=== PATIENT | male | born 1955 | race Caucasian/White ===

== ENCOUNTER 2023-09-01 09:00 | Outpatient (OUT) | payer MEDICARE, SELFPAY ==
[2023-09-02 04:07] LABS: PSA, Free 2.09 ng/mL
== END 2023-09-01 09:01 | disposition home or self-care (01) ==
LOC: LAB 09:05
PROVIDERS: Visit Provider Physician Assistant
DX: R97.20 Elevated prostate specific antigen [PSA] (principal)
CPT/HCPCS: 36415; 84153; 84154

== ENCOUNTER 2024-03-18 09:15 | Outpatient (OUT) | payer MEDICARE, SELFPAY ==
[2024-03-18 09:46] LABS: Basophils Percent Auto 0.4 % (0.2-2.0); Eosinophils Absolute Auto 0.1 10^3/uL (0.0-0.7); Eosinophils Percent Auto 2.2 % (0.9-7.0); Hematocrit 41.8 % (42.0-54.0); Immature Granulocytes Abs Auto 0.03 10^3/uL (0.00-0.03); Immature Granulocytes Pct Auto 0.6 % (0.0-0.5); Lymphocytes Absolute Auto 1.6 10^3/uL (1.2-3.8); Lymphocytes Percent Auto 31.2 % (20.5-60.0); Mean Corpuscular HGB Conc 31.1 g/dL (29.9-35.2); Mean Corpuscular Hemoglobin 28.2 pg (25.9-34.0); Mean Corpuscular Volume 90.7 fL (80.0-94.0); Mean Platelet Volume 10.7 fL (9.5-13.5); Monocytes Absolute Auto 0.4 10^3/uL (0.3-0.8); Monocytes Percent Auto 8.1 % (1.7-12.0); Neutrophils Absolute Auto 2.9 10^3/uL (1.4-6.5); Neutrophils Percent Auto 57.5 % (43.0-75.0); Platelet Count 210 10^3/uL (150-450); Red Blood Count 4.61 10^6/uL (4.70-6.10); White Blood Count 5.1 10^3/uL (4.0-11.0)
[2024-03-18 10:16] LABS: Alanine Aminotransferase 23 U/L (16-63); Albumin Level 3.5 g/dL (3.4-5.0); Alkaline Phosphatase 63 U/L (46-116); Anion Gap 12.2; Aspartate Amino Transferase 16 U/L (15-37); BUN Creatinine Ratio 11.2; Bilirubin Total 0.5 mg/dL (0.2-1.0); Calcium 9.1 mg/dL (8.5-10.1); Carbon Dioxide 29.8 mmol/L (21.0-32.0); Chloride 102 mmol/L (98-107); Chol HDL Ratio 3.7; Cholesterol 166 mg/dL (<=200); Estimated GFR (African America >60 (>=60 mL/min/1.73m^2); Estimated GFR (Non-African Ame 53 (>=60 mL/min/1.73m^2); Globulin 3.6 g/dL; Glucose 180 mg/dL (74-106); HDL Cholesterol 45 mg/dL (40-60); Sodium 140 mmol/L (136-145); Total Protein 7.1 g/dL (6.4-8.2); Triglycerides 317 mg/dL (<=150); VLDL CHOLESTEROL 63.4 mg/dL
== END 2024-03-18 09:16 | disposition home or self-care (01) ==
LOC: LAB 09:18
PROVIDERS: Visit Provider Nurse Practitioner
DX: E78.00 Pure hypercholesterolemia, unspecified (principal); I10 Essential (primary) hypertension
CPT/HCPCS: 36415; 80053; 80061; 85025

== ENCOUNTER 2024-04-06 08:47 | Outpatient (OUT) | payer MEDICARE, SELFPAY ==
[2024-04-07 04:07] LABS: PSA, Free 2.14 ng/mL; Prostate Specific Ag 4.2 ng/mL (0.0-4.0)
== END 2024-04-06 08:48 | disposition home or self-care (01) ==
LOC: LAB 08:50
PROVIDERS: Visit Provider Physician Assistant
DX: R97.20 Elevated prostate specific antigen [PSA] (principal)
CPT/HCPCS: 36415; 84153; 84154

== ENCOUNTER 2024-05-24 08:19 | Outpatient (OUT) | payer MEDICARE, SELFPAY ==
--- OUTSIDE RECORDS SUMMARY | 2024-05-24 08:30 | XMS_ITS | CCD ---
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 condition. If the prostate enlarges away from the urethra, urine flow will not be blocked. If it enlarges toward the urethra and compresses it, there will be problems passing urine. What increases the risk? This condition is more likely to develop in men older than 50 years. What are the signs or symptoms? Symptoms of this condition include: ? Getting up often during the night to urinate. ? Needing to urinate frequently during the day. ? Difficulty starting urine flow. ? Decrease in size and strength of your urine stream. ? Leaking (dribbling) after urinating. ? Inability to pass urine. This needs immediate treatment. ? Inability to completely empty your bladder. ? Pain when you pass urine. This is more common if there is also an infection. ? Urinary tract infection (UTI). How is this diagnosed? This condition is diagnosed based on your medical history, a physical exam, and your symptoms. Tests will also be done, such as: ? A post-void bladder scan. This measures any amount of urine that may remain in your bladder after you finish urinating. ? A digital rectal exam. In a rectal exam, your health care provider checks your prostate by putting a lubricated, gloved finger into your rectum to feel the back of your prostate gland. This exam detects the size of your gland and any abnormal lumps or growths. ? An exam of your urine (urinalysis). ? A prostate specific antigen (PSA) screening. This is a blood test used to screen for prostate cancer. ? An ultrasound. This test uses sound waves to electronically produce a picture of your prostate gland. Your health care provider may refer you to a specialist in kidney and prostate diseases (urologist). How is this treated? Once symptoms begin, your health care provider will monitor your condition (active surveillance or watchful waiting). Treatment for this condition will depend on the severity of your condition. Treatment may include: ? Observation and yearly exams. This may be the only treatment needed if your condition and symptoms are mild. ? Medicines to relieve your symptoms, including: ? Medicines to shrink the prostate. ? Medicines to relax the muscle of the prostate. ? Surgery in severe cases. Surgery may include: ? Prostatectomy. In this procedure, the prostate tissue is removed completely through an open incision or with a laparoscope or robotics. ? Transurethral resection of the prostate (TURP). In this procedure, a tool is inserted through the opening at the tip of the penis (urethra). It is used to cut away tissue of the inner core of the prostate. The pieces are removed through the same opening of the penis. This removes the blockage. ? Transurethral incision (TUIP). In this procedure, small cuts are made in the prostate. This lessens the prostate's pressure on the urethra. ? Transurethral microwave thermotherapy (TUMT). This procedure uses microwaves to create heat. The heat destroys and removes a small amount of prostate tissue. ? Transurethral needle ablation (TUNA). This procedure uses radio frequencies to destroy and remove a small amount of prostate tissue. ? Interstitial laser coagulation (ILC). This procedure uses a laser to destroy and remove a small amount of prostate tissue. ? Transurethral electrovaporization (TUVP). This procedure uses electrodes to destroy and remove a small amount of prostate tissue. ? Prostatic urethral lift. This procedure inserts an implant to push the lobes of the prostate away from the urethra. Follow these instructions at home: ? Take wphu-yno-itueenu and prescription medicines only as told by your health care provider. ? Monitor your symptoms for any changes. Contact your health care provider with any changes. ? Avoid drinking large amounts of liquid before going to bed or out in public. ? Avoid or reduce how much caffeine or alcohol you drink. ? Give yourself time when you urinate. ? Keep all follow-up visits. This is important. Contact a health care provider if: ? You have unexplained back pain. ? Your symptoms do not get better with treatment. ? You develop side effects from the medicine (more content not included)... Normal [facility] Urology Office/Clinic Noteon 03-04-2023 Urology Office/Clinic Note Chief Complaint 6 month with PSA HPI Staff 5m male here for 6 month with PSA. Pt. did not get PSA done. DX: Elevated PSA, BPH & Prostatitis. *Tamsulosin 0.4mg qd therapy. Select MDX done 08/22/21, MRI done 01/22/22. Previous PSA 4.65 with 67% done 06/14/22. Dysuria: no Incomplete bladder emptying: no Hematuria: UA show trace today Frequency: 2-3 hours Urgency: no Nocturia: 2x's Stream: good stream Post void dripping: no Wearing pads/ Depends: no Urge incontinence: no Stress incontinence: no Incontinence without Sensory Awareness: no Abdominal pain: no Flank pain: no History of Present Illness staff HPI reviewed and agree. Review of Systems PHQ Score Initial Depression Screen Score: 0 SCORE no fever, chills, malaise, myalgia. no rash/lesions. no chest pain, palpitations, or SOB. no abdominal pain, nausea, vomiting. no unilateral calf swelling, redness, pain Physical Exam Vitals & Measurements HT: 75 in HT: 190 cm WT: 116 kg WT: 255.2 lb BMI: 32.13 General: nontoxic, NAD Mouth: moist mucosa Lungs: normal respiratory effort Cardio: regular rate, good distal perfusion Abdomen: nondistended, no suprapubic distention or tenderness, no CVA tenderness Neurologic: Grossly normal Skin: No rashes or suspicious lesions CARL: benign. no asymmetry, induration, nodules. Assessment/Plan ULI 25. 1. Elevated PSA (R97.20: Elevated prostate specific antigen [PSA]) PSA 06/14/22 - 4.65 & 67% 01/03/22- 3.5 & 43.7% (post abx), PSA density 0.02 09/25/21- 6.2 & 29.7% 06/13/21- 4.620 & 67% Select MDX 08/22/21 positive (51%, 23%) No known family hx of prostate cancer Prior CARL neg MRI prostate 01/22/22 at [facility] [place] showed pt prostate volume 154mL and no MRI evidence of prostate malignancy. Pt did not have PSA drawn for today's appointment. Will order to be done within the next few days. Call w results. -If stable, will follow up in the summer w/ repeat PSA FT. -If increased, we discussed repeating prostate MRI vs proceed w prostate biopsy. Pt not sure how he would like to proceed. Wants to think about it and depends how significant PSA changes. 2. BPH (benign prostatic hyperplasia) (N40.0: Benign prostatic hyperplasia without lower urinary tract symptoms) IPSS 3. Pt is taking tamsulosinand is _with overall symptom control. Pt is experiencing noside effects. We discussed current dose and optional changes: increasing tamsulosin to BID adding an additional agent such as finasteride/dutasteride I discussed with the patient the different surgical treatment options for bladder outlet obstruction including TURP, Rezum, and Urolift. The patient prefers to continue the BPH medications at this time. -Pt prefers to continue current regimen with no changes at this time. 3. History of prostatitis (Z87.438: Personal history of other diseases of male genital organs) treated w 6 wks abx for chronic prostatitis fall 2021 w improvement noted after finishing medication. asymptomatic. UA today shows trace-intact blood. Follow-up With When Contact Information LORETTA COCHRAN, ADRIANA Donovan, URL [address] [place] [address] Additional Instructions: 6 months w/ PSA FT Patient Education Benign Prostatic Hyperplasia Documentation recorded by the benjamin Prince accurately reflects the services(s) I performed and decisions made by me. Authenticated by Adriana Bustamante PA-C on 03/04/2023 17:55:49. ISarah, personally scribed for Adriana Bustamante PA-C on 03/04/2023 14:54:55. . Problem List/Past Medical History Ongoing Anticoagulated BPH (benign prostatic hyperplasia) Diabetes 1.5, managed as type 2 Elevated PSA Glaucoma Heart murmur High cholesterol History of prostatitis Hypertension Nocturia Prostatitis Historical No qualifying data Procedure/Surgical History Hernia. Medications amLODIPine 10 mg Tab atorvastatin 10 mg Tab carvedilol 6.25 mg Tab Eliquis 5 mg oral tablet fenofibrate 145 mg Tab Flomax 0.4 mg Cap, 0.4 mg= 1 cap(s), Oral, Daily, 6 refills hydrochlorothiazide-losar martínez 25 mg-100 mg Tab latanoprost Opth 0.005% Ritika metformin 750 mg oral tablet, extended release Allergies No Known Medication Allergies Social History Tobacco - Denies Tobacco Use, 08/22/2021 Never (less than 100 in lifetime) Tobacco Use:. Never Smokeless Tobacco Use:. Household tobacco concerns: No., 08/06/2022 Family History Diabetes mellitus type 2: Father. High blood pressure: Father. High cholesterol: Father. Immunizations Vaccine Date Status influenza virus vaccine, inactivated 01/2023 Recorded pneumococcal 20-valent conjugate vaccine 06/18/2022 Recorded influenza virus vaccine, inactivated 12/05/2021 Recorded SARS-CoV-2 (COVID-19) [id number] 12/05/2021 Recorded diphtheria/pertussis, acel/tetanus adult 06/14/2021 Recorded pneumococcal 13-valent vaccine 03/15/19 (more content not included)... Normal [facility] Comment on above: Result Comment: Elec tronically Signed By: ADRIANA BUSTAMANTE PA-C\.br\Date and Time Signed: 03/04/23 17:55 EST\.br\Electronically Co-Signed By: Sarah Prince\.br\Date and Time Co-Signed: 03/04/23 14:55 EST Glucose Glucometer (BldC) [M ass/Vol]Ordered By: Asim Dodge on 02-26-2023 Glucose [Mass/Vol] 157 mg/dL [facility] Comment on above: Random Glucose Refer ence Range is dependent on time and content of last meal. Glucose of more than 200 mg/dL in a nonstressed, ambulatory subject supports the diagnosis of Diabetes Mellitus. Glucose Poct Glucometerson 0 02-26-2023 Commemt1 Glu2: Cleaned Meter Normal [facility] Comment on above: Result Comment: PERF ORMED BY: [facility] [address] [place] [address] PATHOLOGIST FRUIT PRESERVER CONRAD PRASAD M.D. Performed By: #### G MICKY #### Point of Care testing , Glucose [Mass/Vol] 157 mg/dL [facility] Comment on above: Result Comment: [place] Glucose Reference Range is dependent on time and content of last meal. Glucose of more than 200 mg/dL in a nonstressed, ambulatory subject supports the diagnosis of Diabetes Mellitus. Performed By: #### G LULS #### Point of Care testing , No Panel InformationOrdered By: Asim Dodge on 02-26-2023 Bedside Glucose Comment Glu2: cleaned meter [facility] A1C HEMOGLOBINon 12-26-2022 HbA1c (Bld) [Mass fraction] 7.3 % [employer] [facility] Other HbA1c (Bld) [Mass fraction]o n 12-26-2022 A1C HEMOGLOBIN [facility] PFSweb Other Alanine aminotransferase [En zymatic activity/volume] in Serum or PlasmaOrdered By: Alyse Isbell on 12-23-2022 ALT [Catalytic activity/Vol] 19 U/L 7-52 [facility] Albumin [Mass/volume] in Ser um or Plasma by Bromocresol green (BCG) dye binding methoOrdered By: Alyse Isbell on 12-23-2022 Albumin BCG dye [Mass/Vol] 4.5 g/dL 3.5-5.7 [facility] Alkaline phosphatase [Enzyma tic activity/volume] in Serum or PlasmaOrdered By: Alyse Isbell on 12-23-2022 ALP [Catalytic activity/Vol] 53 U/L 34-104 [facility] Aspartate aminotransferase [ Enzymatic activity/volume] in Serum or PlasmaOrdered By: Alyse Isbell on 12-23-2022 AST [Catalytic activity/Vol] 17 U/L 13-39 [facility] Basophils Auto (Bld) [#/Vol] Ordered By: Alyse Isbell on 12-23-2022 Basophils (Bld) [#/Vol] 0.0 10*3/uL 0.0-0.2 [facility] Basophils/100 WBC Auto (Bld) Ordered By: Alyse Isbell on 12-23-2022 Basophils/100 WBC (Bld) 0.5 % . [facility] Bilirubin.total [Mass/volume ] in Serum or PlasmaOrdered By: Alyse Isbell on 12-23-2022 Bilirubin [Mass/Vol] 0.7 mg/dL 0.3-1.0 [facility] Calcium [Mass/volume] in Ser um or PlasmaOrdered By: Alyse Isbell on 12-23-2022 Calcium [Mass/Vol] 9.8 mg/dL 8.6-10.3 [facility] Carbon dioxide, total [Moles /volume] in Serum or PlasmaOrdered By: Alyse Isbell on 12-23-2022 CO2 [Moles/Vol] 30.1 mmol/L 21.0-31.0 [facility] Chloride [Moles/volume] in S dez or PlasmaOrdered By: Alyse Isbell on 12-23-2022 Chloride [Moles/Vol] 102 mmol/L 98-107 [facility] Cholesterol [Mass/volume] in Serum or PlasmaOrdered By: Alyse Isbell on 12-23-2022 Cholesterol [Mass/Vol] 151 mg/dL 140-200 [facility] Comment on above: Chol less than 200 m g/dl low riskChol 201-239 mg/dl borderline riskChol 240 mg/dl and greater high risk Cholesterol in LDL Calc [Mas s/Vol]Ordered By: Alyse Isbell on 12-23-2022 Cholesterol in LDL [Mass/Vol] 39 mg/dL 0-100 [facility] Comment on above: LDL ATP III CLASSIFI CATIONLDL less than 100 mg/dL OptimalLDL 100-129 mg/dL Near or above optimalLDL 130-159 mg/dL Borderline highLDL 160-189 mg/dL HighLDL greater than 189 mg/dL Very high Cholesterol in VLDL Calc [Ma ss/Vol]Ordered By: Alyse Isbell on 12-23-2022 Cholesterol in VLDL [Mass/Vol] 70 mg/dL [facility] Complete Blood Count Auto Di ffon 12-23-2022 Basophils (Bld) [#/Vol] 0.0 10*3/uL Normal 0.0-0.2 [facility] Comment on above: Order Comment: Reaso n for Exam Medicare annual wellness visit, subsequent;Type 2 diabetes m Result Comment: PERF ORMED BY: [facility] [address] [place] [address] PATHOLOGIST FRUIT PRESERVER CONRAD PRASAD M.D. Performed By: #### C BC, CMP, LIPID #### [facility] [address] [place] [address] [place] Basophils/100 WBC (Bld) 0.5 % Normal . [facility] Comment on above: Order Comment: Reaso n for Exam Medicare annual wellness visit, subsequent;Type 2 diabetes m Performed By: #### C BC, CMP, LIPID #### [facility] [address] [place] [id number] [place] Eosinophils (Bld) [#/Vol] 0.1 10*3/uL Normal 0.0-0.45 [facility] Comment on above: Order Comment: Reaso n for Exam Medicare annual wellness visit, subsequent;Type 2 diabetes m Performed By: #### C BC, CMP, LIPID #### [facility] [address] [place] [address] [place] Eosinophils/100 WBC (Bld) 1.3 % Normal . [facility] Comment on above: Order Comment: Reaso n for Exam Medicare annual wellness visit, subsequent;Type 2 diabetes m Performed By: #### C BC, CMP, LIPID #### [facility] [address] [place] [address] [place] Erythrocyte distribution width (RBC) [Ratio] 14.6 % Normal 12.0-14.8 [facility] Comment on above: Order Comment: Reaso n for Exam Medicare annual wellness visit, subsequent;Type 2 diabetes m Performed By: #### C BC, CMP, LIPID #### [facility] [address] [place] [address] [place] Hematocrit (Bld) [Volume fraction] 41.5 % Normal 38.8-50.0 [facility] Comment on above: Order Comment: Reaso n for Exam Medicare annual wellness visit, subsequent;Type 2 diabetes m Performed By: #### C BC, CMP, LIPID #### [facility] [address] [place] [id number] [place] Hemoglobin (Bld) [Mass/Vol] 13.6 g/dL Normal 13.0-17.0 [facility] Comment on above: Order Comment: Reaso n for Exam Medicare annual wellness visit, subsequent;Type 2 diabetes m Performed By: #### C BC, CMP, LIPID #### [facility] [address] [place] [address] [place] Lymphocytes (Bld) [#/Vol] 1.6 10*3/uL Normal 1.00-4.8 [facility] Comment on above: Order Comment: Reaso n for Exam Medicare annual wellness visit, subsequent;Type 2 diabetes m Performed By: #### C BC, CMP, LIPID #### [facility] [address] [place] [address] [place] Lymphocytes/100 WBC (Bld) 29.1 % Normal . [facility] Comment on above: Order Comment: Reaso n for Exam Medicare annual wellness visit, subsequent;Type 2 diabetes m Performed By: #### C BC, CMP, LIPID #### [facility] [address] MCH (RBC) [Entitic mass] 29.1 pg Normal 27.5-35.2 [facility] Comment on above: Order Comment: Reaso n for Exam Medicare annual wellness visit, subsequent;Type 2 diabetes m Performed By: #### C BC, CMP, LIPID #### [facility] [address] [place] [address] [place] MCV (RBC) [Entitic vol] 88.8 fL Normal 83.5-101 [facility] Comment on above: Order Comment: Reaso n for Exam Medicare annual wellness visit, subsequent;Type 2 diabetes m Performed By: #### C BC, CMP, LIPID #### [facility] [address] [place] [address] [place] Mean Corpuscular HGB Conc 32.8 g/dL Normal 32.5-35.6 [facility] Comment on above: Order Comment: Reaso n for Exam Medicare annual wellness visit, subsequent;Type 2 diabetes m Performed By: #### C BC, CMP, LIPID #### [facility] [address] [place] [address] [place] Monocytes (Bld) [#/Vol] 0.4 10*3/uL Normal 0.0-0.8 [facility] Comment on above: Order Comment: Reaso n for Exam Medicare annual wellness visit, subsequent;Type 2 diabetes m Performed By: #### C BC, CMP, LIPID #### [facility] [address] [place] [id number] [place] Monocytes/100 WBC (Bld) 7.6 % Normal . [facility] Comment on above: Order Comment: Reaso n for Exam Medicare annual wellness visit, subsequent;Type 2 diabetes m Performed By: #### C BC, CMP, LIPID #### [facility] [address] [place] [id number] [place] Neutrophils (Bld) [#/Vol] 3.4 10*3/uL Normal 1.8-7.7 [facility] Comment on above: Order Comment: Reaso n for Exam Medicare annual wellness visit, subsequent;Type 2 diabetes m Performed By: #### C BC, CMP, LIPID #### [facility] [address] [place] [id number] [place] Neutrophils/100 WBC (Bld) 61.5 % Normal . [facility] Comment on above: Order Comment: Reaso n for Exam Medicare annual wellness visit, subsequent;Type 2 diabetes m Performed By: #### C BC, CMP, LIPID #### [facility] [address] [place] [id number] [place] NRBC% 0.1 /100{WBC} Normal 0-0.5 [facility] Comment on above: Order Comment: Reaso n for Exam Medicare annual wellness visit, subsequent;Type 2 diabetes m Performed By: #### C BC, CMP, LIPID #### [facility] [address] [place] [id number] [place] Platelet mean volume (Bld) [Entitic vol] 9.4 fL Normal 6.6-10.1 [facility] Comment on above: Order Comment: Reaso n for Exam Medicare annual wellness visit, subsequent;Type 2 diabetes m Performed By: #### C BC, CMP, LIPID #### [facility] [address] [place] [address] [place] Platelets (Bld) [#/Vol] 203 10*3/uL Normal 150-450 [facility] Comment on above: Order Comment: Reaso n for Exam Medicare annual wellness visit, subsequent;Type 2 diabetes m Performed By: #### C BC, CMP, LIPID #### [facility] [address] RBC (Bld) [#/Vol] 4.67 10*6/uL Normal 3.90-5.60 [facility] Comment on above: Order Comment: Reaso n for Exam Medicare annual wellness visit, subsequent;Type 2 diabetes m Performed By: #### C BC, CMP, LIPID #### [facility] [address] WBC (Bld) [#/Vol] 5.5 10*3/uL Normal 4.1-10.5 [facility] Comment on above: Order Comment: Reaso n for Exam Medicare annual wellness visit, subsequent;Type 2 diabetes m Performed By: #### C BC, CMP, LIPID #### [facility] [address] Comprehensive Metabolic Pane odilon 12-23-2022 Albumin [Mass/Vol] 4.5 g/dL Normal 3.5-5.7 [facility] Comment on above: Order Comment: Reaso n for Exam Medicare annual wellness visit, subsequent;Type 2 diabetes m Performed By: #### C BC, CMP, LIPID #### [facility] [address] Albumin/Globulin [Mass ratio] 1.8 {ratio} Normal [facility] Comment on above: Order Comment: Reaso n for Exam Medicare annual wellness visit, subsequent;Type 2 diabetes m Performed By: #### C BC, CMP, LIPID #### [facility] [address] [place] [address] [place] ALP [Catalytic activity/Vol] 53 U/L Normal 34-104 [facility] Comment on above: Order Comment: Reaso n for Exam Medicare annual wellness visit, subsequent;Type 2 diabetes m Performed By: #### C BC, CMP, LIPID #### [facility] [address] ALT [Catalytic activity/Vol] 19 U/L Normal 7-52 [facility] Comment on above: Order Comment: Reaso n for Exam Medicare annual wellness visit, subsequent;Type 2 diabetes m Performed By: #### C BC, CMP, LIPID #### [facility] [address] Anion gap [Moles/Vol] 11.3 mmol/L Normal 6.0-15.0 [facility] Comment on above: Order Comment: Reaso n for Exam Medicare annual wellness visit, subsequent;Type 2 diabetes m Performed By: #### C BC, CMP, LIPID #### [facility] [address] [place] [address] [place] AST [Catalytic activity/Vol] 17 U/L Normal 13-39 [facility] Comment on above: Order Comment: Reaso n for Exam Medicare annual wellness visit, subsequent;Type 2 diabetes m Performed By: #### C BC, CMP, LIPID #### [facility] [address] Bilirubin [Mass/Vol] 0.7 mg/dL Normal 0.3-1.0 [facility] Comment on above: Order Comment: Reaso n for Exam Medicare annual wellness visit, subsequent;Type 2 diabetes m Performed By: #### C BC, CMP, LIPID #### [facility] [address] Calcium [Mass/Vol] 9.8 mg/dL Normal 8.6-10.3 [facility] Comment on above: Order Comment: Reaso n for Exam Medicare annual wellness visit, subsequent;Type 2 diabetes m Performed By: #### C BC, CMP, LIPID #### [facility] [address] [place] [address] [place] Chloride [Moles/Vol] 102 mmol/L Normal 98-107 [facility] Comment on above: Order Comment: Reaso n for Exam Medicare annual wellness visit, subsequent;Type 2 diabetes m Performed By: #### C BC, CMP, LIPID #### [facility] [address] [place] [id number] [place] CO2 [Moles/Vol] 30.1 mmol/L Normal 21.0-31.0 [facility] Comment on above: Order Comment: Reaso n for Exam Medicare annual wellness visit, subsequent;Type 2 diabetes m Performed By: #### C BC, CMP, LIPID #### [facility] [address] [place] [id number] [place] Creatinine [Mass/Vol] 1.22 mg/dL Normal 0.70-1.30 [facility] Comment on above: Order Comment: Reillyo n for Exam Medicare annual wellness visit, subsequent;Type 2 diabetes m Performed By: #### C BC, CMP, LIPID #### [facility] [address] [place] [id number] [place] GFR/1.73 sq M.predicted MDRD (S/P/Bld) [Vol rate/Area] mL/min/{1.73_m2} [facility] Comment on above: Order Comment: Reaso n for Exam Medicare annual wellness visit, subsequent;Type 2 diabetes m Performed By: #### C BC, CMP, LIPID #### [facility] [address] [place] [id number] [place] Globulin (S) [Mass/Vol] 2.5 g/dL [facility] Comment on above: Order Comment: Reaso n for Exam Medicare annual wellness visit, subsequent;Type 2 diabetes m Performed By: #### C BC, CMP, LIPID #### [facility] [address] [place] [id number] [place] Glucose [Mass/Vol] 154 mg/dL High 70-100 [facility] Comment on above: Order Comment: Reillyo n for Exam Medicare annual wellness visit, subsequent;Type 2 diabetes m Result Comment: [facility] Glucose Reference Range is dependent on time and content of last meal. Glucose of more than 200 mg/dL in a nonstressed, ambulatory subject supports the diagnosis of Diabetes Mellitus. ADA recommended reference range Performed By: #### C BC, CMP, LIPID #### [facility] [address] [id number] [place] Potassium [Moles/Vol] 4.4 mmol/L Normal 3.5-5.1 [facility] Comment on above: Order Comment: Reillyo n for Exam Medicare annual wellness visit, subsequent;Type 2 diabetes m Performed By: #### C BC, CMP, LIPID #### [facility] [address] [id number] [place] Protein [Mass/Vol] 7.0 g/dL Normal 6.4-8.9 [facility] Comment on above: Order Comment: Reaso n for Exam Medicare annual wellness visit, subsequent;Type 2 diabetes m Performed By: #### C BC, CMP, LIPID #### [facility] [address] [place] [address] [place] Sodium [Moles/Vol] 139 mmol/L Normal 136-145 [facility] Comment on above: Order Comment: Reaso n for Exam Medicare annual wellness visit, subsequent;Type 2 diabetes m Performed By: #### C BC, CMP, LIPID #### [facility] [address] [place] [address] [place] Urea nitrogen [Mass/Vol] 21 mg/dL Normal 7-25 [facility] Comment on above: Order Comment: Reaso n for Exam Medicare annual wellness visit, subsequent;Type 2 diabetes m Performed By: #### C BC, CMP, LIPID #### [facility] [address] [place] [address] [place] Creatinine [Mass/volume] in Serum or PlasmaOrdered By: Alyse Isbell on 12-23-2022 Creatinine [Mass/Vol] 1.22 mg/dL 0.70-1.30 [facility] Eosinophils Auto (Bld) [#/Vo l]Ordered By: Alyse Isbell on 12-23-2022 Eosinophils (Bld) [#/Vol] 0.1 10*3/uL 0.0-0.45 [facility] Eosinophils/100 WBC Auto (Bl d)Ordered By: Alyes Isbell on 12-23-2022 Eosinophils/100 WBC (Bld) 1.3 % . [facility] Erythrocyte distribution wid th Auto (RBC) [Ratio]Ordered By: Alyse Isbell on 12-23-2022 Erythrocyte distribution width (RBC) [Ratio] 14.6 % 12.0-14.8 [facility] Globulin Calc (S) [Mass/Vol] Ordered By: Alyse Isbell on 12-23-2022 Globulin (S) [Mass/Vol] 2.5 g/dL [facility] Glucose [Mass/volume] in Ser um or PlasmaOrdered By: Alyse Isbell on 12-23-2022 Glucose [Mass/Vol] 154 mg/dL 70-100 [facility] Comment on above: ADA recommended refe rence rangeRandom Glucose Reference Range is dependent on time and content of last meal. Glucose of more than 200 mg/dL in a nonstressed, ambulatory subject supports the diagnosis of Diabetes Mellitus. Hematocrit Auto (Bld) [Volum e fraction]Ordered By: Alyse Isbell on 12-23-2022 Hematocrit (Bld) [Volume fraction] 41.5 % 38.8-50.0 [facility] Hemoglobin [Mass/volume] in BloodOrdered By: Alyse Isbell on 12-23-2022 Hemoglobin (Bld) [Mass/Vol] 13.6 g/dL 13.0-17.0 [facility] Leukocytes [#/volume] correc aimee for nucleated erythrocytes in Blood by Automated counOrdered By: Alyse Isbell on 12-23-2022 WBC corrected for nucl RBC Auto (Bld) [#/Vol] 5.5 10*3/uL 4.1-10.5 [facility] Lipid Panelon 12-23-2022 Cholesterol [Mass/Vol] 151 mg/dL Normal 140-200 [facility] Comment on above: Order Comment: Korey major for Exam Medicare annual wellness visit, subsequent;Type 2 diabetes m Result Comment: Chol less than 200 mg/dl low risk Chol 201-239 mg/dl borderline risk Chol 240 mg/dl and greater high risk Performed By: #### C BC, CMP, LIPID #### [facility] [address] [id number] [place] Cholesterol in HDL [Mass/Vol] 42 mg/dL Normal 23-92 [facility] Comment on above: Order Comment: Korey major for Exam Medicare annual wellness visit, subsequent;Type 2 diabetes m Result Comment: HDL CHOL ATP-III CLASSIFICATION Cardiovascular Risk HDL > or equal to 60 mg/dL LOW HDL < 40 mg/dL HIGH Performed By: #### C BC, CMP, LIPID #### [facility] [address] [place] [address] [place] Cholesterol.total/Chol esterol in HDL [Mass ratio] 3.6 {ratio} Normal <5.0 [facility] Comment on above: Order Comment: Reaso n for Exam Medicare annual wellness visit, subsequent;Type 2 diabetes m Result Comment: PERF ORMED BY: [place] [address] PATHOLOGIST FRUIT PRESERVER CONRAD PRASAD M.D. Performed By: #### C BC, CMP, LIPID #### [facility] [address] [place] [address] LDL Cholesterol,Calculated 39 mg/dL Normal 0-100 [facility] Comment on above: Order Comment: Reaso n for Exam Medicare annual wellness visit, subsequent;Type 2 diabetes m Result Comment: LDL ATP III CLASSIFICATION LDL less than 100 mg/dL Optimal LDL 100-129 mg/dL Near or above optimal LDL 130-159 mg/dL Borderline high LDL 160-189 mg/dL High LDL greater than 189 mg/dL Very high Performed By: #### C BC, CMP, LIPID #### [facility] [address] [place] [address] Triglyceride w/Reflex 351 mg/dL High 0-149 [facility] Comment on above: Order Comment: Reaso n for Exam Medicare annual wellness visit, subsequent;Type 2 diabetes m Result Comment: TRIG ATP III CLASSIFICATION TRIG less than 150 mg/dL Normal TRIG 150-199 mg/dL Borderline high TRIG 200-500 mg/dL High TRIG greater than 500 mg/dL Very high Standard traceable to the Center for Disease Conrtrol and Prevention (CDC) test method. Performed By: #### C BC, CMP, LIPID #### [facility] [address] [place] [address] VLDL CHOLESTEROL 70 mg/dL Normal [facility] Comment on above: Order Comment: Reaso n for Exam Medicare annual wellness visit, subsequent;Type 2 diabetes m Performed By: #### C BC, CMP, LIPID #### [facility] [address] [place] [address] [place] Lymphocytes Auto (Bld) [#/Vo l]Ordered By: Alyse Isbell on 12-23-2022 Lymphocytes (Bld) [#/Vol] 1.6 10*3/uL 1.00-4.8 [facility] Lymphocytes/100 WBC Auto (Bl d)Ordered By: Alyse Isbell on 12-23-2022 Lymphocytes/100 WBC (Bld) 29.1 % . [facility] MCH Auto (RBC) [Entitic mass ]Ordered By: Alyse Isbell on 12-23-2022 MCH (RBC) [Entitic mass] 29.1 pg 27.5-35.2 [facility] MCHC Auto (RBC) [Mass/Vol]Or dered By: Alyse Isbell on 12-23-2022 MCHC (RBC) [Mass/Vol] 32.8 g/dL 32.5-35.6 [facility] MCV Auto (RBC) [Entitic vol] Ordered By: Alyse Isbell on 12-23-2022 MCV (RBC) [Entitic vol] 88.8 fL 83.5-101 [facility] Monocytes Auto (Bld) [#/Vol] Ordered By: Alyse Isbell on 12-23-2022 Monocytes (Bld) [#/Vol] 0.4 10*3/uL 0.0-0.8 [facility] Monocytes/100 WBC Auto (Bld) Ordered By: Alyse Isbell on 12-23-2022 Monocytes/100 WBC (Bld) 7.6 % . [facility] Neutrophils Auto (Bld) [#/Vo l]Ordered By: Alyse Isbell on 12-23-2022 Neutrophils (Bld) [#/Vol] 3.4 10*3/uL 1.8-7.7 [facility] Neutrophils/100 WBC Auto (Bl d)Ordered By: Alyse Isbell on 12-23-2022 Neutrophils/100 WBC (Bld) 61.5 % . [facility] No Panel InformationOrdered By: Alyse Isbell on 12-23-2022 Estimated GFR (CKD-EPI) > 60.0 mL/Min [facility] Creatinine Clearance (Chem N/A [facility] Nucleated erythrocytes [Pres ence] in Blood by Automated countOrdered By: Alyse Isbell on 12-23-2022 Nucleated RBC Auto Ql (Bld) 0.1 /100{WBC} 0-0.5 [facility] Platelet mean volume Auto (B ld) [Entitic vol]Ordered By: Alyse Isbell on 12-23-2022 Platelet mean volume (Bld) [Entitic vol] 9.4 fL 6.6-10.1 [facility] Platelets Auto (Bld) [#/Vol] Ordered By: Alyse Isbell on 12-23-2022 Platelets (Bld) [#/Vol] 203 10*3/uL 150-450 [facility] Potassium [Moles/volume] in Serum or PlasmaOrdered By: Alyse Isbell on 12-23-2022 Potassium [Moles/Vol] 4.4 mmol/L 3.5-5.1 [facility] Protein [Mass/volume] in Ser um or PlasmaOrdered By: Alyse Isbell on 12-23-2022 Protein [Mass/Vol] 7.0 g/dL 6.4-8.9 [facility] RBC Auto (Bld) [#/Vol]Ordere d By: Alyse Isbell on 12-23-2022 RBC (Bld) [#/Vol] 4.67 10*6/uL 3.90-5.60 [facility] Serum or plasma albumin/glob ulin mass ratioOrdered By: Alyse Isbell on 12-23-2022 Albumin/Globulin [Mass ratio] 1.8 {ratio} [facility] Serum or plasma anion gap de terminationOrdered By: Alyse Isbell on 12-23-2022 Anion gap [Moles/Vol] 11.3 mmol/L 6.0-15.0 [facility] Serum or plasma high density lipoprotein (HDL) cholesterol measurementOrdered By: Alyse Isbell on 12-23-2022 Cholesterol in HDL [Mass/Vol] 42 mg/dL 23-92 [facility] Comment on above: HDL CHOL ATP-III CLA SSIFICATION Cardiovascular RiskHDL > or equal to 60 mg/dL LOWHDL < 40 mg/dL HIGH Serum or plasma total choles terol/high density lipoprotein (HDL) cholesterol mass ratOrdered By: Alyse Isbell on 12-23-2022 Cholesterol.total/Chol esterol in HDL [Mass ratio] 3.6 {ratio} <5.0 [facility] Sodium [Moles/volume] in Ser um or PlasmaOrdered By: Alyse Isbell on 12-23-2022 Sodium [Moles/Vol] 139 mmol/L 136-145 [facility] Triglyceride [Mass/volume] i n Serum or PlasmaOrdered By: Alyse Isbell on 12-23-2022 Triglyceride [Mass/Vol] 351 mg/dL 0-149 [facility] Comment on above: TRIG ATP III CLASSIF ICATIONTRIG less than 150 mg/dL NormalTRIG 150-199 mg/dL Borderline highTRIG 200-500 mg/dL High TRIG greater than 500 mg/dL Very highStandard traceable to the Center for Disease Conrtrol and Prevention (CDC) test method. Urea nitrogen [Mass/volume] in Serum or PlasmaOrdered By: Alyse Isbell on 12-23-2022 Urea nitrogen [Mass/Vol] 21 mg/dL 7-25 [facility] WBC Auto (Bld) [#/Vol]Ordere d By: Alyse Isbell on 12-23-2022 WBC (Bld) [#/Vol] 5.5 10*3/uL 4.1-10.5 [facility] Activated partial thrombopla stin time (aPTT) in platelet poor plasma by coagulation aOrdered By: Javad Stephens on 10-19-2022 aPTT Coag (PPP) [Time] 33.0 s 25.1-36.5 [facility] Basic Metabolic Panelon 09-25 Anion gap [Moles/Vol] 11.2 mmol/L Normal 6.0-15.0 [facility] Comment on above: Performed By: #### P TT, PT, BMP, CBC #### [facility] [address] [id number] [place] Calcium [Mass/Vol] 9.2 mg/dL Normal 8.6-10.3 [facility] Comment on above: Performed By: #### P TT, PT, BMP, CBC #### [facility] [address] [id number] [place] Chloride [Moles/Vol] 106 mmol/L Normal 98-107 [facility] Comment on above: Performed By: #### P TT, PT, BMP, CBC #### [facility] [address] CO2 [Moles/Vol] 25.2 mmol/L Normal 21.0-31.0 [facility] Comment on above: Performed By: #### P TT, PT, BMP, CBC #### [facility] [address] Creatinine [Mass/Vol] 1.23 mg/dL Normal 0.70-1.30 [facility] Comment on above: Performed By: #### P TT, PT, BMP, CBC #### [facility] [address] Creatinine Clr Calc Pharmacy 79.74 [facility] Comment on above: Result Comment: PERF ORMED BY: [place] [address] PATHOLOGIST FRUIT PRESERVER CONRAD PRASAD M.D. Performed By: #### P TT, PT, BMP, CBC #### [facility] [address] [place] [address] [place] GFR/1.73 sq M.predicted MDRD (S/P/Bld) [Vol rate/Area] mL/min/{1.73_m2} [facility] Comment on above: Performed By: #### P TT, PT, BMP, CBC #### [facility] [address] Glucose [Mass/Vol] 169 mg/dL High 70-100 [facility] Comment on above: Result Comment: [place] Glucose Reference Range is dependent on time and content of last meal. Glucose of more than 200 mg/dL in a nonstressed, ambulatory subject supports the diagnosis of Diabetes Mellitus. ADA recommended reference range Performed By: #### P TT, PT, BMP, CBC #### [facility] [address] Potassium [Moles/Vol] 4.4 mmol/L Normal 3.5-5.1 [facility] Comment on above: Performed By: #### P TT, PT, BMP, CBC #### [facility] [address] [id number] [facility] Sodium [Moles/Vol] 138 mmol/L Normal 136-145 [facility] Comment on above: Performed By: #### P TT, PT, BMP, CBC #### [facility] [address] [place] [address] [place] Urea nitrogen [Mass/Vol] 18 mg/dL Normal 7-25 [facility] Comment on above: Performed By: #### P TT, PT, BMP, CBC #### [facility] [address] [id number] [place] Basophils Auto (Bld) [#/Vol] Ordered By: Javad Stephens on 10-19-2022 Basophils (Bld) [#/Vol] 0.0 10*3/uL 0.0-0.2 [facility] Basophils/100 WBC Auto (Bld) Ordered By: Javad Stephens on 10-19-2022 Basophils/100 WBC (Bld) 0.4 % . [facility] Calcium [Mass/volume] in Ser um or PlasmaOrdered By: Javad Stephens on 10-19-2022 Calcium [Mass/Vol] 9.2 mg/dL 8.6-10.3 [facility] Carbon dioxide, total [Moles /volume] in Serum or PlasmaOrdered By: Javad Stephens on 10-19-2022 CO2 [Moles/Vol] 25.2 mmol/L 21.0-31.0 [facility] Chloride [Moles/volume] in S dez or PlasmaOrdered By: Javad Stephens on 10-19-2022 Chloride [Moles/Vol] 106 mmol/L 98-107 [facility] Complete Blood Count Auto Di ffon 10-19-2022 Basophils (Bld) [#/Vol] 0.0 10*3/uL Normal 0.0-0.2 [facility] Comment on above: Result Comment: PERF ORMED BY: [facility] [address] [id number] PATHOLOGIST FRUIT PRESERVER CONRAD PRASAD M.D. Performed By: #### P TT, PT, BMP, CBC #### [address] Basophils/100 WBC (Bld) 0.4 % Normal . [facility] Comment on above: Performed By: #### P TT, PT, BMP, CBC #### [address] Eosinophils (Bld) [#/Vol] 0.1 10*3/uL Normal 0.0-0.45 [facility] Comment on above: Performed By: #### P TT, PT, BMP, CBC #### [address] Eosinophils/100 WBC (Bld) 1.0 % Normal . [facility] Comment on above: Performed By: #### P TT, PT, BMP, CBC #### [address] Erythrocyte distribution width (RBC) [Ratio] 14.7 % Normal 12.0-14.8 [facility] Comment on above: Performed By: #### P TT, PT, BMP, CBC #### [address] Hematocrit (Bld) [Volume fraction] 39.1 % Normal 38.8-50.0 [facility] Comment on above: Performed By: #### P TT, PT, BMP, CBC #### [address] Hemoglobin (Bld) [Mass/Vol] 12.9 g/dL Low 13.0-17.0 [facility] Comment on above: Performed By: #### P TT, PT, BMP, CBC #### [address] Lymphocytes (Bld) [#/Vol] 0.8 10*3/uL Low 1.00-4.8 [facility] Comment on above: Performed By: #### P TT, PT, BMP, CBC #### [place] [address] [place] Lymphocytes/100 WBC (Bld) 15.0 % Normal . [facility] Comment on above: Performed By: #### P TT, PT, BMP, CBC #### [address] MCH (RBC) [Entitic mass] 28.9 pg Normal 27.5-35.2 [facility] Comment on above: Performed By: #### P TT, PT, BMP, CBC #### [address] MCV (RBC) [Entitic vol] 87.8 fL Normal 83.5-101 [facility] Comment on above: Performed By: #### P TT, PT, BMP, CBC #### [address] Mean Corpuscular HGB Conc 33.0 g/dL Normal 32.5-35.6 [facility] Comment on above: Performed By: #### P TT, PT, BMP, CBC #### [address] Monocytes (Bld) [#/Vol] 0.5 10*3/uL Normal 0.0-0.8 [facility] Comment on above: Performed By: #### P TT, PT, BMP, CBC #### [address] Monocytes/100 WBC (Bld) 19.72 % Normal 0.00-20.00 [facility] Comment on above: Performed By: #### P TT, PT, BMP, CBC #### [address] Monocytes/100 WBC (Bld) 8.5 % Normal . [facility] Comment on above: Performed By: #### P TT, PT, BMP, CBC #### [address] Neutrophils (Bld) [#/Vol] 4.0 10*3/uL Normal 1.8-7.7 [facility] Comment on above: Performed By: #### P TT, PT, BMP, CBC #### [address] Neutrophils/100 WBC (Bld) 75.1 % Normal . [facility] Comment on above: Performed By: #### P TT, PT, BMP, CBC #### [address] NRBC% 0.0 /100{WBC} Normal 0-0.5 [facility] Comment on above: Performed By: #### P TT, PT, BMP, CBC #### [address] Platelet mean volume (Bld) [Entitic vol] 8.6 fL Normal 6.6-10.1 [facility] Comment on above: Performed By: #### P TT, PT, BMP, CBC #### [address] Platelets (Bld) [#/Vol] 157 10*3/uL Normal 150-450 [facility] Comment on above: Performed By: #### P TT, PT, BMP, CBC #### [address] RBC (Bld) [#/Vol] 4.45 10*6/uL Normal 3.90-5.60 [facility] Comment on above: Performed By: #### P TT, PT, BMP, CBC #### [address] WBC (Bld) [#/Vol] 5.4 10*3/uL Normal 4.1-10.5 [facility] Comment on above: Performed By: #### P TT, PT, BMP, CBC #### [address] Creatinine [Mass/volume] in Serum or PlasmaOrdered By: Javad Stephens on 10-19-2022 Creatinine [Mass/Vol] 1.23 mg/dL 0.70-1.30 [facility] Eosinophils Auto (Bld) [#/Vo l]Ordered By: Javad Stephens on 10-19-2022 Eosinophils (Bld) [#/Vol] 0.1 10*3/uL 0.0-0.45 [facility] Eosinophils/100 WBC Auto (Bl d)Ordered By: Javad Stephens on 10-19-2022 Eosinophils/100 WBC (Bld) 1.0 % . [facility] Erythrocyte distribution wid th Auto (RBC) [Ratio]Ordered By: Javad Stephens on 10-19-2022 Erythrocyte distribution width (RBC) [Ratio] 14.7 % 12.0-14.8 [facility] Glucose [Mass/volume] in Ser um or PlasmaOrdered By: Javad Stephens on 10-19-2022 Glucose [Mass/Vol] 169 mg/dL 70-100 [facility] Comment on above: ADA recommended refe rence rangeRandom Glucose Reference Range is dependent on time and content of last meal. Glucose of more than 200 mg/dL in a nonstressed, ambulatory subject supports the diagnosis of Diabetes Mellitus. Hematocrit Auto (Bld) [Volum e fraction]Ordered By: Javad Stephens on 10-19-2022 Hematocrit (Bld) [Volume fraction] 39.1 % 38.8-50.0 [facility] Hemoglobin [Mass/volume] in BloodOrdered By: Javad Stephens on 10-19-2022 Hemoglobin (Bld) [Mass/Vol] 12.9 g/dL 13.0-17.0 [facility] INR in Platelet poor plasma by Coagulation assayOrdered By: Javad Stephens on 10-19-2022 INR Coag (PPP) [Relative time] 1.0 {INR} [facility] Comment on above: INR Therapeutic Rang e A) Pre- and Peroperative OAT started two weeks before surgery. NOT HIP SURGERY: 1.5 - 2.5 HIP SURGERY: 2 - 3B) Primary and secondary prevention of venous THROMBOSIS: 2 - 3C) Active venous thrombosis, pulmonary embolismand prevention of recurrent venous thrombosis: 2 - 3D) Prevention of arterial thromboembolismincluding patients with mechanical heart valves: 3 - 4.5 Laboratory - CoagulationOrde red By: Javad Stephens on 10-19-2022 PT Coag (PPP) [Time] 12.0 s 9.0-12.9 [facility] Leukocytes [#/volume] correc aimee for nucleated erythrocytes in Blood by Automated counOrdered By: Jvaad Stephens on 10-19-2022 WBC corrected for nucl RBC Auto (Bld) [#/Vol] 5.4 10*3/uL 4.1-10.5 [facility] Lymphocytes Auto (Bld) [#/Vo l]Ordered By: Javad Stephens on 10-19-2022 Lymphocytes (Bld) [#/Vol] 0.8 10*3/uL 1.00-4.8 [facility] Lymphocytes/100 WBC Auto (Bl d)Ordered By: Javad Stephens on 10-19-2022 Lymphocytes/100 WBC (Bld) 15.0 % . [facility] MCH Auto (RBC) [Entitic mass ]Ordered By: Javad Stephens on 10-19-2022 MCH (RBC) [Entitic mass] 28.9 pg 27.5-35.2 [facility] MCHC Auto (RBC) [Mass/Vol]Or dered By: Javad Stephens on 10-19-2022 MCHC (RBC) [Mass/Vol] 33.0 g/dL 32.5-35.6 [facility] MCV Auto (RBC) [Entitic vol] Ordered By: Javad Stephens on 10-19-2022 MCV (RBC) [Entitic vol] 87.8 fL 83.5-101 [facility] Monocyte distribution width [Entitic volume] in Blood by AutomatedOrdered By: Javad Stephens on 10-19-2022 Monocyte distribution width Auto (Bld) [Entitic vol] 19.72 % 0.00-20.00 [facility] Monocytes Auto (Bld) [#/Vol] Ordered By: Javad Stephens on 10-19-2022 Monocytes (Bld) [#/Vol] 0.5 10*3/uL 0.0-0.8 [facility] Monocytes/100 WBC Auto (Bld) Ordered By: Javad Stephens on 10-19-2022 Monocytes/100 WBC (Bld) 8.5 % . [facility] Neutrophils Auto (Bld) [#/Vo l]Ordered By: Javad Stephens on 10-19-2022 Neutrophils (Bld) [#/Vol] 4.0 10*3/uL 1.8-7.7 [facility] Neutrophils/100 WBC Auto (Bl d)Ordered By: Javad Stephens on 10-19-2022 Neutrophils/100 WBC (Bld) 75.1 % . [facility] No Panel InformationOrdered By: Javad Stephens on 10-19-2022 Estimated GFR (CKD-EPI) > 60.0 mL/Min [facility] Creatinine Clearance (Chem 79.74 [facility] Nucleated erythrocytes [Pres ence] in Blood by Automated countOrdered By: Javad Stephens on 10-19-2022 Nucleated RBC Auto Ql (Bld) 0.0 /100{WBC} 0-0.5 [facility] Partial Thromboplastin Timeo n 10-19-2022 aPTT Coag (Bld) [Time] 33.0 s Normal 25.1-36.5 [facility] Comment on above: Result Comment: PERF ORMED BY: [place] [address] PATHOLOGIST FRUIT PRESERVER CONRAD PRASAD M.D. Performed By: #### P TT, PT, BMP, CBC #### [address] Platelet mean volume Auto (B ld) [Entitic vol]Ordered By: Javad Stephens on 10-19-2022 Platelet mean volume (Bld) [Entitic vol] 8.6 fL 6.6-10.1 [facility] Platelets Auto (Bld) [#/Vol] Ordered By: Javad Stephens on 10-19-2022 Platelets (Bld) [#/Vol] 157 10*3/uL 150-450 [facility] Potassium [Moles/volume] in Serum or PlasmaOrdered By: Javad Stephens on 10-19-2022 Potassium [Moles/Vol] 4.4 mmol/L 3.5-5.1 [facility] Prothrombin Time INRon 10-19 INR Coag (PPP) [Relative time] 1.0 {INR} Normal [facility] Comment on above: Result Comment: INR Therapeutic Range A) Pre- and Peroperative OAT started two weeks before surgery. NOT HIP SURGERY: 1.5 - 2.5 HIP SURGERY: 2 - 3 B) Primary and secondary prevention of venous THROMBOSIS: 2 - 3 C) Active venous thrombosis, pulmonary embolism and prevention of recurrent venous thrombosis: 2 - 3 D) Prevention of arterial thromboembolism including patients with mechanical heart valves: 3 - 4.5 Performed By: #### P TT, PT, BMP, CBC #### [facility] [address] PT Coag (PPP) [Time] 12.0 s Normal 9.0-12.9 [facility] Comment on above: Performed By: #### P TT, PT, BMP, CBC #### [facility] [address] RBC Auto (Bld) [#/Vol]Ordere d By: Javad Stephens on 10-19-2022 RBC (Bld) [#/Vol] 4.45 10*6/uL 3.90-5.60 [facility] Serum or plasma anion gap de terminationOrdered By: Javad Stephens on 10-19-2022 Anion gap [Moles/Vol] 11.2 mmol/L 6.0-15.0 [facility] Sodium [Moles/volume] in Ser um or PlasmaOrdered By: Javad Stephens on 10-19-2022 Sodium [Moles/Vol] 138 mmol/L 136-145 [facility] Urea nitrogen [Mass/volume] in Serum or PlasmaOrdered By: Javad Stephens on 10-19-2022 Urea nitrogen [Mass/Vol] 18 mg/dL 7-25 [facility] WBC Auto (Bld) [#/Vol]Ordere d By: Javad Stephens on 10-19-2022 WBC (Bld) [#/Vol] 5.4 10*3/uL 4.1-10.5 [facility] XR RIBS LEFT INCLUDE CHEST ( MIN 3 VIEWS)on 10-19-2022 XR RIBS LEFT INCLUDE CHEST (MIN 3 VIEWS) EXAMINATION: XRAY VIEWS OF THE LEFT RIBS WITH FRONTAL XRAY VIEW OF THE CHEST 10/19/2022 5:08 pm COMPARISON: 08/19/2018 HISTORY: ORDERING SYSTEM PROVIDED HISTORY: pain TECHNOLOGIST PROVIDED HISTORY: pain FINDINGS: No evidence of acute fracture of the left ribs. No focal rib abnormality. No evidence of acute focal process in the lungs. No evidence of consolidation or pulmonary edema. No pleural effusion or pneumothorax. Cardiomediastinal silhouette demonstrates no acute abnormality. IMPRESSION: No acute abnormality of the left ribs. No acute process in the lungs. Interpreted by: Clifton Quinn MD Signed by: Clifton Quinn MD 10/19/22 Final result Normal [facility] PSA Diagnostic (Total Free)o n 06-14-2022 Prostate Spec Ag, Free 3.140 ng/mL Normal F [facility] Comment on above: Performed By: #### P SATF #### [address] PSA Total (Not a Screen) 4.650 ng/mL High 0.000-4.00 0 [facility] Comment on above: Performed By: #### P SATF #### [place] [address] [place] PSA,FREE% 67.5 % Normal [facility] Comment on above: Result Comment: Base d on the work of Zeb et al.XUAN. 279(19):1542:47.1998 the percent free PSA may be used to determine the relative risk of prostate cancer in individual men.The percent probability of prostate cancer by patient age for men with non-suspicious CARL results and total PSa between 4 and 10 ng/ml is as follows: % Free PSA 50 - 64 yrs. 65 - 75 yrs. 0 - 10 56% 55% 10 - 15 24% 35% 15 - 20 17% 23% 20 - 25 10% 20% >25 5% 9% PERFORMED BY: [place] [address] PATHOLOGIST FRUIT PRESERVER CONRAD PRASAD M.D. Performed By: #### P SATF #### [address] Creatinine (Bld) [Mass/Vol]O rdered By: Ailyn Alexander on 01-22-2022 Creatinine [Mass/Vol] 1.5 mg/dL 0.6-1.3 [facility] Comment on above: ER/ESD physician is notified/shown all ISTAT results.Critical values may be confirmed by laboratory testing ifdeemed necessary by ER attending doctor. No Panel InformationOrdered By: Ailyn Alexander on 01-22-2022 POC Estimated GFR 56 [facility] Comment on above: GFR estimated refere nce range: According to KDOQI guidelines, <60 ml/min/1.73m2 is sufficient to diagnose a patient with chronic kidney disease. POC Estimated GFR Non- Amer 47 [facility] PSA, FREE AND TOTAL RATIOon 01-04-2022 % Free PSA 43.7 % Normal [facility] Comment on above: Result Comment: The table below lists the probability of prostate cancer for men with non-suspicious CARL results and total PSA between 4 and 10 ng/mL, by patient age (Zeb et al, XUAN 1998, 279:1542). % Free PSA 50-64 yr 65-75 yr 0.00-10.00% 56% 55% 10.01-15.00% 24% 35% 15.01-20.00% 17% 23% 20.01-25.00% 10% 20% >25.00% 5% 9% Please note: Zeb et al did not make specific recommendations regarding the use of percent free PSA for any other population of men. Performed By: #### P SAFREE #### [facility] [address] [place] [address] Dr. Kelsey Traore Prostate specific Ag [Mass/Vol] 3.5 ng/mL Normal 0.0-4.0 [facility] Comment on above: Result Comment: Santa donovan ECLIA methodology. . According to the [place] [employer], Serum PSA should decrease and remain at undetectable levels after radical prostatectomy. The AUA defines biochemical recurrence as an initial PSA value 0.2 ng/mL or greater followed by a subsequent confirmatory PSA value 0.2 ng/mL or greater. Values obtained with different assay methods or kits cannot be used interchangeably. Results cannot be interpreted as absolute evidence of the presence or absence of malignant disease. Performed By: #### P SAFREE #### [facility] [address], [place] [address] Dr. Kelsey Traore PSA, Free 1.53 ng/mL Normal N/A [facility] Comment on above: Result Comment: Santa SHAH methodology. Performed By: #### P SAFREE #### [facility] [address] [address] [address] Kelsey Traore PSA, FREE AND TOTAL RATIOon 09-26-2021 % Free PSA 29.7 % Normal [facility] Comment on above: Result Comment: The table below lists the probability of prostate cancer for men with non-suspicious CARL results and total PSA between 4 and 10 ng/mL, by patient age (Zeb et al, XUAN 1998, 279:1542). % Free PSA 50-64 yr 65-75 yr 0.00-10.00% 56% 55% 10.01-15.00% 24% 35% 15.01-20.00% 17% 23% 20.01-25.00% 10% 20% >25.00% 5% 9% Please note: Zeb et al did not make specific recommendations regarding the use of percent free PSA for any other population of men. Performed By: #### P SAFREE #### [facility] [address] [address] [address] Kelsey Traore Prostate specific Ag [Mass/Vol] 6.2 ng/mL Critically high 0.0-4.0 [facility] Comment on above: Result Comment: Santa donovan ECLIA methodology. . According to the [place] [employer], Serum PSA should decrease and remain at undetectable levels after radical prostatectomy. The AUA defines biochemical recurrence as an initial PSA value 0.2 ng/mL or greater followed by a subsequent confirmatory PSA value 0.2 ng/mL or greater. Values obtained with different assay methods or kits cannot be used interchangeably. Results cannot be interpreted as absolute evidence of the presence or absence of malignant disease. Performed By: #### P SAFREE #### [facility] [address], [place] [address] Dr. Kelsey Traore PSA, Free 1.84 ng/mL Normal N/A [facility] Comment on above: Result Comment: Roch zion ECLIA methodology. Performed By: #### P SAFREE #### [facility] [address] [address] [address] Kelsey Traore A1C HEMOGLOBINon 06-14-2021 HbA1c (Bld) [Mass fraction] 6.8 % [employer] Other HbA1c (Bld) [Mass fraction]o n 06-14-2021 A1C HEMOGLOBIN [employer] Other A1C HEMOGLOBINon 03-15-2021 HbA1c (Bld) [Mass fraction] 6.4 % [employer] Other HbA1c (Bld) [Mass fraction]o n 03-15-2021 A1C HEMOGLOBIN [employer] Other Operative Reporton Operative Report MR#: [id number] [facility] Pt. Name: Haim Oliver Room #: 0C Discharge Date: Birthdate: 1955 OPERATIVE REPORT DATE OF SURGERY: 01/26/2021 SURGEON: Adriana Sánchez M.D. Preoperative diagnosis: Chronic open abdominal wound. Postoperative diagnosis: Same The operation was performed: Split thickness skin grafting from right thigh to open abdominal wound Anesthesia: General endotracheal anesthesia Surgeon: Adriana Sánchez M.D. Indication: 65 years old white male with large ventral hernia, loss of domain, status post ventral hernia repair with mesh. 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 Split thickness skin grafting was offered to the patient, informed consent was obtained. Surgery: Patient was brought to the operative room placed on the operating table in supine position, general anesthesia was initiated. Patient's abdomen and the thigh were prepped and draped in usual sterile fashion. Timeout was completed. Local anesthesia was performed on right anterior lateral thigh skin. With 2 inch dermatome a piece of 2 inch x 2 inch split-thickness skin graft was harvested. The donor site was covered with bacitracin ointment, Adaptic, wet gauze, ABD. the skin graft was meshed. The skin graft was applied to the lower midline open wound in the correct orientation, the edge of the mesh was sutured to the skin of the edge with 4-0 Vicryl interrupted sutures. Bacitracin ointment, Adaptic was applied, then black sponge and the wound VAC was reapplied. The operation was completed without complication, I was present for entire operation, without blood loss, without specimen, at end of surgery the instrument count and sponge count were correct. Electronically Signed by: Adriana Sánchez M.D. 01/26/2021 05:57 P Adriana Sánchez M.D. Date Dict: 01/26/2021/05:43 P/Adriana Sánchez M.D. Date Trans: 01/26/2021 05:43 P/ [id number] [facility] POC GLUCOSE LABon 01-26-2021 Glucose [Mass/Vol] 122 mg/dL High 70-[address] [facility] Comment on above: Performed By: #### 3 1414 #### [facility] [address] [place] [address], [place] Glucose [Mass/Vol] 127 mg/dL High 70-[address] [facility] Comment on above: Performed By: #### 8 [id number] ####[facility] [facility] [place] [address], [facility] BASIC METABOLIC PANELon 11-0 Calcium [Mass/Vol] 8.5 mg/dL Low 8.6-10.[address] [facility] Comment on above: Order Comment: No: D o not add to previous draw Performed By: #### 1 0070, [id number], [id number] #### [facility] [address] [place] [address], [facility] Chloride [Moles/Vol] 100 mmol/L Normal 98-[address] [facility] Comment on above: Order Comment: No: D o not add to previous draw Performed By: #### 1 0070, 21208, 80402 #### [facility] [address] [place] [address], [place] CO2 [Moles/Vol] 28 mmol/L Normal 21-[address] [facility] Comment on above: Order Comment: No: D o not add to previous draw Performed By: #### 1 0070, 23437, 24097 #### [facility] [address] [place] [address], [place] Creatinine [Mass/Vol] 0.92 mg/dL Normal 0.70-1.[address] [facility] Comment on above: Order Comment: No: D o not add to previous draw Performed By: #### 1 0070, 64475, 59528 #### [facility] [address] [place] [address], [place] GFR/1.73 sq M.predicted among blacks MDRD (S/P/Bld) [Vol rate/Area] mL/min/{1.73_m2} Normal >[address] [facility] Comment on above: Order Comment: No: D o not add to previous draw Performed By: #### 1 0070, 49478, 64862 #### [facility] [address] [place] [address], [place] GFR/1.73 sq M.predicted among non-blacks MDRD (S/P/Bld) [Vol rate/Area] mL/min/{1.73_m2} Normal >[address] [facility] Comment on above: Order Comment: No: D o not add to previous draw Performed By: #### 1 0070, 31243, 70277 #### [facility] [address] [place] [address], [place] Glucose [Mass/Vol] 125 mg/dL High 70-[address] [facility] Comment on above: Order Comment: No: D o not add to previous draw Performed By: #### 1 0070, 01436, 12774 #### [facility] [address] [place] [address], [place] Potassium [Moles/Vol] 3.9 mmol/L Normal 3.5-5.[address] [facility] Comment on above: Order Comment: No: D o not add to previous draw Performed By: #### 1 0070, 54400, 54080 #### [facility] [address] [place] [address], [place] Sodium [Moles/Vol] 135 mmol/L Low 136-[address] [facility] Comment on above: Order Comment: No: D o not add to previous draw Performed By: #### 1 0070, 52609, 28460 #### [facility] [address] [place] [address], [place] Urea nitrogen [Mass/Vol] 9 mg/dL Normal 7-[address] [facility] Comment on above: Order Comment: No: D o not add to previous draw Performed By: #### 1 0, 72780, 27610 #### [facility] [address] [place] [address], [facility] CBC COMPLETE BLOOD COUNTon 02-29-2020 Erythrocyte distribution width (RBC) [Ratio] 15.0 % Normal 11.5-15.[address] [facility] Comment on above: Order Comment: No: D o not add to previous draw Performed By: #### 8 6239 #### [facility] [address] [place] [address], [place] Hematocrit (Bld) [Volume fraction] 28.0 % Low 39.0-50.[address] [facility] Comment on above: Order Comment: No: D o not add to previous draw Performed By: #### 8 0319 #### [facility] [address] [place] [address], [place] Hemoglobin (Bld) [Mass/Vol] 8.6 g/dL Low 13.0-17.[address] [facility] Comment on above: Order Comment: No: D o not add to previous draw Performed By: #### 8 4811 #### [facility] [address] [place] [address], [place] MCH (RBC) [Entitic mass] 26.8 pg Low 27.0-33.[address] [facility] Comment on above: Order Comment: No: D o not add to previous draw Performed By: #### 8 5499 #### [facility] [address] [place] [id number], [facility] MCHC (RBC) [Mass/Vol] 30.7 g/dL Low 32.0-35.[address] [facility] Comment on above: Order Comment: No: D o not add to previous draw Performed By: #### 8 5499 #### [facility] [address] [place] [id number], [facility] MCV (RBC) [Entitic vol] 87.2 fL Normal 82.0-98.[address] [facility] Comment on above: Order Comment: No: D o not add to previous draw Performed By: #### 8 [id number] #### [facility] [address] [place] [address], [facility] Nucleated RBC/100 WBC (Bld) [Ratio] 0 % Normal 0-[address] [facility] Comment on above: Order Comment: No: D o not add to previous draw Performed By: #### 8 [id number] #### [facility] [address] [place] [id number], [place] PLAT CNT 253 10*3/uL Normal 150-[address] [facility] Comment on above: Order Comment: No: D o not add to previous draw Performed By: #### 8 [id number] #### [facility] [address] [place] [id number], [facility] RBC (Bld) [#/Vol] 3.21 10*6/uL Low 4.20-5.[address] [facility] Comment on above: Order Comment: No: D o not add to previous draw Performed By: #### 8 [id number] #### [facility] [address] [place] [id number], [facility] WBC (Bld) [#/Vol] 6.47 10*3/uL Normal 4.00-10.[address] [facility] Comment on above: Order Comment: No: D o not add to previous draw Performed By: #### 8 [id number] #### [facility] [address] [place] [address], [place] POC GLUCOSE LABon 12-29-2020 Glucose [Mass/Vol] 114 mg/dL High 70-[address] [facility] Comment on above: Performed By: #### 8 [id number] #### [facility] [address] [place] [address], [place] Glucose [Mass/Vol] 177 mg/dL High 70-[address] [facility] Comment on above: Performed By: #### 8 5499 #### [facility] [address] [place] [address], [facility] BASIC METABOLIC PANELon 11-0 Calcium [Mass/Vol] 8.3 mg/dL Low 8.6-10.[address] [facility] Comment on above: Order Comment: No: D o not add to previous draw Performed By: #### 8 [id number] #### [facility] [address] [place] [address], [place] Chloride [Moles/Vol] 100 mmol/L Normal 98-[address] [facility] Comment on above: Order Comment: No: D o not add to previous draw Performed By: #### 8 [id number] #### [facility] [address] [place] [address], [place] CO2 [Moles/Vol] 27 mmol/L Normal 21-[address] [facility] Comment on above: Order Comment: No: D o not add to previous draw Performed By: #### 8 5499 #### [facility] [address] [place] [address], [place] Creatinine [Mass/Vol] 1.11 mg/dL Normal 0.70-1.[address] [facility] Comment on above: Order Comment: No: D o not add to previous draw Performed By: #### 8 [id number] #### [facility] [address] [place] [address], [place] GFR/1.73 sq M.predicted among blacks MDRD (S/P/Bld) [Vol rate/Area] mL/min/{1.73_m2} Normal >[address] [facility] Comment on above: Order Comment: No: D o not add to previous draw Performed By: #### 8 [id number] #### [facility] [address] [place] [address], [place] GFR/1.73 sq M.predicted among non-blacks MDRD (S/P/Bld) [Vol rate/Area] mL/min/{1.73_m2} Normal >[address] [facility] Comment on above: Order Comment: No: D o not add to previous draw Performed By: #### 8 [id number] #### [facility] [address] [place] [address], [place] Glucose [Mass/Vol] 123 mg/dL High 70-[address] [facility] Comment on above: Order Comment: No: D o not add to previous draw Performed By: #### 8 [id number] #### [facility] [address] [place] [address], [place] Potassium [Moles/Vol] 3.8 mmol/L Normal 3.5-5.[address] [facility] Comment on above: Order Comment: No: D o not add to previous draw Performed By: #### 8 [id number] #### [facility] [address] [place] [address], [place] Sodium [Moles/Vol] 135 mmol/L Low 136-[address] [facility] Comment on above: Order Comment: No: D o not add to previous draw Performed By: #### 8 [id number] #### [facility] [address] [place] [address], [place] Urea nitrogen [Mass/Vol] 9 mg/dL Normal 7-[address] [facility] Comment on above: Order Comment: No: D o not add to previous draw Performed By: #### 8 [id number] #### [facility] [address] [facility] [place] [address], [facility] CBC W/DIFFon 12-28-2020 ABS IMM GRANS 0.1 10*3/uL Normal 0.0-0.[address] [facility] Comment on above: Order Comment: No: D o not add to previous draw Performed By: #### 8 [id number] #### [facility] [address] [place] [address], [facility] ABS NEUTROPHILS 4.4 10*3/uL Normal 1.6-7.[address] [facility] Comment on above: Order Comment: No: D o not add to previous draw Performed By: #### 8 [id number] #### [facility] [address] [place] [id number], [facility] Basophils (Bld) [#/Vol] 0.0 10*3/uL Normal 0.0-0.[address] [facility] Comment on above: Order Comment: No: D o not add to previous draw Performed By: #### 8 [id number] #### [facility] [address] [place] [address], [facility] Basophils/100 WBC (Bld) 0.3 % Normal 0.0-1.[address] [facility] Comment on above: Order Comment: No: D o not add to previous draw Performed By: #### 8 [id number] #### [facility] [address] [place] [address], [facility] Eosinophils (Bld) [#/Vol] 0.2 10*3/uL Normal 0.0-0.[address] [facility] Comment on above: Order Comment: No: D o not add to previous draw Performed By: #### 8 [id number] #### [facility] [address] [place] [address], [facility] Eosinophils/100 WBC (Bld) 3.3 % Normal 0.0-6.[address] [facility] Comment on above: Order Comment: No: D o not add to previous draw Performed By: #### 8 [id number] #### [facility] [address] [facility] [place] [address], [facility] Erythrocyte distribution width (RBC) [Ratio] 15.1 % High 11.5-15.[address] [facility] Comment on above: Order Comment: No: D o not add to previous draw Performed By: #### 8 [id number] #### [facility] [address] [facility] [place] [address], [facility] Hematocrit (Bld) [Volume fraction] 27.2 % Low 39.0-50.[address] [facility] Comment on above: Order Comment: No: D o not add to previous draw Performed By: #### 8 [id number] #### [facility] [address] [place] [address], [facility] Hemoglobin (Bld) [Mass/Vol] 8.5 g/dL Low 13.0-17.[address] [facility] Comment on above: Order Comment: No: D o not add to previous draw Performed By: #### 8 [id number] #### [facility] [address] [place] [address], [facility] IMMATURE GRANS 1.0 % Normal 0.0-1.[address] [facility] Comment on above: Order Comment: No: D o not add to previous draw Performed By: #### 8 [id number] #### [facility] [address] [facility] [place] [address], [facility] Lymphocytes (Bld) [#/Vol] 1.2 10*3/uL Normal 1.2-4.[address] [facility] Comment on above: Order Comment: No: D o not add to previous draw Performed By: #### 8 [id number] #### [facility] [address] [place] [address], [facility] Lymphocytes/100 WBC (Bld) 18.9 % Low 20.0-45.[address] [facility] Comment on above: Order Comment: No: D o not add to previous draw Performed By: #### 8 [id number] #### [facility] [address] [place] [address], [facility] MCH (RBC) [Entitic mass] 27.2 pg Normal 27.0-33.[address] [facility] Comment on above: Order Comment: No: D o not add to previous draw Performed By: #### 8 [id number] #### [facility] [address] [place] [id number], [facility] MCHC (RBC) [Mass/Vol] 31.3 g/dL Low 32.0-35.[address] [facility] Comment on above: Order Comment: No: D o not add to previous draw Performed By: #### 8 [id number] #### [facility] [address] [place] [id number], [facility] MCV (RBC) [Entitic vol] 87.2 fL Normal 82.0-98.[address] [facility] Comment on above: Order Comment: No: D o not add to previous draw Performed By: #### 8 [id number] #### [facility] [address] [facility] [place] [address], [facility] Monocytes (Bld) [#/Vol] 0.4 10*3/uL Normal 0.1-1.[address] [facility] Comment on above: Order Comment: No: D o not add to previous draw Performed By: #### 8 [id number] #### [facility] [address] [place] [id number], [facility] MONOS 6.2 % Normal 5.0-12.[address] [facility] Comment on above: Order Comment: No: D o not add to previous draw Performed By: #### 8 [id number] #### [facility] [address] [place] [id number], [facility] Neutrophils/100 WBC (Bld) 70.3 % Normal 40.0-72.[address] [facility] Comment on above: Order Comment: No: D o not add to previous draw Performed By: #### 8 [id number] #### [facility] [address] [place] [address], [facility] Nucleated RBC/100 WBC (Bld) [Ratio] 0 % Normal 0-[address] [facility] Comment on above: Order Comment: No: D o not add to previous draw Performed By: #### 8 [id number] #### [facility] [address] [place] [address], [facility] PLAT CNT 248 10*3/uL Normal 150-[address] [facility] Comment on above: Order Comment: No: D o not add to previous draw Performed By: #### 8 [id number] #### [facility] [address] [place] [address], [facility] RBC (Bld) [#/Vol] 3.12 10*6/uL Low 4.20-5.[address] [facility] Comment on above: Order Comment: No: D o not add to previous draw Performed By: #### 8 [id number] #### [facility] [address] [facility] [address] [place] [id number], [facility] WBC (Bld) [#/Vol] 6.30 10*3/uL Normal 4.00-10.[address] [facility] Comment on above: Order Comment: No: D o not add to previous draw Performed By: #### 8 [id number] #### [facility] [address] [facility] [address] [place] [id number], [facility] MAGNESIUM BLOODon 12-28-2020 Magnesium [Mass/Vol] 1.7 mg/dL Low 1.9-2.[address] [facility] Comment on above: Order Comment: No: D o not add to previous draw Performed By: #### 8 [id number] #### [facility] [address] [place] [id number], [facility] POC GLUCOSE LABon 12-28-2020 Glucose [Mass/Vol] 140 mg/dL High 70-[address] [facility] Comment on above: Performed By: #### 1 0070, 77215, 06758 #### [facility] [address] [place] [address], [place] Glucose [Mass/Vol] 129 mg/dL High 70-[address] [facility] Comment on above: Performed By: #### 8 [id number] #### [facility] [address] [place] [address], [place] Glucose [Mass/Vol] 140 mg/dL High 70-[address] [facility] Comment on above: Performed By: #### 3 1414 #### [facility] [address] [place] [address], [place] Glucose [Mass/Vol] 141 mg/dL High 70-[address] [facility] Comment on above: Performed By: #### 8 [id number] #### [facility] [address] [place] [address], [place] BASIC METABOLIC PANELon 11-0 -2020 Calcium [Mass/Vol] 8.1 mg/dL Low 8.6-10.[address] [facility] Comment on above: Order Comment: No: D o not add to previous draw Performed By: #### 1 0, 51875, 47034 #### [facility] [address] [place] [address], [place] Chloride [Moles/Vol] 101 mmol/L Normal 98-[address] [facility] Comment on above: Order Comment: No: D o not add to previous draw Performed By: #### 1 0070, 82929, 98026 #### [facility] [address] [place] [address], [place] CO2 [Moles/Vol] 26 mmol/L Normal 21-[address] [facility] Comment on above: Order Comment: No: D o not add to previous draw Performed By: #### 1 0070, 88186, 51549 #### [facility] [address] [place] [address], [place] Creatinine [Mass/Vol] 1.21 mg/dL Normal 0.70-1.[address] [facility] Comment on above: Order Comment: No: D o not add to previous draw Performed By: #### 1 0, , 86147 #### [facility] [address] [place] [address], [place] eGFR- non- 60 ml/min/1.73sq m Abnormal >[address] [facility] Comment on above: Order Comment: No: D o not add to previous draw Performed By: #### 1 0, , 91540 #### [facility] [address] [place] [address], [facility] GFR/1.73 sq M.predicted among blacks MDRD (S/P/Bld) [Vol rate/Area] mL/min/{1.73_m2} Normal >[address] [facility] Comment on above: Order Comment: No: D o not add to previous draw Performed By: #### 1 0, , 65029 #### [facility] [address] [place] [address], [place] Glucose [Mass/Vol] 125 mg/dL High 70-[address] [facility] Comment on above: Order Comment: No: D o not add to previous draw Performed By: #### 1 0, , 26221 #### [facility] [address] [place] [address], [place] Potassium [Moles/Vol] 3.8 mmol/L Normal 3.5-5.[address] [facility] Comment on above: Order Comment: No: D o not add to previous draw Performed By: #### 1 0, , 57852 #### [facility] [address] [place] [address], [place] Sodium [Moles/Vol] 136 mmol/L Normal 136-[address] [facility] Comment on above: Order Comment: No: D o not add to previous draw Performed By: #### 1 0, , 93038 #### [facility] [address] [place] [address], [facility] Urea nitrogen [Mass/Vol] 11 mg/dL Normal 7-[address] [facility] Comment on above: Order Comment: No: D o not add to previous draw Performed By: #### 1 0070, 80665, 44527 #### [facility] [address] [place] [id number], [facility] CBC COMPLETE BLOOD COUNTon 02-27-2020 Erythrocyte distribution width (RBC) [Ratio] 14.9 % Normal 11.5-15.[address] [facility] Comment on above: Order Comment: No: D o not add to previous draw Performed By: #### 8 [id number] #### [facility] [address] [place] [id number], [facility] Hematocrit (Bld) [Volume fraction] 27.9 % Low 39.0-50.[address] [facility] Comment on above: Order Comment: No: D o not add to previous draw Performed By: #### 8 5499 #### [facility] [address] [place] [address], [facility] Hemoglobin (Bld) [Mass/Vol] 8.2 g/dL Low 13.0-17.[address] [facility] Comment on above: Order Comment: No: D o not add to previous draw Performed By: #### 8 5499 #### [facility] [address] [place] [id number], [facility] MCH (RBC) [Entitic mass] 26.5 pg Low 27.0-33.[address] [facility] Comment on above: Order Comment: No: D o not add to previous draw Performed By: #### 8 5499 #### [facility] [address] [place] [id number], [facility] MCHC (RBC) [Mass/Vol] 29.4 g/dL Low 32.0-35.[address] [facility] Comment on above: Order Comment: No: D o not add to previous draw Performed By: #### 8 5499 #### [facility] [address] [place] [address], [facility] MCV (RBC) [Entitic vol] 90.3 fL Normal 82.0-98.[address] [facility] Comment on above: Order Comment: No: D o not add to previous draw Performed By: #### 8 5499 #### [facility] [address] [place] [address], [facility] Nucleated RBC/100 WBC (Bld) [Ratio] 0 % Normal 0-[address] [facility] Comment on above: Order Comment: No: D o not add to previous draw Performed By: #### 8 [id number] #### [facility] [address] [facility] [place] [address], [facility] PLAT CNT 233 10*3/uL Normal 150-[address] [facility] Comment on above: Order Comment: No: D o not add to previous draw Performed By: #### 8 5499 #### [facility] [address] [facility] [place] [address], [facility] RBC (Bld) [#/Vol] 3.09 10*6/uL Low 4.20-5.[address] [facility] Comment on above: Order Comment: No: D o not add to previous draw Performed By: #### 8 5499 #### [facility] [address] [facility] [place] [address], [facility] WBC (Bld) [#/Vol] 5.45 10*3/uL Normal 4.00-10.[address] [facility] Comment on above: Order Comment: No: D o not add to previous draw Performed By: #### 8 5499 #### [facility] [address] [facility] [place] [address], [facility] MAGNESIUM BLOODon 12-27-2020 Magnesium [Mass/Vol] 1.9 mg/dL Normal 1.9-2.[address] [facility] Comment on above: Order Comment: No: D o not add to previous draw Performed By: #### 8 5499 #### [facility] [address] [place] [address], [place] Magnesium [Mass/Vol] 1.2 mg/dL Critically low 1.9-2.[address] [facility] Comment on above: Order Comment: No: D o not add to previous draw Performed By: #### 1 0070, 08384, 29389 #### [facility] [address] [place] [address], [facility] POC GLUCOSE LABon 12-27-2020 Glucose [Mass/Vol] 140 mg/dL High 70-[address] [facility] Comment on above: Performed By: #### 8 5499 #### [facility] [address] [place] [address], [place] Glucose [Mass/Vol] 124 mg/dL High 70-[address] [facility] Comment on above: Performed By: #### 3 1414 #### [facility] [address] [place] [address], [place] Glucose [Mass/Vol] 139 mg/dL High 70-[address] [facility] Comment on above: Performed By: #### 3 1414 #### [facility] [address] [place] [address], [place] Glucose [Mass/Vol] 148 mg/dL High 70-[address] [facility] Comment on above: Performed By: #### 1 0070, 69520, 97082 #### [facility] [address] [place] [address], [place] Glucose [Mass/Vol] 126 mg/dL High 70-[address] [facility] Comment on above: Performed By: #### 8 5499 #### [facility] [address] [place] [address], [place] BASIC METABOLIC PANELon Calcium [Mass/Vol] 8.4 mg/dL Low 8.6-10.[address] [facility] Comment on above: Order Comment: No: D o not add to previous draw Performed By: #### 1 0070, 78551, 89208 #### [facility] [address] [place] [address], [place] Chloride [Moles/Vol] 99 mmol/L Normal 98-[address] [facility] Comment on above: Order Comment: No: D o not add to previous draw Performed By: #### 1 0070, 78130, 89027 #### [facility] [address] [place] [address], [place] CO2 [Moles/Vol] 26 mmol/L Normal 21-[address] [facility] Comment on above: Order Comment: No: D o not add to previous draw Performed By: #### 1 0, 90691, 08675 #### [facility] [address] [place] [address], [place] Creatinine [Mass/Vol] 1.22 mg/dL Normal 0.70-1.[address] [facility] Comment on above: Order Comment: No: D o not add to previous draw Performed By: #### 1 0, 67609, 17601 #### [facility] [address] [place] [address], [place] eGFR- non- 59 ml/min/1.73sq m Abnormal >[address] [facility] Comment on above: Order Comment: No: D o not add to previous draw Performed By: #### 1 0, 94086, 78897 #### [facility] [address] [place] [address], [place] GFR/1.73 sq M.predicted among blacks MDRD (S/P/Bld) [Vol rate/Area] mL/min/{1.73_m2} Normal >[address] [facility] Comment on above: Order Comment: No: D o not add to previous draw Performed By: #### 1 0070, 36564, 75773 #### [facility] [address] [place] [address], [place] Glucose [Mass/Vol] 116 mg/dL High 70-[address] [facility] Comment on above: Order Comment: No: D o not add to previous draw Performed By: #### 1 0, 93730, 17932 #### [facility] [address] [place] [id number], [place] Potassium [Moles/Vol] 3.4 mmol/L Low 3.5-5.[address] [facility] Comment on above: Order Comment: No: D o not add to previous draw Performed By: #### 1 0, , 34491 #### [facility] [address] [place] [address], [place] Sodium [Moles/Vol] 135 mmol/L Low 136-[address] [facility] Comment on above: Order Comment: No: D o not add to previous draw Performed By: #### 1 0, , 03804 #### [facility] [address] [place] [id number], [facility] Urea nitrogen [Mass/Vol] 13 mg/dL Normal 7-[address] [facility] Comment on above: Order Comment: No: D o not add to previous draw Performed By: #### 1 0, 62833, 67543 #### [facility] [address] [place] [id number], [facility] CBC COMPLETE BLOOD COUNTon 02-26-2020 Erythrocyte distribution width (RBC) [Ratio] 14.7 % Normal 11.5-15.[address] [facility] Comment on above: Order Comment: No: D o not add to previous draw Performed By: #### 8 5499 #### [facility] [address] [place] [address], [place] Hematocrit (Bld) [Volume fraction] 27.7 % Low 39.0-50.[address] [facility] Comment on above: Order Comment: No: D o not add to previous draw Performed By: #### 8 5939 #### [facility] [address] [place] [id number], [facility] Hemoglobin (Bld) [Mass/Vol] 8.5 g/dL Low 13.0-17.[address] [facility] Comment on above: Order Comment: No: D o not add to previous draw Performed By: #### 8 5499 #### [facility] [address] [place] [id number], [facility] MCH (RBC) [Entitic mass] 26.8 pg Low 27.0-33.[address] [facility] Comment on above: Order Comment: No: D o not add to previous draw Performed By: #### 8 5499 #### [facility] [address] [place] [address], [facility] MCHC (RBC) [Mass/Vol] 30.7 g/dL Low 32.0-35.[address] [facility] Comment on above: Order Comment: No: D o not add to previous draw Performed By: #### 8 5499 #### [facility] [address] [place] [address], [facility] MCV (RBC) [Entitic vol] 87.4 fL Normal 82.0-98.[address] [facility] Comment on above: Order Comment: No: D o not add to previous draw Performed By: #### 8 5499 #### [facility] [address] [place] [address], [facility] Nucleated RBC/100 WBC (Bld) [Ratio] 0 % Normal 0-[address] [facility] Comment on above: Order Comment: No: D o not add to previous draw Performed By: #### 8 5499 #### [facility] [address] [place] [id number], [place] PLAT CNT 253 10*3/uL Normal 150-[address] [facility] Comment on above: Order Comment: No: D o not add to previous draw Performed By: #### 8 5499 #### [facility] [address] [place] [id number], [facility] RBC (Bld) [#/Vol] 3.17 10*6/uL Low 4.20-5.[address] [facility] Comment on above: Order Comment: No: D o not add to previous draw Performed By: #### 8 5499 #### [facility] [address] [place] [address], [place] WBC (Bld) [#/Vol] 5.27 10*3/uL Normal 4.00-10.[address] [facility] Comment on above: Order Comment: No: D o not add to previous draw Performed By: #### 8 5499 #### [facility] [address] [place] [address], [place] POC GLUCOSE LABon 12-26-2020 Glucose [Mass/Vol] 139 mg/dL High 70-[address] [facility] Comment on above: Performed By: #### 1 0070, 50682, 36422 #### [facility] [address] [place] [address], [place] Glucose [Mass/Vol] 119 mg/dL High 70-[address] [facility] Comment on above: Performed By: #### 8 5499 #### [facility] [address] [place] [address], [place] Glucose [Mass/Vol] 121 mg/dL High 70-[address] [facility] Comment on above: Performed By: #### 8 5499 ####[facility] [place] [address], [place] Glucose [Mass/Vol] 153 mg/dL High 70-[address] [facility] Comment on above: Performed By: #### 8 5499 #### [facility] [address] [place] [address], [place] Glucose [Mass/Vol] 134 mg/dL High 70-[address] [facility] Comment on above: Performed By: #### 8 5499 #### [facility] [address] [place] [address], [place] BASIC METABOLIC PANELon 11-0 Calcium [Mass/Vol] 8.5 mg/dL Low 8.6-10.[address] [facility] Comment on above: Order Comment: No: D o not add to previous draw Performed By: #### 1 0070, 26319, 17602 #### [facility] [address] [place] [address], [place] Chloride [Moles/Vol] 100 mmol/L Normal 98-[address] [facility] Comment on above: Order Comment: No: D o not add to previous draw Performed By: #### 1 0070, 81827, 02645 #### [facility] [address] [place] [address], [place] CO2 [Moles/Vol] 26 mmol/L Normal 21-[address] [facility] Comment on above: Order Comment: No: D o not add to previous draw Performed By: #### 1 0070, 35865, 64069 #### [facility] [address] [place] [address], [place] Creatinine [Mass/Vol] 1.20 mg/dL Normal 0.70-1.[address] [facility] Comment on above: Order Comment: No: D o not add to previous draw Performed By: #### 1 0070, 25168, 30582 #### [facility] [address] [place] [address], [place] GFR/1.73 sq M.predicted among blacks MDRD (S/P/Bld) [Vol rate/Area] mL/min/{1.73_m2} Normal >[address] [facility] Comment on above: Order Comment: No: D o not add to previous draw Performed By: #### 1 0070, 54566, 68787 #### [facility] [address] [place] [address], [place] GFR/1.73 sq M.predicted among non-blacks MDRD (S/P/Bld) [Vol rate/Area] mL/min/{1.73_m2} Normal >[address] [facility] Comment on above: Order Comment: No: D o not add to previous draw Performed By: #### 1 0, 66714, 25002 #### [facility] [address] [place] [address], [place] Glucose [Mass/Vol] 121 mg/dL High 70-[address] [facility] Comment on above: Order Comment: No: D o not add to previous draw Performed By: #### 1 0, , 76408 #### [facility] [address] [place] [address], [place] Potassium [Moles/Vol] 3.5 mmol/L Normal 3.5-5.[address] [facility] Comment on above: Order Comment: No: D o not add to previous draw Performed By: #### 1 0, , 24104 #### [facility] [address] [place] [address], [place] Sodium [Moles/Vol] 136 mmol/L Normal 136-[address] [facility] Comment on above: Order Comment: No: D o not add to previous draw Performed By: #### 1 0, 24799, 93707 #### [facility] [address] [place] [id number], [place] Urea nitrogen [Mass/Vol] 16 mg/dL Normal 7-[address] [facility] Comment on above: Order Comment: No: D o not add to previous draw Performed By: #### 1 0, , 65155 #### [facility] [address] [place] [address], [place] CBC COMPLETE BLOOD COUNTon 02-25-2020 Erythrocyte distribution width (RBC) [Ratio] 14.6 % Normal 11.5-15.[address] [facility] Comment on above: Order Comment: No: D o not add to previous draw Performed By: #### 8 5499 #### [facility] [address] [place] [address], [place] Hematocrit (Bld) [Volume fraction] 27.9 % Low 39.0-50.[address] [facility] Comment on above: Order Comment: No: D o not add to previous draw Performed By: #### 8 5499 #### [facility] [address] [place] [address], [facility] Hemoglobin (Bld) [Mass/Vol] 8.4 g/dL Low 13.0-17.[address] [facility] Comment on above: Order Comment: No: D o not add to previous draw Performed By: #### 8 5499 #### [facility] [address] [place] [address], [facility] MCH (RBC) [Entitic mass] 26.8 pg Low 27.0-33.[address] [facility] Comment on above: Order Comment: No: D o not add to previous draw Performed By: #### 8 5499 #### [facility] [address] [place] [address], [facility] MCHC (RBC) [Mass/Vol] 30.1 g/dL Low 32.0-35.[address] [facility] Comment on above: Order Comment: No: D o not add to previous draw Performed By: #### 8 5499 #### [facility] [address] [facility] [place] [address], [facility] MCV (RBC) [Entitic vol] 89.1 fL Normal 82.0-98.[address] [facility] Comment on above: Order Comment: No: D o not add to previous draw Performed By: #### 8 5499 #### [facility] [address] [facility] [place] [address], [facility] Nucleated RBC/100 WBC (Bld) [Ratio] 0 % Normal 0-[address] [facility] Comment on above: Order Comment: No: D o not add to previous draw Performed By: #### 8 5499 #### [facility] [address] [place] [address], [facility] PLAT CNT 227 10*3/uL Normal 150-[address] [facility] Comment on above: Order Comment: No: D o not add to previous draw Performed By: #### 8 5499 #### [facility] [address] [place] [address], [facility] RBC (Bld) [#/Vol] 3.13 10*6/uL Low 4.20-5.[address] [facility] Comment on above: Order Comment: No: D o not add to previous draw Performed By: #### 8 5499 #### [facility] [address] [place] [address], [facility] WBC (Bld) [#/Vol] 4.27 10*3/uL Normal 4.00-10.[address] [facility] Comment on above: Order Comment: No: D o not add to previous draw Performed By: #### 8 5499 #### [facility] [address] [place] [address], [facility] POC GLUCOSE LABon 12-25-2020 Glucose [Mass/Vol] 131 mg/dL High 70-[address] [facility] Comment on above: Performed By: #### 8 5499 #### [facility] [address] [place] [address], [place] Glucose [Mass/Vol] 115 mg/dL High 70-[address] [facility] Comment on above: Performed By: #### 8 5499 #### [facility] [address] [place] [address], [place] Glucose [Mass/Vol] 114 mg/dL High 70-[address] [facility] Comment on above: Performed By: #### 8 5499 #### [facility] [address] [place] [address], [facility] BASIC METABOLIC PANELon 10-3 Calcium [Mass/Vol] 8.7 mg/dL Normal 8.6-10.[address] [facility] Comment on above: Order Comment: No: D o not add to previous draw Performed By: #### 0 0071 #### [facility] [address] [place] [address], [facility] Chloride [Moles/Vol] 98 mmol/L Normal 98-[address] [facility] Comment on above: Order Comment: No: D o not add to previous draw Performed By: #### 0 0071 #### [facility] [address] [place] [address], [place] CO2 [Moles/Vol] 26 mmol/L Normal 21-[address] [facility] Comment on above: Order Comment: No: D o not add to previous draw Performed By: #### 0 0071 #### [facility] [address] [place] [address], [place] Creatinine [Mass/Vol] 1.38 mg/dL High 0.70-1.[address] [facility] Comment on above: Order Comment: No: D o not add to previous draw Performed By: #### 0 0071 #### [facility] [address] [place] [address], [facility] eGFR- non- 52 ml/min/1.73sq m Abnormal >[address] [facility] Comment on above: Order Comment: No: D o not add to previous draw Performed By: #### 0 0071 #### [facility] [address] [place] [address], [facility] GFR/1.73 sq M.predicted among blacks MDRD (S/P/Bld) [Vol rate/Area] mL/min/{1.73_m2} Normal >[address] [facility] Comment on above: Order Comment: No: D o not add to previous draw Performed By: #### 0 0071 #### [facility] [address] [place] [address], [place] Glucose [Mass/Vol] 135 mg/dL High 70-[address] [facility] Comment on above: Order Comment: No: D o not add to previous draw Performed By: #### 0 0071 #### [facility] [address] [place] [id number], [facility] Potassium [Moles/Vol] 3.8 mmol/L Normal 3.5-5.[address] [facility] Comment on above: Order Comment: No: D o not add to previous draw Performed By: #### 0 0071 #### [facility] [address] [place] [address], [facility] Sodium [Moles/Vol] 135 mmol/L Low 136-[address] [facility] Comment on above: Order Comment: No: D o not add to previous draw Performed By: #### 0 0071 #### [facility] [address] [place] [id number], [facility] Urea nitrogen [Mass/Vol] 23 mg/dL Normal 7-[address] [facility] Comment on above: Order Comment: No: D o not add to previous draw Performed By: #### 0 0071 #### [facility] [address] [place] [id number], [facility] CBC COMPLETE BLOOD COUNTon Erythrocyte distribution width (RBC) [Ratio] 14.6 % Normal 11.5-15.[address] [facility] Comment on above: Order Comment: No: D o not add to previous draw Performed By: #### 8 [id number] #### [facility] [address] [place] [address], [facility] Hematocrit (Bld) [Volume fraction] 29.0 % Low 39.0-50.[address] [facility] Comment on above: Order Comment: No: D o not add to previous draw Performed By: #### 8 5499 #### [facility] [address] [place] [id number], [facility] Hemoglobin (Bld) [Mass/Vol] 8.8 g/dL Low 13.0-17.[address] [facility] Comment on above: Order Comment: No: D o not add to previous draw Performed By: #### 8 5499 #### [facility] [address] [place] [address], [facility] MCH (RBC) [Entitic mass] 27.2 pg Normal 27.0-33.[address] [facility] Comment on above: Order Comment: No: D o not add to previous draw Performed By: #### 8 [id number] #### [facility] [address] [place] [id number], [facility] MCHC (RBC) [Mass/Vol] 30.3 g/dL Low 32.0-35.[address] [facility] Comment on above: Order Comment: No: D o not add to previous draw Performed By: #### 8 5499 #### [facility] [address] [place] [id number], [facility] MCV (RBC) [Entitic vol] 89.8 fL Normal 82.0-98.[address] [facility] Comment on above: Order Comment: No: D o not add to previous draw Performed By: #### 8 5499 #### [facility] [address] [place] [id number], [facility] Nucleated RBC/100 WBC (Bld) [Ratio] 0 % Normal 0-[address] [facility] Comment on above: Order Comment: No: D o not add to previous draw Performed By: #### 8 5499 #### [facility] [address] [place] [id number], [facility] PLAT CNT 273 10*3/uL Normal 150-[address] [facility] Comment on above: Order Comment: No: D o not add to previous draw Performed By: #### 8 5499 #### [facility] [address] [place] [id number], [facility] RBC (Bld) [#/Vol] 3.23 10*6/uL Low 4.20-5.[address] [facility] Comment on above: Order Comment: No: D o not add to previous draw Performed By: #### 8 5499 #### [facility] [address] [place] [id number], [place] WBC (Bld) [#/Vol] 5.01 10*3/uL Normal 4.00-10.[address] [facility] Comment on above: Order Comment: No: D o not add to previous draw Performed By: #### 8 5499 #### [facility] [address] [place] [address], [place] POC GLUCOSE LABon 12-24-2020 Glucose [Mass/Vol] 159 mg/dL High 70-[address] [facility] Comment on above: Performed By: #### 8 5499 #### [facility] [address] [place] [address], [place] Glucose [Mass/Vol] 141 mg/dL High 70-[address] [facility] Comment on above: Performed By: #### 3 1414 #### [facility] [address] [place] [address], [place] Glucose [Mass/Vol] 168 mg/dL High 70-[address] [facility] Comment on above: Performed By: #### 8 5499 #### [facility] [address] [place] [address], [place] BASIC METABOLIC PANELon 11-26 Calcium [Mass/Vol] 8.1 mg/dL Low 8.6-10.[address] [facility] Comment on above: Order Comment: No: D o not add to previous draw Performed By: #### 0 0071 #### [facility] [address] [place] [address], [place] Chloride [Moles/Vol] 98 mmol/L Normal 98-[address] [facility] Comment on above: Order Comment: No: D o not add to previous draw Performed By: #### 0 0071 #### [facility] [address] [place] [address], [place] CO2 [Moles/Vol] 25 mmol/L Normal 21-[address] [facility] Comment on above: Order Comment: No: D o not add to previous draw Performed By: #### 0 0071 #### [facility] [address] [place] [address], [place] Creatinine [Mass/Vol] 1.91 mg/dL High 0.70-1.[address] [facility] Comment on above: Order Comment: No: D o not add to previous draw Performed By: #### 0 0071 #### [facility] [address] [place] [address], [facility] eGFR- 43 ml/min/1.73sq m Abnormal >[address] [facility] Comment on above: Order Comment: No: D o not add to previous draw Performed By: #### 0 0071 #### [facility] [address] [place] [address], [facility] eGFR- non- 35 ml/min/1.73sq m Abnormal >[address] [facility] Comment on above: Order Comment: No: D o not add to previous draw Performed By: #### 0 0071 #### [facility] [address] [place] [address], [place] Glucose [Mass/Vol] 133 mg/dL High 70-[address] [facility] Comment on above: Order Comment: No: D o not add to previous draw Performed By: #### 0 0071 #### [facility] [address] [place] [address], [place] Potassium [Moles/Vol] 3.8 mmol/L Normal 3.5-5.[address] [facility] Comment on above: Order Comment: No: D o not add to previous draw Performed By: #### 0 0071 #### [facility] [address] [place] [address], [place] Sodium [Moles/Vol] 132 mmol/L Low 136-[address] [facility] Comment on above: Order Comment: No: D o not add to previous draw Performed By: #### 0 0071 #### [facility] [address] [place] [address], [place] Urea nitrogen [Mass/Vol] 33 mg/dL High 7-[address] [facility] Comment on above: Order Comment: No: D o not add to previous draw Performed By: #### 0 0071 #### [facility] 3000 [facility]. [address] CBC COMPLETE BLOOD COUNTon Erythrocyte distribution width (RBC) [Ratio] 14.6 % Normal 11.5-15.[address] [facility] Comment on above: Order Comment: Check NG Tube Position Performed By: #### 5 0608 ####[facility] Hematocrit (Bld) [Volume fraction] 26.5 % Low 39.0-50.[address] [facility] Comment on above: Order Comment: Check NG Tube Position Performed By: #### 5 0608 ####[facility] Hemoglobin (Bld) [Mass/Vol] 8.0 g/dL Low 13.0-17.[address] [facility] Comment on above: Order Comment: Check NG Tube Position Performed By: #### 5 0608 ####[facility] MCH (RBC) [Entitic mass] 27.2 pg Normal 27.0-33.[address] [facility] Comment on above: Order Comment: Check NG Tube Position Performed By: #### 5 0608 ####[facility]3000 [facility].[address] MCHC (RBC) [Mass/Vol] 30.2 g/dL Low 32.0-35.[address] [facility] Comment on above: Order Comment: Check NG Tube Position Performed By: #### 5 0608 ####[facility] [facility] [place] [address], [facility] MCV (RBC) [Entitic vol] 90.1 fL Normal 82.0-98.[address] [facility] Comment on above: Order Comment: Check NG Tube Position Performed By: #### 5 0608 ####[facility]3000 [facility].[address] Nucleated RBC/100 WBC (Bld) [Ratio] 0 % Normal 0-[address] [facility] Comment on above: Order Comment: Check NG Tube Position Performed By: #### 5 0608 ####[facility] [facility] [place] [address], [facility] PLAT CNT 244 10*3/uL Normal 150-[address] [facility] Comment on above: Order Comment: Check NG Tube Position Performed By: #### 5 0608 ####[facility] [place] [address], [facility] RBC (Bld) [#/Vol] 2.94 10*6/uL Low 4.20-5.[address] [facility] Comment on above: Order Comment: Check NG Tube Position Performed By: #### 5 0608 ####[facility] [facility].[address] WBC (Bld) [#/Vol] 5.57 10*3/uL Normal 4.00-10.[address] [facility] Comment on above: Order Comment: Check NG Tube Position Performed By: #### 5 0608 ####[facility] MAGNESIUM BLOODon 12-23-2020 Magnesium [Mass/Vol] 1.6 mg/dL Low 1.9-2.[address] [facility] Comment on above: Order Comment: No: D o not add to previous draw Performed By: #### 0 0071 #### [facility] [address] POC GLUCOSE LABon 12-23-2020 Glucose [Mass/Vol] 140 mg/dL High 70-[address] [facility] Comment on above: Performed By: #### 8 5499 #### [facility] [address] [place] [address], [place] Glucose [Mass/Vol] 161 mg/dL High 70-[address] [facility] Comment on above: Performed By: #### 8 5499 ####[facility] [place] [address], [place] Glucose [Mass/Vol] 140 mg/dL High 70-[address] [facility] Comment on above: Performed By: #### 3 1414 #### [facility] [address] [place] [address], [place] Glucose [Mass/Vol] 150 mg/dL High 70-[address] [facility] Comment on above: Performed By: #### 1 0070, 76911, 30434 #### [facility] [address] [place] [address], [place] BASIC METABOLIC PANELon 10-2 -2020 Calcium [Mass/Vol] 7.9 mg/dL Low 8.6-10.[address] [facility] Comment on above: Order Comment: No: D o not add to previous draw Performed By: #### 1 0070, 92217, 83289 #### [facility] [address] [place] [address], [place] Chloride [Moles/Vol] 98 mmol/L Normal 98-[address] [facility] Comment on above: Order Comment: No: D o not add to previous draw Performed By: #### 1 0070, 42847, 95683 #### [facility] [address] [place] [address], [place] CO2 [Moles/Vol] 23 mmol/L Normal 21-[address] [facility] Comment on above: Order Comment: No: D o not add to previous draw Performed By: #### 1 0070, 99138, 49919 #### [facility] [address] [place] [address], [place] Creatinine [Mass/Vol] 2.72 mg/dL High 0.70-1.[address] [facility] Comment on above: Order Comment: No: D o not add to previous draw Performed By: #### 1 0070, 95317, 84157 #### [facility] [address] [place] [address], [place] eGFR- 29 ml/min/1.73sq m Abnormal >[address] [facility] Comment on above: Order Comment: No: D o not add to previous draw Performed By: #### 1 0070, 07410, 83611 #### [facility] [address] [place] [address], [place] eGFR- non- 24 ml/min/1.73sq m Abnormal >[address] [facility] Comment on above: Order Comment: No: D o not add to previous draw Performed By: #### 1 0, , 51067 #### [facility] [address] [place] [address], [place] Glucose [Mass/Vol] 132 mg/dL High 70-[address] [facility] Comment on above: Order Comment: No: D o not add to previous draw Performed By: #### 1 0070, 39055, 25888 #### [facility] [address] [place] [address], [place] Potassium [Moles/Vol] 3.6 mmol/L Normal 3.5-5.[address] [facility] Comment on above: Order Comment: No: D o not add to previous draw Performed By: #### 1 0070, 68289, 20127 #### [facility] [address] [place] [address], [place] Sodium [Moles/Vol] 131 mmol/L Low 136-[address] [facility] Comment on above: Order Comment: No: D o not add to previous draw Performed By: #### 1 0070, 53166, 73770 #### [facility] [address] [place] [address], [place] Urea nitrogen [Mass/Vol] 41 mg/dL High 7-[address] [facility] Comment on above: Order Comment: No: D o not add to previous draw Performed By: #### 1 0070, 28163, 27486 #### [facility] [address] [place] [address], [facility] CBC COMPLETE BLOOD COUNTon Erythrocyte distribution width (RBC) [Ratio] 14.8 % Normal 11.5-15.[address] [facility] Comment on above: Order Comment: No: D o not add to previous draw Performed By: #### 8 5499 #### [facility] [address] [place] [address], [facility] Hematocrit (Bld) [Volume fraction] 26.7 % Low 39.0-50.[address] [facility] Comment on above: Order Comment: No: D o not add to previous draw Performed By: #### 8 5499 #### [facility] [address] [place] [address], [facility] Hemoglobin (Bld) [Mass/Vol] 8.2 g/dL Low 13.0-17.[address] [facility] Comment on above: Order Comment: No: D o not add to previous draw Performed By: #### 8 5499 #### [facility] [address] [place] [address], [facility] MCH (RBC) [Entitic mass] 27.2 pg Normal 27.0-33.[address] [facility] Comment on above: Order Comment: No: D o not add to previous draw Performed By: #### 8 5499 #### [facility] [address] [place] [address], [facility] MCHC (RBC) [Mass/Vol] 30.7 g/dL Low 32.0-35.[address] [facility] Comment on above: Order Comment: No: D o not add to previous draw Performed By: #### 8 5499 #### [facility] [address] [place] [address], [facility] MCV (RBC) [Entitic vol] 88.4 fL Normal 82.0-98.[address] [facility] Comment on above: Order Comment: No: D o not add to previous draw Performed By: #### 8 5499 #### [facility] [address] [place] [address], [facility] Nucleated RBC/100 WBC (Bld) [Ratio] 0 % Normal 0-[address] [facility] Comment on above: Order Comment: No: D o not add to previous draw Performed By: #### 8 5499 #### [facility] [address] [facility] [place] [address], [facility] PLAT CNT 260 10*3/uL Normal 150-[address] [facility] Comment on above: Order Comment: No: D o not add to previous draw Performed By: #### 8 5499 #### [facility] [address] [facility] [place] [address], [facility] RBC (Bld) [#/Vol] 3.02 10*6/uL Low 4.20-5.[address] [facility] Comment on above: Order Comment: No: D o not add to previous draw Performed By: #### 8 5499 #### [facility] [address] [place] [address], [facility] WBC (Bld) [#/Vol] 7.11 10*3/uL Normal 4.00-10.[address] [facility] Comment on above: Order Comment: No: D o not add to previous draw Performed By: #### 8 5499 #### [facility] [address] [facility] [place] [address], [facility] MAGNESIUM BLOODon 12-22-2020 Magnesium [Mass/Vol] 1.8 mg/dL Low 1.9-2.[address] [facility] Comment on above: Order Comment: No: D o not add to previous draw Performed By: #### 1 0070, 57617, 79464 #### [facility] [address] [place] [address], [facility] POC GLUCOSE LABon 12-22-2020 Glucose [Mass/Vol] 127 mg/dL High 70-100 [facility] Comment on above: Performed By: #### 8 5499 #### [facility] [address] [place] [address], [place] Glucose [Mass/Vol] 143 mg/dL High 70-[address] [facility] Comment on above: Performed By: #### 8 5499 ####[facility] [place] [address], [place] Glucose [Mass/Vol] 150 mg/dL High 70-100 [facility] Comment on above: Performed By: #### 1 0070, 14295, 25886 #### [facility] [address] [place] [address], [place] Glucose [Mass/Vol] 132 mg/dL High 70-[address] [facility] Comment on above: Performed By: #### 3 1414 #### [facility] [address] [place] [address], [facility] *SARS-CoV-2 COVID-19on 12-21 SARS-CoV-2 (COVID-19) RNA JEANNIE+probe Ql (Unsp spec) Not detected Normal Not Detected [facility] Comment on above: Order Comment: The A ptima SARS-CoV-2 assay is a nucleic acid amplification testintended for the qualitative detection of RNA from SARS-CoV-2 isolatedand purified from nasopharyngeal (FLIGHT NURSE),oropharyngeal (OP), nasal swab,sputum, and bronchoalveolar lavage (BAL) specimens from patients withsigns and symptoms of infection who are suspected of COVID-19.Results are for the identification of SARS-CoV-2 RNA. The SARS-CoV-2 RNAis generally detectable during the acute phase of infection.The Aptima SARS-CoV-2 Assay on the [employer] system isintended for use by laboratory personnel specifically instructed andtrained in the operation of the [employer] system. TheAptima SARS-CoV-2 assay is only for use under the Food and DrugAdministration Emergency Use Authorization. Testing is limited tolaboratories certified under the Clinical Laboratory ImprovementAmendments of 1988 (CLIA), 42 U.S.C. ???263a, to perform high complexitytests.Not Detected:Not detected does not preclude SARS-CoV-2 infection and should not beused as the sole basis for patient management decisions. Not detectedresults must be combined with clinical observations, patient history,and epidemiological information. Performed By: #### 8 5499 #### [facility] [address] CBC W/DIFFon 12-21-2020 ABS IMM GRANS 0.0 10*3/uL Normal 0.0-0.[address] [facility] Comment on above: Performed By: #### 5 0103 ####[facility] ABS NEUTROPHILS 6.3 10*3/uL Normal 1.6-7.[address] [facility] Comment on above: Performed By: #### 5 0103 ####[facility] Basophils (Bld) [#/Vol] 0.0 10*3/uL Normal 0.0-0.[address] [facility] Comment on above: Performed By: #### 5 0103 ####[facility] Basophils/100 WBC (Bld) 0.5 % Normal 0.0-1.[address] [facility] Comment on above: Performed By: #### 5 0103 ####[facility] Eosinophils (Bld) [#/Vol] 0.2 10*3/uL Normal 0.0-0.[address] [facility] Comment on above: Performed By: #### 5 0103 ####[facility] [facility] [place] [address], [facility] Eosinophils/100 WBC (Bld) 1.9 % Normal 0.0-6.[address] [facility] Comment on above: Performed By: #### 5 0103 ####[facility]3000 [facility].[address] Erythrocyte distribution width (RBC) [Ratio] 14.9 % Normal 11.5-15.[address] [facility] Comment on above: Performed By: #### 5 0103 ####[facility] Hematocrit (Bld) [Volume fraction] 30.7 % Low 39.0-50.[address] [facility] Comment on above: Performed By: #### 3 ####[address] Hemoglobin (Bld) [Mass/Vol] 9.8 g/dL Low 13.0-17.[address] [facility] Comment on above: Performed By: #### 5 3 ####[address] IMMATURE GRANS 0.5 % Normal 0.0-1.[address] [facility] Comment on above: Performed By: #### 5 3 ####[facility] [place] [address].[address] Lymphocytes (Bld) [#/Vol] 1.0 10*3/uL Low 1.2-4.[address] [facility] Comment on above: Performed By: #### 5 0103 ####[address] Lymphocytes/100 WBC (Bld) 11.6 % Low 20.0-45.[address] [facility] Comment on above: Performed By: #### 5 3 ####[address] [place] [address], [place] MCH (RBC) [Entitic mass] 27.8 pg Normal 27.0-33.[address] [facility] Comment on above: Performed By: #### 5 0103 ####[facility] [place] [address] MCHC (RBC) [Mass/Vol] 31.9 g/dL Low 32.0-35.[address] [facility] Comment on above: Performed By: #### 5 0103 ####[facility] MCV (RBC) [Entitic vol] 87.0 fL Normal 82.0-98.[address] [facility] Comment on above: Performed By: #### 5 0103 ####[address] Monocytes (Bld) [#/Vol] 0.8 10*3/uL Normal 0.1-1.[address] [facility] Comment on above: Performed By: #### 5 3 ####[address] MONOS 10.0 % Normal 5.0-12.[address] [facility] Comment on above: Performed By: #### 5 0103 ####[address] Neutrophils/100 WBC (Bld) 75.5 % High 40.0-72.[address] [facility] Comment on above: Performed By: #### 5 0103 ####[address] Nucleated RBC/100 WBC (Bld) [Ratio] 0 % Normal 0-[address] [facility] Comment on above: Performed By: #### 5 3 ####[facility] [place] [address], [facility] PLAT CNT 376 10*3/uL Normal 150-[address] [facility] Comment on above: Performed By: #### 5 0103 ####[facility] [place] [address], [facility] RBC (Bld) [#/Vol] 3.53 10*6/uL Low 4.20-5.[address] [facility] Comment on above: Performed By: #### 5 0103 ####[facility] [place] [address], [facility] WBC (Bld) [#/Vol] 8.30 10*3/uL Normal 4.00-10.[address] [facility] Comment on above: Performed By: #### 5 0103 ####[facility] COMP METABOLIC PANELon 12-21 Albumin [Mass/Vol] 3.3 g/dL Low 3.5-5.[address] [facility] Comment on above: Performed By: #### 1 0070, 60874, 61248 #### [facility] [address] ALKALINE PHOSPH 87 IU/L Normal 34-[address] [facility] Comment on above: Performed By: #### 1 0070, 54302, 94061 #### [facility] [address] ALT [Catalytic activity/Vol] 25 U/L Normal 7-[address] [facility] Comment on above: Performed By: #### 1 0070, 96609, 24125 #### [facility] [address] [facility] [place] [address], [facility] AST [Catalytic activity/Vol] 33 U/L Normal 13-[address] [facility] Comment on above: Performed By: #### 1 0070, 45998, 91257 #### [facility] [address] [place] [address], [facility] Bilirubin [Mass/Vol] 0.9 mg/dL Normal 0.3-1.[address] [facility] Comment on above: Performed By: #### 1 0, , 16406 #### [facility] [address] [place] [address], [place] Calcium [Mass/Vol] 8.4 mg/dL Low 8.6-10.[address] [facility] Comment on above: Performed By: #### 1 0, , 27861 #### [facility] [address] [place] [address], [place] Chloride [Moles/Vol] 96 mmol/L Low 98-[address] [facility] Comment on above: Performed By: #### 1 0, , 80105 #### [facility] [address] [place] [id number], [facility] CO2 [Moles/Vol] 21 mmol/L Normal 21-[address] [facility] Comment on above: Performed By: #### 1 0, , 95230 #### [facility] [address] [place] [address], [facility] Creatinine [Mass/Vol] 3.64 mg/dL High 0.70-1.[address] [facility] Comment on above: Performed By: #### 1 0, , 75293 #### [facility] [address] [place] [id number], [facility] eGFR- 20 ml/min/1.73sq m Abnormal >[address] [facility] Comment on above: Performed By: #### 1 0, , 78358 #### [facility] [address] [place] [id number], [facility] eGFR- non- 17 ml/min/1.73sq m Abnormal >[address] [facility] Comment on above: Performed By: #### 1 0, , 36807 #### [facility] [address] [place] [address], [place] Glucose [Mass/Vol] 171 mg/dL High 70-[address] [facility] Comment on above: Performed By: #### 1 0, 77063, 35331 #### [facility] [address] [place] [address], [place] Potassium [Moles/Vol] 4.6 mmol/L Normal 3.5-5.[address] [facility] Comment on above: Performed By: #### 1 0, , 43899 #### [facility] [address] [place] [address], [place] Protein [Mass/Vol] 6.5 g/dL Normal 6.0-8.[address] [facility] Comment on above: Performed By: #### 1 0, , 35114 #### [facility] [address] [place] [address], [place] Sodium [Moles/Vol] 131 mmol/L Low 136-[address] [facility] Comment on above: Performed By: #### 1 0, 57948, 01594 #### [facility] - [facility] [address] [place] [address], [place] Urea nitrogen [Mass/Vol] 42 mg/dL High 7-[address] [facility] Comment on above: Performed By: #### 1 0070, , [id number] #### [facility] [address] [place] [address], [place] LACTATE WITH REFLEXon 2020 Lactate [Moles/Vol] 2.0 mmol/L Normal .5-2.[address] [facility] Comment on above: Order Comment: RESUL T >=2.0; ADDITIONAL LACTATE ORDERED IN 4 HRS PER SEPSIS PROTOCOL Performed By: #### 3 1414 #### [facility] [address] [place] [address], [place] POC GLUCOSE LABon 12-21-2020 Glucose [Mass/Vol] 130 mg/dL High 70-[address] [facility] Comment on above: Performed By: #### 8 [id number] #### [facility] [address] [place] [address], [place] lactate w/reflex #2on 2020 Lactate [Moles/Vol] 0.9 mmol/L Normal .5-2.[address] [facility] Comment on above: Order Comment: No: D o not add to previous draw Performed By: #### 1 0070, 38684, 91443 #### [facility] [address] [place] [address], [place] POC GLUCOSE LABon 12-08-2020 Glucose [Mass/Vol] 139 mg/dL High 70-[address] [facility] Comment on above: Performed By: #### 8 [id number] #### [facility] [address] [place] [address], [place] Glucose [Mass/Vol] 126 mg/dL High 70-[address] [facility] Comment on above: Performed By: #### 8 [id number] #### [facility] [address] [place] [address], [place] Glucose [Mass/Vol] 142 mg/dL High 70-[address] [facility] Comment on above: Performed By: #### 8 [id number] #### [facility] [address] [place] [address], [place] BASIC METABOLIC PANELon 11-24 Calcium [Mass/Vol] 8.2 mg/dL Low 8.6-10.[address] [facility] Comment on above: Order Comment: No: D o not add to previous draw Performed By: #### 8 [id number] #### [facility] [address] [place] [address], [place] Chloride [Moles/Vol] 103 mmol/L Normal 98-[address] [facility] Comment on above: Order Comment: No: D o not add to previous draw Performed By: #### 8 [id number] #### [facility] [address] [place] [address], [place] CO2 [Moles/Vol] 27 mmol/L Normal 21-[address] [facility] Comment on above: Order Comment: No: D o not add to previous draw Performed By: #### 8 [id number] #### [facility] [address] [place] [address], [place] Creatinine [Mass/Vol] 0.78 mg/dL Normal 0.70-1.[address] [facility] Comment on above: Order Comment: No: D o not add to previous draw Performed By: #### 8 [id number] #### [facility] [address] [place] [address], [place] GFR/1.73 sq M.predicted among blacks MDRD (S/P/Bld) [Vol rate/Area] mL/min/{1.73_m2} Normal >[address] [facility] Comment on above: Order Comment: No: D o not add to previous draw Performed By: #### 8 [id number] #### [facility] [address] [place] [address], [place] GFR/1.73 sq M.predicted among non-blacks MDRD (S/P/Bld) [Vol rate/Area] mL/min/{1.73_m2} Normal >[address] [facility] Comment on above: Order Comment: No: D o not add to previous draw Performed By: #### 8 [id number] #### [facility] [address] [place] [address], [place] Glucose [Mass/Vol] 133 mg/dL High 70-[address] [facility] Comment on above: Order Comment: No: D o not add to previous draw Performed By: #### 8 [id number] #### [facility] [address] [place] [address], [place] Potassium [Moles/Vol] 3.8 mmol/L Normal 3.5-5.[address] [facility] Comment on above: Order Comment: No: D o not add to previous draw Performed By: #### 8 [id number] #### [facility] [address] [place] [address], [facility] Sodium [Moles/Vol] 137 mmol/L Normal 136-[address] [facility] Comment on above: Order Comment: No: D o not add to previous draw Performed By: #### 8 [id number] #### [facility] [address] [place] [id number], [facility] Urea nitrogen [Mass/Vol] 10 mg/dL Normal 7-[address] [facility] Comment on above: Order Comment: No: D o not add to previous draw Performed By: #### 8 [id number] #### [facility] [address] CBC COMPLETE BLOOD COUNTon - Erythrocyte distribution width (RBC) [Ratio] 14.9 % Normal 11.5-15.[address] [facility] Comment on above: Order Comment: No: D o not add to previous draw Performed By: #### 8 [id number] #### [facility] [address] [place] [address], [facility] Hematocrit (Bld) [Volume fraction] 25.7 % Low 39.0-50.[address] [facility] Comment on above: Order Comment: No: D o not add to previous draw Performed By: #### 8 [id number] #### [facility] [address] [place] [address], [facility] Hemoglobin (Bld) [Mass/Vol] 7.7 g/dL Low 13.0-17.[address] [facility] Comment on above: Order Comment: No: D o not add to previous draw Performed By: #### 8 [id number] #### [facility] [address] [place] [id number], [facility] MCH (RBC) [Entitic mass] 28.5 pg Normal 27.0-33.[address] [facility] Comment on above: Order Comment: No: D o not add to previous draw Performed By: #### 8 [id number] #### [facility] [address] [place] [address], [facility] MCHC (RBC) [Mass/Vol] 30.0 g/dL Low 32.0-35.[address] [facility] Comment on above: Order Comment: No: D o not add to previous draw Performed By: #### 8 [id number] #### [facility] [address] [place] [id number], [facility] MCV (RBC) [Entitic vol] 95.2 fL Normal 82.0-98.[address] [facility] Comment on above: Order Comment: No: D o not add to previous draw Performed By: #### 8 [id number] #### [facility] [address] [place] [address], [facility] Nucleated RBC/100 WBC (Bld) [Ratio] 0 % Normal 0-[address] [facility] Comment on above: Order Comment: No: D o not add to previous draw Performed By: #### 8 [id number] #### [facility] [address] [place] [address], [facility] PLAT CNT 257 10*3/uL Normal 150-[address] [facility] Comment on above: Order Comment: No: D o not add to previous draw Performed By: #### 8 [id number] #### [facility] [address] [facility] [place] [address], [facility] RBC (Bld) [#/Vol] 2.70 10*6/uL Low 4.20-5.[address] [facility] Comment on above: Order Comment: No: D o not add to previous draw Performed By: #### 8 [id number] #### [facility] [address] [place] [id number], [facility] WBC (Bld) [#/Vol] 5.46 10*3/uL Normal 4.00-10.[address] [facility] Comment on above: Order Comment: No: D o not add to previous draw Performed By: #### 8 [id number] #### [facility] [address] [place] [address], [place] POC GLUCOSE LABon 2020 Glucose [Mass/Vol] 211 mg/dL High 70-[address] [facility] Comment on above: Performed By: #### 8 [id number] #### [facility] [address] [place] [address], [place] Glucose [Mass/Vol] 188 mg/dL High 70-[address] [facility] Comment on above: Performed By: #### 3 1414 #### [facility] [address] [place] [address], [place] Glucose [Mass/Vol] 145 mg/dL High 70-[address] [facility] Comment on above: Performed By: #### 8 [id number] #### [facility] [address] [place] [address], [place] Glucose [Mass/Vol] 150 mg/dL High 70-[address] [facility] Comment on above: Performed By: #### 1 0070, 87605, 00749 #### [facility] [address] [place] [address], [place] BASIC METABOLIC PANELon 11-24 Calcium [Mass/Vol] 7.9 mg/dL Low 8.6-10.[address] [facility] Comment on above: Order Comment: No: D o not add to previous draw Performed By: #### 1 0070, 27879, 13079 #### [facility] [address] [place] [address], [place] Chloride [Moles/Vol] 103 mmol/L Normal 98-[address] [facility] Comment on above: Order Comment: No: D o not add to previous draw Performed By: #### 1 0070, 13229, 47355 #### [facility] [address] [place] [address], [place] CO2 [Moles/Vol] 28 mmol/L Normal 21-[address] [facility] Comment on above: Order Comment: No: D o not add to previous draw Performed By: #### 1 0070, 47214, 66686 #### [facility] [address] [place] [address], [place] Creatinine [Mass/Vol] 0.76 mg/dL Normal 0.70-1.[address] [facility] Comment on above: Order Comment: No: D o not add to previous draw Performed By: #### 1 0070, 54473, 96600 #### [facility] [address] [place] [address], [place] GFR/1.73 sq M.predicted among blacks MDRD (S/P/Bld) [Vol rate/Area] mL/min/{1.73_m2} Normal >[address] [facility] Comment on above: Order Comment: No: D o not add to previous draw Performed By: #### 1 0070, 22987, 60803 #### [facility] [address] [place] [address], [place] GFR/1.73 sq M.predicted among non-blacks MDRD (S/P/Bld) [Vol rate/Area] mL/min/{1.73_m2} Normal >[address] [facility] Comment on above: Order Comment: No: D o not add to previous draw Performed By: #### 1 0070, 32204, 47152 #### [facility] [address] [place] [address], [place] Glucose [Mass/Vol] 129 mg/dL High 70-[address] [facility] Comment on above: Order Comment: No: D o not add to previous draw Performed By: #### 1 0070, 77596, 41799 #### [facility] [address] [place] [address], [place] Potassium [Moles/Vol] 4.5 mmol/L Normal 3.5-5.[address] [facility] Comment on above: Order Comment: No: D o not add to previous draw Performed By: #### 1 0070, 04361, 12729 #### [facility] [address] [place] [address], [facility] Sodium [Moles/Vol] 138 mmol/L Normal 136-[address] [facility] Comment on above: Order Comment: No: D o not add to previous draw Performed By: #### 1 0, 06330, 60777 #### [facility] [address] [place] [address], [facility] Urea nitrogen [Mass/Vol] 13 mg/dL Normal 7-[address] [facility] Comment on above: Order Comment: No: D o not add to previous draw Performed By: #### 1 0, 35279, 49473 #### [facility] [address] [place] [address], [facility] CBC COMPLETE BLOOD COUNTon Erythrocyte distribution width (RBC) [Ratio] 14.9 % Normal 11.5-15.[address] [facility] Comment on above: Order Comment: No: D o not add to previous draw Performed By: #### 8 1739 #### [facility] [address] [place] [address], [facility] Hematocrit (Bld) [Volume fraction] 26.3 % Low 39.0-50.[address] [facility] Comment on above: Order Comment: No: D o not add to previous draw Performed By: #### 8 5744 #### [facility] [address] [place] [address], [facility] Hemoglobin (Bld) [Mass/Vol] 7.9 g/dL Low 13.0-17.[address] [facility] Comment on above: Order Comment: No: D o not add to previous draw Performed By: #### 8 4107 #### [facility] [address] [place] [id number], [facility] MCH (RBC) [Entitic mass] 28.7 pg Normal 27.0-33.[address] [facility] Comment on above: Order Comment: No: D o not add to previous draw Performed By: #### 8 [id number] #### [facility] [address] [place] [address], [facility] MCHC (RBC) [Mass/Vol] 30.0 g/dL Low 32.0-35.[address] [facility] Comment on above: Order Comment: No: D o not add to previous draw Performed By: #### 8 [id number] #### [facility] [address] [place] [address], [facility] MCV (RBC) [Entitic vol] 95.6 fL Normal 82.0-98.[address] [facility] Comment on above: Order Comment: No: D o not add to previous draw Performed By: #### 8 [id number] #### [facility] [address] [place] [address], [facility] Nucleated RBC/100 WBC (Bld) [Ratio] 0 % Normal 0-[address] [facility] Comment on above: Order Comment: No: D o not add to previous draw Performed By: #### 8 [id number] #### [facility] [address] [place] [address], [facility] PLAT CNT 263 10*3/uL Normal 150-[address] [facility] Comment on above: Order Comment: No: D o not add to previous draw Performed By: #### 8 [id number] #### [facility] [address] [place] [address], [facility] RBC (Bld) [#/Vol] 2.75 10*6/uL Low 4.20-5.[address] [facility] Comment on above: Order Comment: No: D o not add to previous draw Performed By: #### 8 [id number] #### [facility] [address] [place] [address], [facility] WBC (Bld) [#/Vol] 5.04 10*3/uL Normal 4.00-10.[address] [facility] Comment on above: Order Comment: No: D o not add to previous draw Performed By: #### 8 [id number] #### [facility] [address] [place] [address], [place] MAGNESIUM BLOODon 12-06-2020 Magnesium [Mass/Vol] 2.0 mg/dL Normal 1.9-2.[address] [facility] Comment on above: Order Comment: No: D o not add to previous draw Performed By: #### 1 0070, 58968, 28446 #### [facility] [address] [place] [address], [place] PHOSPHORUS BLOODon Phosphate [Mass/Vol] 3.4 mg/dL Normal 2.5-5.[address] [facility] Comment on above: Order Comment: No: D o not add to previous draw Performed By: #### 1 0070, 72790, 03187 #### [facility] [address] [place] [address], [place] POC GLUCOSE LABon 12-06-2020 Glucose [Mass/Vol] 160 mg/dL High 70-[address] [facility] Comment on above: Performed By: #### 8 [id number] #### [facility] [address] [place] [address], [place] Glucose [Mass/Vol] 155 mg/dL High 70-[address] [facility] Comment on above: Performed By: #### 8 5499 #### [facility] [address] [place] [address], [place] Glucose [Mass/Vol] 151 mg/dL High 70-[address] [facility] Comment on above: Performed By: #### 8 5499 ####[facility] [place] [address], [place] Glucose [Mass/Vol] 132 mg/dL High 70-[address] [facility] Comment on above: Performed By: #### 8 5499 #### [facility] [address] [place] [address], [place] BASIC METABOLIC PANELon 11-24 Calcium [Mass/Vol] 7.8 mg/dL Low 8.6-10.[address] [facility] Comment on above: Order Comment: No: D o not add to previous draw Performed By: #### 8 [id number] #### [facility] [address] [place] [address], [place] Chloride [Moles/Vol] 102 mmol/L Normal 98-[address] [facility] Comment on above: Order Comment: No: D o not add to previous draw Performed By: #### 8 [id number] #### [facility] [address] [place] [address], [place] CO2 [Moles/Vol] 28 mmol/L Normal 21-[address] [facility] Comment on above: Order Comment: No: D o not add to previous draw Performed By: #### 8 [id number] #### [facility] [address] [place] [address], [place] Creatinine [Mass/Vol] 0.73 mg/dL Normal 0.70-1.[address] [facility] Comment on above: Order Comment: No: D o not add to previous draw Performed By: #### 8 [id number] #### [facility] [address] [place] [address], [place] GFR/1.73 sq M.predicted among blacks MDRD (S/P/Bld) [Vol rate/Area] mL/min/{1.73_m2} Normal >[address] [facility] Comment on above: Order Comment: No: D o not add to previous draw Performed By: #### 8 5499 #### [facility] [address] [place] [address], [place] GFR/1.73 sq M.predicted among non-blacks MDRD (S/P/Bld) [Vol rate/Area] mL/min/{1.73_m2} Normal >[address] [facility] Comment on above: Order Comment: No: D o not add to previous draw Performed By: #### 8 [id number] #### [facility] [address] [place] [address], [place] Glucose [Mass/Vol] 145 mg/dL High 70-[address] [facility] Comment on above: Order Comment: No: D o not add to previous draw Performed By: #### 8 [id number] #### [facility] [address] [place] [address], [place] Potassium [Moles/Vol] 3.9 mmol/L Normal 3.5-5.[address] [facility] Comment on above: Order Comment: No: D o not add to previous draw Performed By: #### 8 [id number] #### [facility] [address] [place] [address], [place] Sodium [Moles/Vol] 136 mmol/L Normal 136-[address] [facility] Comment on above: Order Comment: No: D o not add to previous draw Performed By: #### 8 [id number] #### [facility] [address] [place] [address], [place] Urea nitrogen [Mass/Vol] 13 mg/dL Normal 7-[address] [facility] Comment on above: Order Comment: No: D o not add to previous draw Performed By: #### 8 [id number] #### [facility] [address] [place] [address], [facility] CBC COMPLETE BLOOD COUNTon Erythrocyte distribution width (RBC) [Ratio] 14.9 % Normal 11.5-15.[address] [facility] Comment on above: Order Comment: No: D o not add to previous draw Performed By: #### 8 [id number] #### [facility] [address] [place] [address], [place] Hematocrit (Bld) [Volume fraction] 26.1 % Low 39.0-50.[address] [facility] Comment on above: Order Comment: No: D o not add to previous draw Performed By: #### 8 [id number] #### [facility] [address] Hemoglobin (Bld) [Mass/Vol] 7.8 g/dL Low 13.0-17.[address] [facility] Comment on above: Order Comment: No: D o not add to previous draw Performed By: #### 8 [id number] #### [facility] [address] [place] [id number], [facility] MCH (RBC) [Entitic mass] 28.8 pg Normal 27.0-33.[address] [facility] Comment on above: Order Comment: No: D o not add to previous draw Performed By: #### 8 [id number] #### [facility] [address] [place] [address], [facility] MCHC (RBC) [Mass/Vol] 29.9 g/dL Low 32.0-35.[address] [facility] Comment on above: Order Comment: No: D o not add to previous draw Performed By: #### 8 [id number] #### [facility] [address] [place] [address], [facility] MCV (RBC) [Entitic vol] 96.3 fL Normal 82.0-98.[address] [facility] Comment on above: Order Comment: No: D o not add to previous draw Performed By: #### 8 [id number] #### [facility] [address] [place] [address], [facility] Nucleated RBC/100 WBC (Bld) [Ratio] 0 % Normal 0-[address] [facility] Comment on above: Order Comment: No: D o not add to previous draw Performed By: #### 8 [id number] #### [facility] [address] [place] [id number], [facility] PLAT CNT 217 10*3/uL Normal 150-[address] [facility] Comment on above: Order Comment: No: D o not add to previous draw Performed By: #### 8 [id number] #### [facility] [address] [place] [id number], [facility] RBC (Bld) [#/Vol] 2.71 10*6/uL Low 4.20-5.[address] [facility] Comment on above: Order Comment: No: D o not add to previous draw Performed By: #### 8 [id number] #### [facility] [address] [place] [address], [place] WBC (Bld) [#/Vol] 5.50 10*3/uL Normal 4.00-10.[address] [facility] Comment on above: Order Comment: No: D o not add to previous draw Performed By: #### 8 [id number] #### [facility] [address] [place] [address], [place] MAGNESIUM BLOODon 12-05-2020 Magnesium [Mass/Vol] 2.0 mg/dL Normal 1.9-2.[address] [facility] Comment on above: Order Comment: No: D o not add to previous draw Performed By: #### 8 [id number] #### [facility] [address] [place] [address], [place] PHOSPHORUS BLOODon Phosphate [Mass/Vol] 3.1 mg/dL Normal 2.5-5.[address] [facility] Comment on above: Order Comment: No: D o not add to previous draw Performed By: #### 8 [id number] #### [facility] [address] [place] [address], [place] POC GLUCOSE LABon 12-05-2020 Glucose [Mass/Vol] 135 mg/dL High 70-[address] [facility] Comment on above: Performed By: #### 1 0070, 22987, 02244 #### [facility] [address] [place] [address], [place] Glucose [Mass/Vol] 128 mg/dL High 70-[address] [facility] Comment on above: Performed By: #### 8 [id number] #### [facility] [address] [place] [address], [place] Glucose [Mass/Vol] 180 mg/dL High 70-[address] [facility] Comment on above: Performed By: #### 1 0070, 09588, 57731 #### [facility] [address] [place] [address], [place] Glucose [Mass/Vol] 148 mg/dL High 70-[address] [facility] Comment on above: Performed By: #### 8 [id number] ####[facility] [place] [address], [place] Glucose [Mass/Vol] 142 mg/dL High 70-[address] [facility] Comment on above: Performed By: #### 8 [id number] #### [facility] [address] [place] [address], [place] BASIC METABOLIC PANELon 10- Calcium [Mass/Vol] 7.5 mg/dL Low 8.6-10.[address] [facility] Comment on above: Order Comment: No: D o not add to previous draw Performed By: #### 8 [id number] #### [facility] [address] [place] [address], [place] Chloride [Moles/Vol] 101 mmol/L Normal 98-[address] [facility] Comment on above: Order Comment: No: D o not add to previous draw Performed By: #### 8 [id number] #### [facility] [address] [place] [address], [place] CO2 [Moles/Vol] 29 mmol/L Normal 21-[address] [facility] Comment on above: Order Comment: No: D o not add to previous draw Performed By: #### 8 [id number] #### [facility] [address] [place] [address], [place] Creatinine [Mass/Vol] 0.79 mg/dL Normal 0.70-1.[address] [facility] Comment on above: Order Comment: No: D o not add to previous draw Performed By: #### 8 [id number] #### [facility] [address] [place] [address], [place] GFR/1.73 sq M.predicted among blacks MDRD (S/P/Bld) [Vol rate/Area] mL/min/{1.73_m2} Normal >[address] [facility] Comment on above: Order Comment: No: D o not add to previous draw Performed By: #### 8 [id number] #### [facility] [address] [place] [address], [place] GFR/1.73 sq M.predicted among non-blacks MDRD (S/P/Bld) [Vol rate/Area] mL/min/{1.73_m2} Normal >[address] [facility] Comment on above: Order Comment: No: D o not add to previous draw Performed By: #### 8 [id number] #### [facility] [address] [place] [address], [place] Glucose [Mass/Vol] 160 mg/dL High 70-[address] [facility] Comment on above: Order Comment: No: D o not add to previous draw Performed By: #### 8 [id number] #### [facility] [facility] [address] [place] [address], [place] Potassium [Moles/Vol] 4.1 mmol/L Normal 3.5-5.[address] [facility] Comment on above: Order Comment: No: D o not add to previous draw Performed By: #### 8 [id number] #### [facility] [address] [place] [address], [place] Sodium [Moles/Vol] 136 mmol/L Normal 136-[address] [facility] Comment on above: Order Comment: No: D o not add to previous draw Performed By: #### 8 [id number] #### [facility] [address] [place] [address], [place] Urea nitrogen [Mass/Vol] 14 mg/dL Normal 7-[address] [facility] Comment on above: Order Comment: No: D o not add to previous draw Performed By: #### 8 [id number] #### [facility] [address] CBC COMPLETE BLOOD COUNTon Erythrocyte distribution width (RBC) [Ratio] 15.1 % High 11.5-15.[address] [facility] Comment on above: Order Comment: Check NG Tube Position Performed By: #### 5 0608 ####[facility] [facility] Hematocrit (Bld) [Volume fraction] 26.4 % Low 39.0-50.[address] [facility] Comment on above: Order Comment: Check NG Tube Position Performed By: #### 5 0608 ####[facility] Hemoglobin (Bld) [Mass/Vol] 8.2 g/dL Low 13.0-17.[address] [facility] Comment on above: Order Comment: Check NG Tube Position Performed By: #### 5 0608 ####[facility]3000 [facility].[address] MCH (RBC) [Entitic mass] 29.2 pg Normal 27.0-33.[address] [facility] Comment on above: Order Comment: Check NG Tube Position Performed By: #### 5 0608 ####[facility] [facility] [place] [address], [facility] MCHC (RBC) [Mass/Vol] 31.1 g/dL Low 32.0-35.[address] [facility] Comment on above: Order Comment: Check NG Tube Position Performed By: #### 5 0608 ####[facility] [facility] [place] [address], [facility] MCV (RBC) [Entitic vol] 94.0 fL Normal 82.0-98.[address] [facility] Comment on above: Order Comment: Check NG Tube Position Performed By: #### 5 0608 ####[facility] [facility] [place] [address], [facility] Nucleated RBC/100 WBC (Bld) [Ratio] 0 % Normal 0-[address] [facility] Comment on above: Order Comment: Check NG Tube Position Performed By: #### 5 0608 ####[facility] [place] [address], [facility] PLAT CNT 210 10*3/uL Normal 150-[address] [facility] Comment on above: Order Comment: Check NG Tube Position Performed By: #### 5 0608 ####[facility] [facility] [place] [address], [facility] RBC (Bld) [#/Vol] 2.81 10*6/uL Low 4.20-5.[address] [facility] Comment on above: Order Comment: Check NG Tube Position Performed By: #### 5 0608 ####[facility] [facility] [place] [address], [facility] WBC (Bld) [#/Vol] 5.79 10*3/uL Normal 4.00-10.[address] [facility] Comment on above: Order Comment: Check NG Tube Position Performed By: #### 5 0608 ####[facility] [facility] [place] [address], [facility] MAGNESIUM BLOODon 12-04-2020 Magnesium [Mass/Vol] 2.2 mg/dL Normal 1.9-2.[address] [facility] Comment on above: Order Comment: No: D o not add to previous draw Performed By: #### 8 [id number] #### [facility] [address] [place] [address], [facility] PHOSPHORUS BLOODon Phosphate [Mass/Vol] 2.9 mg/dL Normal 2.5-5.[address] [facility] Comment on above: Order Comment: No: D o not add to previous draw Performed By: #### 8 [id number] #### [facility] [address] [place] [address], [place] POC GLUCOSE LABon 12-04-2020 Glucose [Mass/Vol] 152 mg/dL High 70-[address] [facility] Comment on above: Performed By: #### 8 [id number] #### [facility] [address] [place] [address], [place] Glucose [Mass/Vol] 149 mg/dL High 70-[address] [facility] Comment on above: Performed By: #### 8 [id number] #### [facility] [address] [place] [address], [place] Glucose [Mass/Vol] 158 mg/dL High 70-[address] [facility] Comment on above: Performed By: #### 8 [id number] #### [facility] [address] [place] [address], [place] Glucose [Mass/Vol] 158 mg/dL High 70-[address] [facility] Comment on above: Performed By: #### 8 [id number] #### [facility] [address] [place] [address], [place] Glucose [Mass/Vol] 188 mg/dL High 70-[address] [facility] Comment on above: Performed By: #### 8 [id number] #### [facility] [address] [place] [address], [place] BASIC METABOLIC PANELon 11-24 Calcium [Mass/Vol] 7.4 mg/dL Low 8.6-10.[address] [facility] Comment on above: Order Comment: No: D o not add to previous draw Performed By: #### 8 [id number] #### [facility] [address] [place] [address], [place] Chloride [Moles/Vol] 101 mmol/L Normal 98-[address] [facility] Comment on above: Order Comment: No: D o not add to previous draw Performed By: #### 8 [id number] #### [facility] [address] [place] [address], [place] CO2 [Moles/Vol] 31 mmol/L Normal 21-[address] [facility] Comment on above: Order Comment: No: D o not add to previous draw Performed By: #### 8 [id number] #### [facility] [address] [place] [address], [facility] Creatinine [Mass/Vol] 0.75 mg/dL Normal 0.70-1.[address] [facility] Comment on above: Order Comment: No: D o not add to previous draw Performed By: #### 8 [id number] #### [facility] [address] [place] [address], [place] GFR/1.73 sq M.predicted among blacks MDRD (S/P/Bld) [Vol rate/Area] mL/min/{1.73_m2} Normal >[address] [facility] Comment on above: Order Comment: No: D o not add to previous draw Performed By: #### 8 [id number] #### [facility] [address] [place] [address], [facility] GFR/1.73 sq M.predicted among non-blacks MDRD (S/P/Bld) [Vol rate/Area] mL/min/{1.73_m2} Normal >[address] [facility] Comment on above: Order Comment: No: D o not add to previous draw Performed By: #### 8 [id number] #### [facility] [address] [place] [address], [place] Glucose [Mass/Vol] 167 mg/dL High 70-[address] [facility] Comment on above: Order Comment: No: D o not add to previous draw Performed By: #### 8 [id number] #### [facility] [address] [place] [address], [place] Potassium [Moles/Vol] 4.4 mmol/L Normal 3.5-5.[address] [facility] Comment on above: Order Comment: No: D o not add to previous draw Performed By: #### 8 [id number] #### [facility] [address] [place] [address], [facility] Sodium [Moles/Vol] 137 mmol/L Normal 136-[address] [facility] Comment on above: Order Comment: No: D o not add to previous draw Performed By: #### 8 [id number] #### [facility] [address] [place] [address], [facility] Urea nitrogen [Mass/Vol] 16 mg/dL Normal 7-[address] [facility] Comment on above: Order Comment: No: D o not add to previous draw Performed By: #### 8 [id number] #### [facility] [address] [place] [address], [facility] CALCIUM IONIZED CBGLon 12-03 IONIZED CALCIUM 1.05 mmol/L Low 1.12-1.[address] [facility] Comment on above: Performed By: #### 8 [id number] #### [facility] [address] [place] [address], [facility] CBC COMPLETE BLOOD COUNTon Erythrocyte distribution width (RBC) [Ratio] 15.2 % High 11.5-15.[address] [facility] Comment on above: Order Comment: No: D o not add to previous draw Performed By: #### 8 [id number] #### [facility] [address] [place] [address], [facility] Hematocrit (Bld) [Volume fraction] 26.6 % Low 39.0-50.[address] [facility] Comment on above: Order Comment: No: D o not add to previous draw Performed By: #### 8 [id number] #### [facility] [address] [place] [address], [facility] Hemoglobin (Bld) [Mass/Vol] 8.1 g/dL Low 13.0-17.[address] [facility] Comment on above: Order Comment: No: D o not add to previous draw Performed By: #### 8 [id number] #### [facility] [address] [place] [address], [facility] MCH (RBC) [Entitic mass] 28.9 pg Normal 27.0-33.[address] [facility] Comment on above: Order Comment: No: D o not add to previous draw Performed By: #### 8 [id number] #### [facility] [address] [place] [id number], [facility] MCHC (RBC) [Mass/Vol] 30.5 g/dL Low 32.0-35.[address] [facility] Comment on above: Order Comment: No: D o not add to previous draw Performed By: #### 8 [id number] #### [facility] [address] [place] [id number], [facility] MCV (RBC) [Entitic vol] 95.0 fL Normal 82.0-98.[address] [facility] Comment on above: Order Comment: No: D o not add to previous draw Performed By: #### 8 [id number] #### [facility] [address] [place] [address], [facility] Nucleated RBC/100 WBC (Bld) [Ratio] 0 % Normal 0-[address] [facility] Comment on above: Order Comment: No: D o not add to previous draw Performed By: #### 8 [id number] #### [facility] [address] [place] [id number], [place] PLAT CNT 201 10*3/uL Normal 150-[address] [facility] Comment on above: Order Comment: No: D o not add to previous draw Performed By: #### 8 [id number] #### [facility] [address] [place] [id number], [facility] RBC (Bld) [#/Vol] 2.80 10*6/uL Low 4.20-5.[address] [facility] Comment on above: Order Comment: No: D o not add to previous draw Performed By: #### 8 [id number] #### [facility] [address] [place] [address], [place] WBC (Bld) [#/Vol] 5.80 10*3/uL Normal 4.00-10.[address] [facility] Comment on above: Order Comment: No: D o not add to previous draw Performed By: #### 8 [id number] #### [facility] [address] [place] [address], [place] MAGNESIUM BLOODon 12-03-2020 Magnesium [Mass/Vol] 2.3 mg/dL Normal 1.9-2.[address] [facility] Comment on above: Order Comment: No: D o not add to previous draw Performed By: #### 8 [id number] #### [facility] [address] [place] [address], [place] PHOSPHORUS BLOODon Phosphate [Mass/Vol] 2.8 mg/dL Normal 2.5-5.[address] [facility] Comment on above: Order Comment: No: D o not add to previous draw Performed By: #### 8 [id number] #### [facility] [address] [place] [address], [place] POC GLUCOSE LABon 12-03-2020 Glucose [Mass/Vol] 184 mg/dL High 70-[address] [facility] Comment on above: Performed By: #### 8 [id number] ####[facility] [place] [address], [place] Glucose [Mass/Vol] 193 mg/dL High 70-[address] [facility] Comment on above: Performed By: #### 8 5499 #### [facility] [address] [place] [address], [place] Glucose [Mass/Vol] 181 mg/dL High 70-[address] [facility] Comment on above: Performed By: #### 8 [id number] #### [facility] [address] [place] [address], [place] Glucose [Mass/Vol] 161 mg/dL High 70-[address] [facility] Comment on above: Performed By: #### 8 5499 #### [facility] [address] [place] [address], [place] BASIC METABOLIC PANELon 10-0 -2020 Calcium [Mass/Vol] 7.1 mg/dL Low 8.6-10.[address] [facility] Comment on above: Order Comment: No: D o not add to previous draw Performed By: #### 1 0070, 95179, 74248 #### [facility] [address] [place] [address], [place] Chloride [Moles/Vol] 101 mmol/L Normal 98-[address] [facility] Comment on above: Order Comment: No: D o not add to previous draw Performed By: #### 1 0070, 32984, 50424 #### [facility] [address] [place] [address], [place] CO2 [Moles/Vol] 29 mmol/L Normal 21-[address] [facility] Comment on above: Order Comment: No: D o not add to previous draw Performed By: #### 1 0070, 66046, 84860 #### [facility] [address] [place] [address], [place] Creatinine [Mass/Vol] 0.85 mg/dL Normal 0.70-1.[address] [facility] Comment on above: Order Comment: No: D o not add to previous draw Performed By: #### 1 0070, 18941, 49758 #### [facility] [address] [place] [address], [place] GFR/1.73 sq M.predicted among blacks MDRD (S/P/Bld) [Vol rate/Area] mL/min/{1.73_m2} Normal >[address] [facility] Comment on above: Order Comment: No: D o not add to previous draw Performed By: #### 1 0070, 76588, 51634 #### [facility] [address] [place] [address], [place] GFR/1.73 sq M.predicted among non-blacks MDRD (S/P/Bld) [Vol rate/Area] mL/min/{1.73_m2} Normal >[address] [facility] Comment on above: Order Comment: No: D o not add to previous draw Performed By: #### 1 0, 38080, 50302 #### [facility] [address] [place] [address], [place] Glucose [Mass/Vol] 181 mg/dL High 70-[address] [facility] Comment on above: Order Comment: No: D o not add to previous draw Performed By: #### 1 0, 59436, 49489 #### [facility] [address] [place] [address], [place] Potassium [Moles/Vol] 3.9 mmol/L Normal 3.5-5.[address] [facility] Comment on above: Order Comment: No: D o not add to previous draw Performed By: #### 1 0, , 67808 #### [facility] [address] [place] [address], [place] Sodium [Moles/Vol] 137 mmol/L Normal 136-[address] [facility] Comment on above: Order Comment: No: D o not add to previous draw Performed By: #### 1 0, 22450, 94523 #### [facility] [address] [place] [address], [place] Urea nitrogen [Mass/Vol] 20 mg/dL Normal 7-[address] [facility] Comment on above: Order Comment: No: D o not add to previous draw Performed By: #### 1 0, 62254, 65262 #### [facility] [address] [place] [address], [place] CBC COMPLETE BLOOD COUNTon Erythrocyte distribution width (RBC) [Ratio] 15.1 % High 11.5-15.[address] [facility] Comment on above: Order Comment: No: D o not add to previous draw Performed By: #### 8 5499 #### [facility] [address] [place] [address], [facility] Hematocrit (Bld) [Volume fraction] 26.7 % Low 39.0-50.[address] [facility] Comment on above: Order Comment: No: D o not add to previous draw Performed By: #### 8 5499 #### [facility] [address] [place] [address], [facility] Hemoglobin (Bld) [Mass/Vol] 7.9 g/dL Low 13.0-17.[address] [facility] Comment on above: Order Comment: No: D o not add to previous draw Performed By: #### 8 5499 #### [facility] [address] [place] [address], [facility] MCH (RBC) [Entitic mass] 29.3 pg Normal 27.0-33.[address] [facility] Comment on above: Order Comment: No: D o not add to previous draw Performed By: #### 8 5499 #### [facility] [address] [place] [id number], [facility] MCHC (RBC) [Mass/Vol] 29.6 g/dL Low 32.0-35.[address] [facility] Comment on above: Order Comment: No: D o not add to previous draw Performed By: #### 8 5499 #### [facility] [address] [place] [address], [facility] MCV (RBC) [Entitic vol] 98.9 fL High 82.0-98.[address] [facility] Comment on above: Order Comment: No: D o not add to previous draw Performed By: #### 8 5499 #### [facility] [address] [facility] [place] [id number], [facility] Nucleated RBC/100 WBC (Bld) [Ratio] 0 % Normal 0-[address] [facility] Comment on above: Order Comment: No: D o not add to previous draw Performed By: #### 8 [id number] #### [facility] [address] [place] [address], [facility] PLAT CNT 181 10*3/uL Normal 150-[address] [facility] Comment on above: Order Comment: No: D o not add to previous draw Performed By: #### 8 5499 #### [facility] [address] [place] [address], [facility] RBC (Bld) [#/Vol] 2.70 10*6/uL Low 4.20-5.[address] [facility] Comment on above: Order Comment: No: D o not add to previous draw Performed By: #### 8 5499 #### [facility] [address] [place] [address], [facility] WBC (Bld) [#/Vol] 5.52 10*3/uL Normal 4.00-10.[address] [facility] Comment on above: Order Comment: No: D o not add to previous draw Performed By: #### 8 5499 #### [facility] [address] [place] [address], [facility] MAGNESIUM BLOODon 12-02-2020 Magnesium [Mass/Vol] 2.5 mg/dL Normal 1.9-2.[address] [facility] Comment on above: Order Comment: No: D o not add to previous draw Performed By: #### 1 0070, 16188, 29781 #### [facility] [address] [place] [id number], [facility] POC GLUCOSE LABon 12-02-2020 Glucose [Mass/Vol] 140 mg/dL High 70-[address] [facility] Comment on above: Performed By: #### 8 5499 #### [facility] [address] [place] [address], [place] Glucose [Mass/Vol] 218 mg/dL High 70-[address] [facility] Comment on above: Performed By: #### 8 5499 ####[facility] [place] [address], [place] Glucose [Mass/Vol] 181 mg/dL High 70-[address] [facility] Comment on above: Performed By: #### 1 0070, 69673, 50822 #### [facility] [address] [place] [address], [place] BASIC METABOLIC PANELon 10-0 Calcium [Mass/Vol] 7.4 mg/dL Low 8.6-10.[address] [facility] Comment on above: Order Comment: No: D o not add to previous draw Performed By: #### 0 0071 #### [facility] [address] [place] [address], [place] Chloride [Moles/Vol] 103 mmol/L Normal 98-[address] [facility] Comment on above: Order Comment: No: D o not add to previous draw Performed By: #### 0 0071 #### [facility] [address] [place] [address], [place] CO2 [Moles/Vol] 31 mmol/L Normal 21-[address] [facility] Comment on above: Order Comment: No: D o not add to previous draw Performed By: #### 0 0071 #### [facility] [address] [place] [address], [place] Creatinine [Mass/Vol] 1.08 mg/dL Normal 0.70-1.[address] [facility] Comment on above: Order Comment: No: D o not add to previous draw Performed By: #### 0 0071 #### [facility] [address] [place] [address], [place] GFR/1.73 sq M.predicted among blacks MDRD (S/P/Bld) [Vol rate/Area] mL/min/{1.73_m2} Normal >[address] [facility] Comment on above: Order Comment: No: D o not add to previous draw Performed By: #### 0 0071 #### [facility] [address] [place] [address], [place] GFR/1.73 sq M.predicted among non-blacks MDRD (S/P/Bld) [Vol rate/Area] mL/min/{1.73_m2} Normal >[address] [facility] Comment on above: Order Comment: No: D o not add to previous draw Performed By: #### 0 0071 #### [facility] [address] [place] [address], [place] Glucose [Mass/Vol] 215 mg/dL High 70-[address] [facility] Comment on above: Order Comment: No: D o not add to previous draw Performed By: #### 0 0071 #### [facility] [address] [place] [address], [place] Potassium [Moles/Vol] 4.3 mmol/L Normal 3.5-5.[address] [facility] Comment on above: Order Comment: No: D o not add to previous draw Performed By: #### 0 0071 #### [facility] [address] [place] [address], [place] Sodium [Moles/Vol] 139 mmol/L Normal 136-[address] [facility] Comment on above: Order Comment: No: D o not add to previous draw Performed By: #### 0 0071 #### [facility] [address] [place] [address], [place] Urea nitrogen [Mass/Vol] 34 mg/dL High 7-[address] [facility] Comment on above: Order Comment: No: D o not add to previous draw Performed By: #### 0 0071 #### [facility] [address] [place] [address], [place] CBC COMPLETE BLOOD COUNTon Erythrocyte distribution width (RBC) [Ratio] 15.1 % High 11.5-15.[address] [facility] Comment on above: Order Comment: Check NG Tube Position Performed By: #### 5 0608 ####[facility] [place] [address], [place] Hematocrit (Bld) [Volume fraction] 27.5 % Low 39.0-50.[address] [facility] Comment on above: Order Comment: Check NG Tube Position Performed By: #### 5 0608 ####[facility] [facility].[address] Hemoglobin (Bld) [Mass/Vol] 8.2 g/dL Low 13.0-17.[address] [facility] Comment on above: Order Comment: Check NG Tube Position Performed By: #### 5 0608 ####[facility] MCH (RBC) [Entitic mass] 29.1 pg Normal 27.0-33.[address] [facility] Comment on above: Order Comment: Check NG Tube Position Performed By: #### 5 0608 ####[place] [address] [address] MCHC (RBC) [Mass/Vol] 29.8 g/dL Low 32.0-35.[address] [facility] Comment on above: Order Comment: Check NG Tube Position Performed By: #### 5 0608 ####[facility] MCV (RBC) [Entitic vol] 97.5 fL Normal 82.0-98.[address] [facility] Comment on above: Order Comment: Check NG Tube Position Performed By: #### 5 0608 ####[facility] Nucleated RBC/100 WBC (Bld) [Ratio] 0 % Normal 0-[address] [facility] Comment on above: Order Comment: Check NG Tube Position Performed By: #### 5 0608 ####[address] PLAT CNT 195 10*3/uL Normal 150-[address] [facility] Comment on above: Order Comment: Check NG Tube Position Performed By: #### 5 0608 ####[facility] [place] [address], [facility] RBC (Bld) [#/Vol] 2.82 10*6/uL Low 4.20-5.[address] [facility] Comment on above: Order Comment: Check NG Tube Position Performed By: #### 5 0608 ####[facility] [place] [address], [facility] WBC (Bld) [#/Vol] 7.40 10*3/uL Normal 4.00-10.[address] [facility] Comment on above: Order Comment: Check NG Tube Position Performed By: #### 5 0608 ####[facility] [facility] [place] [address], [facility] MAGNESIUM BLOODon 12-01-2020 Magnesium [Mass/Vol] 2.8 mg/dL High 1.9-2.[address] [facility] Comment on above: Order Comment: No: D o not add to previous draw Performed By: #### 1 0070, [id number], 43708 #### [facility] [address] [place] [address], [facility] PHOSPHORUS BLOODon Phosphate [Mass/Vol] 2.6 mg/dL Normal 2.5-5.[address] [facility] Comment on above: Order Comment: No: D o not add to previous draw Performed By: #### 0 0071 #### [facility] [address] [place] [address], [facility] POC GLUCOSE LABon 12-01-2020 Glucose [Mass/Vol] 168 mg/dL High 70-[address] [facility] Comment on above: Performed By: #### 8 5499 ####[facility] [place] [address], [facility] Glucose [Mass/Vol] 176 mg/dL High 70-[address] [facility] Comment on above: Performed By: #### 8 5499 #### [facility] [address] [place] [address], [place] Glucose [Mass/Vol] 184 mg/dL High 70-[address] [facility] Comment on above: Performed By: #### 8 5499 #### [facility] [address] [place] [address], [place] Glucose [Mass/Vol] 222 mg/dL High 70-[address] [facility] Comment on above: Performed By: #### 8 5499 #### [facility] [address] [place] [address], [place] Glucose [Mass/Vol] 198 mg/dL High 70-[address] [facility] Comment on above: Performed By: #### 3 1414 #### [facility] [address] [place] [address], [place] BASIC METABOLIC PANELon 10-0 Calcium [Mass/Vol] 8.4 mg/dL Low 8.6-10.[address] [facility] Comment on above: Order Comment: No: D o not add to previous draw Performed By: #### 0 0071 #### [facility] [address] [place] [address], [place] Chloride [Moles/Vol] 102 mmol/L Normal 98-[address] [facility] Comment on above: Order Comment: No: D o not add to previous draw Performed By: #### 0 0071 #### [facility] [address] [place] [address], [place] CO2 [Moles/Vol] 30 mmol/L Normal 21-[address] [facility] Comment on above: Order Comment: No: D o not add to previous draw Performed By: #### 0 0071 #### [facility] [address] [place] [address], [place] Creatinine [Mass/Vol] 1.32 mg/dL High 0.70-1.[address] [facility] Comment on above: Order Comment: No: D o not add to previous draw Performed By: #### 0 0071 #### [facility] [address] [place] [address], [facility] eGFR- non- 54 ml/min/1.73sq m Abnormal >[address] [facility] Comment on above: Order Comment: No: D o not add to previous draw Performed By: #### 0 0071 #### [facility] [address] [place] [address], [place] GFR/1.73 sq M.predicted among blacks MDRD (S/P/Bld) [Vol rate/Area] mL/min/{1.73_m2} Normal >[address] [facility] Comment on above: Order Comment: No: D o not add to previous draw Performed By: #### 0 0071 #### [facility] [address] [place] [address], [place] Glucose [Mass/Vol] 199 mg/dL High 70-[address] [facility] Comment on above: Order Comment: No: D o not add to previous draw Performed By: #### 0 0071 #### [facility] [address] [place] [address], [place] Potassium [Moles/Vol] 4.7 mmol/L Normal 3.5-5.[address] [facility] Comment on above: Order Comment: No: D o not add to previous draw Performed By: #### 0 0071 #### [facility] [address] [place] [address], [place] Sodium [Moles/Vol] 140 mmol/L Normal 136-[address] [facility] Comment on above: Order Comment: No: D o not add to previous draw Performed By: #### 0 0071 #### [facility] [address] [place] [address], [place] Urea nitrogen [Mass/Vol] 35 mg/dL High 7-[address] [facility] Comment on above: Order Comment: No: D o not add to previous draw Performed By: #### 0 0071 #### [facility] [address] BNP (B-TYPE NATRIURETIC PEPT JOSE)on 11-30-2020 Natriuretic peptide B (Bld) [Mass/Vol] 423 pg/mL High 0-[address] [facility] Comment on above: Order Comment: No: D o not add to previous draw Result Comment: Give n the appropriate clinical setting a BNP result of >100 pg/mL indicates congestive heart failure. Performed By: #### 1 0070, 85675, 44729 #### [facility] [address] CBC COMPLETE BLOOD COUNTon Erythrocyte distribution width (RBC) [Ratio] 15.2 % High 11.5-15.[address] [facility] Comment on above: Order Comment: Check NG Tube Position Performed By: #### 5 0608 ####[facility] Hematocrit (Bld) [Volume fraction] 30.7 % Low 39.0-50.[address] [facility] Comment on above: Order Comment: Check NG Tube Position Performed By: #### 5 0608 ####[facility] Hemoglobin (Bld) [Mass/Vol] 9.6 g/dL Low 13.0-17.[address] [facility] Comment on above: Order Comment: Check NG Tube Position Performed By: #### 5 0608 ####[facility] MCH (RBC) [Entitic mass] 29.4 pg Normal 27.0-33.[address] [facility] Comment on above: Order Comment: Check NG Tube Position Performed By: #### 5 0608 ####[facility] [place] [address], [facility] MCHC (RBC) [Mass/Vol] 31.3 g/dL Low 32.0-35.[address] [facility] Comment on above: Order Comment: Check NG Tube Position Performed By: #### 5 0608 ####[facility] [facility].[address] MCV (RBC) [Entitic vol] 93.9 fL Normal 82.0-98.[address] [facility] Comment on above: Order Comment: Check NG Tube Position Performed By: #### 5 0608 ####[facility] [place] [address] Nucleated RBC/100 WBC (Bld) [Ratio] 0 % Normal 0-[address] [facility] Comment on above: Order Comment: Check NG Tube Position Performed By: #### 5 0608 ####[place] [address] [address] PLAT CNT 235 10*3/uL Normal 150-[address] [facility] Comment on above: Order Comment: Check NG Tube Position Performed By: #### 5 0608 ####[address] RBC (Bld) [#/Vol] 3.27 10*6/uL Low 4.20-5.[address] [facility] Comment on above: Order Comment: Check NG Tube Position Performed By: #### 5 0608 ####[facility] WBC (Bld) [#/Vol] 10.64 10*3/uL High 4.00-10.[address] [facility] Comment on above: Order Comment: Check NG Tube Position Performed By: #### 5 0608 ####[address] MAGNESIUM BLOODon 11-30-2020 Magnesium [Mass/Vol] 2.7 mg/dL Normal 1.9-2.[address] [facility] Comment on above: Order Comment: No: D o not add to previous draw Performed By: #### 0 0071 #### [facility] [address] Operative Reporton Operative Report MR#: [id number] [facility] Pt. Name: Haim Oliver Room #: [id number] Discharge Date: Birthdate: 1955 OPERATIVE REPORT DATE OF SURGERY: 11/30/2020 SURGEON: Bossman Sánchez MD Operative report: Repair of large incisional hernia with mesh Date: 11/27/2020 Time: 1150 hrs. Location: [facility] main OR Preoperative diagnosis: Large incisional hernia without bowel obstruction Postop diagnosis: Large incisional hernia without bowel obstruction, significant loss of domain Operation performed: Small bowel lysis of adhesions, repair of large incisional hernia with mesh Surgeon: Bossman Sánchez MD, Adriana Sánchez MD [employer] Internship: Dayna Barakat MD (PGY 5 resident), Kaylynn Roque MD (PGY 1 resident) Estimated blood loss: 400 mL Wound classification: Clean Specimen: Omentum Implant: 60 cm x 45 cm medium weight polyester mesh, 45 cm x 30 cm medium weight polypropylene mesh Anesthesia: General anesthesia Indication: This is a 64-year-old man, patient of my partner Dr. Sánchez, who presents today for incisional hernia repair. Patient have history of incisional hernia repair with mesh complicated by mesh infection and recurrence of incisional hernia with significant loss of domain. Detail of the procedure: Upon my arrival at 1150 hrs., patient was already intubated, prepped, and surgery have been ongoing for approximately [address] partner [address] Sánchez begin the procedure at 0730 hrs. Until my arrival, Dr. Sánchez performed exploratory laparotomy, lysis of adhesions greater than 90 minutes, bilateral laparoscopic component separation anteriorly. After adequate adhesiolysis, Dr. Sánchez performed attempted closure from the superior and inferior aspect of the midline incision. Patient however was unable to tolerate abdominal closure any further due to significantly elevated peak pressure well above 30. Several fascial sutures were removed and patient's peak pressure returned to baseline. With bilateral anterior component separation completed, the severely retracted abdominal wall muscles and fascia did not provide adequate mobilization for midline approximation. Patient also had large amount of visceral content causing a very large mismatch between available abdominal wall/domain in the amount of viscera that the abdominal wall needs to contain. At this point Dr. Sánchez had to attend a prescheduled meeting, I replaced him as the general surgeon and proceeded with additional adhesiolysis and mesh placement. I began my part of the procedure with thorough examination of the abdominal wall muscles and fascial edge. Both edges of the fascia laid posterior without any ability to mobilize anteriorly. It was clear that the fascial edges would never come together primarily and patient would require a very large bridging mesh in order to provide coverage and strength through the abdominal to a certain extent. Unfortunately, the largest mesh we have in-house is a polypropylene mesh measuring approximately 45 x 30 cm. This mesh would not adequately provide coverage that we need. As I proceeded to running the small bowel and completing adhesiolysis along the distal ileum, we requested transfer of available mesh from surrounding hospitals. We were able to obtain a 60 x 45 cm medium weight polyester mesh from [facility] and the mesh did arrive on time for placement. Once full adhesiolysis of small bowel was completed, all small bowel appeared uninjured and fully viable, all visible ascending and descending and transverse colon appeared uninjured and viable. There was a portion of right lateral omentum tissue that contained several adhesions making a high risk for future internal hernia, this piece of metal omental fat was removed using LigaSure device and sent for permanent specimen. I then began mobilizing the large hernia sac peritoneum tissue bilaterally. I began by the hernia sac from the subcutaneous fat and dermis. Once the hernia sac was mobilized to the level of fascia, I incised into the anterior sheath exposing the rectus muscle, this incision was carried to the length of the midline fascia. By bluntly mobilizing the rectus muscle anteriorly I was also able to expose the retrorectus plane. Once the peritoneum and retrorectus plane was exposed bilaterally we began closure of the peritoneum in order to provide the first layer of coverage for the mesh. Using 0 Vicryl running suture, the large peritoneum sac from bilateral sides were approximated superiorly to inferiorly. Surprisingly, we were able to place all of patient's abdominal viscera within the peritoneum sac. There were several areas of tears in the peritoneum, these areas were repaired with running 2-0 Vicryl sutures. With all of the abdominal viscera contained within the hernia sac, we began placement of the mesh. It was obvious that both pieces of mesh within our a (more content not included)... Normal [facility] POC GLUCOSE LABon 11-30-2020 Glucose [Mass/Vol] 203 mg/dL High 70-[address] [facility] Comment on above: Performed By: #### 8 [id number] ####[facility] [place] [address], [place] Glucose [Mass/Vol] 209 mg/dL High 70-[address] [facility] Comment on above: Performed By: #### 8 5499 #### [facility] [address] [place] [address], [place] Glucose [Mass/Vol] 196 mg/dL High 70-[address] [facility] Comment on above: Performed By: #### 8 5499 #### [facility] [address] [place] [address], [place] Glucose [Mass/Vol] 190 mg/dL High 70-[address] [facility] Comment on above: Performed By: #### 8 5499 #### [facility] [address] [place] [address], [place] Glucose [Mass/Vol] 215 mg/dL High 70-[address] [facility] Comment on above: Performed By: #### 8 5499 #### [facility] [address] [place] [address], [place] Glucose [Mass/Vol] 189 mg/dL High 70-[address] [facility] Comment on above: Performed By: #### 8 5499 ####[facility] [place] [address], [place] BASIC METABOLIC PANELon 0 Calcium [Mass/Vol] 7.9 mg/dL Low 8.6-10.[address] [facility] Comment on above: Order Comment: No: D o not add to previous draw Performed By: #### 1 0070, 34891, 93742 #### [facility] [address] [place] [address], [facility] Chloride [Moles/Vol] 105 mmol/L Normal 98-[address] [facility] Comment on above: Order Comment: No: D o not add to previous draw Performed By: #### 1 0070, 77249, 31652 #### [facility] [address] [place] [address], [place] CO2 [Moles/Vol] 24 mmol/L Normal 21-[address] [facility] Comment on above: Order Comment: No: D o not add to previous draw Performed By: #### 1 0070, 43963, 51927 #### [facility] [address] [place] [address], [place] Creatinine [Mass/Vol] 1.16 mg/dL Normal 0.70-1.[address] [facility] Comment on above: Order Comment: No: D o not add to previous draw Performed By: #### 1 0, , 86982 #### [facility] [address] [place] [address], [place] GFR/1.73 sq M.predicted among blacks MDRD (S/P/Bld) [Vol rate/Area] mL/min/{1.73_m2} Normal >[address] [facility] Comment on above: Order Comment: No: D o not add to previous draw Performed By: #### 1 0070, 56052, 14311 #### [facility] [address] [place] [address], [place] GFR/1.73 sq M.predicted among non-blacks MDRD (S/P/Bld) [Vol rate/Area] mL/min/{1.73_m2} Normal >[address] [facility] Comment on above: Order Comment: No: D o not add to previous draw Performed By: #### 1 0070, 07485, 73153 #### [facility] [address] [place] [address], [place] Glucose [Mass/Vol] 217 mg/dL High 70-[address] [facility] Comment on above: Order Comment: No: D o not add to previous draw Performed By: #### 1 0070, 21131, 76024 #### [facility] [address] [place] [address], [place] Potassium [Moles/Vol] 4.8 mmol/L Normal 3.5-5.[address] [facility] Comment on above: Order Comment: No: D o not add to previous draw Performed By: #### 1 0070, 74669, 50120 #### [facility] [address] [place] [address], [place] Sodium [Moles/Vol] 138 mmol/L Normal 136-[address] [facility] Comment on above: Order Comment: No: D o not add to previous draw Performed By: #### 1 0070, 45531, 00637 #### [facility] [address] [place] [address], [place] Urea nitrogen [Mass/Vol] 27 mg/dL High 7-[address] [facility] Comment on above: Order Comment: No: D o not add to previous draw Performed By: #### 1 0, 96725, 77916 #### [facility] [address] [place] [address], [place] CBC COMPLETE BLOOD COUNTon Erythrocyte distribution width (RBC) [Ratio] 15.0 % Normal 11.5-15.[address] [facility] Comment on above: Order Comment: No: D o not add to previous draw Performed By: #### 8 5469 #### [facility] [address] [place] [address], [place] Hematocrit (Bld) [Volume fraction] 32.2 % Low 39.0-50.[address] [facility] Comment on above: Order Comment: No: D o not add to previous draw Performed By: #### 8 5499 #### [facility] [address] [place] [address], [place] Hemoglobin (Bld) [Mass/Vol] 9.9 g/dL Low 13.0-17.[address] [facility] Comment on above: Order Comment: No: D o not add to previous draw Performed By: #### 8 5499 #### [facility] [address] [facility]. [address] MCH (RBC) [Entitic mass] 29.0 pg Normal 27.0-33.[address] [facility] Comment on above: Order Comment: No: D o not add to previous draw Performed By: #### 8 5499 #### [facility] [address] [facility]. [address] MCHC (RBC) [Mass/Vol] 30.7 g/dL Low 32.0-35.[address] [facility] Comment on above: Order Comment: No: D o not add to previous draw Performed By: #### 8 5499 #### [facility] [address] [facility]. [address] MCV (RBC) [Entitic vol] 94.4 fL Normal 82.0-98.[address] [facility] Comment on above: Order Comment: No: D o not add to previous draw Performed By: #### 8 5499 #### [facility] [address] [facility]. [address] Nucleated RBC/100 WBC (Bld) [Ratio] 0 % Normal 0-[address] [facility] Comment on above: Order Comment: No: D o not add to previous draw Performed By: #### 8 5499 #### [facility] [address] [facility] [place] [address], [facility] PLAT CNT 218 10*3/uL Normal 150-[address] [facility] Comment on above: Order Comment: No: D o not add to previous draw Performed By: #### 8 5499 #### [facility] [address] [place] [address], [facility] RBC (Bld) [#/Vol] 3.41 10*6/uL Low 4.20-5.[address] [facility] Comment on above: Order Comment: No: D o not add to previous draw Performed By: #### 8 5499 #### [facility] [address] [place] [address], [facility] WBC (Bld) [#/Vol] 11.30 10*3/uL High 4.00-10.[address] [facility] Comment on above: Order Comment: No: D o not add to previous draw Performed By: #### 8 5499 #### [facility] [address] [place] [address], [place] HEMOGLOBIN A1Con 11-29-2020 Glucose [Moles/Vol] 169 mmol/L Normal [facility] Comment on above: Order Comment: No: D o not add to previous draw Performed By: #### 0 0071 #### [facility] [address] [place] [address], [facility] HbA1c (Bld) [Mass fraction] 7.5 % High 4.0-6.[address] [facility] Comment on above: Order Comment: No: D o not add to previous draw Performed By: #### 0 0071 #### [facility] [address] [place] [address], [facility] MAGNESIUM BLOODon 11-29-2020 Magnesium [Mass/Vol] 2.3 mg/dL Normal 1.9-2.[address] [facility] Comment on above: Order Comment: No: D o not add to previous draw Performed By: #### 1 0070, 29528, 06693 #### [facility] [address] [place] [address], [place] POC GLUCOSE LABon 11-29-2020 Glucose [Mass/Vol] 197 mg/dL High 70-[address] [facility] Comment on above: Performed By: #### 8 5499 #### [facility] [address] [place] [address], [place] Glucose [Mass/Vol] 224 mg/dL High 70-[address] [facility] Comment on above: Performed By: #### 8 5499 #### [facility] [address] [facility] [place] [address], [facility] Glucose [Mass/Vol] 236 mg/dL High 70-[address] [facility] Comment on above: Performed By: #### 1 0070, 07709, 15184 #### [facility] [address] PORTABLE CHEST 1 VIEWon PORTABLE CHEST 1 VIEW [facility] [address] [place] [id number] Patient Name: HAIM OLIVER : 1955 Sex: M Age: Race: White Pt. Location: [id number] Patient Status: I Ordered Date: 11/29/2020 12:55:00 PM Completed Date: 11/29/2020 01:45 PM Requesting Provider: KAYLYNN ROQUE Attending Provider: ADRIANA SÁNCHEZ Report Copy To: Signs & Symptoms: Post OP History: Comments: Check NG Tube Position Exam: PORTABLE CHEST 1 VIEW PORTABLE CHEST 1 VIEW 11/29/2020 1:45 PM CLINICAL INDICATIONS: Post OP TECHNOLOGIST COMMENTS: s/p ng tube placement QUESTION FOR THE RADIOLOGIST: Check NG Tube Position PROTOCOL: AP(PA) view was obtained. COMPARISON: None FINDINGS: Single view of the chest was obtained. The cardiac silhouette is enlarged. Small effusions are noted no pneumothorax identified. Osseous structures are grossly intact. Enteric tube tip is likely within the mid stomach. IMPRESSION: Cardiomegaly and small effusions. Electronically signed: Suraj Hernandez. Transcribed by: [id number], User Resident: Electronically Signed by: SURAJ HERNANDEZ @ 11/29/2020 01:57 PM Normal [facility] Comment on above: Order Comment: Check NG Tube Position TROPONIN-Ion 11-29-2020 Troponin I.cardiac [Mass/Vol] 0.03 ng/mL Normal 0.00-0.[address] [facility] Comment on above: Result Comment: REFE RENCE RANGES: 0.00 - 0.04 ng/ml NORMAL 0.05 - 0.50 ng/ml INDETERMINATE > 0.50 ng/ml CONSISTENT WITH AN M.I. Performed By: #### 1 0070, 79429, 72242 #### [facility] [address] [place] [address], [facility] BASIC METABOLIC PANELon 10-0 Calcium [Mass/Vol] 7.6 mg/dL Low 8.6-10.[address] [facility] Comment on above: Order Comment: No: D o not add to previous draw Performed By: #### 8 5499 #### [facility] [address] [place] [address], [place] Chloride [Moles/Vol] 104 mmol/L Normal 98-[address] [facility] Comment on above: Order Comment: No: D o not add to previous draw Performed By: #### 8 5499 #### [facility] [address] [place] [address], [place] CO2 [Moles/Vol] 22 mmol/L Normal 21-[address] [facility] Comment on above: Order Comment: No: D o not add to previous draw Performed By: #### 8 5499 #### [facility] [address] [place] [address], [place] Creatinine [Mass/Vol] 1.40 mg/dL High 0.70-1.[address] [facility] Comment on above: Order Comment: No: D o not add to previous draw Performed By: #### 8 5499 #### [facility] [address] [place] [address], [place] eGFR- non- 51 ml/min/1.73sq m Abnormal >[address] [facility] Comment on above: Order Comment: No: D o not add to previous draw Performed By: #### 8 5499 #### [facility] [address] [place] [address], [place] GFR/1.73 sq M.predicted among blacks MDRD (S/P/Bld) [Vol rate/Area] mL/min/{1.73_m2} Normal >[address] [facility] Comment on above: Order Comment: No: D o not add to previous draw Performed By: #### 8 5499 #### [facility] [address] [place] [address], [place] Glucose [Mass/Vol] 227 mg/dL High 70-[address] [facility] Comment on above: Order Comment: No: D o not add to previous draw Performed By: #### 8 [id number] #### [facility] [address] [place] [address], [place] Potassium [Moles/Vol] 5.0 mmol/L Normal 3.5-5.[address] [facility] Comment on above: Order Comment: No: D o not add to previous draw Performed By: #### 8 5499 #### [facility] [address] [place] [address], [place] Sodium [Moles/Vol] 136 mmol/L Normal 136-[address] [facility] Comment on above: Order Comment: No: D o not add to previous draw Performed By: #### 8 5499 #### [facility] [address] [place] [address], [place] Urea nitrogen [Mass/Vol] 24 mg/dL Normal 7-[address] [facility] Comment on above: Order Comment: No: D o not add to previous draw Performed By: #### 8 5499 #### [facility] [address] [place] [address], [facility] Calcium [Mass/Vol] 7.8 mg/dL Low 8.6-10.[address] [facility] Comment on above: Order Comment: No: D o not add to previous draw Performed By: #### 1 0, 75284, 90828 #### [facility] [address] [place] [address], [place] Chloride [Moles/Vol] 104 mmol/L Normal 98-[address] [facility] Comment on above: Order Comment: No: D o not add to previous draw Performed By: #### 1 0, 69059, 17749 #### [facility] [address] [place] [address], [place] CO2 [Moles/Vol] 19 mmol/L Low 21-[address] [facility] Comment on above: Order Comment: No: D o not add to previous draw Performed By: #### 1 0, , 62026 #### [facility] [address] [place] [address], [place] Creatinine [Mass/Vol] 1.29 mg/dL Normal 0.70-1.[address] [facility] Comment on above: Order Comment: No: D o not add to previous draw Performed By: #### 1 0, , 40525 #### [facility] [address] [place] [address], [place] eGFR- non- 56 ml/min/1.73sq m Abnormal >[address] [facility] Comment on above: Order Comment: No: D o not add to previous draw Performed By: #### 1 0, 01901, 58044 #### [facility] [address] [place] [address], [place] GFR/1.73 sq M.predicted among blacks MDRD (S/P/Bld) [Vol rate/Area] mL/min/{1.73_m2} Normal >[address] [facility] Comment on above: Order Comment: No: D o not add to previous draw Performed By: #### 1 0, 32976, 51193 #### [facility] [address] [place] [address], [place] Glucose [Mass/Vol] 237 mg/dL High 70-[address] [facility] Comment on above: Order Comment: No: D o not add to previous draw Performed By: #### 1 0, , 94488 #### [facility] [address] [place] [address], [place] Potassium [Moles/Vol] 5.4 mmol/L High 3.5-5.[address] [facility] Comment on above: Order Comment: No: D o not add to previous draw Performed By: #### 1 0, , 98058 #### [facility] [address] [place] [address], [place] Sodium [Moles/Vol] 135 mmol/L Low 136-[address] [facility] Comment on above: Order Comment: No: D o not add to previous draw Performed By: #### 1 0, 52046, 07548 #### [facility] [address] [place] [address], [place] Urea nitrogen [Mass/Vol] 24 mg/dL Normal 7-[address] [facility] Comment on above: Order Comment: No: D o not add to previous draw Performed By: #### 1 0, , 68208 #### [facility] [address] [place] [address], [place] CBC COMPLETE BLOOD COUNTon Erythrocyte distribution width (RBC) [Ratio] 14.4 % Normal 11.5-15.[address] [facility] Comment on above: Order Comment: No: D o not add to previous draw Performed By: #### 8 5499 #### [facility] [address] Hematocrit (Bld) [Volume fraction] 36.9 % Low 39.0-50.[address] [facility] Comment on above: Order Comment: No: D o not add to previous draw Performed By: #### 8 5499 #### [facility] [address] [place] [address], [facility] Hemoglobin (Bld) [Mass/Vol] 10.9 g/dL Low 13.0-17.[address] [facility] Comment on above: Order Comment: No: D o not add to previous draw Performed By: #### 8 5499 #### [facility] [address] [place] [address], [facility] MCH (RBC) [Entitic mass] 29.4 pg Normal 27.0-33.[address] [facility] Comment on above: Order Comment: No: D o not add to previous draw Performed By: #### 8 5499 #### [facility] [address] [facility] [address] MCHC (RBC) [Mass/Vol] 29.5 g/dL Low 32.0-35.[address] [facility] Comment on above: Order Comment: No: D o not add to previous draw Performed By: #### 8 5499 #### [facility] [address] [facility] [place] [address], [facility] MCV (RBC) [Entitic vol] 99.5 fL High 82.0-98.[address] [facility] Comment on above: Order Comment: No: D o not add to previous draw Performed By: #### 8 5499 #### [facility] [address] [facility] [place] [address], [facility] Nucleated RBC/100 WBC (Bld) [Ratio] 0 % Normal 0-[address] [facility] Comment on above: Order Comment: No: D o not add to previous draw Performed By: #### 8 [id number] #### [facility] [address] [place] [address], [facility] PLAT CNT 249 10*3/uL Normal 150-[address] [facility] Comment on above: Order Comment: No: D o not add to previous draw Performed By: #### 8 5499 #### [facility] [address] [facility]. [address] RBC (Bld) [#/Vol] 3.71 10*6/uL Low 4.20-5.[address] [facility] Comment on above: Order Comment: No: D o not add to previous draw Performed By: #### 8 5499 #### [facility] [address] [place] [address], [facility] WBC (Bld) [#/Vol] 9.91 10*3/uL Normal 4.00-10.[address] [facility] Comment on above: Order Comment: No: D o not add to previous draw Performed By: #### 8 5499 #### [facility] [address] MAGNESIUM BLOODon 11-28-2020 Magnesium [Mass/Vol] 2.4 mg/dL Normal 1.9-2.[address] [facility] Comment on above: Order Comment: No: D o not add to previous draw Performed By: #### 1 0070, 15342, 67150 #### [facility] [address] Operative Reporton 1 Operative Report MR#: [id number] [facility] Pt. Name: Haim Oliver Room #: [id number] Discharge Date: Birthdate: 1955 OPERATIVE REPORT DATE OF SURGERY: 11/27/2020 SURGEON: Adriana Sánchez M.D. Preoperative diagnosis: Large umbilical hernia, loss of domain, morbid obesity Postoperative diagnosis: Same The operation was performed: Laparoscopic bilateral component separation, Exploratory laprotomy, extensive lysis of adhesionm attempt fascia closure, cover the herniated small bowel with peritoneal sac repair of ventral hernia with polypropylene mesh Anesthesia: Monitored anesthesia care Surgeon: Adriana Sánchez M.D. University Internship: Dr. Bossman Sánchez M.D., Dr. Tosha M.D. Indication: 64 years old white male with large ventral hernia and loss of domain. Laparoscopic bilateral component separation, open ventral hernia repair with or without mesh were offered to the patient, informed consent was obtained. Patient was informed the significant risk of recurrence, bowel injury, pain. Surgery: Patient was brought to the operative room placed on the operating table in supine position, general anesthesia was initiated. Patient's abdomen was prepped and draped in usual sterile fashion. Timeout was completed. 2% lidocaine mixed with quarter percent Marcaine with epinephrine in 1:1 ratio local anesthesia was performed. A transverse incision was made with # 15 scalpel, 2.5 cm long, above right costal margin. Subcutaneous dissection down to external oblique fascia with electrocautery. A transverse incision was made on the external oblique fascia, blunt dissection between the external and the internal oblique fascia was performed. A dissecting balloon was inserted in between the external and internal oblique fascia, blunt dissection was performed, then the balloon was removed. A 10 mm balloon trocar was inserted in between the internal and external operative fascia, the balloon was filled with 20 cc of air. A 5 mm 30 degree camera was inserted through the trocar into the space between the internal and the external oblique fascia, CO2 insufflation was started. A 5 mm trocar was inserted through right flank into the space between the internal and external oblique fascia. Hot scissor dissection was performed to further separate of the internal and external oblique fascia from the subcostal to the ligament. External operative fascia was divided with hot scissors from subcostal to inguinal ligament, marah fascia was also divided with hot scissors. At least 3 inch of separation of the fascial edge was visualized. The CO2 was desufflated, trochars were removed. The attention was turned to the left side. A transverse incision was made with # 15 scalpel, 2.5 cm long, above left costal margin. Subcutaneous dissection down to external oblique fascia with electrocautery. A transverse incision was made on the external oblique fascia, blunt dissection between the external and the internal oblique fascia was performed. A dissecting balloon was inserted in between the external and internal oblique fascia, blunt dissection was performed, then the balloon was removed. A 10 mm balloon trocar was inserted in between the internal and external operative fascia, the balloon was filled with 20 cc of air. A 5 mm 30 degree camera was inserted through the trocar into the space between the internal and the external oblique fascia, CO2 insufflation was started. A 5 mm trocar was inserted through left flank into the space between the internal and external oblique fascia. Hot scissor dissection was performed to further separate of the internal and external oblique fascia from the subcostal to the ligament. External operative fascia was divided with hot scissors from subcostal to inguinal ligament, Marah fascia was also divided with hot scissors. At least 3 inch of separation of the fascial edge was visualized. The CO2 was desufflated. All trochars were removed. The trocar site was closed by reshma. Midline incision was made with #15 scalpel 20 cm long. Subcutaneous tissue dissection with electrocautery. Hernia sac was entered. Large amount of small bowel was encountered. Lysis of adhesion was performed. Small bowel was mobilized from ligament of Treitz to ileocecal valve colon was mobilized from lateral peritoneum. Fascial edge was freed. Attempt fascial closure was performed with 1-0 PDS interrupted [id number] sutures after partial fascial closure, the peak average pressure was elevated above 35 mmHg. Patient unable to tolerate fascial closure. Now the only option is cover protruded bowel with peritoneal sac then apply mesh outside the peritoneal sac. Peritoneal sac was mobilized from subcutaneous tissue. The hernia sac was closed and covered hernia the small bowel. The 30 cm x 45 cm polypropylene mesh was obtained and a piece of 30 cm x 25 cm polypropylene mesh was obtained. The m (more content not included)... Normal [facility] PHOSPHORUS BLOODon Phosphate [Mass/Vol] 4.3 mg/dL Normal 2.5-5.[address] [facility] Comment on above: Order Comment: No: D o not add to previous draw Performed By: #### 1 0070, 93560, 82343 #### [facility] [address] [place] [address], [facility] POC GLUCOSE LABon 11-28-2020 Glucose [Mass/Vol] 232 mg/dL High 70-[address] [facility] Comment on above: Performed By: #### 8 9039 ####[facility] [place] [address], [facility] Glucose [Mass/Vol] 222 mg/dL High 70-[address] [facility] Comment on above: Performed By: #### 8 5499 #### [facility] [address] [place] [address], [facility] Glucose [Mass/Vol] 251 mg/dL High 70-[address] [facility] Comment on above: Performed By: #### 8 5499 #### [facility] [address] [facility] [place] [address], [facility] Glucose [Mass/Vol] 219 mg/dL High 70-[address] [facility] Comment on above: Performed By: #### 8 5499 #### [facility] [address] [facility] [place] [address], [facility] Glucose [Mass/Vol] 243 mg/dL High 70-[address] [facility] Comment on above: Performed By: #### 8 5499 #### [facility] [address] [facility]. [place], [place] [id number] [place] [address] *MRSA/MSSA DNA NASALon 11-27 *MRSA/MSSA DNA NASAL Clinical Report: (D ) Specimen: NASAL SWAB Collected: 11/27/2020 07:00 Status: Final Last Updated: 11/28/2020 14:21 MSSA DNA (Final) Negative MRSA DNA (Final) Methicillin Resistant Staphylococcus aureus DNA Detected Normal [facility] Comment on above: Performed By: #### 8 [id number] #### [facility] [address] [facility] [place] [address], [facility] BASIC METABOLIC PANELon 10-0 Calcium [Mass/Vol] 7.5 mg/dL Low 8.6-10.[address] [facility] Comment on above: Order Comment: No: D o not add to previous draw Performed By: #### 0 0071 #### [facility] [address] [facility] [place] [address], [facility] Chloride [Moles/Vol] 104 mmol/L Normal 98-[address] [facility] Comment on above: Order Comment: No: D o not add to previous draw Performed By: #### 0 0071 #### [facility] [address] [place] [address], [place] CO2 [Moles/Vol] 19 mmol/L Low 21-[address] [facility] Comment on above: Order Comment: No: D o not add to previous draw Performed By: #### 0 0071 #### [facility] [address] [place] [address], [place] Creatinine [Mass/Vol] 1.11 mg/dL Normal 0.70-1.[address] [facility] Comment on above: Order Comment: No: D o not add to previous draw Performed By: #### 0 0071 #### [facility] [address] [place] [address], [place] GFR/1.73 sq M.predicted among blacks MDRD (S/P/Bld) [Vol rate/Area] mL/min/{1.73_m2} Normal >[address] [facility] Comment on above: Order Comment: No: D o not add to previous draw Performed By: #### 0 0071 #### [facility] [address] [place] [address], [place] GFR/1.73 sq M.predicted among non-blacks MDRD (S/P/Bld) [Vol rate/Area] mL/min/{1.73_m2} Normal >[address] [facility] Comment on above: Order Comment: No: D o not add to previous draw Performed By: #### 0 0071 #### [facility] [address] [place] [address], [place] Glucose [Mass/Vol] 221 mg/dL High 70-[address] [facility] Comment on above: Order Comment: No: D o not add to previous draw Performed By: #### 0 0071 #### [facility] [address] [place] [address], [place] Potassium [Moles/Vol] 4.8 mmol/L Normal 3.5-5.[address] [facility] Comment on above: Order Comment: No: D o not add to previous draw Performed By: #### 0 0071 #### [facility] [address] [place] [address], [place] Sodium [Moles/Vol] 138 mmol/L Normal 136-[address] [facility] Comment on above: Order Comment: No: D o not add to previous draw Performed By: #### 0 0071 #### [facility] [address] [place] [address], [place] Urea nitrogen [Mass/Vol] 21 mg/dL Normal 7-[address] [facility] Comment on above: Order Comment: No: D o not add to previous draw Performed By: #### 0 0071 #### [facility] [address] [place] [address], [place] Calcium [Mass/Vol] 7.1 mg/dL Low 8.6-10.[address] [facility] Comment on above: Performed By: #### 1 0070, 22045, 74207 #### [facility] [address] [place] [address], [place] Chloride [Moles/Vol] 106 mmol/L Normal 98-[address] [facility] Comment on above: Performed By: #### 1 0070, 30276, 57837 #### [facility] [address] [place] [address], [place] CO2 [Moles/Vol] 18 mmol/L Low 21-[address] [facility] Comment on above: Performed By: #### 1 0070, 36406, 50721 #### [facility] [address] [place] [address], [place] Creatinine [Mass/Vol] 0.94 mg/dL Normal 0.70-1.[address] [facility] Comment on above: Performed By: #### 1 0070, 73067, 68279 #### [facility] [address] [place] [address], [place] GFR/1.73 sq M.predicted among blacks MDRD (S/P/Bld) [Vol rate/Area] mL/min/{1.73_m2} Normal >[address] [facility] Comment on above: Performed By: #### 1 0070, 19939, 31810 #### [facility] [address] [place] [address], [place] GFR/1.73 sq M.predicted among non-blacks MDRD (S/P/Bld) [Vol rate/Area] mL/min/{1.73_m2} Normal >[address] [facility] Comment on above: Performed By: #### 1 0070, 20016, 90770 #### [facility] [address] [place] [address], [place] Glucose [Mass/Vol] 164 mg/dL High 70-[address] [facility] Comment on above: Performed By: #### 1 0070, 68360, 22508 #### [facility] [address] [place] [address], [place] Potassium [Moles/Vol] 4.9 mmol/L Normal 3.5-5.[address] [facility] Comment on above: Performed By: #### 1 0070, 93268, 90016 #### [facility] [address] [place] [address], [place] Sodium [Moles/Vol] 136 mmol/L Normal 136-[address] [facility] Comment on above: Performed By: #### 1 0070, 10055, 55158 #### [facility] [address] [place] [address], [place] Urea nitrogen [Mass/Vol] 18 mg/dL Normal 7-[address] [facility] Comment on above: Performed By: #### 1 0070, 50865, 90660 #### [facility] [address] [place] [address], [place] CBC COMPLETE BLOOD COUNTon 1 Erythrocyte distribution width (RBC) [Ratio] 14.2 % Normal 11.5-15.[address] [facility] Comment on above: Order Comment: Check NG Tube Position Performed By: #### 5 0608 ####[facility] [facility].[address] Hematocrit (Bld) [Volume fraction] 36.5 % Low 39.0-50.[address] [facility] Comment on above: Order Comment: Check NG Tube Position Performed By: #### 5 0608 ####[facility] Hemoglobin (Bld) [Mass/Vol] 11.5 g/dL Low 13.0-17.[address] [facility] Comment on above: Order Comment: Check NG Tube Position Performed By: #### 5 0608 ####[facility] [facility].[address] MCH (RBC) [Entitic mass] 29.3 pg Normal 27.0-33.[address] [facility] Comment on above: Order Comment: Check NG Tube Position Performed By: #### 5 0608 ####[facility] [facility].[address] MCHC (RBC) [Mass/Vol] 31.5 g/dL Low 32.0-35.[address] [facility] Comment on above: Order Comment: Check NG Tube Position Performed By: #### 5 0608 ####[facility] [facility] [place] [address], [facility] MCV (RBC) [Entitic vol] 93.1 fL Normal 82.0-98.[address] [facility] Comment on above: Order Comment: Check NG Tube Position Performed By: #### 5 0608 ####[facility] [place] [address], [facility] Nucleated RBC/100 WBC (Bld) [Ratio] 0 % Normal 0-[address] [facility] Comment on above: Order Comment: Check NG Tube Position Performed By: #### 5 0608 ####[facility] [facility] [place] [address], [facility] PLAT CNT 199 10*3/uL Normal 150-[address] [facility] Comment on above: Order Comment: Check NG Tube Position Performed By: #### 5 0608 ####[facility] [facility] [place] [address], [facility] RBC (Bld) [#/Vol] 3.92 10*6/uL Low 4.20-5.[address] [facility] Comment on above: Order Comment: Check NG Tube Position Performed By: #### 5 0608 ####[facility] [facility] [place] [address], [facility] WBC (Bld) [#/Vol] 8.35 10*3/uL Normal 4.00-10.[address] [facility] Comment on above: Order Comment: Check NG Tube Position Performed By: #### 5 0608 ####[facility] [facility].[address] HEMATOCRITon 11-27-2020 Hematocrit (Bld) [Volume fraction] 34.7 % Low 39.0-50.[address] [facility] Comment on above: Performed By: #### 9 2088, 60430 ####[facility] [facility].[address] HEMOGLOBINon 11-27-2020 Hemoglobin (Bld) [Mass/Vol] 10.9 g/dL Low 13.0-17.[address] [facility] Comment on above: Performed By: #### 9 2088, 19490 ####[facility] [facility].[address] MAGNESIUM BLOODon 11-27-2020 Magnesium [Mass/Vol] 1.4 mg/dL Low 1.9-2.[address] [facility] Comment on above: Order Comment: No: D o not add to previous draw Performed By: #### 0 0071 #### [facility] [address] [place] [address], [facility] PHOSPHORUS BLOODon Phosphate [Mass/Vol] 4.1 mg/dL Normal 2.5-5.[address] [facility] Comment on above: Order Comment: No: D o not add to previous draw Performed By: #### 0 0071 #### [facility] [address] [place] [address], [facility] POC GLUCOSE LABon 11-27-2020 Glucose [Mass/Vol] 211 mg/dL High 70-[address] [facility] Comment on above: Performed By: #### 8 5499 #### [facility] [address] [place] [address], [facility] Glucose [Mass/Vol] 175 mg/dL High 70-[address] [facility] Comment on above: Performed By: #### 3 1414 #### [facility] [address] [place] [address], [facility] POC SARS COV2 ANTIGEN NEGATI VEon 11-27-2020 POC SARS COV2 ANTIGEN NEG Negative Normal NEGATIVE [facility] Comment on above: Result Comment: Nega tive results from patients with symptom onset beyond seven days, should be treated presumptive and confirmation with a molecular assay, if necessary, for patient management, may be performed. Negative results do not rule out SARS-CoV-2 infection and should not be used as the sole basis for treatment or patient management decisions, including infection control decisions. Negative results should be considered in the context of a patient?s recent exposures, history and the presence of clinical signs and symptoms consistent with COVID-19. The Dely COVID-19 Ag Card is a lateral flow immunoassay intended for the qualitative detection of nucleocapsid protein antigen from SARS-CoV-2 in direct nasal swabs from individuals within the first seven days of symptom onset. Testing is limited to laboratories certified under the Clinical Laboratory Improvement Amendments of 1988 (CLIA), 42 U.S.C. ???263a, that meet the requirements to perform moderate, high or waived complexity tests. This test is authorized for use at the Point of Care (POC), i.e., in patient care settings operating under a CLIA Certificate of Waiver, Certificate of Compliance, or Certificate of Accreditation. Performed By: #### [id number] #### [facility] [address] [place] [address], [facility] Magnesiumon 08-24-2018 Magnesium [Mass/Vol] 1.7 mg/dL Normal 1.6-2.6 [facility] Comment on above: Performed By: #### L ACWB, PT, PTT, KELI, DIME, BNP, CINTHIA, TSHX, BMP, CK, LIP, LIVP, TROPI, CDP, PRCAL, CRP #### [address] [phone] Planting Material Carrier: Pito Freed MD Phosphorus, Inorg.on 019 Phosphorus, Inorg. 3.8 mg/dL Normal 2.5-4.5 [facility] Comment on above: Performed By: #### L ACWB, PT, PTT, KELI, DIME, BNP, CINTHIA, TSHX, BMP, CK, LIP, LIVP, TROPI, CDP, PRCAL, CRP #### [address] [id number] Planting Material Carrier: Pito Freed MD Triglycerideson 08-24-2018 Triglyceride [Mass/Vol] 377 mg/dL High <150 [facility] Comment on above: Result Comment: Triglyceride Guidelines: <150 Desirable 150-199 Borderline 200-499 High >499 Very high Based on AHA Guidelines for fasting triglyceride, November 2011. Performed By: #### L ACWB, PT, PTT, KELI, DIME, BNP, CINTHIA, TSHX, BMP, CK, LIP, LIVP, TROPI, CDP, PRCAL, CRP #### [address] [address] Planting Material Carrier: Pito Freed MD Basic Metabolic Profon 08-23 (cont.) Normal [facility] Comment on above: Result Comment: Aver age GFR for 60-69 years old: 85 mL/min/1.73sq m Chronic Kidney Disease: <60 mL/min/1.73sq m Kidney failure: <15 mL/min/1.73sq m eGFR calculated using average adult body mass. Additional eGFR calculator available at: http://www.[employer]/multiple_crcl_2012.htm Performed By: #### L ACWB, PT, PTT, KELI, DIME, BNP, CINTHIA, TSHX, BMP, CK, LIP, LIVP, TROPI, CDP, PRCAL, CRP #### [address] [id number] Planting Material Carrier: Pito Freed MD Anion gap [Moles/Vol] 14 mmol/L Normal 9-17 [facility] Comment on above: Performed By: #### L ACWB, PT, PTT, KELI, DIME, BNP, CINTHIA, TSHX, BMP, CK, LIP, LIVP, TROPI, CDP, PRCAL, CRP #### [address] [id number] Planting Material Carrier: Pito Freed MD Calcium [Mass/Vol] 8.7 mg/dL Normal 8.6-10.4 [facility] Comment on above: Performed By: #### L ACWB, PT, PTT, KELI, DIME, BNP, CINTHIA, TSHX, BMP, CK, LIP, LIVP, TROPI, CDP, PRCAL, CRP #### [address] [id number] Planting Material Carrier: Pito Freed MD Chloride [Moles/Vol] 110 mmol/L High 98-107 [facility] Comment on above: Performed By: #### L ACWB, PT, PTT, KELI, DIME, BNP, CINTHIA, TSHX, BMP, CK, LIP, LIVP, TROPI, CDP, PRCAL, CRP #### [address] [id number] Planting Material Carrier: Pito Freed MD CO2 [Moles/Vol] 23 mmol/L Normal 20-31 [facility] Comment on above: Performed By: #### L ACWB, PT, PTT, KELI, DIME, BNP, CINTHIA, TSHX, BMP, CK, LIP, LIVP, TROPI, CDP, PRCAL, CRP #### [address] [id number] Planting Material Carrier: Pito Freed MD Creatinine [Mass/Vol] 0.71 mg/dL Normal 0.70-1.20 [facility] Comment on above: Performed By: #### L ACWB, PT, PTT, KELI, DIME, BNP, CINTHIA, TSHX, BMP, CK, LIP, LIVP, TROPI, CDP, PRCAL, CRP #### [address] [id number] Planting Material Carrier: Pito Freed MD GFR, Amer >60 Normal >60 [facility] Comment on above: Performed By: #### L ACWB, PT, PTT, KELI, DIME, BNP, CINTHIA, TSHX, BMP, CK, LIP, LIVP, TROPI, CDP, PRCAL, CRP #### [address] [id number] Planting Material Carrier: Pito Freed MD GFR,non Amer >60 Normal >60 [facility] Comment on above: Performed By: #### L ACWB, PT, PTT, KELI, DIME, BNP, CINTHIA, TSHX, BMP, CK, LIP, LIVP, TROPI, CDP, PRCAL, CRP #### [address] [id number] Planting Material Carrier: Pito Freed MD Glucose [Mass/Vol] 179 mg/dL High 70-99 [facility] Comment on above: Performed By: #### L ACWB, PT, PTT, KELI, DIME, BNP, CINTHIA, TSHX, BMP, CK, LIP, LIVP, TROPI, CDP, PRCAL, CRP #### [address] [id number] Planting Material Carrier: Pito Freed MD Potassium [Moles/Vol] 4.2 mmol/L Normal 3.7-5.3 [facility] Comment on above: Performed By: #### L ACWB, PT, PTT, KELI, DIME, BNP, CINTHIA, TSHX, BMP, CK, LIP, LIVP, TROPI, CDP, PRCAL, CRP #### [address] [phone] Planting Material Carrier: Pito Freed MD Sodium [Moles/Vol] 147 mmol/L High 135-144 [facility] Comment on above: Performed By: #### L ACWB, PT, PTT, KELI, DIME, BNP, CINTHIA, TSHX, BMP, CK, LIP, LIVP, TROPI, CDP, PRCAL, CRP #### [address] [id number] Planting Material Carrier: Pito Freed MD Urea nitrogen [Mass/Vol] 55 mg/dL High 8- [facility] Comment on above: Performed By: #### L ACWB, PT, PTT, KELI, DIME, BNP, CINTHIA, TSHX, BMP, CK, LIP, LIVP, TROPI, CDP, PRCAL, CRP #### [address] [id number] Planting Material Carrier: Pito Freed MD BUN/CRE Ratio NOT REPORTED Normal - [facility] Comment on above: Performed By: #### L ACWB, PT, PTT, KELI, DIME, BNP, CINTHIA, TSHX, BMP, CK, LIP, LIVP, TROPI, CDP, PRCAL, CRP #### [address] [address] Planting Material Carrier: Pito Freed MD Staging: NOT REPORTED Normal [facility] Comment on above: Performed By: #### L ACWB, PT, PTT, KELI, DIME, BNP, CINTHIA, TSHX, BMP, CK, LIP, LIVP, TROPI, CDP, PRCAL, CRP #### [address] [address] Planting Material Carrier: Pito Freed MD Magnesiumon 08-23-2018 Magnesium [Mass/Vol] 1.9 mg/dL Normal 1.6-2.6 [facility] Comment on above: Performed By: #### L ACWB, PT, PTT, KELI, DIME, BNP, CINTHIA, TSHX, BMP, CK, LIP, LIVP, TROPI, CDP, PRCAL, CRP #### [address] [address] Planting Material Carrier: Pito Freed MD Phosphorus, Inorg.on 019 Phosphorus, Inorg. 3.4 mg/dL Normal 2.5-4.5 [facility] Comment on above: Performed By: #### L ACWB, PT, PTT, KELI, DIME, BNP, CINTHIA, TSHX, BMP, CK, LIP, LIVP, TROPI, CDP, PRCAL, CRP #### [address] [address] Planting Material Carrier: Pito Freed MD Basic Metabolic Profon 08-22 (cont.) Normal [facility] Comment on above: Result Comment: Aver age GFR for 60-69 years old: 85 mL/min/1.73sq m Chronic Kidney Disease: <60 mL/min/1.73sq m Kidney failure: <15 mL/min/1.73sq m eGFR calculated using average adult body mass. Additional eGFR calculator available at: http://www.[employer]zo[employer]/multiple_crcl_2012.htm Performed By: #### L ACWB, PT, PTT, KELI, DIME, BNP, CINTHIA, TSHX, BMP, CK, LIP, LIVP, TROPI, CDP, PRCAL, CRP #### [address] [address] Planting Material Carrier: Pito Freed MD Anion gap [Moles/Vol] 14 mmol/L Normal 9-17 [facility] Comment on above: Performed By: #### L ACWB, PT, PTT, KELI, DIME, BNP, CINTHIA, TSHX, BMP, CK, LIP, LIVP, TROPI, CDP, PRCAL, CRP #### [address] [phone] Planting Material Carrier: Pito Freed MD Calcium [Mass/Vol] 8.4 mg/dL Low 8.6-10.4 [facility] Comment on above: Performed By: #### L ACWB, PT, PTT, KELI, DIME, BNP, CINTHIA, TSHX, BMP, CK, LIP, LIVP, TROPI, CDP, PRCAL, CRP #### [address] [phone] Planting Material Carrier: Pito Freed MD Chloride [Moles/Vol] 108 mmol/L High 98-107 [facility] Comment on above: Performed By: #### L ACWB, PT, PTT, KELI, DIME, BNP, CINTHIA, TSHX, BMP, CK, LIP, LIVP, TROPI, CDP, PRCAL, CRP #### [address] [phone] Planting Material Carrier: Pito Freed MD CO2 [Moles/Vol] 26 mmol/L Normal 20-31 [facility] Comment on above: Performed By: #### L ACWB, PT, PTT, KELI, DIME, BNP, CINTHIA, TSHX, BMP, CK, LIP, LIVP, TROPI, CDP, PRCAL, CRP #### [address] [address] Planting Material Carrier: Pito Freed MD Creatinine [Mass/Vol] 0.98 mg/dL Normal 0.70-1.20 [facility] Comment on above: Performed By: #### L ACWB, PT, PTT, KELI, DIME, BNP, CINTHIA, TSHX, BMP, CK, LIP, LIVP, TROPI, CDP, PRCAL, CRP #### [address] [address] Planting Material Carrier: Pito Freed MD GFR, Amer >60 Normal >60 [facility] Comment on above: Performed By: #### L ACWB, PT, PTT, KELI, DIME, BNP, CINTHIA, TSHX, BMP, CK, LIP, LIVP, TROPI, CDP, PRCAL, CRP #### [address] [address] Planting Material Carrier: Pito Freed MD GFR,non Amer >60 Normal >60 [facility] Comment on above: Performed By: #### L ACWB, PT, PTT, KELI, DIME, BNP, CINTHIA, TSHX, BMP, CK, LIP, LIVP, TROPI, CDP, PRCAL, CRP #### [address] [address] Planting Material Carrier: Pito Freed MD Glucose [Mass/Vol] 168 mg/dL High 70-99 [facility] Comment on above: Performed By: #### L ACWB, PT, PTT, KELI, DIME, BNP, CINTHIA, TSHX, BMP, CK, LIP, LIVP, TROPI, CDP, PRCAL, CRP #### [address] [address] Planting Material Carrier: Pito Freed MD Potassium [Moles/Vol] 5.0 mmol/L Normal 3.7-5.3 [facility] Comment on above: Performed By: #### L ACWB, PT, PTT, KELI, DIME, BNP, CINTHIA, TSHX, BMP, CK, LIP, LIVP, TROPI, CDP, PRCAL, CRP #### [address] [phone] Planting Material Carrier: Pito Freed MD Sodium [Moles/Vol] 148 mmol/L High 135-144 [facility] Comment on above: Performed By: #### L ACWB, PT, PTT, KELI, DIME, BNP, CINTHIA, TSHX, BMP, CK, LIP, LIVP, TROPI, CDP, PRCAL, CRP #### [address] [phone] Planting Material Carrier: Pito Freed MD Urea nitrogen [Mass/Vol] 60 mg/dL High 8-23 [facility] Comment on above: Performed By: #### L ACWB, PT, PTT, KELI, DIME, BNP, CINTHIA, TSHX, BMP, CK, LIP, LIVP, TROPI, CDP, PRCAL, CRP #### [address] [phone] Planting Material Carrier: Pito Freed MD BUN/CRE Ratio NOT REPORTED Normal - [facility] Comment on above: Performed By: #### L ACWB, PT, PTT, KELI, DIME, BNP, CINTHIA, TSHX, BMP, CK, LIP, LIVP, TROPI, CDP, PRCAL, CRP #### [address] [id number] Planting Material Carrier: Pito Frede MD Staging: NOT REPORTED Normal [facility] Comment on above: Performed By: #### L ACWB, PT, PTT, KELI, DIME, BNP, CINTHIA, TSHX, BMP, CK, LIP, LIVP, TROPI, CDP, PRCAL, CRP #### [address] [id number] Planting Material Carrier: Pito Freed MD Magnesiumon 08-22-2018 Magnesium [Mass/Vol] 2.2 mg/dL Normal 1.6-2.6 [facility] Comment on above: Performed By: #### L ACWB, PT, PTT, KELI, DIME, BNP, CINTHIA, TSHX, BMP, CK, LIP, LIVP, TROPI, CDP, PRCAL, CRP #### [address] [id number] Planting Material Carrier: Pito Freed MD Phosphorus, Inorg.on 019 Phosphorus, Inorg. 3.7 mg/dL Normal 2.5-4.5 [facility] Comment on above: Performed By: #### L ACWB, PT, PTT, KELI, DIME, BNP, CINTHIA, TSHX, BMP, CK, LIP, LIVP, TROPI, CDP, PRCAL, CRP #### [address] [address] Planting Material Carrier: Pito Freed MD Triglycerideson 08-22-2018 Triglyceride [Mass/Vol] 337 mg/dL High <150 [facility] Comment on above: Result Comment: Triglyceride Guidelines: <150 Desirable 150-199 Borderline 200-499 High >499 Very high Based on AHA Guidelines for fasting triglyceride, November 2011. Performed By: #### L ACWB, PT, PTT, KELI, DIME, BNP, CINTHIA, TSHX, BMP, CK, LIP, LIVP, TROPI, CDP, PRCAL, CRP #### [address] [address] Planting Material Carrier: Pito Freed MD Basic Metabolic Profon 08-21 (cont.) Normal [facility] Comment on above: Result Comment: Aver age GFR for 60-69 years old: 85 mL/min/1.73sq m Chronic Kidney Disease: <60 mL/min/1.73sq m Kidney failure: <15 mL/min/1.73sq m eGFR calculated using average adult body mass. Additional eGFR calculator available at: http://www.[employer].Izooble/multiple_crcl_2012.htm Performed By: #### L ACWB, PT, PTT, KELI, DIME, BNP, CINTHIA, TSHX, BMP, CK, LIP, LIVP, TROPI, CDP, PRCAL, CRP #### [address] [id number] Planting Material Carrier: Pito Frede MD Anion gap [Moles/Vol] 11 mmol/L Normal 9-17 [facility] Comment on above: Performed By: #### L ACWB, PT, PTT, KELI, DIME, BNP, CINTHIA, TSHX, BMP, CK, LIP, LIVP, TROPI, CDP, PRCAL, CRP #### [address] [id number] Planting Material Carrier: Pito Freed MD Calcium [Mass/Vol] 8.2 mg/dL Low 8.6-10.4 [facility] Comment on above: Performed By: #### L ACWB, PT, PTT, KELI, DIME, BNP, CINTHIA, TSHX, BMP, CK, LIP, LIVP, TROPI, CDP, PRCAL, CRP #### [address] [phone] Planting Material Carrier: Pito Freed MD Chloride [Moles/Vol] 108 mmol/L High 98-107 [facility] Comment on above: Performed By: #### L ACWB, PT, PTT, KELI, DIME, BNP, CINTHIA, TSHX, BMP, CK, LIP, LIVP, TROPI, CDP, PRCAL, CRP #### [address] [id number] Planting Material Carrier: Pito Freed MD CO2 [Moles/Vol] 24 mmol/L Normal 20-31 [facility] Comment on above: Performed By: #### L ACWB, PT, PTT, KELI, DIME, BNP, CINTHIA, TSHX, BMP, CK, LIP, LIVP, TROPI, CDP, PRCAL, CRP #### [address] [phone] Planting Material Carrier: Pito Freed MD Creatinine [Mass/Vol] 0.82 mg/dL Normal 0.70-1.20 [facility] Comment on above: Performed By: #### L ACWB, PT, PTT, KELI, DIME, BNP, CINTHIA, TSHX, BMP, CK, LIP, LIVP, TROPI, CDP, PRCAL, CRP #### [address] [phone] Planting Material Carrier: Pito Freed MD GFR, Amer >60 Normal >60 [facility] Comment on above: Performed By: #### L ACWB, PT, PTT, KELI, DIME, BNP, CINTHIA, TSHX, BMP, CK, LIP, LIVP, TROPI, CDP, PRCAL, CRP #### [address] [phone] Planting Material Carrier: Pito Freed MD GFR,non Amer >60 Normal >60 [facility] Comment on above: Performed By: #### L ACWB, PT, PTT, KELI, DIME, BNP, CINTHIA, TSHX, BMP, CK, LIP, LIVP, TROPI, CDP, PRCAL, CRP #### [address] [phone] Planting Material Carrier: Pito Freed MD Glucose [Mass/Vol] 232 mg/dL High 70-99 [facility] Comment on above: Performed By: #### L ACWB, PT, PTT, KELI, DIME, BNP, CINTHIA, TSHX, BMP, CK, LIP, LIVP, TROPI, CDP, PRCAL, CRP #### [address] [address] Planting Material Carrier: Pito Freed MD Potassium [Moles/Vol] 4.5 mmol/L Normal 3.7-5.3 [facility] Comment on above: Performed By: #### L ACWB, PT, PTT, KELI, DIME, BNP, CINTHIA, TSHX, BMP, CK, LIP, LIVP, TROPI, CDP, PRCAL, CRP #### [address] [phone] Planting Material Carrier: Pito Freed MD Sodium [Moles/Vol] 143 mmol/L Normal 135-144 [facility] Comment on above: Performed By: #### L ACWB, PT, PTT, KELI, DIME, BNP, CINTHIA, TSHX, BMP, CK, LIP, LIVP, TROPI, CDP, PRCAL, CRP #### [address] [phone] Planting Material Carrier: Pito Freed MD Urea nitrogen [Mass/Vol] 56 mg/dL High - [facility] Comment on above: Performed By: #### L ACWB, PT, PTT, KELI, DIME, BNP, CINTHIA, TSHX, BMP, CK, LIP, LIVP, TROPI, CDP, PRCAL, CRP #### [address] [phone] Planting Material Carrier: Pito Freed MD BUN/CRE Ratio NOT REPORTED Normal 11-13 [facility] Comment on above: Performed By: #### L ACWB, PT, PTT, KELI, DIME, BNP, CINTHIA, TSHX, BMP, CK, LIP, LIVP, TROPI, CDP, PRCAL, CRP #### [address] [phone] Planting Material Carrier: Pito Freed MD Staging: NOT REPORTED Normal [facility] Comment on above: Performed By: #### L ACWB, PT, PTT, KELI, DIME, BNP, CINTHIA, TSHX, BMP, CK, LIP, LIVP, TROPI, CDP, PRCAL, CRP #### [address] [phone] Planting Material Carrier: Pito Freed MD (cont.) Normal [facility] Comment on above: Result Comment: Aver age GFR for 60-69 years old: 85 mL/min/1.73sq m Chronic Kidney Disease: <60 mL/min/1.73sq m Kidney failure: <15 mL/min/1.73sq m eGFR calculated using average adult body mass. Additional eGFR calculator available at: http://www.[employer]/multiple_crcl_2012.htm Performed By: #### L ACWB, PT, PTT, KELI, DIME, BNP, CINTHIA, TSHX, BMP, CK, LIP, LIVP, TROPI, CDP, PRCAL, CRP #### [address] [address] Planting Material Carrier: Pito Freed MD Anion gap [Moles/Vol] 9 mmol/L Normal 9-17 [facility] Comment on above: Performed By: #### L ACWB, PT, PTT, KELI, DIME, BNP, CINTHIA, TSHX, BMP, CK, LIP, LIVP, TROPI, CDP, PRCAL, CRP #### [address] [address] Planting Material Carrier: Pito Freed MD Calcium [Mass/Vol] 8.0 mg/dL Low 8.6-10.4 [facility] Comment on above: Performed By: #### L ACWB, PT, PTT, KELI, DIME, BNP, CINTHIA, TSHX, BMP, CK, LIP, LIVP, TROPI, CDP, PRCAL, CRP #### [address] [address] Planting Material Carrier: Pito Freed MD Chloride [Moles/Vol] 106 mmol/L Normal 98-107 [facility] Comment on above: Performed By: #### L ACWB, PT, PTT, KELI, DIME, BNP, CINTHIA, TSHX, BMP, CK, LIP, LIVP, TROPI, CDP, PRCAL, CRP #### [address] [phone] Planting Material Carrier: Pito Freed MD CO2 [Moles/Vol] 26 mmol/L Normal 20-31 [facility] Comment on above: Performed By: #### L ACWB, PT, PTT, KELI, DIME, BNP, CINTHIA, TSHX, BMP, CK, LIP, LIVP, TROPI, CDP, PRCAL, CRP #### [address] [id number] Planting Material Carrier: Pito Freed MD Creatinine [Mass/Vol] 0.91 mg/dL Normal 0.70-1.20 [facility] Comment on above: Performed By: #### L ACWB, PT, PTT, KEIL, DIME, BNP, CINTHIA, TSHX, BMP, CK, LIP, LIVP, TROPI, CDP, PRCAL, CRP #### [address] [phone] Planting Material Carrier: Pito Freed MD GFR, Amer >60 Normal >60 [facility] Comment on above: Performed By: #### L ACWB, PT, PTT, KELI, DIME, BNP, CINTHIA, TSHX, BMP, CK, LIP, LIVP, TROPI, CDP, PRCAL, CRP #### [address] [phone] Planting Material Carrier: Pito Freed MD GFR,non Amer >60 Normal >60 [facility] Comment on above: Performed By: #### L ACWB, PT, PTT, KELI, DIME, BNP, CINTHIA, TSHX, BMP, CK, LIP, LIVP, TROPI, CDP, PRCAL, CRP #### [address] [id number] Planting Material Carrier: Pito Freed MD Glucose [Mass/Vol] 198 mg/dL High 70-99 [facility] Comment on above: Performed By: #### L ACWB, PT, PTT, KELI, DIME, BNP, CINTHIA, TSHX, BMP, CK, LIP, LIVP, TROPI, CDP, PRCAL, CRP #### [address] [phone] Planting Material Carrier: Pito Freed MD Potassium [Moles/Vol] 3.7 mmol/L Normal 3.7-5.3 [facility] Comment on above: Performed By: #### L ACWB, PT, PTT, KELI, DIME, BNP, CINTHIA, TSHX, BMP, CK, LIP, LIVP, TROPI, CDP, PRCAL, CRP #### [address] [address] Planting Material Carrier: Pito Freed MD Sodium [Moles/Vol] 141 mmol/L Normal 135-144 [facility] Comment on above: Performed By: #### L ACWB, PT, PTT, KELI, DIME, BNP, CINTHIA, TSHX, BMP, CK, LIP, LIVP, TROPI, CDP, PRCAL, CRP #### [address] [address] Planting Material Carrier: Pito Freed MD Urea nitrogen [Mass/Vol] 65 mg/dL High 10-16 [facility] Comment on above: Performed By: #### L ACWB, PT, PTT, KEIL, DIME, BNP, CINTHIA, TSHX, BMP, CK, LIP, LIVP, TROPI, CDP, PRCAL, CRP #### [address] [id number] Planting Material Carrier: Pito Freed MD BUN/CRE Ratio NOT REPORTED Normal 11-13 [facility] Comment on above: Performed By: #### L ACWB, PT, PTT, KELI, DIME, BNP, CINTHIA, TSHX, BMP, CK, LIP, LIVP, TROPI, CDP, PRCAL, CRP #### [address] [phone] Planting Material Carrier: Pito Freed MD Staging: NOT REPORTED Normal [facility] Comment on above: Performed By: #### L ACWB, PT, PTT, KELI, DIME, BNP, CINTHIA, TSHX, BMP, CK, LIP, LIVP, TROPI, CDP, PRCAL, CRP #### [address] [address] Planting Material Carrier: Pito Freed MD CBCon 08-21-2018 Erythrocyte distribution width (RBC) [Ratio] 15.8 % High 11.8-14.4 [facility] Comment on above: Performed By: #### L ACWB, PT, PTT, KELI, DIME, BNP, CINTHIA, TSHX, BMP, CK, LIP, LIVP, TROPI, CDP, PRCAL, CRP #### [address] [address] Planting Material Carrier: Pito Freed MD Hematocrit (Bld) [Volume fraction] 37.9 % Low 40.7-50.3 [facility] Comment on above: Performed By: #### L ACWB, PT, PTT, KELI, DIME, BNP, CINTHIA, TSHX, BMP, CK, LIP, LIVP, TROPI, CDP, PRCAL, CRP #### [address] [address] Planting Material Carrier: Pito Freed MD Hemoglobin (Bld) [Mass/Vol] 11.4 g/dL Low 13.0-17.0 [facility] Comment on above: Performed By: #### L ACWB, PT, PTT, KELI, DIME, BNP, CINTHIA, TSHX, BMP, CK, LIP, LIVP, TROPI, CDP, PRCAL, CRP #### [address] [address] Planting Material Carrier: Pito Freed MD MCH (RBC) [Entitic mass] 28.7 pg Normal 25.2-33.5 [facility] Comment on above: Performed By: #### L ACWB, PT, PTT, KELI, DIME, BNP, CINTHIA, TSHX, BMP, CK, LIP, LIVP, TROPI, CDP, PRCAL, CRP #### [address] [address] Planting Material Carrier: Pito Freed MD MCHC (RBC) [Mass/Vol] 30.1 g/dL Normal 28.4-34.8 [facility] Comment on above: Performed By: #### L ACWB, PT, PTT, KELI, DIME, BNP, CINTHIA, TSHX, BMP, CK, LIP, LIVP, TROPI, CDP, PRCAL, CRP #### [address] [address] Planting Material Carrier: Pito Freed MD MCV (RBC) [Entitic vol] 95.5 fL Normal 82.6-102.9 [facility] Comment on above: Performed By: #### L ACWB, PT, PTT, KELI, DIME, BNP, CINTHIA, TSHX, BMP, CK, LIP, LIVP, TROPI, CDP, PRCAL, CRP #### [place] [id number] Planting Material Carrier: Pito Freed MD NRBC Automated 0.0 per 100 WBC Normal 0.0 [facility] Comment on above: Performed By: #### L ACWB, PT, PTT, KELI, DIME, BNP, CINTHIA, TSHX, BMP, CK, LIP, LIVP, TROPI, CDP, PRCAL, CRP #### [place] [id number] Planting Material Carrier: Pito Freed MD Platelet mean volume (Bld) [Entitic vol] 11.9 fL Normal 8.1-13.5 [facility] Comment on above: Performed By: #### L ACWB, PT, PTT, KELI, DIME, BNP, CINTHIA, TSHX, BMP, CK, LIP, LIVP, TROPI, CDP, PRCAL, CRP #### [address] [id number] Planting Material Carrier: Pito Freed MD Platelets (Bld) [#/Vol] 325 10*3/uL Normal 138-453 [facility] Comment on above: Performed By: #### L ACWB, PT, PTT, KELI, DIME, BNP, CINTHIA, TSHX, BMP, CK, LIP, LIVP, TROPI, CDP, PRCAL, CRP #### [address] [id number] Planting Material Carrier: Pito Freed MD RBC (Bld) [#/Vol] 3.97 10*6/uL Low 4.21-5.77 [facility] Comment on above: Performed By: #### L ACWB, PT, PTT, KELI, DIME, BNP, CINTHIA, TSHX, BMP, CK, LIP, LIVP, TROPI, CDP, PRCAL, CRP #### [address] [phone] [employer] Carrier: Pito Freed MD WBC (Bld) [#/Vol] 8.4 10*3/uL Normal 3.5-11.3 [facility] Comment on above: Performed By: #### L ACWB, PT, PTT, KELI, DIME, BNP, CINTHIA, TSHX, BMP, CK, LIP, LIVP, TROPI, CDP, PRCAL, CRP #### [address] [phone] [employer] Material Carrier: Pito Freed MD Magnesiumon 08-21-2018 Magnesium [Mass/Vol] 2.3 mg/dL Normal 1.6-2.6 [facility] Comment on above: Performed By: #### L ACWB, PT, PTT, KELI, DIME, BNP, CINTHIA, TSHX, BMP, CK, LIP, LIVP, TROPI, CDP, PRCAL, CRP #### [address] [phone] Planting Material Carrier: Pito Freed MD OPERATIVE REPORTon 9 OPERATIVE REPORT [facility] [address] [place] [address] OPERATIVE REPORT PATIENT NAME: HAIM OLIVER : 1955 MED REC NO: [id number] ROOM: [id number] ACCOUNT NO: [id number] ADMIT DATE: 08/17/2018 PROVIDER: Torrie Aguirre DATE OF PROCEDURE: 08/21/2018 PREOPERATIVE DIAGNOSES: Status post ileocecectomy and subsequent anastomosis. POSTOPERATIVE DIAGNOSES: Status post ileocecectomy and subsequent anastomosis. PROCEDURES: 1. Third-look laparotomy. 2. Abdominal washout. 3. Primary abdominal wall closure. SURGEON: Magen Barnett MD ASSISTANTS: Torrie Aguirre DO; and Mignon Barajas DO IV FLUIDS: 400 of crystalloid. EBL: 20 mL. FINDINGS: Anastomosis was intact. No additional bowel injury noted. No active bleeding. The patient was able to be closed without complication. INDICATIONS: This is a 62-year-old male who presented to us on 08/17 with pneumoperitoneum. The patient was taken to the operating room at that time for an exploratory laparotomy, and it was noted that he had a large abscess associated with an incarcerated hernia. The patient underwent reduction of the hernia contents and then an ileocecectomy to resect all questionable bowel. The patient was taken back to the ICU for resuscitation and subsequently returned on postop day-2 for primary end-to-end anastomosis with an ileocolonic anastomosis. The patient once again was taken back to the ICU with an ABThera on for additional monitoring so that we can come back and evaluate the anastomosis one final time. The patient did very well and had been off all pressor support with a normalized lactate. The patient was then taken to the operating room this morning, 08/21, for a third-look laparotomy, evaluation of the anastomosis, and if all looked well, primary fascial closure. The risks, benefits, and alternatives were discussed with the patient's mother. All questions were answered, and informed consent was signed with an RN witness verbally over the phone as the mother could not be present. DESCRIPTION OF PROCEDURE: The patient was taken to the operating room, placed in the supine position. General anesthesia was induced by the anesthesia team. The patient remained intubated from his initial operation as he had been in the ICU intubated this entire team. Antibiotics were given in accordance with SCIP in the form of Zosyn. The patient was then prepped and draped in a sterile fashion after the ABThera VAC was removed. Once the abdomen was prepped and draped, the inner drape of the ABThera was removed and we proceeded with a third-look laparotomy in a standard exploratory fashion. Once again, all solid organs evaluated were normal without any injury. The NG tube was in adequate position, and all of the small bowel appeared healthy, viable, and well perfused. There did not appear to be any other injury as we evaluated the length of the small bowel to the ileocolonic anastomosis. The ileocolonic anastomosis was intact without any evidence of leaking, and the remainder of the colon was viable and well appearing. The decision was then made to wash out the abdomen with copious amount of irrigation and proceeded with primary fascial closure. Using #1 PDS, we placed interrupted eyugsb-bu-czyjy sutures across the length of the abdominal fascia. 0 Ethibond retention sutures were placed and total of 4 retention sutures along the length of the fascial closure. With the fascia entirely approximated, we were content with our repair and proceeded with closing the skin with reshma. Betadine-soaked lianna were placed in-between the reshma, and the skin around the umbilicus was approximated with 3-0 nylon sutures in an interrupted vertical mattress suture. The incision was then washed, and a sterile dressing was placed at this time in the form of fluff, ABDs, and Hypafix tape. All sponge and instrument counts were correct at the end of the procedure. Dr. Barnett was present and participating for the critical portions of the case. TORRIE AGUIRRE SAMANTHA/[id number] Doc#: [id number] CC: Magen Barajas, [facility], Inor.on 019 Phosphorus, Inorg. 2.8 mg/dL Normal 2.5-4.5 [facility] Comment on above: Performed By: #### L ACWB, PT, PTT, KELI, DIME, BNP, CINTHIA, TSHX, BMP, CK, LIP, LIVP, TROPI, CDP, PRCAL, CRP #### [address] [address] [employer] Material Car[employer]: Pito Freed MD Comp Metabolic Profon 2018 Albumin [Mass/Vol] 1.7 g/dL Low 3.5-5.2 [facility] Comment on above: Performed By: #### L ACWB, PT, PTT, KELI, DIME, BNP, CINTHIA, TSHX, BMP, CK, LIP, LIVP, TROPI, CDP, PRCAL, CRP #### [address] [address] [employer] Material Carrier: Pito Freed MD Albumin/Globulin [Mass ratio] 0.5 {ratio} Low 1.0-2.5 [facility] Comment on above: Performed By: #### L ACWB, PT, PTT, KELI, DIME, BNP, CINTHIA, TSHX, BMP, CK, LIP, LIVP, TROPI, CDP, PRCAL, CRP #### [address] [address] [employer]ing Material Carrier: Pito Freed MD Alkaline Phos 50 U/L Normal 40-129 [facility] Comment on above: Result Comment: SPEC IMEN SLIGHTLY HEMOLYZED, RESULTS MAY BE ADVERSELY AFFECTED. Performed By: #### L ACWB, PT, PTT, KELI, DIME, BNP, CINTHIA, TSHX, BMP, CK, LIP, LIVP, TROPI, CDP, PRCAL, CRP #### [address] [address] [employer] Material Carrier: Pito Freed MD ALT [Catalytic activity/Vol] 11 U/L Normal 5-41 [facility] Comment on above: Result Comment: SPEC IMEN SLIGHTLY HEMOLYZED, RESULTS MAY BE ADVERSELY AFFECTED. Performed By: #### L ACWB, PT, PTT, KELI, DIME, BNP, CINTHIA, TSHX, BMP, CK, LIP, LIVP, TROPI, CDP, PRCAL, CRP #### [address] [address] [employer]ing Material Carrier: Pito Freed MD Anion gap [Moles/Vol] 11 mmol/L Normal 9-17 [facility] Comment on above: Performed By: #### L ACWB, PT, PTT, KELI, DIME, BNP, CINTHIA, TSHX, BMP, CK, LIP, LIVP, TROPI, CDP, PRCAL, CRP #### [address] [address] [employer]ing Material Carrier: Pito Freed MD AST [Catalytic activity/Vol] 21 U/L Normal <40 [facility] Comment on above: Result Comment: SPEC IMEN SLIGHTLY HEMOLYZED, RESULTS MAY BE ADVERSELY AFFECTED. Performed By: #### L ACWB, PT, PTT, KELI, DIME, BNP, CINTHIA, TSHX, BMP, CK, LIP, LIVP, TROPI, CDP, PRCAL, CRP #### [address] [address] [employer] Material Carrier: Pito Freed MD Bilirubin Ql (U) 0.19 mg/dL Low 0.3-1.2 [facility] Comment on above: Performed By: #### L ACWB, PT, PTT, KELI, DIME, BNP, CINTHIA, TSHX, BMP, CK, LIP, LIVP, TROPI, CDP, PRCAL, CRP #### [address] [address] [employer]ing Material Carrier: Pito Freed MD Calcium [Mass/Vol] 8.0 mg/dL Low 8.6-10.4 [facility] Comment on above: Performed By: #### L ACWB, PT, PTT, KELI, DIME, BNP, CINTHIA, TSHX, BMP, CK, LIP, LIVP, TROPI, CDP, PRCAL, CRP #### [address] [id number] [employer] Material Carrier: Pito Freed MD Chloride [Moles/Vol] 104 mmol/L Normal 98-107 [facility] Comment on above: Performed By: #### L ACWB, PT, PTT, KELI, DIME, BNP, CINTHIA, TSHX, BMP, CK, LIP, LIVP, TROPI, CDP, PRCAL, CRP #### [address] [id number] [employer] Material Carrier: Pito Freed MD CO2 [Moles/Vol] 23 mmol/L Normal 20-31 [facility] Comment on above: Performed By: #### L ACWB, PT, PTT, KELI, DIME, BNP, CINTHIA, TSHX, BMP, CK, LIP, LIVP, TROPI, CDP, PRCAL, CRP #### [address] [id number] [employer] Material Carrier: Pito Freed MD Creatinine [Mass/Vol] 1.21 mg/dL High 0.70-1.20 [facility] Comment on above: Performed By: #### L ACWB, PT, PTT, KELI, DIME, BNP, CINTHIA, TSHX, BMP, CK, LIP, LIVP, TROPI, CDP, PRCAL, CRP #### [address] [id number] [employer] Carrier: Pito Freed MD GFR, Amer >60 Normal >60 [facility] Comment on above: Performed By: #### L ACWB, PT, PTT, KELI, DIME, BNP, CINTHIA, TSHX, BMP, CK, LIP, LIVP, TROPI, CDP, PRCAL, CRP #### [address] [id number] [employer]ing Material Carrier: Pito Freed MD GFR,non Amer >60 Normal >60 [facility] Comment on above: Performed By: #### L ACWB, PT, PTT, KELI, DIME, BNP, CINTHIA, TSHX, BMP, CK, LIP, LIVP, TROPI, CDP, PRCAL, CRP #### [address] [id number] [employer]ing Material Carrier: Pito Freed MD Glucose [Mass/Vol] 190 mg/dL High 70-99 [facility] Comment on above: Performed By: #### L ACWB, PT, PTT, KELI, DIME, BNP, CINTHIA, TSHX, BMP, CK, LIP, LIVP, TROPI, CDP, PRCAL, CRP #### [address] [id number] [employer]ing Material Carrier: Pito Freed MD Potassium [Moles/Vol] 5.1 mmol/L Normal 3.7-5.3 [facility] Comment on above: Result Comment: SPEC IMEN SLIGHTLY HEMOLYZED, RESULTS MAY BE ADVERSELY AFFECTED. Performed By: #### L ACWB, PT, PTT, KELI, DIME, BNP, CINTHIA, TSHX, BMP, CK, LIP, LIVP, TROPI, CDP, PRCAL, CRP #### [address] [id number] [employer]ing Material Carrier: Pito Freed MD Protein [Mass/Vol] 5.3 g/dL Low 6.4-8.3 [facility] Comment on above: Performed By: #### L ACWB, PT, PTT, KELI, DIME, BNP, CINTHIA, TSHX, BMP, CK, LIP, LIVP, TROPI, CDP, PRCAL, CRP #### [address] [id number] [employer] Material Carrier: Pito Freed MD Sodium [Moles/Vol] 138 mmol/L Normal 135-144 [facility] Comment on above: Performed By: #### L ACWB, PT, PTT, KELI, DIME, BNP, CINTHIA, TSHX, BMP, CK, LIP, LIVP, TROPI, CDP, PRCAL, CRP #### [address] [id number] [employer]ing Material Carrier: Pito Freed MD Urea nitrogen [Mass/Vol] 72 mg/dL High - [facility] Comment on above: Performed By: #### L ACWB, PT, PTT, KELI, DIME, BNP, CINTHIA, TSHX, BMP, CK, LIP, LIVP, TROPI, CDP, PRCAL, CRP #### [address] [id number] [employer]ing Material Carrier: Pito Freed MD (cont.) [facility] Comment on above: Result Comment: Aver age GFR for 60-69 years old: 85 mL/min/1.73sq m Chronic Kidney Disease: <60 mL/min/1.73sq m Kidney failure: <15 mL/min/1.73sq m eGFR calculated using average adult body mass. Additional eGFR calculator available at: http://www.[employer]/multiple_crcl_2012.htm Performed By: #### L ACWB, PT, PTT, KELI, DIME, BNP, CINTHIA, TSHX, BMP, CK, LIP, LIVP, TROPI, CDP, PRCAL, CRP #### [address] [id number] [employer] Material Carrier: Pito Freed MD BUN/CRE Ratio NOT REPORTED Normal 11-13 [facility] Comment on above: Performed By: #### L ACWB, PT, PTT, KELI, DIME, BNP, CINTHIA, TSHX, BMP, CK, LIP, LIVP, TROPI, CDP, PRCAL, CRP #### [address] [address] [employer]ing Material Carrier: Pito Freed MD Staging: NOT REPORTED Normal [facility] Comment on above: Performed By: #### L ACWB, PT, PTT, KELI, DIME, BNP, CINTHIA, TSHX, BMP, CK, LIP, LIVP, TROPI, CDP, PRCAL, CRP #### [address] [address] [employer]ing Material Carrier: Pito Freed MD Hgb/Hcton 08-20-2018 Hematocrit (Bld) [Volume fraction] 34.1 % Low 40.7-50.3 [facility] Comment on above: Performed By: #### L ACWB, PT, PTT, KELI, DIME, BNP, CINTHIA, TSHX, BMP, CK, LIP, LIVP, TROPI, CDP, PRCAL, CRP #### [address] [address] [employer]ing Material Carrier: Pito Freed MD Hemoglobin (Bld) [Mass/Vol] 10.7 g/dL Low 13.0-17.0 [facility] Comment on above: Performed By: #### L ACWB, PT, PTT, KELI, DIME, BNP, CINTHIA, TSHX, BMP, CK, LIP, LIVP, TROPI, CDP, PRCAL, CRP #### [address] [address] [employer] Material Carrier: Pito Freed MD Magnesiumon 08-20-2018 Magnesium [Mass/Vol] 2.3 mg/dL Normal 1.6-2.6 [facility] Comment on above: Performed By: #### L ACWB, PT, PTT, KELI, DIME, BNP, CINTHIA, TSHX, BMP, CK, LIP, LIVP, TROPI, CDP, PRCAL, CRP #### [address] [address] [employer]ing Material Carrier: Pito Freed MD Phosphorus, Inorg.on 019 Phosphorus, Inorg. 3.2 mg/dL Normal 2.5-4.5 [facility] Comment on above: Performed By: #### L ACWB, PT, PTT, KELI, DIME, BNP, CINTHIA, TSHX, BMP, CK, LIP, LIVP, TROPI, CDP, PRCAL, CRP #### [address] [address] [employer] Material Carrier: Pito Freed MD Triglycerideson 08-20-2018 Triglyceride [Mass/Vol] 467 mg/dL High <150 [facility] Comment on above: Result Comment: Triglyceride Guidelines: <150 Desirable 150-199 Borderline 200-499 High >499 Very high Based on AHA Guidelines for fasting triglyceride, November 2011. Performed By: #### L ACWB, PT, PTT, KELI, DIME, BNP, CINTHIA, TSHX, BMP, CK, LIP, LIVP, TROPI, CDP, PRCAL, CRP #### [address] [address] [employer] Material Carrier: Pito Freed MD Basic Metabolic Profon 08-19 (cont.) Normal [facility] Comment on above: Result Comment: Aver age GFR for 60-69 years old: 85 mL/min/1.73sq m Chronic Kidney Disease: <60 mL/min/1.73sq m Kidney failure: <15 mL/min/1.73sq m eGFR calculated using average adult body mass. Additional eGFR calculator available at: http://www.[employer]zooble/multiple_crcl_2011.htm Performed By: #### L ACWB, PT, PTT, KELI, DIME, BNP, CINTHIA, TSHX, BMP, CK, LIP, LIVP, TROPI, CDP, PRCAL, CRP #### [address] [address] [employer] Material Carrier: Pito Freed MD Anion gap [Moles/Vol] 14 mmol/L Normal 9-17 [facility] Comment on above: Performed By: #### L ACWB, PT, PTT, KELI, DIME, BNP, CINTHIA, TSHX, BMP, CK, LIP, LIVP, TROPI, CDP, PRCAL, CRP #### [address] [id number] [employer] Material Carrier: Pito Freed MD Calcium [Mass/Vol] 8.2 mg/dL Low 8.6-10.4 [facility] Comment on above: Performed By: #### L ACWB, PT, PTT, KELI, DIME, BNP, CINTHIA, TSHX, BMP, CK, LIP, LIVP, TROPI, CDP, PRCAL, CRP #### [address] [id number] [employer] Carrier: Pito Freed MD Chloride [Moles/Vol] 106 mmol/L Normal 98-107 [facility] Comment on above: Performed By: #### L ACWB, PT, PTT, KELI, DIME, BNP, CINTHIA, TSHX, BMP, CK, LIP, LIVP, TROPI, CDP, PRCAL, CRP #### [address] [id number] [employer] Material Carrier: Pito Freed MD CO2 [Moles/Vol] 20 mmol/L Normal 20-31 [facility] Comment on above: Performed By: #### L ACWB, PT, PTT, KELI, DIME, BNP, CINTHIA, TSHX, BMP, CK, LIP, LIVP, TROPI, CDP, PRCAL, CRP #### [address] [id number] [employer]ing Material Carrier: Pito Freed MD Creatinine [Mass/Vol] 1.71 mg/dL High 0.70-1.20 [facility] Comment on above: Performed By: #### L ACWB, PT, PTT, KELI, DIME, BNP, CINTHIA, TSHX, BMP, CK, LIP, LIVP, TROPI, CDP, PRCAL, CRP #### [address] [id number] [employer] Carrier: Pito Freed MD GFR, Amer 49 mL/min Low >60 [facility] Comment on above: Performed By: #### L ACWB, PT, PTT, KELI, DIME, BNP, CINTHIA, TSHX, BMP, CK, LIP, LIVP, TROPI, CDP, PRCAL, CRP #### [address] [id number] [employer]ing Material Carrier: Pito Freed MD GFR,non Amer 41 mL/min Low >60 [facility] Comment on above: Performed By: #### L ACWB, PT, PTT, KELI, DIME, BNP, CINTHIA, TSHX, BMP, CK, LIP, LIVP, TROPI, CDP, PRCAL, CRP #### [address] [id number] [employer] Carrier: Pito Freed MD Glucose [Mass/Vol] 173 mg/dL High 70-99 [facility] Comment on above: Performed By: #### L ACWB, PT, PTT, KELI, DIME, BNP, CINTHIA, TSHX, BMP, CK, LIP, LIVP, TROPI, CDP, PRCAL, CRP #### [address] [address] [employer] Material Carrier: Pito Freed MD Potassium [Moles/Vol] 4.5 mmol/L Normal 3.7-5.3 [facility] Comment on above: Performed By: #### L ACWB, PT, PTT, KELI, DIME, BNP, CINTHIA, TSHX, BMP, CK, LIP, LIVP, TROPI, CDP, PRCAL, CRP #### [address] [id number] [employer] Carrier: Pito Freed MD Sodium [Moles/Vol] 140 mmol/L Normal 135-144 [facility] Comment on above: Performed By: #### L ACWB, PT, PTT, KELI, DIME, BNP, CINTHIA, TSHX, BMP, CK, LIP, LIVP, TROPI, CDP, PRCAL, CRP #### [address] [id number] [employer]ing Material Carrier: Pito Freed MD Urea nitrogen [Mass/Vol] 80 mg/dL High 10-16 [facility] Comment on above: Performed By: #### L ACWB, PT, PTT, KELI, DIME, BNP, CINTHIA, TSHX, BMP, CK, LIP, LIVP, TROPI, CDP, PRCAL, CRP #### [address] [id number] [employer] Carrier: Pito Freed MD BUN/CRE Ratio NOT REPORTED Normal 11-13 [facility] Comment on above: Performed By: #### L ACWB, PT, PTT, KELI, DIME, BNP, CINTHIA, TSHX, BMP, CK, LIP, LIVP, TROPI, CDP, PRCAL, CRP #### [address] [id number] [employer]ing Material Carrier: Pito Freed MD Staging: NOT REPORTED Normal [facility] Comment on above: Performed By: #### L ACWB, PT, PTT, KELI, DIME, BNP, CINTHIA, TSHX, BMP, CK, LIP, LIVP, TROPI, CDP, PRCAL, CRP #### [address] [id number] [employer] Material Carrier: Pito Freed MD (cont.) Normal [facility] Comment on above: Result Comment: Aver age GFR for 60-69 years old: 85 mL/min/1.73sq m Chronic Kidney Disease: <60 mL/min/1.73sq m Kidney failure: <15 mL/min/1.73sq m eGFR calculated using average adult body mass. Additional eGFR calculator available at: http://www.[employer].Izooble/multiple_crcl_2012.htm Performed By: #### L ACWB, PT, PTT, KELI, DIME, BNP, CINTHIA, TSHX, BMP, CK, LIP, LIVP, TROPI, CDP, PRCAL, CRP #### [address] [address] [employer] Material Carrier: Pito Freed MD Anion gap [Moles/Vol] 12 mmol/L Normal 9-17 [facility] Comment on above: Performed By: #### L ACWB, PT, PTT, KELI, DIME, BNP, CINTHIA, TSHX, BMP, CK, LIP, LIVP, TROPI, CDP, PRCAL, CRP #### [address] [id number] [employer] Material Carrier: Pito Freed MD Calcium [Mass/Vol] 8.0 mg/dL Low 8.6-10.4 [facility] Comment on above: Performed By: #### L ACWB, PT, PTT, KELI, DIME, BNP, CINTHIA, TSHX, BMP, CK, LIP, LIVP, TROPI, CDP, PRCAL, CRP #### [address] [id number] [employer] Carrier: Pito Freed MD Chloride [Moles/Vol] 104 mmol/L Normal 98-107 [facility] Comment on above: Performed By: #### L ACWB, PT, PTT, KELI, DIME, BNP, CINTHIA, TSHX, BMP, CK, LIP, LIVP, TROPI, CDP, PRCAL, CRP #### [address] [id number] [employer]ing Material Carrier: Pito Freed MD CO2 [Moles/Vol] 19 mmol/L Low 20-31 [facility] Comment on above: Performed By: #### L ACWB, PT, PTT, KELI, DIME, BNP, CINTHIA, TSHX, BMP, CK, LIP, LIVP, TROPI, CDP, PRCAL, CRP #### [address] [address] [employer]ing Material Carrier: Pito Freed MD Creatinine [Mass/Vol] 2.59 mg/dL High 0.70-1.20 [facility] Comment on above: Performed By: #### L ACWB, PT, PTT, KELI, DIME, BNP, CINTHIA, TSHX, BMP, CK, LIP, LIVP, TROPI, CDP, PRCAL, CRP #### [address] [address] [employer]ing Material Carrier: Pito Freed MD GFR, Amer 31 mL/min Low >60 [facility] Comment on above: Performed By: #### L ACWB, PT, PTT, KELI, DIME, BNP, CINTHIA, TSHX, BMP, CK, LIP, LIVP, TROPI, CDP, PRCAL, CRP #### [address] [id number] Planting Material Carrier: Pito Freed MD GFR,non Amer 25 mL/min Low >60 [facility] Comment on above: Performed By: #### L ACWB, PT, PTT, KELI, DIME, BNP, CINTHIA, TSHX, BMP, CK, LIP, LIVP, TROPI, CDP, PRCAL, CRP #### [place] [id number] [employer] Material Carrier: Pito Freed MD Glucose [Mass/Vol] 145 mg/dL High 70-99 [facility] Comment on above: Performed By: #### L ACWB, PT, PTT, KELI, DIME, BNP, CINTHIA, TSHX, BMP, CK, LIP, LIVP, TROPI, CDP, PRCAL, CRP #### [address] [address] [employer]ing Material Carrier: Pito Freed MD Potassium [Moles/Vol] 4.2 mmol/L Normal 3.7-5.3 [facility] Comment on above: Performed By: #### L ACWB, PT, PTT, KELI, DIME, BNP, CINTHIA, TSHX, BMP, CK, LIP, LIVP, TROPI, CDP, PRCAL, CRP #### [address] [address] [employer]ing Material Carrier: Pito Freed MD Sodium [Moles/Vol] 135 mmol/L Normal 135-144 [facility] Comment on above: Performed By: #### L ACWB, PT, PTT, KELI, DIME, BNP, CINTHIA, TSHX, BMP, CK, LIP, LIVP, TROPI, CDP, PRCAL, CRP #### [address] [id number] Planting Material Carrier: Pito Freed MD Urea nitrogen [Mass/Vol] 89 mg/dL High 10-16 [facility] Comment on above: Performed By: #### L ACWB, PT, PTT, KELI, DIME, BNP, CINTHIA, TSHX, BMP, CK, LIP, LIVP, TROPI, CDP, PRCAL, CRP #### [address] [id number] [employer]ing Material Carrier: Pito Freed MD BUN/CRE Ratio NOT REPORTED Normal 11-13 [facility] Comment on above: Performed By: #### L ACWB, PT, PTT, KELI, DIME, BNP, CINTHIA, TSHX, BMP, CK, LIP, LIVP, TROPI, CDP, PRCAL, CRP #### [address] [id number] [employer]ing Material Carrier: Pito Freed MD Staging: NOT REPORTED Normal [facility] Comment on above: Performed By: #### L ACWB, PT, PTT, KELI, DIME, BNP, CINTHIA, TSHX, BMP, CK, LIP, LIVP, TROPI, CDP, PRCAL, CRP #### [address] [address] [employer]ing Material Carrier: Pito Freed MD CBCon 08-19-2018 Erythrocyte distribution width (RBC) [Ratio] 15.8 % High 11.8-14.4 [facility] Comment on above: Performed By: #### L ACWB, PT, PTT, KELI, DIME, BNP, CINTHIA, TSHX, BMP, CK, LIP, LIVP, TROPI, CDP, PRCAL, CRP #### [address] [address] [employer]ing Material Carrier: Pito Freed MD Hematocrit (Bld) [Volume fraction] 35.6 % Low 40.7-50.3 [facility] Comment on above: Performed By: #### L ACWB, PT, PTT, KELI, DIME, BNP, CINTHIA, TSHX, BMP, CK, LIP, LIVP, TROPI, CDP, PRCAL, CRP #### [address] [address] [employer]ing Material Carrier: Pito Freed MD Hemoglobin (Bld) [Mass/Vol] 11.4 g/dL Low 13.0-17.0 [facility] Comment on above: Performed By: #### L ACWB, PT, PTT, KELI, DIME, BNP, CINTHIA, TSHX, BMP, CK, LIP, LIVP, TROPI, CDP, PRCAL, CRP #### [address] [address] [employer]ing Material Carrier: Pito Freed MD MCH (RBC) [Entitic mass] 29.7 pg Normal 25.2-33.5 [facility] Comment on above: Performed By: #### L ACWB, PT, PTT, KELI, DIME, BNP, CINTHIA, TSHX, BMP, CK, LIP, LIVP, TROPI, CDP, PRCAL, CRP #### [address] [address] [employer]ing Material Carrier: Pito Freed MD MCHC (RBC) [Mass/Vol] 32.0 g/dL Normal 28.4-34.8 [facility] Comment on above: Performed By: #### L ACWB, PT, PTT, KELI, DIME, BNP, CINTHIA, TSHX, BMP, CK, LIP, LIVP, TROPI, CDP, PRCAL, CRP #### [address] [address] [employer]ing Material Carrier: Pito Freed MD MCV (RBC) [Entitic vol] 92.7 fL Normal 82.6-102.9 [facility] Comment on above: Performed By: #### L ACWB, PT, PTT, KELI, DIME, BNP, CINTHIA, TSHX, BMP, CK, LIP, LIVP, TROPI, CDP, PRCAL, CRP #### [address] [address] [employer]ing Material Carrier: Pito Freed MD NRBC Automated 0.0 per 100 WBC Normal 0.0 [facility] Comment on above: Performed By: #### L ACWB, PT, PTT, KELI, DIME, BNP, CINTHIA, TSHX, BMP, CK, LIP, LIVP, TROPI, CDP, PRCAL, CRP #### [address] [address] [employer]ing Material Carrier: Pito Fered MD Platelet mean volume (Bld) [Entitic vol] 11.6 fL Normal 8.1-13.5 [facility] Comment on above: Performed By: #### L ACWB, PT, PTT, KELI, DIME, BNP, CINTHIA, TSHX, BMP, CK, LIP, LIVP, TROPI, CDP, PRCAL, CRP #### [place] [id number] [employer] Material Carrier: Pito Freed MD Platelets (Bld) [#/Vol] 195 10*3/uL Normal 138-453 [facility] Comment on above: Performed By: #### L ACWB, PT, PTT, KELI, DIME, BNP, CINTHIA, TSHX, BMP, CK, LIP, LIVP, TROPI, CDP, PRCAL, CRP #### [address] [id number] Planting Material Carrier: Pito Freed MD RBC (Bld) [#/Vol] 3.84 10*6/uL Low 4.21-5.77 [facility] Comment on above: Performed By: #### L ACWB, PT, PTT, KELI, DIME, BNP, CINTHIA, TSHX, BMP, CK, LIP, LIVP, TROPI, CDP, PRCAL, CRP #### [place] [id number] [employer] Material Carrier: Pito Freed MD WBC (Bld) [#/Vol] 6.1 10*3/uL Normal 3.5-11.3 [facility] Comment on above: Performed By: #### L ACWB, PT, PTT, KELI, DIME, BNP, CINTHIA, TSHX, BMP, CK, LIP, LIVP, TROPI, CDP, PRCAL, CRP #### [place] [id number] [employer]ing Material Carrier: Pito Freed MD CBC with Diffon 08-19-2018 Abs. Basophil <0.03 Normal 0.00-0.20 [facility] Comment on above: Performed By: #### L ACWB, PT, PTT, KELI, DIME, BNP, CINTHIA, TSHX, BMP, CK, LIP, LIVP, TROPI, CDP, PRCAL, CRP #### [place] [id number] [employer]ing Material Carrier: Pito Freed MD Abs.Imm.Granulocyte 0.04 k/uL Normal 0.00-0.30 [facility] Comment on above: Performed By: #### L ACWB, PT, PTT, KELI, DIME, BNP, CINTHIA, TSHX, BMP, CK, LIP, LIVP, TROPI, CDP, PRCAL, CRP #### [address] [id number] [employer]ing Material Carrier: Pito Freed MD Abs.Neutrophil (Seg) 6.38 k/uL Normal 1.50-8.10 [facility] Comment on above: Performed By: #### L ACWB, PT, PTT, KELI, DIME, BNP, CINTHIA, TSHX, BMP, CK, LIP, LIVP, TROPI, CDP, PRCAL, CRP #### [place] [id number] [employer] Carrier: Pito Freed MD Basophils/100 WBC (Bld) 0 % Normal 0-2 [facility] Comment on above: Performed By: #### L ACWB, PT, PTT, KELI, DIME, BNP, CINTHIA, TSHX, BMP, CK, LIP, LIVP, TROPI, CDP, PRCAL, CRP #### [place] [id number] Planting Material Carrier: Pito Freed MD Eosinophils (Bld) [#/Vol] 0.05 10*3/uL Normal 0.00-0.44 [facility] Comment on above: Performed By: #### L ACWB, PT, PTT, KELI, DIME, BNP, CINTHIA, TSHX, BMP, CK, LIP, LIVP, TROPI, CDP, PRCAL, CRP #### [place] [id number] Planting Material Carrier: Pito Freed MD Eosinophils/100 WBC (Bld) 1 % Normal 1-4 [facility] Comment on above: Performed By: #### L ACWB, PT, PTT, KELI, DIME, BNP, CINTHIA, TSHX, BMP, CK, LIP, LIVP, TROPI, CDP, PRCAL, CRP #### [place] [id number] Planting Material Carrier: Pito Freed MD Erythrocyte distribution width (RBC) [Ratio] 15.5 % High 11.8-14.4 [facility] Comment on above: Performed By: #### L ACWB, PT, PTT, KELI, DIME, BNP, CINTHIA, TSHX, BMP, CK, LIP, LIVP, TROPI, CDP, PRCAL, CRP #### [address] [id number] Planting Material Carrier: Pito Freed MD Hematocrit (Bld) [Volume fraction] 34.7 % Low 40.7-50.3 [facility] Comment on above: Performed By: #### L ACWB, PT, PTT, KELI, DIME, BNP, CINTHIA, TSHX, BMP, CK, LIP, LIVP, TROPI, CDP, PRCAL, CRP #### [place] [id number] Planting Material Carrier: Pito Freed MD Hemoglobin (Bld) [Mass/Vol] 11.1 g/dL Low 13.0-17.0 [facility] Comment on above: Performed By: #### L ACWB, PT, PTT, KELI, DIME, BNP, CINTHIA, TSHX, BMP, CK, LIP, LIVP, TROPI, CDP, PRCAL, CRP #### [place] [id number] Planting Material Carrier: Pito Freed MD Immature granulocytes (Bld) [#/Vol] 1 % High 0 [facility] Comment on above: Performed By: #### L ACWB, PT, PTT, KELI, DIME, BNP, CINTHIA, TSHX, BMP, CK, LIP, LIVP, TROPI, CDP, PRCAL, CRP #### [place] [id number] Planting Material Carrier: Pito Freed MD Lymphocytes (Bld) [#/Vol] 1.06 10*3/uL Low 1.10-3.70 [facility] Comment on above: Performed By: #### L ACWB, PT, PTT, KELI, DIME, BNP, CINTHIA, TSHX, BMP, CK, LIP, LIVP, TROPI, CDP, PRCAL, CRP #### [address] [id number] Planting Material Carrier: Pito Freed MD Lymphocytes/100 WBC (Bld) 13 % Low 24-43 [facility] Comment on above: Performed By: #### L ACWB, PT, PTT, KELI, DIME, BNP, CINTHIA, TSHX, BMP, CK, LIP, LIVP, TROPI, CDP, PRCAL, CRP #### [address] [id number] Planting Material Carrier: Pito Freed MD MCH (RBC) [Entitic mass] 29.2 pg Normal 25.2-33.5 [facility] Comment on above: Performed By: #### L ACWB, PT, PTT, KELI, DIME, BNP, CINTHIA, TSHX, BMP, CK, LIP, LIVP, TROPI, CDP, PRCAL, CRP #### [address] [id number] Planting Material Carrier: Pito Freed MD MCHC (RBC) [Mass/Vol] 32.0 g/dL Normal 28.4-34.8 [facility] Comment on above: Performed By: #### L ACWB, PT, PTT, KELI, DIME, BNP, CINTHIA, TSHX, BMP, CK, LIP, LIVP, TROPI, CDP, PRCAL, CRP #### [address] [id number] Planting Material Carrier: Pito Freed MD MCV (RBC) [Entitic vol] 91.3 fL Normal 82.6-102.9 [facility] Comment on above: Performed By: #### L ACWB, PT, PTT, KELI, DIME, BNP, CINTHIA, TSHX, BMP, CK, LIP, LIVP, TROPI, CDP, PRCAL, CRP #### [address] [id number] Planting Material Carrier: Pito Freed MD Monocytes (Bld) [#/Vol] 0.93 10*3/uL Normal 0.10-1.20 [facility] Comment on above: Performed By: #### L ACWB, PT, PTT, KELI, DIME, BNP, CINTHIA, TSHX, BMP, CK, LIP, LIVP, TROPI, CDP, PRCAL, CRP #### [address] [id number] Planting Material Carrier: Pito Freed MD Monocytes/100 WBC (Bld) 11 % Normal 3-12 [facility] Comment on above: Performed By: #### L ACWB, PT, PTT, KELI, DIME, BNP, CINTHIA, TSHX, BMP, CK, LIP, LIVP, TROPI, CDP, PRCAL, CRP #### [place] [id number] Planting Material Carrier: Pito Freed MD Neutrophil (Seg) 74 % High 36-65 [facility] Comment on above: Performed By: #### L ACWB, PT, PTT, KELI, DIME, BNP, CINTHIA, TSHX, BMP, CK, LIP, LIVP, TROPI, CDP, PRCAL, CRP #### [address] [id number] Planting Material Carrier: Pito Freed MD NRBC Automated 0.0 per 100 WBC Normal 0.0 [facility] Comment on above: Performed By: #### L ACWB, PT, PTT, KELI, DIME, BNP, CINTHIA, TSHX, BMP, CK, LIP, LIVP, TROPI, CDP, PRCAL, CRP #### [place] [id number] Planting Material Carrier: Pito Freed MD Platelet mean volume (Bld) [Entitic vol] 11.5 fL Normal 8.1-13.5 [facility] Comment on above: Performed By: #### L ACWB, PT, PTT, KELI, DIME, BNP, CINTHIA, TSHX, BMP, CK, LIP, LIVP, TROPI, CDP, PRCAL, CRP #### [address] [phone] Planting Material Carrier: Pito Freed MD Platelets (Bld) [#/Vol] 254 10*3/uL Normal 138-453 [facility] Comment on above: Performed By: #### L ACWB, PT, PTT, KELI, DIME, BNP, CINTHIA, TSHX, BMP, CK, LIP, LIVP, TROPI, CDP, PRCAL, CRP #### [address] [id number] Planting Material Carrier: Pito Freed MD RBC (Bld) [#/Vol] 3.80 10*6/uL Low 4.21-5.77 [facility] Comment on above: Performed By: #### L ACWB, PT, PTT, KELI, DIME, BNP, CINTHIA, TSHX, BMP, CK, LIP, LIVP, TROPI, CDP, PRCAL, CRP #### [address] [id number] Planting Material Carrier: Pito Freed MD RBC morphology finding Nom (Bld) ANISOCYTOSIS PRESENT Normal [facility] Comment on above: Performed By: #### L ACWB, PT, PTT, KELI, DIME, BNP, CINTHIA, TSHX, BMP, CK, LIP, LIVP, TROPI, CDP, PRCAL, CRP #### [address] [phone] Planting Material Carrier: Pito Freed MD WBC (Bld) [#/Vol] 8.5 10*3/uL Normal 3.5-11.3 [facility] Comment on above: Performed By: #### L ACWB, PT, PTT, KELI, DIME, BNP, CINTHIA, TSHX, BMP, CK, LIP, LIVP, TROPI, CDP, PRCAL, CRP #### [address] [phone] Planting Material Carrier: Pito Freed MD Auto Diff Performed NOT REPORTED Normal [facility] Comment on above: Performed By: #### L ACWB, PT, PTT, KELI, DIME, BNP, CINTHIA, TSHX, BMP, CK, LIP, LIVP, TROPI, CDP, PRCAL, CRP #### [address] [phone] Planting Material Carrier: Pito Freed MD Platelets (Bld) [#/Vol] NOT REPORTED Normal [facility] Comment on above: Performed By: #### L ACWB, PT, PTT, KELI, DIME, BNP, CINTHIA, TSHX, BMP, CK, LIP, LIVP, TROPI, CDP, PRCAL, CRP #### [address] [phone] Planting Material Carrier: Pito Freed MD WBC Morphology NOT REPORTED Normal [facility] Comment on above: Performed By: #### L ACWB, PT, PTT, KELI, DIME, BNP, CINTHIA, TSHX, BMP, CK, LIP, LIVP, TROPI, CDP, PRCAL, CRP #### [address] [phone] Planting Material Carrier: Pito Freed MD Calcium, Ionicon 08-19-2018 Calcium [Mass/Vol] 1.13 mmol/L Normal 1.13-1.33 [facility] Comment on above: Performed By: #### L ACWB, PT, PTT, KELI, DIME, BNP, CINTHIA, TSHX, BMP, CK, LIP, LIVP, TROPI, CDP, PRCAL, CRP #### [address] [phone] Planting Material Carrier: Pito Freed MD Cult,Aerobe/Anaerobeon 08-19 Cult,Aerobe/Anaerobe Specimen Descriptio n .ABDOMEN SWAB INTRA ABDOMINAL CAVITY CULTURE Special Requests NOT REPORTED Direct Exam FEW NEUTROPHILS NO NEUTROPHILS SEEN Culture ESCHERICHIA COLI LIGHT GROWTH NORMAL MATY YEAST, NOT TIFFANY ALBICANS OR TIFFANY DUBLINIENSIS LIGHT GROWTH CLOSTRIDIUM PERFRINGENS SCANT GROWTH BACTEROIDES THETAIOTAOMICRON LIGHT GROWTH BETA LACTAMASE POSITIVE Report Status FINAL 08/22/2018 SUSCEPTIBILITY Organism ESCHERICHIA COLI Method EMERSON Amikacin NOT REPORTED Ampicillin <=2 SUSCEPTIBLE Ampicillin/Sulbactam NOT REPORTED Aztreonam <=1 SUSCEPTIBLE Cefazolin <=4 SUSCEPTIBLE Cefepime NOT REPORTED Ceftriaxone <=1 SUSCEPTIBLE Ciprofloxacin <=0.25 SUSCEPTIBLE Ertapenem NOT REPORTED ESBL NEGATIVE Gentamicin <=1 SUSCEPTIBLE Meropenem NOT REPORTED Nitrofurantoin NOT REPORTED Tigecycline NOT REPORTED Tobramycin <=1 SUSCEPTIBLE Trimethoprim/Sulfa <=20 SUSCEPTIBLE Piperacillin/Tazobactam <=4 SUSCEPTIBLE Normal [facility] Comment on above: Performed By: #### L ACWB, PT, PTT, KELI, DIME, BNP, CINTHIA, TSHX, BMP, CK, LIP, LIVP, TROPI, CDP, PRCAL, CRP #### [address] [id number] Planting Material Carrier: Pito Freed MD Cult,Urineon 08-19-2018 Cult,Urine Specimen Description .URINE Special Requests NOT REPORTED Culture NO GROWTH Report Status FINAL 08/19/2018 Normal [facility] Comment on above: Performed By: #### L ACWB, PT, PTT, KELI, DIME, BNP, CINTHIA, TSHX, BMP, CK, LIP, LIVP, TROPI, CDP, PRCAL, CRP #### [address] [address] Planting Material Carrier: Pito Freed MD Magnesiumon 08-19-2018 Magnesium [Mass/Vol] 2.4 mg/dL Normal 1.6-2.6 [facility] Comment on above: Performed By: #### L ACWB, PT, PTT, KELI, DIME, BNP, CINTHIA, TSHX, BMP, CK, LIP, LIVP, TROPI, CDP, PRCAL, CRP #### [address] [address] Planting Material Carrier: Pito Freed MD Magnesium [Mass/Vol] 2.5 mg/dL Normal 1.6-2.6 [facility] Comment on above: Performed By: #### L ACWB, PT, PTT, KELI, DIME, BNP, CINTHIA, TSHX, BMP, CK, LIP, LIVP, TROPI, CDP, PRCAL, CRP #### [facility] [employer] [address] [place] [address] Planting Material Carrier: Pito Freed MD Phosphorus, Inorg.on 019 Phosphorus, Inorg. 4.8 mg/dL High 2.5-4.5 [facility] Comment on above: Performed By: #### L ACWB, PT, PTT, KELI, DIME, BNP, CINTHIA, TSHX, BMP, CK, LIP, LIVP, TROPI, CDP, PRCAL, CRP #### [address] [address] Planting Material Carrier: Pito Freed MD Phosphorus, Inorg. 5.1 mg/dL High 2.5-4.5 [facility] Comment on above: Performed By: #### L ACWB, PT, PTT, KELI, DIME, BNP, CINTHIA, TSHX, BMP, CK, LIP, LIVP, TROPI, CDP, PRCAL, CRP #### [address] [address] Planting Material Carrier: Pito Freed MD Surgical Pathologyon 019 Surgical Pathology (NOTE) [id number] [facility] [employer] [facility] ANATOMIC PATHOLOGY [address] [place] [id number] SURGICAL PATHOLOGY CONSULTATION Patient Name: HAIM OLIVER . [facility] Rec: [id number] Path Number: [id number] Collected: 08/19/2018 Received: 08/19/2018 Reported: 08/20/2018 11:46 -- Diagnosis -- EXPLANTED ABDOMINAL SYNTHETIC MESH WITH ATTACHED FIBROFATTY TISSUE (DEMONSTRATING FOCAL FIBROSIS AND REMOTE FAT NECROSIS). GROSS ONLY. Jalil Gates, Electronically Signed Out /08/20/2018 Clinical Information Pre-op Diagnosis: POSS. BOWEL RESECTION Operative Findings: EXPLANTED MESH Operation Performed: 2ND LOOK LAPAROTOMY, POSS. BOWEL RESECTION, POSS. STOMA, POSS. VAC Source of Specimen 1: EXPLANTED MESH Gross Description HAIM OLIVER, EXPLANTED MESH 10.5 x 6.0 x 1.0 cm portion of synthetic mesh that is mostly surrounded by fibrofatty tissue. There is suture material present. No masses are seen. Sections of tissue, 1cs. tm Microscopic Description Microscopic examination performed. Normal [facility] Comment on above: Performed By: #### L ACWB, PT, PTT, KELI, DIME, BNP, CINTHIA, TSHX, BMP, CK, LIP, LIVP, TROPI, CDP, PRCAL, CRP #### [facility] [place] [phone] Planting Material Carrier: Pito Freed MD XR CHEST PORTABLEon 08-20-19 XR CHEST PORTABLE EXAMINATION: ONE XRAY VIEW OF THE CHEST 08/19/2018 2:38 pm COMPARISON: 18 August 2018 HISTORY: ORDERING SYSTEM PROVIDED HISTORY: post op, remained intubated. evaluate tube placement and lung expansion TECHNOLOGIST PROVIDED HISTORY: post op, remained intubated. evaluate tube placement and lung expansion FINDINGS: AP portable view of the chest time stamped at 1350 hours demonstrates overlying cardiac monitoring electrodes, right internal jugular catheter terminating in the superior vena cava, endotracheal tube terminating 1.8 cm above the peter, and intestinal tube extending below the body of the stomach. Heart size is stable. Aortic arch is ectatic. Scar or atelectasis is noted at the lung bases. Bilateral upper lobe pulmonary opacities are redemonstrated, right greater than left which may be related to acute airspace disease. No extrapleural air or gross effusions are noted. Osseous and mediastinal structures are age-appropriate. IMPRESSION: Little change compared to prior study. Tubes and lines as above. Stable cardiac size. Interpreted by: Karmen Chong MD Signed by: Karmen Chong MD 08/19/18 Final result Normal [facility] XR CHEST PORTABLE EXAMINATION: ONE XRAY VIEW OF THE CHEST 08/17/2018 9:04 pm COMPARISON: Chest radiograph from 05/24/2018 HISTORY: ORDERING SYSTEM PROVIDED HISTORY: intubated - post op. CVC placement TECHNOLOGIST PROVIDED HISTORY: intubated - post op. CVC placement Ordering Physician Provided Reason for Exam: Central line. Supine. Acuity: Unknown Type of Exam: Ongoing FINDINGS: A right IJ central line has been placed. The tip projects in the expected location of the lower SVC. ET tube terminates 4.3 cm from the peter. Enteric tube passes beneath the diaphragm. Rightward shift of the mediastinum. Elevation of right hemidiaphragm. A dense opacity along the right paratracheal region and right mediastinal border. Right upper lobe atelectasis is favored. IMPRESSION: Supporting devices as above. The right upper lobe atelectasis with mediastinal shift and elevation of right hemidiaphragm. Follow-up after vigorous suctioning is advised. If opacity persists, CT should be considered. Findings were discussed with Dr. Mckeon on 08/17/2018 at 2045. Interpreted by: Cristo Rodrigues MD Signed by: Cristo Rodrigues MD 08/19/18 Final result Normal [facility] APTTon 08-18-2018 aPTT Coag (Bld) [Time] 25.2 s Normal 20.5-30.5 [facility] Comment on above: Performed By: #### L ACWB, PT, PTT, KELI, DIME, BNP, CINTHIA, TSHX, BMP, CK, LIP, LIVP, TROPI, CDP, PRCAL, CRP #### [facility] [employer] [address] [place] [id number] Planting Material Carrier: Pito Freed MD Basic Metab w/rfx MGon 08-18 (cont.) Normal [facility] Comment on above: Result Comment: Aver age GFR for 60-69 years old: 85 mL/min/1.73sq m Chronic Kidney Disease: <60 mL/min/1.73sq m Kidney failure: <15 mL/min/1.73sq m eGFR calculated using average adult body mass. Additional eGFR calculator available at: http://www.[employer].Izooble/multiple_crcl_2012.htm Performed By: #### L ACWB, PT, PTT, KELI, DIME, BNP, CINTHIA, TSHX, BMP, CK, LIP, LIVP, TROPI, CDP, PRCAL, CRP #### [address] [address] Planting Material Carrier: Pito Freed MD Anion gap [Moles/Vol] 16 mmol/L Normal 9-17 [facility] Comment on above: Performed By: #### L ACWB, PT, PTT, KELI, DIME, BNP, CINTHIA, TSHX, BMP, CK, LIP, LIVP, TROPI, CDP, PRCAL, CRP #### [address] [address] Planting Material Carrier: Pito Freed MD Calcium [Mass/Vol] 7.8 mg/dL Low 8.6-10.4 [facility] Comment on above: Performed By: #### L ACWB, PT, PTT, KELI, DIME, BNP, CINTHIA, TSHX, BMP, CK, LIP, LIVP, TROPI, CDP, PRCAL, CRP #### [address] [address] Planting Material Carrier: Pito Freed MD Chloride [Moles/Vol] 105 mmol/L Normal 98-107 [facility] Comment on above: Performed By: #### L ACWB, PT, PTT, KELI, DIME, BNP, ICNTHIA, TSHX, BMP, CK, LIP, LIVP, TROPI, CDP, PRCAL, CRP #### [address] [phone] Planting Material Carrier: Pito Freed MD CO2 [Moles/Vol] 14 mmol/L Low 20-31 [facility] Comment on above: Performed By: #### L ACWB, PT, PTT, KELI, DIME, BNP, CINTHIA, TSHX, BMP, CK, LIP, LIVP, TROPI, CDP, PRCAL, CRP #### [address] [phone] Planting Material Carrier: Pito Freed MD Creatinine [Mass/Vol] 4.58 mg/dL High 0.70-1.20 [facility] Comment on above: Performed By: #### L ACWB, PT, PTT, KELI, DIME, BNP, CINTHIA, TSHX, BMP, CK, LIP, LIVP, TROPI, CDP, PRCAL, CRP #### [address] [phone] Planting Material Carrier: Pito Freed MD GFR, Amer 16 mL/min Low >60 [facility] Comment on above: Performed By: #### L ACWB, PT, PTT, KELI, DIME, BNP, CINTHIA, TSHX, BMP, CK, LIP, LIVP, TROPI, CDP, PRCAL, CRP #### [address] [address] Planting Material Carrier: Pito Freed MD GFR,non Amer 13 mL/min Low >60 [facility] Comment on above: Performed By: #### L ACWB, PT, PTT, KELI, DIME, BNP, CINTHIA, TSHX, BMP, CK, LIP, LIVP, TROPI, CDP, PRCAL, CRP #### [address] [id number] Planting Material Carrier: Pito Freed MD Glucose [Mass/Vol] 188 mg/dL High 70-99 [facility] Comment on above: Performed By: #### L ACWB, PT, PTT, KELI, DIME, BNP, CINTHIA, TSHX, BMP, CK, LIP, LIVP, TROPI, CDP, PRCAL, CRP #### [address] [address] Planting Material Carrier: Pito Freed MD Potassium [Moles/Vol] 4.8 mmol/L Normal 3.7-5.3 [facility] Comment on above: Performed By: #### L ACWB, PT, PTT, KELI, DIME, BNP, CINTHIA, TSHX, BMP, CK, LIP, LIVP, TROPI, CDP, PRCAL, CRP #### [address] [address] Planting Material Carrier: Pito Freed MD Sodium [Moles/Vol] 135 mmol/L Normal 135-144 [facility] Comment on above: Performed By: #### L ACWB, PT, PTT, KELI, DIME, BNP, CINTHIA, TSHX, BMP, CK, LIP, LIVP, TROPI, CDP, PRCAL, CRP #### [address] [address] Planting Material Carrier: Pito Freed MD Urea nitrogen [Mass/Vol] 83 mg/dL High 8-23 [facility] Comment on above: Performed By: #### L ACWB, PT, PTT, KELI, DIME, BNP, CINTHIA, TSHX, BMP, CK, LIP, LIVP, TROPI, CDP, PRCAL, CRP #### [address] [address] Planting Material Carrier: Pito Freed MD Basic Metabolic Profon 08-18 (cont.) Normal [facility] Comment on above: Result Comment: Aver age GFR for 60-69 years old: 85 mL/min/1.73sq m Chronic Kidney Disease: <60 mL/min/1.73sq m Kidney failure: <15 mL/min/1.73sq m eGFR calculated using average adult body mass. Additional eGFR calculator available at: http://www.[employer].com/multiple_crcl_2012.htm Performed By: #### L ACWB, PT, PTT, KELI, DIME, BNP, CINTHIA, TSHX, BMP, CK, LIP, LIVP, TROPI, CDP, PRCAL, CRP #### [address] [address] Planting Material Carrier: Pito Freed MD Anion gap [Moles/Vol] 17 mmol/L Normal 9-17 [facility] Comment on above: Performed By: #### L ACWB, PT, PTT, KELI, DIME, BNP, CINTHIA, TSHX, BMP, CK, LIP, LIVP, TROPI, CDP, PRCAL, CRP #### [address] [address] Planting Material Carrier: Pito Freed MD Calcium [Mass/Vol] 8.2 mg/dL Low 8.6-10.4 [facility] Comment on above: Performed By: #### L ACWB, PT, PTT, KELI, DIME, BNP, CINTHIA, TSHX, BMP, CK, LIP, LIVP, TROPI, CDP, PRCAL, CRP #### [address] [id number] Planting Material Carrier: Pito Freed MD Chloride [Moles/Vol] 100 mmol/L Normal 98-107 [facility] Comment on above: Performed By: #### L ACWB, PT, PTT, KELI, DIME, BNP, CINTHIA, TSHX, BMP, CK, LIP, LIVP, TROPI, CDP, PRCAL, CRP #### [address] [phone] Planting Material Carrier: Pito Freed MD CO2 [Moles/Vol] 15 mmol/L Low 20-31 [facility] Comment on above: Performed By: #### L ACWB, PT, PTT, KELI, DIME, BNP, CINTHIA, TSHX, BMP, CK, LIP, LIVP, TROPI, CDP, PRCAL, CRP #### [place] [id number] Planting Material Carrier: Pito Freed MD Creatinine [Mass/Vol] 4.55 mg/dL High 0.70-1.20 [facility] Comment on above: Performed By: #### L ACWB, PT, PTT, KELI, DIME, BNP, CINTHIA, TSHX, BMP, CK, LIP, LIVP, TROPI, CDP, PRCAL, CRP #### [address] [id number] Planting Material Carrier: Pito Freed MD GFR, Amer 16 mL/min Low >60 [facility] Comment on above: Performed By: #### L ACWB, PT, PTT, KELI, DIME, BNP, CINTHIA, TSHX, BMP, CK, LIP, LIVP, TROPI, CDP, PRCAL, CRP #### [address] [id number] Planting Material Carrier: Pito Freed MD GFR,non Amer 13 mL/min Low >60 [facility] Comment on above: Performed By: #### L ACWB, PT, PTT, KELI, DIME, BNP, CINTHIA, TSHX, BMP, CK, LIP, LIVP, TROPI, CDP, PRCAL, CRP #### [address] [phone] Planting Material Carrier: Pito Freed MD Glucose [Mass/Vol] 242 mg/dL High 70-99 [facility] Comment on above: Performed By: #### L ACWB, PT, PTT, KELI, DIME, BNP, CINTHIA, TSHX, BMP, CK, LIP, LIVP, TROPI, CDP, PRCAL, CRP #### [address] [phone] Planting Material Carrier: Pito Freed MD Potassium [Moles/Vol] 5.3 mmol/L Normal 3.7-5.3 [facility] Comment on above: Performed By: #### L ACWB, PT, PTT, KELI, DIME, BNP, CINTHIA, TSHX, BMP, CK, LIP, LIVP, TROPI, CDP, PRCAL, CRP #### [address] [address] Planting Material Carrier: Pito Freed MD Sodium [Moles/Vol] 132 mmol/L Low 135-144 [facility] Comment on above: Performed By: #### L ACWB, PT, PTT, KELI, DIME, BNP, CINTHIA, TSHX, BMP, CK, LIP, LIVP, TROPI, CDP, PRCAL, CRP #### [address] [address] Planting Material Carrier: Pito Freed MD Urea nitrogen [Mass/Vol] 86 mg/dL High - [facility] Comment on above: Performed By: #### L ACWB, PT, PTT, KELI, DIME, BNP, CINTHIA, TSHX, BMP, CK, LIP, LIVP, TROPI, CDP, PRCAL, CRP #### [address] [address] Planting Material Carrier: Pito Freed MD BUN/CRE Ratio NOT REPORTED Normal 11-13 [facility] Comment on above: Performed By: #### L ACWB, PT, PTT, KELI, DIME, BNP, CINTHIA, TSHX, BMP, CK, LIP, LIVP, TROPI, CDP, PRCAL, CRP #### [address] [address] Planting Material Carrier: Pito Freed MD Staging: NOT REPORTED Normal [facility] Comment on above: Performed By: #### L ACWB, PT, PTT, KELI, DIME, BNP, CINTHIA, TSHX, BMP, CK, LIP, LIVP, TROPI, CDP, PRCAL, CRP #### [address] [address] Planting Material Carrier: Pito Freed MD CBCon 08-18-2018 Erythrocyte distribution width (RBC) [Ratio] 15.5 % High 11.8-14.4 [facility] Comment on above: Performed By: #### L ACWB, PT, PTT, KELI, DIME, BNP, CINTHIA, TSHX, BMP, CK, LIP, LIVP, TROPI, CDP, PRCAL, CRP #### [address] [address] Planting Material Carrier: Pito Freed MD Hematocrit (Bld) [Volume fraction] 40.5 % Low 40.7-50.3 [facility] Comment on above: Performed By: #### L ACWB, PT, PTT, KELI, DIME, BNP, CINTHIA, TSHX, BMP, CK, LIP, LIVP, TROPI, CDP, PRCAL, CRP #### [address] [phone] Planting Material Carrier: Pito Freed MD Hemoglobin (Bld) [Mass/Vol] 12.7 g/dL Low 13.0-17.0 [facility] Comment on above: Performed By: #### L ACWB, PT, PTT, KELI, DIME, BNP, CINTHIA, TSHX, BMP, CK, LIP, LIVP, TROPI, CDP, PRCAL, CRP #### [address] [address] Planting Material Carrier: Pito Freed MD MCH (RBC) [Entitic mass] 29.5 pg Normal 25.2-33.5 [facility] Comment on above: Performed By: #### L ACWB, PT, PTT, KELI, DIME, BNP, CINTHIA, TSHX, BMP, CK, LIP, LIVP, TROPI, CDP, PRCAL, CRP #### [address] [phone] Planting Material Carrier: Pito Freed MD MCHC (RBC) [Mass/Vol] 31.4 g/dL Normal 28.4-34.8 [facility] Comment on above: Performed By: #### L ACWB, PT, PTT, KELI, DIME, BNP, CINTHIA, TSHX, BMP, CK, LIP, LIVP, TROPI, CDP, PRCAL, CRP #### [address] [id number] Planting Material Carrier: Pito Freed MD MCV (RBC) [Entitic vol] 94.2 fL Normal 82.6-102.9 [facility] Comment on above: Performed By: #### L ACWB, PT, PTT, KELI, DIME, BNP, CINTHIA, TSHX, BMP, CK, LIP, LIVP, TROPI, CDP, PRCAL, CRP #### [address] [id number] Planting Material Carrier: Pito Freed MD NRBC Automated 0.0 per 100 WBC Normal 0.0 [facility] Comment on above: Performed By: #### L ACWB, PT, PTT, KELI, DIME, BNP, CINTHIA, TSHX, BMP, CK, LIP, LIVP, TROPI, CDP, PRCAL, CRP #### [place] [id number] [employer] Material Carrier: Pito Freed MD Platelet mean volume (Bld) [Entitic vol] 11.9 fL Normal 8.1-13.5 [facility] Comment on above: Performed By: #### L ACWB, PT, PTT, KELI, DIME, BNP, CINTHIA, TSHX, BMP, CK, LIP, LIVP, TROPI, CDP, PRCAL, CRP #### [address] [id number] Planting Material Carrier: Pito Freed MD Platelets (Bld) [#/Vol] 290 10*3/uL Normal 138-453 [facility] Comment on above: Performed By: #### L ACWB, PT, PTT, KELI, DIME, BNP, CINTHIA, TSHX, BMP, CK, LIP, LIVP, TROPI, CDP, PRCAL, CRP #### [address] [phone] Planting Material Carrier: Pito Freed MD RBC (Bld) [#/Vol] 4.30 10*6/uL Normal 4.21-5.77 [facility] Comment on above: Performed By: #### L ACWB, PT, PTT, KELI, DIME, BNP, CINTHIA, TSHX, BMP, CK, LIP, LIVP, TROPI, CDP, PRCAL, CRP #### [address] [phone] Planting Material Carrier: Pito Freed MD WBC (Bld) [#/Vol] 7.6 10*3/uL Normal 3.5-11.3 [facility] Comment on above: Performed By: #### L ACWB, PT, PTT, KELI, DIME, BNP, CINTHIA, TSHX, BMP, CK, LIP, LIVP, TROPI, CDP, PRCAL, CRP #### [address] [address] Planting Material Carrier: Pito Freed MD CBC with Diffon 08-18-2018 Abs. Basophil 0.00 k/uL Normal 0.0-0.2 [facility] Comment on above: Performed By: #### L ACWB, PT, PTT, KELI, DIME, BNP, CINTHIA, TSHX, BMP, CK, LIP, LIVP, TROPI, CDP, PRCAL, CRP #### [address] [address] Planting Material Carrier: Pito Freed MD Abs.Imm.Granulocyte 0.00 k/uL Normal 0.00-0.30 [facility] Comment on above: Performed By: #### L ACWB, PT, PTT, KELI, DIME, BNP, CINTHIA, TSHX, BMP, CK, LIP, LIVP, TROPI, CDP, PRCAL, CRP #### [address] [phone] Planting Material Carrier: Pito Freed MD Abs.Neutrophil (Seg) 7.80 k/uL High 1.8-7.7 [facility] Comment on above: Performed By: #### L ACWB, PT, PTT, KELI, DIME, BNP, CINTHIA, TSHX, BMP, CK, LIP, LIVP, TROPI, CDP, PRCAL, CRP #### [address] [address] Planting Material Carrier: Pito Freed MD Basophils/100 WBC (Bld) 0 % Normal 0-2 [facility] Comment on above: Performed By: #### L ACWB, PT, PTT, KELI, DIME, BNP, CINTHIA, TSHX, BMP, CK, LIP, LIVP, TROPI, CDP, PRCAL, CRP #### [address] [address] Planting Material Carrier: Pito Freed MD Eosinophils (Bld) [#/Vol] 0.00 10*3/uL Normal 0.0-0.4 [facility] Comment on above: Performed By: #### L ACWB, PT, PTT, KELI, DIME, BNP, CINTHIA, TSHX, BMP, CK, LIP, LIVP, TROPI, CDP, PRCAL, CRP #### [address] [address] Planting Material Carrier: Pito Freed MD Eosinophils/100 WBC (Bld) 0 % Low 1-4 [facility] Comment on above: Performed By: #### L ACWB, PT, PTT, KELI, DIME, BNP, CINTHIA, TSHX, BMP, CK, LIP, LIVP, TROPI, CDP, PRCAL, CRP #### [address] [phone] Planting Material Carrier: Pito Freed MD Immature granulocytes (Bld) [#/Vol] 0 % Normal 0 [facility] Comment on above: Performed By: #### L ACWB, PT, PTT, KELI, DIME, BNP, CINTHIA, TSHX, BMP, CK, LIP, LIVP, TROPI, CDP, PRCAL, CRP #### [address] [phone] Planting Material Carrier: Pito Freed MD Lymphocytes (Bld) [#/Vol] 1.00 10*3/uL Normal 1.0-4.8 [facility] Comment on above: Performed By: #### L ACWB, PT, PTT, KELI, DIME, BNP, CINTHIA, TSHX, BMP, CK, LIP, LIVP, TROPI, CDP, PRCAL, CRP #### [address] [phone] Planting Material Carrier: Pito Freed MD Lymphocytes/100 WBC (Bld) 10 % Low 24-44 [facility] Comment on above: Performed By: #### L ACWB, PT, PTT, KELI, DIME, BNP, CINTHIA, TSHX, BMP, CK, LIP, LIVP, TROPI, CDP, PRCAL, CRP #### [place] [id number] Planting Material Carrier: Pito Freed MD Monocytes (Bld) [#/Vol] 1.20 10*3/uL High 0.1-0.8 [facility] Comment on above: Performed By: #### L ACWB, PT, PTT, KELI, DIME, BNP, CINTHIA, TSHX, BMP, CK, LIP, LIVP, TROPI, CDP, PRCAL, CRP #### [address] [id number] Planting Material Carrier: Pito Freed MD Monocytes/100 WBC (Bld) 12 % High 1-7 [facility] Comment on above: Performed By: #### L ACWB, PT, PTT, KELI, DIME, BNP, CINTHIA, TSHX, BMP, CK, LIP, LIVP, TROPI, CDP, PRCAL, CRP #### [address] [address] Planting Material Carrier: Pito Freed MD Morphology Aneudy (Bld) [Interp] ANISOCYTOSIS PRESENT Normal [facility] Comment on above: Performed By: #### L ACWB, PT, PTT, KELI, DIME, BNP, CINTHIA, TSHX, BMP, CK, LIP, LIVP, TROPI, CDP, PRCAL, CRP #### [address] [phone] Planting Material Carrier: Pito Freed MD Neutrophil (Seg) 78 % High 36-66 [facility] Comment on above: Performed By: #### L ACWB, PT, PTT, KELI, DIME, BNP, CINTHIA, TSHX, BMP, CK, LIP, LIVP, TROPI, CDP, PRCAL, CRP #### [address] [phone] Planting Material Carrier: Pito Freed MD NRBC Automated 0.0 per 100 WBC Normal 0.0 [facility] Comment on above: Performed By: #### L ACWB, PT, PTT, KELI, DIME, BNP, CINTHIA, TSHX, BMP, CK, LIP, LIVP, TROPI, CDP, PRCAL, CRP #### [address] [phone] Planting Material Carrier: Pito Freed MD Platelet mean volume (Bld) [Entitic vol] 12.0 fL Normal 8.1-13.5 [facility] Comment on above: Performed By: #### L ACWB, PT, PTT, KELI, DIME, BNP, CINTHIA, TSHX, BMP, CK, LIP, LIVP, TROPI, CDP, PRCAL, CRP #### [address] [phone] Planting Material Carrier: Pito Freed MD Platelets (Bld) [#/Vol] 288 10*3/uL Normal 138-453 [facility] Comment on above: Performed By: #### L ACWB, PT, PTT, KELI, DIME, BNP, CINTHIA, TSHX, BMP, CK, LIP, LIVP, TROPI, CDP, PRCAL, CRP #### [address] [id number] Planting Material Carrier: Pito Freed MD WBC (Bld) [#/Vol] 10.0 10*3/uL Normal 3.5-11.3 [facility] Comment on above: Performed By: #### L ACWB, PT, PTT, KELI, DIME, BNP, CINTHIA, TSHX, BMP, CK, LIP, LIVP, TROPI, CDP, PRCAL, CRP #### [address] [phone] Planting Material Carrier: Pito Freed MD Erythrocyte distribution width (RBC) [Ratio] 15.4 % High 11.8-14.4 [facility] Comment on above: Performed By: #### L ACWB, PT, PTT, KELI, DIME, BNP, CINTHIA, TSHX, BMP, CK, LIP, LIVP, TROPI, CDP, PRCAL, CRP #### [address] [phone] Planting Material Carrier: Pito Freed MD Hematocrit (Bld) [Volume fraction] 42.0 % Normal 40.7-50.3 [facility] Comment on above: Performed By: #### L ACWB, PT, PTT, KELI, DIME, BNP, CINTHIA, TSHX, BMP, CK, LIP, LIVP, TROPI, CDP, PRCAL, CRP #### [address] [id number] Planting Material Carrier: Pito Freed MD Hemoglobin (Bld) [Mass/Vol] 12.9 g/dL Low 13.0-17.0 [facility] Comment on above: Performed By: #### L ACWB, PT, PTT, KELI, DIME, BNP, CINTHIA, TSHX, BMP, CK, LIP, LIVP, TROPI, CDP, PRCAL, CRP #### [address] [phone] Planting Material Carrier: Pito Freed MD MCH (RBC) [Entitic mass] 28.5 pg Normal 25.2-33.5 [facility] Comment on above: Performed By: #### L ACWB, PT, PTT, KELI, DIME, BNP, CINTHIA, TSHX, BMP, CK, LIP, LIVP, TROPI, CDP, PRCAL, CRP #### [address] [address] Planting Material Carrier: Pito Freed MD MCHC (RBC) [Mass/Vol] 30.7 g/dL Normal 28.4-34.8 [facility] Comment on above: Performed By: #### L ACWB, PT, PTT, KELI, DIME, BNP, CINTHIA, TSHX, BMP, CK, LIP, LIVP, TROPI, CDP, PRCAL, CRP #### [address] [address] Planting Material Carrier: Pito Freed MD MCV (RBC) [Entitic vol] 92.9 fL Normal 82.6-102.9 [facility] Comment on above: Performed By: #### L ACWB, PT, PTT, KELI, DIME, BNP, CINTHIA, TSHX, BMP, CK, LIP, LIVP, TROPI, CDP, PRCAL, CRP #### [address] [address] Planting Material Carrier: Pito Freed MD RBC (Bld) [#/Vol] 4.52 10*6/uL Normal 4.21-5.77 [facility] Comment on above: Performed By: #### L ACWB, PT, PTT, KELI, DIME, BNP, CINTHIA, TSHX, BMP, CK, LIP, LIVP, TROPI, CDP, PRCAL, CRP #### [address] [address] Planting Material Carrier: Pito Freed MD Auto Diff Performed NOT REPORTED Normal [facility] Comment on above: Performed By: #### L ACWB, PT, PTT, KELI, DIME, BNP, CINTHIA, TSHX, BMP, CK, LIP, LIVP, TROPI, CDP, PRCAL, CRP #### [address] [phone] Planting Material Carrier: Pito Freed MD Platelets (Bld) [#/Vol] NOT REPORTED Normal [facility] Comment on above: Performed By: #### L ACWB, PT, PTT, KELI, DIME, BNP, CINTHIA, TSHX, BMP, CK, LIP, LIVP, TROPI, CDP, PRCAL, CRP #### [address] [phone] Planting Material Carrier: Pito Freed MD RBC morphology finding Nom (Bld) NOT REPORTED Normal [facility] Comment on above: Performed By: #### L ACWB, PT, PTT, KELI, DIME, BNP, CINTHIA, TSHX, BMP, CK, LIP, LIVP, TROPI, CDP, PRCAL, CRP #### [address] [phone] Planting Material Carrier: Pito Freed MD WBC Morphology NOT REPORTED Normal [facility] Comment on above: Performed By: #### L ACWB, PT, PTT, KELI, DIME, BNP, CINTHIA, TSHX, BMP, CK, LIP, LIVP, TROPI, CDP, PRCAL, CRP #### [address] [address] Planting Material Carrier: Pito Freed MD Calcium, Ionicon 08-18-2018 Calcium [Mass/Vol] 1.14 mmol/L Normal 1.13-1.33 [facility] Comment on above: Performed By: #### L ACWB, PT, PTT, KELI, DIME, BNP, CINTHIA, TSHX, BMP, CK, LIP, LIVP, TROPI, CDP, PRCAL, CRP #### [address] [phone] Planting Material Carrier: Pito Freed MD Calcium [Mass/Vol] 1.09 mmol/L Low 1.13-1.33 [facility] Comment on above: Performed By: #### L ACWB, PT, PTT, KELI, DIME, BNP, CINTHIA, TSHX, BMP, CK, LIP, LIVP, TROPI, CDP, PRCAL, CRP #### [address] [id number] Planting Material Carrier: Pito Freed MD Cult,Aerobe/Anaerobeon 08-18 Cult,Aerobe/Anaerobe Specimen Descriptio n .ABDOMEN Special Requests NOT REPORTED Direct Exam DUPLICATE ORDER Culture NOT REPORTED Report Status FINAL 08/18/2018 Normal [facility] Comment on above: Performed By: #### L ACWB, PT, PTT, KELI, DIME, BNP, CINTHIA, TSHX, BMP, CK, LIP, LIVP, TROPI, CDP, PRCAL, CRP #### [address] [phone] Planting Material Carrier: Pito Freed MD MRSA, DNA, Nasalon 9 MRSA, DNA, Nasal NEGATIVE: MRSA DNA n ot detected by nucleic acid amplification. Normal NMRSAA [facility] Comment on above: Result Comment: Results should be used as an adjunct to nosocomial control efforts to identify patients needing enhanced precautions. The test is not intended to identify patients with staphylococcal infections. Results should not be used to guide or monitor treatment for MRSA infections. Performed By: #### L ACWB, PT, PTT, KELI, DIME, BNP, CINTHIA, TSHX, BMP, CK, LIP, LIVP, TROPI, CDP, PRCAL, CRP #### [address] [phone] Planting Material Carrier: Pito Freed MD Magnesiumon 08-18-2018 Magnesium [Mass/Vol] 1.8 mg/dL Normal 1.6-2.6 [facility] Comment on above: Performed By: #### L ACWB, PT, PTT, KELI, DIME, BNP, CINTHIA, TSHX, BMP, CK, LIP, LIVP, TROPI, CDP, PRCAL, CRP #### [address] [address] Planting Material Carrier: Pito Freed MD PTon 08-18-2018 INR Coag (PPP) [Relative time] 1.0 {INR} Normal [facility] Comment on above: Result Comment: Therapeutic Range: Moderate Anticoagulant Intensity: INR = 2.0-3.0 High Anticoagulant Intensity: INR = 2.5-3.5 Performed By: #### L ACWB, PT, PTT, KELI, DIME, BNP, CINTHIA, TSHX, BMP, CK, LIP, LIVP, TROPI, CDP, PRCAL, CRP #### [address] [address] Planting Material Carrier: Pito Freed MD PT Coag (PPP) [Time] 10.7 s Normal 9.0-12.0 [facility] Comment on above: Performed By: #### L ACWB, PT, PTT, KELI, DIME, BNP, CINTHIA, TSHX, BMP, CK, LIP, LIVP, TROPI, CDP, PRCAL, CRP #### [address] [address] Planting Material Carrier: Pito Freed MD Phosphorus, Inorg.on 019 Phosphorus, Inorg. 6.3 mg/dL High 2.5-4.5 [facility] Comment on above: Performed By: #### L ACWB, PT, PTT, KELI, DIME, BNP, CINTHIA, TSHX, BMP, CK, LIP, LIVP, TROPI, CDP, PRCAL, CRP #### [address] [address] Planting Material Carrier: Pito Freed MD Type + Screenon 08-18-2018 Type + Screen Sample Expiration 08/20/2018 Arm Band Number [id number] ABO/Rh(D) A POSITIVE Antibody Screen NEGATIVE Unit Number [id number] Blood Component Type Leukocyte Reduced Red Cell Unit Division 00 Status of Unit TRANSFUSED Transfusion Status OK TO TRANSFUSE Crossmatch Result COMPATIBLE Normal [facility] Comment on above: Performed By: #### L ACWB, PT, PTT, KELI, DIME, BNP, CINTHIA, TSHX, BMP, CK, LIP, LIVP, TROPI, CDP, PRCAL, CRP #### [facility] [place] [address] Planting Material Carrier: Pito Freed MD XR CHEST PORTABLEon 08-19-19 XR CHEST PORTABLE EXAMINATION: ONE XRAY VIEW OF THE CHEST 08/18/2018 9:43 am COMPARISON: Same date at 124 hours; August 17, 2018 HISTORY: ORDERING SYSTEM PROVIDED HISTORY: intubated, previous atelectatic changes TECHNOLOGIST PROVIDED HISTORY: intubated, previous atelectatic changes Ordering Physician Provided Reason for Exam: AP erect/ intubated Acuity: Unknown Type of Exam: Unknown FINDINGS: Stable support lines and tubes. Stable cardiomediastinal silhouette. No pulmonary venous congestion or edema. There are low lung volumes with stable bilateral upper lobe parenchymal opacities, right greater than left. Bibasilar densities also unchanged. Trace right pleural effusion is suspected. No pneumothorax. IMPRESSION: Low lung volumes with stable bilateral upper lobe parenchymal opacities, right greater than left, as well as bibasilar densities. Mucous plugging could be considered. Interpreted by: Rinku Samuel MD Signed by: Rinku Samuel MD 08/18/18 Final result Normal [facility] XR CHEST PORTABLE EXAMINATION: ONE XRAY VIEW OF THE CHEST 08/18/2018 1:24 am COMPARISON: 2 hours prior HISTORY: ORDERING SYSTEM PROVIDED HISTORY: eval ETT TECHNOLOGIST PROVIDED HISTORY: eval ETT Ordering Physician Provided Reason for Exam: supine portable FINDINGS: Endotracheal tube advanced in the interval, tip now 3.5 cm above the peter. Enteric tube, right IJ CVC in place unchanged. Persistent atelectatic changes in right upper lobe, similar to most recent prior study. Left lung is clear. Cardiomediastinal silhouette and pulmonary vasculature stable. No new pneumothorax. No sizable pleural effusion. IMPRESSION: Support devices in appropriate position as above. Otherwise unchanged examination. Interpreted by: Renard Mcgregor MD Signed by: Renard Mcgregor MD 08/18/18 Final result Normal [facility] XR CHEST PORTABLE EXAMINATION: ONE XRAY VIEW OF THE CHEST 08/17/2018 11:06 pm COMPARISON: 2 hours prior HISTORY: ORDERING SYSTEM PROVIDED HISTORY: resp distress TECHNOLOGIST PROVIDED HISTORY: resp distress Ordering Physician Provided Reason for Exam: respiratory distress. portable supine Acuity: Unknown Type of Exam: Unknown FINDINGS: Endotracheal tube in place, the tip is 9 cm above the peter about 1 cm below thoracic inlet. Enteric tube advanced, tip well below diaphragm. Right IJ CVC in place unchanged. Improved aeration right upper lobe in the interval with persistent partial atelectatic change. Persistent elevation right hemidiaphragm. Left lung is clear. Cardiomediastinal silhouette and pulmonary vasculature are stable. IMPRESSION: Interval improved aeration right upper lobe. Endotracheal tube just below thoracic inlet, consider advancing about 4 cm. Interpreted by: Renard Mcgregor MD Signed by: Renard Mcgregor MD 08/18/18 Final result Normal [facility] Arterial Blood Gaseson 08-17 Erna Test INFORMATION NOT PROVIDED Normal [facility] Comment on above: Performed By: #### L ACWB, PT, PTT, KELI, DIME, BNP, CINTHIA, TSHX, BMP, CK, LIP, LIVP, TROPI, CDP, PRCAL, CRP #### [facility] [address] [place] [address] [phone] Planting Material Carrier: Pito Freed MD Body Temp. 37.0 Normal [facility] Comment on above: Performed By: #### L ACWB, PT, PTT, KELI, DIME, BNP, CINTHIA, TSHX, BMP, CK, LIP, LIVP, TROPI, CDP, PRCAL, CRP #### [facility] [address] [place] [address] [phone] Planting Material Carrier: Pito Freed MD Carboxy Hgb 1.1 % Normal 0-5 [facility] Comment on above: Result Comment: Reference Range: Non-Smokers 0-2% Average Smoker 2-4% Heavy Smoker <10% Performed By: #### L ACWB, PT, PTT, KELI, DIME, BNP, CINTHIA, TSHX, BMP, CK, LIP, LIVP, TROPI, CDP, PRCAL, CRP #### [address] [address] Planting Material Carrier: Pito Freed MD FIO2 100% Normal [facility] Comment on above: Performed By: #### L ACWB, PT, PTT, KELI, DIME, BNP, CINTHIA, TSHX, BMP, CK, LIP, LIVP, TROPI, CDP, PRCAL, CRP #### [address] [address] Planting Material Carrier: Pito Freed MD HCO3 (Bld) [Moles/Vol] 17.8 mmol/L Low 22-27 [facility] Comment on above: Performed By: #### L ACWB, PT, PTT, KELI, DIME, BNP, CINTHIA, TSHX, BMP, CK, LIP, LIVP, TROPI, CDP, PRCAL, CRP #### [address] [address] Planting Material Carrier: Pito Freed MD Negative Base Excess 6.0 mmol/L High 0.0-2.0 [facility] Comment on above: Performed By: #### L ACWB, PT, PTT, KELI, DIME, BNP, CINTHIA, TSHX, BMP, CK, LIP, LIVP, TROPI, CDP, PRCAL, CRP #### [address] [address] Planting Material Carrier: Pito Freed MD Oxygen (Bld) [Partial pressure] 293.0 mm[Hg] High 75-95 [facility] Comment on above: Performed By: #### L ACWB, PT, PTT, KELI, DIME, BNP, CINTHIA, TSHX, BMP, CK, LIP, LIVP, TROPI, CDP, PRCAL, CRP #### [address] [phone] Planting Material Carrier: Pito Freed MD Oxygen saturation in Blood 99.7 % Normal 94-100 [facility] Comment on above: Performed By: #### L ACWB, PT, PTT, KELI, DIME, BNP, CINTHIA, TSHX, BMP, CK, LIP, LIVP, TROPI, CDP, PRCAL, CRP #### [address] [address] Planting Material Carrier: Pito Freed MD pCO2 31.6 mmHg Low 32-45 [facility] Comment on above: Performed By: #### L ACWB, PT, PTT, KELI, DIME, BNP, CINTHIA, TSHX, BMP, CK, LIP, LIVP, TROPI, CDP, PRCAL, CRP #### [address] [phone] Planting Material Carrier: Pito Freed MD pH (Bld) 7.371 [pH] Normal 7.350-7.45 0 [facility] Comment on above: Performed By: #### L ACWB, PT, PTT, KELI, DIME, BNP, CINTHIA, TSHX, BMP, CK, LIP, LIVP, TROPI, CDP, PRCAL, CRP #### [address] [phone] Planting Material Carrier: Pito Freed MD Methemoglobin NOT REPORTED Normal 0.0-1.5 [facility] Comment on above: Performed By: #### L ACWB, PT, PTT, KELI, DIME, BNP, CINTHIA, TSHX, BMP, CK, LIP, LIVP, TROPI, CDP, PRCAL, CRP #### [address] [address] Planting Material Carrier: Pito Freed MD Mode NOT REPORTED Normal [facility] Comment on above: Performed By: #### L ACWB, PT, PTT, KELI, DIME, BNP, CINTHIA, TSHX, BMP, CK, LIP, LIVP, TROPI, CDP, PRCAL, CRP #### [address] [address] Planting Material Carrier: Pito Freed MD Notification Time NOT REPORTED Normal [facility] Comment on above: Performed By: #### L ACWB, PT, PTT, KELI, DIME, BNP, CINTHIA, TSHX, BMP, CK, LIP, LIVP, TROPI, CDP, PRCAL, CRP #### [address] [phone] Planting Material Carrier: Pito Freed MD Notification: NOT REPORTED Normal [facility] Comment on above: Performed By: #### L ACWB, PT, PTT, KELI, DIME, BNP, CINTHIA, TSHX, BMP, CK, LIP, LIVP, TROPI, CDP, PRCAL, CRP #### [address] [phone] Planting Material Carrier: Pito Freed MD O2 Device/Flow/% NOT REPORTED Normal [facility] Comment on above: Performed By: #### L ACWB, PT, PTT, KELI, DIME, BNP, CINTHIA, TSHX, BMP, CK, LIP, LIVP, TROPI, CDP, PRCAL, CRP #### [address] [address] Planting Material Carrier: Pito Freed MD Oxyhemoglobin NOT REPORTED Normal 95.0-98.0 [facility] Comment on above: Performed By: #### L ACWB, PT, PTT, KELI, DIME, BNP, CINTHIA, TSHX, BMP, CK, LIP, LIVP, TROPI, CDP, PRCAL, CRP #### [address] [address] Planting Material Carrier: Pito Freed MD pCO2 Adj'd for Temp NOT REPORTED Normal 32-45 [facility] Comment on above: Performed By: #### L ACWB, PT, PTT, KELI, DIME, BNP, CINTHIA, TSHX, BMP, CK, LIP, LIVP, TROPI, CDP, PRCAL, CRP #### [address] [address] Planting Material Carrier: Pito Freed MD PEEP/CPAP NOT REPORTED Normal [facility] Comment on above: Performed By: #### L ACWB, PT, PTT, KELI, DIME, BNP, CINTHIA, TSHX, BMP, CK, LIP, LIVP, TROPI, CDP, PRCAL, CRP #### [address] [address] Planting Material Carrier: Pito Freed MD pH Adjst'd for Temp. NOT REPORTED Normal 7.350-7 .45 0 [facility] Comment on above: Performed By: #### L ACWB, PT, PTT, KELI, DIME, BNP, CINTHIA, TSHX, BMP, CK, LIP, LIVP, TROPI, CDP, PRCAL, CRP #### [address] [address] Planting Material Carrier: Pito Freed MD pO2 Adjst'd for Temp NOT REPORTED Normal 75-95 [facility] Comment on above: Performed By: #### L ACWB, PT, PTT, KELI, DIME, BNP, CINTHIA, TSHX, BMP, CK, LIP, LIVP, TROPI, CDP, PRCAL, CRP #### [address] [phone] Planting Material Carrier: Pito Freed MD Positive Base Excess NOT REPORTED Normal 0.0-2.0 [facility] Comment on above: Performed By: #### L ACWB, PT, PTT, KELI, DIME, BNP, CINTHIA, TSHX, BMP, CK, LIP, LIVP, TROPI, CDP, PRCAL, CRP #### [address] [place] [address] Planting Material Carrier: Pito Freed MD PSV NOT REPORTED Normal [facility] Comment on above: Performed By: #### L ACWB, PT, PTT, KELI, DIME, BNP, CINTHIA, TSHX, BMP, CK, LIP, LIVP, TROPI, CDP, PRCAL, CRP #### [address] [address] Planting Material Carrier: Pito Freed MD Pt. Position NOT REPORTED Normal [facility] Comment on above: Performed By: #### L ACWB, PT, PTT, KELI, DIME, BNP, CINTHIA, TSHX, BMP, CK, LIP, LIVP, TROPI, CDP, PRCAL, CRP #### [address] [address] Planting Material Carrier: Pito Freed MD Set Rate NOT REPORTED Normal [facility] Comment on above: Performed By: #### L ACWB, PT, PTT, KELI, DIME, BNP, CINTHIA, TSHX, BMP, CK, LIP, LIVP, TROPI, CDP, PRCAL, CRP #### [address] [address] Planting Material Carrier: Pito Freed MD Site Drawn NOT REPORTED Normal [facility] Comment on above: Performed By: #### L ACWB, PT, PTT, KELI, DIME, BNP, CINTHIA, TSHX, BMP, CK, LIP, LIVP, TROPI, CDP, PRCAL, CRP #### [address] [phone] Planting Material Carrier: Pito Freed MD Text for Respiratory NOT REPORTED Normal [facility] Comment on above: Performed By: #### L ACWB, PT, PTT, KELI, DIME, BNP, CINTHIA, TSHX, BMP, CK, LIP, LIVP, TROPI, CDP, PRCAL, CRP #### [address] [phone] Planting Material Carrier: Pito Freed MD Total Hb NOT REPORTED Normal 12.0-16.0 [facility] Comment on above: Performed By: #### L ACWB, PT, PTT, KELI, DIME, BNP, CINTHIA, TSHX, BMP, CK, LIP, LIVP, TROPI, CDP, PRCAL, CRP #### [address] [phone] Planting Material Carrier: Pito Freed MD Total Rate NOT REPORTED Normal [facility] Comment on above: Performed By: #### L ACWB, PT, PTT, KELI, DIME, BNP, CINTHIA, TSHX, BMP, CK, LIP, LIVP, TROPI, CDP, PRCAL, CRP #### [address] [phone] Planting Material Carrier: Pito Freed MD [place] NOT REPORTED Normal [facility] Comment on above: Performed By: #### L ACWB, PT, PTT, KELI, DIME, BNP, CINTHIA, TSHX, BMP, CK, LIP, LIVP, TROPI, CDP, PRCAL, CRP #### [address] [id number] Planting Material Carrier: Pito Freed MD Erna Test INFORMATION NOT PROVIDED Normal [facility] Comment on above: Performed By: #### L ACWB, PT, PTT, KELI, DIME, BNP, CINTHIA, TSHX, BMP, CK, LIP, LIVP, TROPI, CDP, PRCAL, CRP #### [address] [id number] Planting Material Carrier: Pito Freed MD Body Temp. 37.0 Normal [facility] Comment on above: Performed By: #### L ACWB, PT, PTT, KELI, DIME, BNP, CINTHIA, TSHX, BMP, CK, LIP, LIVP, TROPI, CDP, PRCAL, CRP #### [address] [phone] Planting Material Carrier: Pito Freed MD Carboxy Hgb 1.2 % Normal 0-5 [facility] Comment on above: Result Comment: Reference Range: Non-Smokers 0-2% Average Smoker 2-4% Heavy Smoker <10% Performed By: #### L ACWB, PT, PTT, KELI, DIME, BNP, CINTHIA, TSHX, BMP, CK, LIP, LIVP, TROPI, CDP, PRCAL, CRP #### [address] [phone] Planting Material Carrier: Pito Freed MD FIO2 60% Normal [facility] Comment on above: Performed By: #### L ACWB, PT, PTT, KELI, DIME, BNP, CINTHIA, TSHX, BMP, CK, LIP, LIVP, TROPI, CDP, PRCAL, CRP #### [address] [phone] Planting Material Carrier: Pito Freed MD HCO3 (Bld) [Moles/Vol] 17.5 mmol/L Low 22-27 M [facility] Comment on above: Performed By: #### L ACWB, PT, PTT, KELI, DIME, BNP, CINTHIA, TSHX, BMP, CK, LIP, LIVP, TROPI, CDP, PRCAL, CRP #### [address] [phone] Planting Material Carrier: Pito Freed MD Negative Base Excess 7.4 mmol/L High 0.0-2.0 [facility] Comment on above: Performed By: #### L ACWB, PT, PTT, KELI, DIME, BNP, CINTHIA, TSHX, BMP, CK, LIP, LIVP, TROPI, CDP, PRCAL, CRP #### [address] [phone] Planting Material Carrier: Pito Freed MD Oxygen (Bld) [Partial pressure] 78.6 mm[Hg] Normal 75-95 [facility] Comment on above: Performed By: #### L ACWB, PT, PTT, KELI, DIME, BNP, CINTHIA, TSHX, BMP, CK, LIP, LIVP, TROPI, CDP, PRCAL, CRP #### [address] [address] Planting Material Carrier: Pito Freed MD Oxygen saturation in Blood 95.5 % Normal 94-100 [facility] Comment on above: Performed By: #### L ACWB, PT, PTT, KELI, DIME, BNP, CINTHIA, TSHX, BMP, CK, LIP, LIVP, TROPI, CDP, PRCAL, CRP #### [address] [address] Planting Material Carrier: Pito Freed MD pCO2 35.0 mmHg Normal 32-45 [facility] Comment on above: Performed By: #### L ACWB, PT, PTT, KELI, DIME, BNP, CINTHIA, TSHX, BMP, CK, LIP, LIVP, TROPI, CDP, PRCAL, CRP #### [address] [address] Planting Material Carrier: Pito Freed MD pH (Bld) 7.319 [pH] Low 7.350-7.45 0 [facility] Comment on above: Performed By: #### L ACWB, PT, PTT, KELI, DIME, BNP, CINTHIA, TSHX, BMP, CK, LIP, LIVP, TROPI, CDP, PRCAL, CRP #### [address] [address] Planting Material Carrier: Pito Freed MD Methemoglobin NOT REPORTED Normal 0.0-1.5 [facility] Comment on above: Performed By: #### L ACWB, PT, PTT, KELI, DIME, BNP, CINTHIA, TSHX, BMP, CK, LIP, LIVP, TROPI, CDP, PRCAL, CRP #### [address] [phone] Planting Material Carrier: Pito Freed MD Mode NOT REPORTED Normal [facility] Comment on above: Performed By: #### L ACWB, PT, PTT, KELI, DIME, BNP, CINTHIA, TSHX, BMP, CK, LIP, LIVP, TROPI, CDP, PRCAL, CRP #### [address] [id number] Planting Material Carrier: Pito Freed MD Notification Time NOT REPORTED Normal [facility] Comment on above: Performed By: #### L ACWB, PT, PTT, KELI, DIME, BNP, CINTHIA, TSHX, BMP, CK, LIP, LIVP, TROPI, CDP, PRCAL, CRP #### [address] [phone] Planting Material Carrier: Pito Freed MD Notification: NOT REPORTED Normal [facility] Comment on above: Performed By: #### L ACWB, PT, PTT, KELI, DIME, BNP, CINTHIA, TSHX, BMP, CK, LIP, LIVP, TROPI, CDP, PRCAL, CRP #### [address] [phone] Planting Material Carrier: Pito Freed MD O2 Device/Flow/% NOT REPORTED Normal [facility] Comment on above: Performed By: #### L ACWB, PT, PTT, KELI, DIME, BNP, CINTHIA, TSHX, BMP, CK, LIP, LIVP, TROPI, CDP, PRCAL, CRP #### [address] [phone] Planting Material Carrier: Pito Freed MD Oxyhemoglobin NOT REPORTED Normal 95.0-98.0 [facility] Comment on above: Performed By: #### L ACWB, PT, PTT, KELI, DIME, BNP, CINTHIA, TSHX, BMP, CK, LIP, LIVP, TROPI, CDP, PRCAL, CRP #### [address] [phone] Planting Material Carrier: Pito Freed MD pCO2 Adj'd for Temp NOT REPORTED Normal 32-45 [facility] Comment on above: Performed By: #### L ACWB, PT, PTT, KELI, DIME, BNP, CINTHIA, TSHX, BMP, CK, LIP, LIVP, TROPI, CDP, PRCAL, CRP #### [address] [phone] Planting Material Carrier: Pito Freed MD PEEP/CPAP NOT REPORTED Normal [facility] Comment on above: Performed By: #### L ACWB, PT, PTT, KELI, DIME, BNP, CINTHIA, TSHX, BMP, CK, LIP, LIVP, TROPI, CDP, PRCAL, CRP #### [address] [phone] Planting Material Carrier: Pito Freed MD pH Adjst'd for Temp. NOT REPORTED Normal 7.350-7 .45 0 [facility] Comment on above: Performed By: #### L ACWB, PT, PTT, KELI, DIME, BNP, CINTHIA, TSHX, BMP, CK, LIP, LIVP, TROPI, CDP, PRCAL, CRP #### [address] [phone] Planting Material Carrier: Pito Freed MD pO2 Adjst'd for Temp NOT REPORTED Normal 75-95 [facility] Comment on above: Performed By: #### L ACWB, PT, PTT, KELI, DIME, BNP, CINTHIA, TSHX, BMP, CK, LIP, LIVP, TROPI, CDP, PRCAL, CRP #### [address] [phone] Planting Material Carrier: Pito Freed MD Positive Base Excess NOT REPORTED Normal 0.0-2.0 [facility] Comment on above: Performed By: #### L ACWB, PT, PTT, KELI, DIME, BNP, CINTHIA, TSHX, BMP, CK, LIP, LIVP, TROPI, CDP, PRCAL, CRP #### [address] [address] Planting Material Carrier: Pito Freed MD PSV NOT REPORTED Normal [facility] Comment on above: Performed By: #### L ACWB, PT, PTT, KELI, DIME, BNP, CINTHIA, TSHX, BMP, CK, LIP, LIVP, TROPI, CDP, PRCAL, CRP #### [address] [address] Planting Material Carrier: Pito Freed MD Pt. Position NOT REPORTED Normal [facility] Comment on above: Performed By: #### L ACWB, PT, PTT, KELI, DIME, BNP, CINTHIA, TSHX, BMP, CK, LIP, LIVP, TROPI, CDP, PRCAL, CRP #### [address] [address] Planting Material Carrier: Pito Freed MD Set Rate NOT REPORTED Normal [facility] Comment on above: Performed By: #### L ACWB, PT, PTT, KELI, DIME, BNP, CINTHIA, TSHX, BMP, CK, LIP, LIVP, TROPI, CDP, PRCAL, CRP #### [address] [address] Planting Material Carrier: Pito Freed MD Site Drawn NOT REPORTED Normal [facility] Comment on above: Performed By: #### L ACWB, PT, PTT, KELI, DIME, BNP, CINTHIA, TSHX, BMP, CK, LIP, LIVP, TROPI, CDP, PRCAL, CRP #### [address] [address] Planting Material Carrier: Pito Freed MD Text for Respiratory NOT REPORTED Normal [facility] Comment on above: Performed By: #### L ACWB, PT, PTT, KELI, DIME, BNP, CINTHIA, TSHX, BMP, CK, LIP, LIVP, TROPI, CDP, PRCAL, CRP #### [address] [phone] Planting Material Carrier: Pito Freed MD Total Hb NOT REPORTED Normal 12.0-16.0 [facility] Comment on above: Performed By: #### L ACWB, PT, PTT, KELI, DIME, BNP, CINTHIA, TSHX, BMP, CK, LIP, LIVP, TROPI, CDP, PRCAL, CRP #### [address] [phone] Planting Material Carrier: Pito Freed MD Total Rate NOT REPORTED Normal [facility] Comment on above: Performed By: #### L ACWB, PT, PTT, KELI, DIME, BNP, CINTHIA, TSHX, BMP, CK, LIP, LIVP, TROPI, CDP, PRCAL, CRP #### [address] [phone] Planting Material Carrier: Pito Freed MD [place] NOT REPORTED Normal [facility] Comment on above: Performed By: #### L ACWB, PT, PTT, KELI, DIME, BNP, CINTHIA, TSHX, BMP, CK, LIP, LIVP, TROPI, CDP, PRCAL, CRP #### [address] [phone] Planting Material Carrier: Pito Freed MD Basic Metab w/rfx MGon 08-17 BUN/CRE Ratio NOT REPORTED Normal 11-13 [facility] Comment on above: Performed By: #### L ACWB, PT, PTT, KELI, DIME, BNP, CINTHIA, TSHX, BMP, CK, LIP, LIVP, TROPI, CDP, PRCAL, CRP #### [address] [phone] Planting Material Carrier: Pito Freed MD Staging: NOT REPORTED Normal [facility] Comment on above: Performed By: #### L ACWB, PT, PTT, KELI, DIME, BNP, CINTHIA, TSHX, BMP, CK, LIP, LIVP, TROPI, CDP, PRCAL, CRP #### [place] [phone] Planting Material Carrier: Pito Freed MD CBC with Diffon 08-17-2018 Abs. Basophil 0.00 k/uL Normal 0.0-0.2 [facility] Comment on above: Performed By: #### L ACWB, PT, PTT, KELI, DIME, BNP, CINTHIA, TSHX, BMP, CK, LIP, LIVP, TROPI, CDP, PRCAL, CRP #### [place] [phone] Planting Material Carrier: Pito Freed MD Abs.Imm.Granulocyte 0.00 k/uL Normal 0.00-0.30 [facility] Comment on above: Performed By: #### L ACWB, PT, PTT, KELI, DIME, BNP, CINTHIA, TSHX, BMP, CK, LIP, LIVP, TROPI, CDP, PRCAL, CRP #### [address] [phone] Planting Material Carrier: Pito Freed MD Abs.Neutrophil (Seg) 6.00 k/uL Normal 1.8-7.7 [facility] Comment on above: Performed By: #### L ACWB, PT, PTT, KELI, DIME, BNP, CINTHIA, TSHX, BMP, CK, LIP, LIVP, TROPI, CDP, PRCAL, CRP #### [address] [phone] Planting Material Carrier: Pito Freed MD Basophils/100 WBC (Bld) 0 % Normal 0-2 [facility] Comment on above: Performed By: #### L ACWB, PT, PTT, KELI, DIME, BNP, CINTHIA, TSHX, BMP, CK, LIP, LIVP, TROPI, CDP, PRCAL, CRP #### [address] [address] Planting Material Carrier: Pito Freed MD Eosinophils (Bld) [#/Vol] 0.00 10*3/uL Normal 0.0-0.4 [facility] Comment on above: Performed By: #### L ACWB, PT, PTT, KELI, DIME, BNP, CINTHIA, TSHX, BMP, CK, LIP, LIVP, TROPI, CDP, PRCAL, CRP #### [address] [address] Planting Material Carrier: Pito Freed MD Eosinophils/100 WBC (Bld) 0 % Low 1-4 [facility] Comment on above: Performed By: #### L ACWB, PT, PTT, KELI, DIME, BNP, CINTHIA, TSHX, BMP, CK, LIP, LIVP, TROPI, CDP, PRCAL, CRP #### [address] [address] Planting Material Carrier: Pito Freed MD Immature granulocytes (Bld) [#/Vol] 0 % Normal 0 [facility] Comment on above: Performed By: #### L ACWB, PT, PTT, KELI, DIME, BNP, CINTHIA, TSHX, BMP, CK, LIP, LIVP, TROPI, CDP, PRCAL, CRP #### [address] [address] Planting Material Carrier: Pito Freed MD Lymphocytes (Bld) [#/Vol] 1.05 10*3/uL Normal 1.0-4.8 [facility] Comment on above: Performed By: #### L ACWB, PT, PTT, KELI, DIME, BNP, CINTHIA, TSHX, BMP, CK, LIP, LIVP, TROPI, CDP, PRCAL, CRP #### [address] [phone] Planting Material Carrier: Pito Freed MD Lymphocytes/100 WBC (Bld) 13 % Low 24-44 [facility] Comment on above: Performed By: #### L ACWB, PT, PTT, KELI, DIME, BNP, CINTHIA, TSHX, BMP, CK, LIP, LIVP, TROPI, CDP, PRCAL, CRP #### [address] [phone] Planting Material Carrier: Pito Freed MD Monocytes (Bld) [#/Vol] 1.05 10*3/uL High 0.1-0.8 [facility] Comment on above: Performed By: #### L ACWB, PT, PTT, KELI, DIME, BNP, CINTHIA, TSHX, BMP, CK, LIP, LIVP, TROPI, CDP, PRCAL, CRP #### [address] [phone] Planting Material Carrier: Pito Freed MD Monocytes/100 WBC (Bld) 13 % High 1-7 [facility] Comment on above: Performed By: #### L ACWB, PT, PTT, KELI, DIME, BNP, CINTHIA, TSHX, BMP, CK, LIP, LIVP, TROPI, CDP, PRCAL, CRP #### [address] [phone] Planting Material Carrier: Pito Freed MD Morphology Aneudy (Bld) [Interp] ANISOCYTOSIS PRESENT Normal [facility] Comment on above: Performed By: #### L ACWB, PT, PTT, KELI, DIME, BNP, CINTHIA, TSHX, BMP, CK, LIP, LIVP, TROPI, CDP, PRCAL, CRP #### [address] [phone] Planting Material Carrier: Pito Freed MD Neutrophil (Seg) 74 % High 36-66 [facility] Comment on above: Performed By: #### L ACWB, PT, PTT, KELI, DIME, BNP, CINTHIA, TSHX, BMP, CK, LIP, LIVP, TROPI, CDP, PRCAL, CRP #### [address] [phone] Planting Material Carrier: Pito Freed MD NRBC Automated 0.0 per 100 WBC Normal 0.0 [facility] Comment on above: Performed By: #### L ACWB, PT, PTT, KELI, DIME, BNP, CINTHIA, TSHX, BMP, CK, LIP, LIVP, TROPI, CDP, PRCAL, CRP #### [place] [phone] Planting Material Carrier: Pito Freed MD Platelets (Bld) [#/Vol] Platelet clumps present, count appears adequate. Normal 138-453 [facility] Comment on above: Performed By: #### L ACWB, PT, PTT, KELI, DIME, BNP, CINTHIA, TSHX, BMP, CK, LIP, LIVP, TROPI, CDP, PRCAL, CRP #### [address] [phone] Planting Material Carrier: Pito Freed MD WBC (Bld) [#/Vol] 8.1 10*3/uL Normal 3.5-11.3 [facility] Comment on above: Performed By: #### L ACWB, PT, PTT, KELI, DIME, BNP, CINTHIA, TSHX, BMP, CK, LIP, LIVP, TROPI, CDP, PRCAL, CRP #### [address] [phone] Planting Material Carrier: Pito Freed MD Erythrocyte distribution width (RBC) [Ratio] 15.4 % High 11.8-14.4 [facility] Comment on above: Performed By: #### L ACWB, PT, PTT, KELI, DIME, BNP, CINTHIA, TSHX, BMP, CK, LIP, LIVP, TROPI, CDP, PRCAL, CRP #### [address] [address] Planting Material Carrier: Pito Freed MD Hematocrit (Bld) [Volume fraction] 39.4 % Low 40.7-50.3 [facility] Comment on above: Performed By: #### L ACWB, PT, PTT, KELI, DIME, BNP, CINTHIA, TSHX, BMP, CK, LIP, LIVP, TROPI, CDP, PRCAL, CRP #### [address] [address] Planting Material Carrier: Pito Freed MD Hemoglobin (Bld) [Mass/Vol] 12.3 g/dL Low 13.0-17.0 [facility] Comment on above: Performed By: #### L ACWB, PT, PTT, KELI, DIME, BNP, CINTHIA, TSHX, BMP, CK, LIP, LIVP, TROPI, CDP, PRCAL, CRP #### [address] [address] Planting Material Carrier: Pito Freed MD MCH (RBC) [Entitic mass] 29.1 pg Normal 25.2-33.5 [facility] Comment on above: Performed By: #### L ACWB, PT, PTT, KELI, DIME, BNP, CINTHIA, TSHX, BMP, CK, LIP, LIVP, TROPI, CDP, PRCAL, CRP #### [address] [address] Planting Material Carrier: Pito Freed MD MCHC (RBC) [Mass/Vol] 31.2 g/dL Normal 28.4-34.8 [facility] Comment on above: Performed By: #### L ACWB, PT, PTT, KELI, DIME, BNP, CINTHIA, TSHX, BMP, CK, LIP, LIVP, TROPI, CDP, PRCAL, CRP #### [address] [phone] Planting Material Carrier: Pito Freed MD MCV (RBC) [Entitic vol] 93.1 fL Normal 82.6-102.9 [facility] Comment on above: Performed By: #### L ACWB, PT, PTT, KELI, DIME, BNP, CINTHIA, TSHX, BMP, CK, LIP, LIVP, TROPI, CDP, PRCAL, CRP #### [address] [phone] Planting Material Carrier: Pito Freed MD RBC (Bld) [#/Vol] 4.23 10*6/uL Normal 4.21-5.77 [facility] Comment on above: Performed By: #### L ACWB, PT, PTT, KELI, DIME, BNP, CINTHIA, TSHX, BMP, CK, LIP, LIVP, TROPI, CDP, PRCAL, CRP #### [address] [phone] Planting Material Carrier: Pito Freed MD Auto Diff Performed NOT REPORTED Normal [facility] Comment on above: Performed By: #### L ACWB, PT, PTT, KELI, DIME, BNP, CINTHIA, TSHX, BMP, CK, LIP, LIVP, TROPI, CDP, PRCAL, CRP #### [address] [phone] Planting Material Carrier: Pito Freed MD Platelet mean volume (Bld) [Entitic vol] NOT REPORTED Normal 8.1-13.5 [facility] Comment on above: Performed By: #### L ACWB, PT, PTT, KELI, DIME, BNP, CINTHIA, TSHX, BMP, CK, LIP, LIVP, TROPI, CDP, PRCAL, CRP #### [address] [phone] Planting Material Carrier: Pito Freed MD Platelets (Bld) [#/Vol] NOT REPORTED Normal [facility] Comment on above: Performed By: #### L ACWB, PT, PTT, KELI, DIME, BNP, CINTHIA, TSHX, BMP, CK, LIP, LIVP, TROPI, CDP, PRCAL, CRP #### [address] [address] Planting Material Carrier: Pito Freed MD RBC morphology finding Nom (Bld) NOT REPORTED Normal [facility] Comment on above: Performed By: #### L ACWB, PT, PTT, KELI, DIME, BNP, CINTHIA, TSHX, BMP, CK, LIP, LIVP, TROPI, CDP, PRCAL, CRP #### [address] [address] Planting Material Carrier: Pito Freed MD WBC Morphology NOT REPORTED Normal [facility] Comment on above: Performed By: #### L ACWB, PT, PTT, KELI, DIME, BNP, CINTHIA, TSHX, BMP, CK, LIP, LIVP, TROPI, CDP, PRCAL, CRP #### [address] [address] Planting Material Carrier: Pito Freed MD CV Hgb/Hcton 08-17-2018 Hematocrit (Bld) [Volume fraction] 35.1 % Normal [facility] Comment on above: Performed By: #### L ACWB, PT, PTT, KELI, DIME, BNP, CINTHIA, TSHX, BMP, CK, LIP, LIVP, TROPI, CDP, PRCAL, CRP #### [address] [address] Planting Material Carrier: Pito Freed MD Hemoglobin (Bld) [Mass/Vol] 11.4 g/dL Normal [facility] Comment on above: Performed By: #### L ACWB, PT, PTT, KELI, DIME, BNP, CINTHIA, TSHX, BMP, CK, LIP, LIVP, TROPI, CDP, PRCAL, CRP #### [address] [phone] Planting Material Carrier: Pito Freed MD Hematocrit (Bld) [Volume fraction] 36.4 % Normal [facility] Comment on above: Performed By: #### L ACWB, PT, PTT, KELI, DIME, BNP, CINTHIA, TSHX, BMP, CK, LIP, LIVP, TROPI, CDP, PRCAL, CRP #### [address] [phone] Planting Material Carrier: Pito Freed MD Hemoglobin (Bld) [Mass/Vol] 11.8 g/dL Normal [facility] Comment on above: Performed By: #### L ACWB, PT, PTT, KELI, DIME, BNP, CINTHIA, TSHX, BMP, CK, LIP, LIVP, TROPI, CDP, PRCAL, CRP #### [place] [phone] Planting Material Carrier: Pito Freed MD Calcium, Ionicon 08-17-2018 Calcium [Mass/Vol] 1.08 mmol/L Low 1.13-1.33 [facility] Comment on above: Performed By: #### L ACWB, PT, PTT, KELI, DIME, BNP, CINTHIA, TSHX, BMP, CK, LIP, LIVP, TROPI, CDP, PRCAL, CRP #### [place] [phone] Planting Material Carrier: Pito Freed MD Calcium [Mass/Vol] 1.24 mmol/L Normal 1.13-1.33 [facility] Comment on above: Performed By: #### L ACWB, PT, PTT, KELI, DIME, BNP, CINTHIA, TSHX, BMP, CK, LIP, LIVP, TROPI, CDP, PRCAL, CRP #### [address] [address] Planting Material Carrier: Pito Freed MD Calcium [Mass/Vol] 1.06 mmol/L Low 1.13-1.33 [facility] Comment on above: Performed By: #### L ACWB, PT, PTT, KELI, DIME, BNP, CINTHIA, TSHX, BMP, CK, LIP, LIVP, TROPI, CDP, PRCAL, CRP #### [address] [address] Planting Material Carrier: Pito Freed MD Chloride - Whole Blon 2018 Chloride [Moles/Vol] 108 mmol/L Normal 98-110 [facility] Comment on above: Performed By: #### L ACWB, PT, PTT, KELI, DIME, BNP, CINTHIA, TSHX, BMP, CK, LIP, LIVP, TROPI, CDP, PRCAL, CRP #### [address] [address] Planting Material Carrier: Pito Freed MD Chloride [Moles/Vol] 105 mmol/L Normal 98-110 [facility] Comment on above: Performed By: #### L ACWB, PT, PTT, KELI, DIME, BNP, CINTHIA, TSHX, BMP, CK, LIP, LIVP, TROPI, CDP, PRCAL, CRP #### [address] [address] Planting Material Carrier: Pito Freed MD Comp Metabolic Profon 2018 Creatinine [Mass/Vol] 5.22 mg/dL Critically high 0.70-1.20 [facility] Comment on above: Performed By: #### L ACWB, PT, PTT, KELI, DIME, BNP, CINTHIA, TSHX, BMP, CK, LIP, LIVP, TROPI, CDP, PRCAL, CRP #### [address] [address] Planting Material Carrier: Pito Freed MD GFR, Amer 14 mL/min Low >60 [facility] Comment on above: Performed By: #### L ACWB, PT, PTT, KELI, DIME, BNP, CINTHIA, TSHX, BMP, CK, LIP, LIVP, TROPI, CDP, PRCAL, CRP #### [address] [address] Planting Material Carrier: Pito Freed MD GFR,non Amer 11 mL/min Low >60 [facility] Comment on above: Performed By: #### L ACWB, PT, PTT, KELI, DIME, BNP, CINTHIA, TSHX, BMP, CK, LIP, LIVP, TROPI, CDP, PRCAL, CRP #### [address] [address] Planting Material Carrier: Pito Freed MD (cont.) [facility] Comment on above: Result Comment: Aver age GFR for 60-69 years old: 85 mL/min/1.73sq m Chronic Kidney Disease: <60 mL/min/1.73sq m Kidney failure: <15 mL/min/1.73sq m eGFR calculated using average adult body mass. Additional eGFR calculator available at: http://www.[employer].Izooble/multiple_crcl_2012.htm Performed By: #### L ACWB, PT, PTT, KELI, DIME, BNP, CINTHIA, TSHX, BMP, CK, LIP, LIVP, TROPI, CDP, PRCAL, CRP #### [address] [address] Planting Material Carrier: Pito Freed MD Albumin [Mass/Vol] 2.5 g/dL Low 3.5-5.2 [facility] Comment on above: Performed By: #### L ACWB, PT, PTT, KELI, DIME, BNP, CINTHIA, TSHX, BMP, CK, LIP, LIVP, TROPI, CDP, PRCAL, CRP #### [address] [phone] Planting Material Carrier: Pito Freed MD Albumin/Globulin [Mass ratio] 0.7 {ratio} Low 1.0-2.5 [facility] Comment on above: Performed By: #### L ACWB, PT, PTT, KELI, DIME, BNP, CINTHIA, TSHX, BMP, CK, LIP, LIVP, TROPI, CDP, PRCAL, CRP #### [address] [id number] Planting Material Carrier: Pito Freed MD Alkaline Phos 60 U/L Normal 40-129 [facility] Comment on above: Performed By: #### L ACWB, PT, PTT, KELI, DIME, BNP, CINTHIA, TSHX, BMP, CK, LIP, LIVP, TROPI, CDP, PRCAL, CRP #### [address] [phone] Planting Material Carrier: Pito Freed MD ALT [Catalytic activity/Vol] 12 U/L Normal 5-41 [facility] Comment on above: Performed By: #### L ACWB, PT, PTT, KELI, DIME, BNP, CINTHIA, TSHX, BMP, CK, LIP, LIVP, TROPI, CDP, PRCAL, CRP #### [address] [id number] [employer]ing Material Carrier: Pito Freed MD Anion gap [Moles/Vol] 18 mmol/L High 9-17 [facility] Comment on above: Performed By: #### L ACWB, PT, PTT, KELI, DIME, BNP, CINTHIA, TSHX, BMP, CK, LIP, LIVP, TROPI, CDP, PRCAL, CRP #### [address] [phone] [employer]ing Material Carrier: Pito Freed MD AST [Catalytic activity/Vol] 12 U/L Normal <40 [facility] Comment on above: Performed By: #### L ACWB, PT, PTT, KELI, DIME, BNP, CINTHIA, TSHX, BMP, CK, LIP, LIVP, TROPI, CDP, PRCAL, CRP #### [address] [phone] Planting Material Carrier: Pito Freed MD Bilirubin Ql (U) 0.33 mg/dL Normal 0.3-1.2 [facility] Comment on above: Performed By: #### L ACWB, PT, PTT, KELI, DIME, BNP, CINTHIA, TSHX, BMP, CK, LIP, LIVP, TROPI, CDP, PRCAL, CRP #### [address] [id number] [employer]ing Material Carrier: Pito Freed MD Calcium [Mass/Vol] 7.4 mg/dL Low 8.6-10.4 [facility] Comment on above: Performed By: #### L ACWB, PT, PTT, KELI, DIME, BNP, CINTHIA, TSHX, BMP, CK, LIP, LIVP, TROPI, CDP, PRCAL, CRP #### [address] [id number] [employer] Carrier: Pito Freed MD Chloride [Moles/Vol] 101 mmol/L Normal 98-107 [facility] Comment on above: Performed By: #### L ACWB, PT, PTT, KELI, DIME, BNP, CINTHIA, TSHX, BMP, CK, LIP, LIVP, TROPI, CDP, PRCAL, CRP #### [address] [phone] [employer] Carrier: Pito Freed MD CO2 [Moles/Vol] 16 mmol/L Low 20-31 [facility] Comment on above: Performed By: #### L ACWB, PT, PTT, KELI, DIME, BNP, CINTHIA, TSHX, BMP, CK, LIP, LIVP, TROPI, CDP, PRCAL, CRP #### [address] [id number] [employer] Carrier: Pito Freed MD Glucose [Mass/Vol] 117 mg/dL High 70-99 [facility] Comment on above: Performed By: #### L ACWB, PT, PTT, KELI, DIME, BNP, CINTHIA, TSHX, BMP, CK, LIP, LIVP, TROPI, CDP, PRCAL, CRP #### [address] [id number] [employer] Carrier: Pito Freed MD Potassium [Moles/Vol] 4.8 mmol/L Normal 3.7-5.3 [facility] Comment on above: Performed By: #### L ACWB, PT, PTT, KELI, DIME, BNP, CINTHIA, TSHX, BMP, CK, LIP, LIVP, TROPI, CDP, PRCAL, CRP #### [address] [id number] [employer] Carrier: Pito Freed MD Protein [Mass/Vol] 6.0 g/dL Low 6.4-8.3 [facility] Comment on above: Performed By: #### L ACWB, PT, PTT, KELI, DIME, BNP, CINTHIA, TSHX, BMP, CK, LIP, LIVP, TROPI, CDP, PRCAL, CRP #### [address] [id number] Planting Material Carrier: Pito Freed MD Sodium [Moles/Vol] 135 mmol/L Normal 135-144 [facility] Comment on above: Performed By: #### L ACWB, PT, PTT, KELI, DIME, BNP, CINTHIA, TSHX, BMP, CK, LIP, LIVP, TROPI, CDP, PRCAL, CRP #### [address] [id number] Planting Material Carrier: Pito Freed MD Urea nitrogen [Mass/Vol] 88 mg/dL High 8-23 [facility] Comment on above: Performed By: #### L ACWB, PT, PTT, KELI, DIME, BNP, CINTHIA, TSHX, BMP, CK, LIP, LIVP, TROPI, CDP, PRCAL, CRP #### [address] [phone] Planting Material Carrier: Pito Freed MD BUN/CRE Ratio NOT REPORTED Normal 11-13 [facility] Comment on above: Performed By: #### L ACWB, PT, PTT, KELI, DIME, BNP, CINTHIA, TSHX, BMP, CK, LIP, LIVP, TROPI, CDP, PRCAL, CRP #### [address] [phone] Planting Material Carrier: Pito Freed MD Staging: NOT REPORTED Normal [facility] Comment on above: Performed By: #### L ACWB, PT, PTT, KELI, DIME, BNP, CINTHIA, TSHX, BMP, CK, LIP, LIVP, TROPI, CDP, PRCAL, CRP #### [address] [phone] Planting Material Carrier: Pito Freed MD Glucose,Whole Bloodon 2018 Glucose [Mass/Vol] 132 mg/dL High 75-110 [facility] Comment on above: Performed By: #### L ACWB, PT, PTT, KELI, DIME, BNP, CINTHIA, TSHX, BMP, CK, LIP, LIVP, TROPI, CDP, PRCAL, CRP #### [address] [phone] Planting Material Carrier: Pito Freed MD Glucose [Mass/Vol] 127 mg/dL High 75-110 [facility] Comment on above: Performed By: #### L ACWB, PT, PTT, KELI, DIME, BNP, CINTHIA, TSHX, BMP, CK, LIP, LIVP, TROPI, CDP, PRCAL, CRP #### [address] [phone] Planting Material Carrier: Pito Freed MD Lactic Acid,Whole Blon 08-17 Lactic Acid,Whole Bl 1.5 mmol/L Normal 0.7-2.1 [facility] Comment on above: Performed By: #### L ACWB, PT, PTT, KELI, DIME, BNP, CINTHIA, TSHX, BMP, CK, LIP, LIVP, TROPI, CDP, PRCAL, CRP #### [address] [phone] Planting Material Carrier: Pito Freed MD MRSA, DNA, Nasalon 9 Specimen Description .NASAL SWAB Normal [facility] Comment on above: Performed By: #### L ACWB, PT, PTT, KELI, DIME, BNP, CINTHIA, TSHX, BMP, CK, LIP, LIVP, TROPI, CDP, PRCAL, CRP #### [address] [phone] Planting Material Carrier: Pito Freed MD Open Heart Panelon 9 Erna Test INFORMATION NOT PROVIDED Normal [facility] Comment on above: Performed By: #### L ACWB, PT, PTT, KELI, DIME, BNP, CINTHIA, TSHX, BMP, CK, LIP, LIVP, TROPI, CDP, PRCAL, CRP #### [address] [phone] Planting Material Carrier: Pito Freed MD Body Temp. 37.0 Normal [facility] Comment on above: Performed By: #### L ACWB, PT, PTT, KELI, DIME, BNP, CINTHIA, TSHX, BMP, CK, LIP, LIVP, TROPI, CDP, PRCAL, CRP #### [address] [phone] Planting Material Carrier: Pito Freed MD Carboxy Hgb 0.8 % Normal 0-5 [facility] Comment on above: Result Comment: Reference Range: Non-Smokers 0-2% Average Smoker 2-4% Heavy Smoker <10% Performed By: #### L ACWB, PT, PTT, KELI, DIME, BNP, CINTHIA, TSHX, BMP, CK, LIP, LIVP, TROPI, CDP, PRCAL, CRP #### [address] [phone] Planting Material Carrier: Pito Freed MD Chloride [Moles/Vol] 104 mmol/L Normal 98-110 [facility] Comment on above: Performed By: #### L ACWB, PT, PTT, KELI, DIME, BNP, CINTHIA, TSHX, BMP, CK, LIP, LIVP, TROPI, CDP, PRCAL, CRP #### [address] [phone] Planting Material Carrier: Pito Freed MD FIO2 100% Normal [facility] Comment on above: Performed By: #### L ACWB, PT, PTT, KELI, DIME, BNP, CINTHIA, TSHX, BMP, CK, LIP, LIVP, TROPI, CDP, PRCAL, CRP #### [address] [phone] Planting Material Carrier: Pito Freed MD Glucose [Mass/Vol] 112 mg/dL High 75-110 [facility] Comment on above: Performed By: #### L ACWB, PT, PTT, KELI, DIME, BNP, CINTHIA, TSHX, BMP, CK, LIP, LIVP, TROPI, CDP, PRCAL, CRP #### [address] [phone] Planting Material Carrier: Pito Freed MD HCO3 (Bld) [Moles/Vol] 17.0 mmol/L Low 22-27 [facility] Comment on above: Performed By: #### L ACWB, PT, PTT, KELI, DIME, BNP, CINTHIA, TSHX, BMP, CK, LIP, LIVP, TROPI, CDP, PRCAL, CRP #### [address] [phone] Planting Material Carrier: Pito Freed MD Hematocrit (Bld) [Volume fraction] 38.1 % Normal [facility] Comment on above: Performed By: #### L ACWB, PT, PTT, KELI, DIME, BNP, CINTHIA, TSHX, BMP, CK, LIP, LIVP, TROPI, CDP, PRCAL, CRP #### [address] [phone] Planting Material Carrier: Pito Freed MD Hemoglobin (Bld) [Mass/Vol] 12.4 g/dL Normal [facility] Comment on above: Performed By: #### L ACWB, PT, PTT, KELI, DIME, BNP, CINTHIA, TSHX, BMP, CK, LIP, LIVP, TROPI, CDP, PRCAL, CRP #### [address] [id number] Planting Material Carrier: Pito Freed MD Negative Base Excess 8.5 mmol/L High 0.0-2.0 [facility] Comment on above: Performed By: #### L ACWB, PT, PTT, KELI, DIME, BNP, CINTHIA, TSHX, BMP, CK, LIP, LIVP, TROPI, CDP, PRCAL, CRP #### [address] [phone] Planting Material Carrier: Pito Freed MD Oxygen (Bld) [Partial pressure] 363.0 mm[Hg] High 75-95 [facility] Comment on above: Performed By: #### L ACWB, PT, PTT, KELI, DIME, BNP, CINTHIA, TSHX, BMP, CK, LIP, LIVP, TROPI, CDP, PRCAL, CRP #### [address] [phone] Planting Material Carrier: Pito Freed MD Oxygen saturation in Blood 99.8 % Normal 94-100 [facility] Comment on above: Performed By: #### L ACWB, PT, PTT, KELI, DIME, BNP, CINTHIA, TSHX, BMP, CK, LIP, LIVP, TROPI, CDP, PRCAL, CRP #### [address] [phone] Planting Material Carrier: Pito Freed MD pCO2 37.1 mmHg Normal 32-45 [facility] Comment on above: Performed By: #### L ACWB, PT, PTT, KELI, DIME, BNP, CINTHIA, TSHX, BMP, CK, LIP, LIVP, TROPI, CDP, PRCAL, CRP #### [address] [phone] Planting Material Carrier: Pito Freed MD pH (Bld) 7.284 [pH] Low 7.350-7.45 0 [facility] Comment on above: Performed By: #### L ACWB, PT, PTT, KELI, DIME, BNP, CINTHIA, TSHX, BMP, CK, LIP, LIVP, TROPI, CDP, PRCAL, CRP #### [address] [phone] Planting Material Carrier: Pito Freed MD Potassium [Moles/Vol] 4.6 mmol/L Normal 3.6-5.0 [facility] Comment on above: Performed By: #### L ACWB, PT, PTT, KELI, DIME, BNP, CINTHIA, TSHX, BMP, CK, LIP, LIVP, TROPI, CDP, PRCAL, CRP #### [address] [phone] Planting Material Carrier: Pito Freed MD Sodium [Moles/Vol] 132 mmol/L Low 136-145 [facility] Comment on above: Performed By: #### L ACWB, PT, PTT, KELI, DIME, BNP, CINTHIA, TSHX, BMP, CK, LIP, LIVP, TROPI, CDP, PRCAL, CRP #### [address] [phone] Planting Material Carrier: Pito Freed MD Methemoglobin NOT REPORTED Normal 0.0-1.5 [facility] Comment on above: Performed By: #### L ACWB, PT, PTT, KELI, DIME, BNP, CINTHIA, TSHX, BMP, CK, LIP, LIVP, TROPI, CDP, PRCAL, CRP #### [address] [phone] Planting Material Carrier: Pito Freed MD Mode NOT REPORTED Normal [facility] Comment on above: Performed By: #### L ACWB, PT, PTT, KELI, DIME, BNP, CINTHIA, TSHX, BMP, CK, LIP, LIVP, TROPI, CDP, PRCAL, CRP #### [address] [phone] Planting Material Carrier: Pito Freed MD Notification Time NOT REPORTED Normal [facility] Comment on above: Performed By: #### L ACWB, PT, PTT, KELI, DIME, BNP, CINTHIA, TSHX, BMP, CK, LIP, LIVP, TROPI, CDP, PRCAL, CRP #### [address] [phone] Planting Material Carrier: Pito Freed MD Notification: NOT REPORTED Normal [facility] Comment on above: Performed By: #### L ACWB, PT, PTT, KELI, DIME, BNP, CINTHIA, TSHX, BMP, CK, LIP, LIVP, TROPI, CDP, PRCAL, CRP #### [address] [phone] Planting Material Carrier: Pito Freed MD O2 Device/Flow/% NOT REPORTED Normal [facility] Comment on above: Performed By: #### L ACWB, PT, PTT, KELI, DIME, BNP, CINTHIA, TSHX, BMP, CK, LIP, LIVP, TROPI, CDP, PRCAL, CRP #### [address] [phone] Planting Material Carrier: Pito Freed MD Oxyhemoglobin NOT REPORTED Normal 95.0-98.0 [facility] Comment on above: Performed By: #### L ACWB, PT, PTT, KELI, DIME, BNP, CINTHIA, TSHX, BMP, CK, LIP, LIVP, TROPI, CDP, PRCAL, CRP #### [address] [phone] Planting Material Carrier: Pito Freed MD pCO2 Adj'd for Temp NOT REPORTED Normal 32-45 [facility] Comment on above: Performed By: #### L ACWB, PT, PTT, KELI, DIME, BNP, CINTHIA, TSHX, BMP, CK, LIP, LIVP, TROPI, CDP, PRCAL, CRP #### [address] [phone] Planting Material Carrier: Pito Freed MD PEEP/CPAP NOT REPORTED Normal [facility] Comment on above: Performed By: #### L ACWB, PT, PTT, KELI, DIME, BNP, CINTHIA, TSHX, BMP, CK, LIP, LIVP, TROPI, CDP, PRCAL, CRP #### [address] [phone] Planting Material Carrier: Pito Freed MD pH Adjst'd for Temp. NOT REPORTED Normal 7.350-7 .45 0 [facility] Comment on above: Performed By: #### L ACWB, PT, PTT, KELI, DIME, BNP, CINTHIA, TSHX, BMP, CK, LIP, LIVP, TROPI, CDP, PRCAL, CRP #### [address] [phone] Planting Material Carrier: Pito Freed MD pO2 Adjst'd for Temp NOT REPORTED Normal 75-95 [facility] Comment on above: Performed By: #### L ACWB, PT, PTT, KELI, DIME, BNP, CINTHIA, TSHX, BMP, CK, LIP, LIVP, TROPI, CDP, PRCAL, CRP #### [address] [phone] Planting Material Carrier: Pito Freed MD Positive Base Excess NOT REPORTED Normal 0.0-2.0 [facility] Comment on above: Performed By: #### L ACWB, PT, PTT, KELI, DIME, BNP, CINTHIA, TSHX, BMP, CK, LIP, LIVP, TROPI, CDP, PRCAL, CRP #### [address] [phone] Planting Material Carrier: Pito Freed MD PSV NOT REPORTED Normal [facility] Comment on above: Performed By: #### L ACWB, PT, PTT, KELI, DIME, BNP, CINTHIA, TSHX, BMP, CK, LIP, LIVP, TROPI, CDP, PRCAL, CRP #### [address] [phone] Planting Material Carrier: Pito Freed MD Pt. Position NOT REPORTED Normal [facility] Comment on above: Performed By: #### L ACWB, PT, PTT, KELI, DIME, BNP, CINTHIA, TSHX, BMP, CK, LIP, LIVP, TROPI, CDP, PRCAL, CRP #### [address] [phone] Planting Material Carrier: Pito Freed MD Set Rate NOT REPORTED Normal [facility] Comment on above: Performed By: #### L ACWB, PT, PTT, KELI, DIME, BNP, CINTHIA, TSHX, BMP, CK, LIP, LIVP, TROPI, CDP, PRCAL, CRP #### [address] [phone] Planting Material Carrier: Pito Freed MD Site Drawn NOT REPORTED Normal [facility] Comment on above: Performed By: #### L ACWB, PT, PTT, KELI, DIME, BNP, CINTHIA, TSHX, BMP, CK, LIP, LIVP, TROPI, CDP, PRCAL, CRP #### [address] [phone] Planting Material Carrier: Pito Freed MD Text for Respiratory NOT REPORTED Normal [facility] Comment on above: Performed By: #### L ACWB, PT, PTT, KELI, DIME, BNP, CINTHIA, TSHX, BMP, CK, LIP, LIVP, TROPI, CDP, PRCAL, CRP #### [address] [phone] Planting Material Carrier: Pito Freed MD Total Hb NOT REPORTED Normal 12.0-16.0 [facility] Comment on above: Performed By: #### L ACWB, PT, PTT, KELI, DIME, BNP, CINTHIA, TSHX, BMP, CK, LIP, LIVP, TROPI, CDP, PRCAL, CRP #### [address] [phone] Planting Material Carrier: Pito Freed MD Total Rate NOT REPORTED Normal [facility] Comment on above: Performed By: #### L ACWB, PT, PTT, KELI, DIME, BNP, CINTHIA, TSHX, BMP, CK, LIP, LIVP, TROPI, CDP, PRCAL, CRP #### [address] [phone] Planting Material Carrier: Pito Freed MD VT NOT REPORTED Normal [facility] Comment on above: Performed By: #### L ACWB, PT, PTT, KELI, DIME, BNP, CINTHIA, TSHX, BMP, CK, LIP, LIVP, TROPI, CDP, PRCAL, CRP #### [address] [phone] Planting Material Carrier: Pito Freed MD Potassium - Whole Blon 08-17 Potassium [Moles/Vol] 3.9 mmol/L Normal 3.6-5.0 [facility] Comment on above: Performed By: #### L ACWB, PT, PTT, KELI, DIME, BNP, CINTHIA, TSHX, BMP, CK, LIP, LIVP, TROPI, CDP, PRCAL, CRP #### [facility] [address] [place] [address] [phone] Planting Material Carrier: Pito Freed MD Potassium [Moles/Vol] 4.6 mmol/L Normal 3.6-5.0 [facility] Comment on above: Performed By: #### L ACWB, PT, PTT, KELI, DIME, BNP, CINTHIA, TSHX, BMP, CK, LIP, LIVP, TROPI, CDP, PRCAL, CRP #### [address] [phone] Planting Material Carrier: Pito Freed MD Sodium - Whole Bloodon 08-17 Sodium [Moles/Vol] 140 mmol/L Normal 136-145 [facility] Comment on above: Performed By: #### L ACWB, PT, PTT, KELI, DIME, BNP, CINTHIA, TSHX, BMP, CK, LIP, LIVP, TROPI, CDP, PRCAL, CRP #### [address] [phone] Planting Material Carrier: Pito Freed MD Sodium [Moles/Vol] 141 mmol/L Normal 136-145 [facility] Comment on above: Performed By: #### L ACWB, PT, PTT, KELI, DIME, BNP, CINTHIA, TSHX, BMP, CK, LIP, LIVP, TROPI, CDP, PRCAL, CRP #### [address] [phone] Planting Material Carrier: Pito Freed MD Surgical Pathologyon 019 Surgical Pathology (NOTE) [id number] [facility] [employer] CONSULTING PATHOLOGISTS [facility] [place] ANATOM[facility] PATHOLOGY [address] [place] [phone] SURGICAL PATHOLOGY CONSULTATION [facility] [id number] Path Number: [id number] Collected: 08/17/2018 Received: 08/18/2018 Reported: 08/20/2018 08:38 -- Diagnosis -- Terminal ileum, right colon, ileocolonic resection: Ischemic necrosis/ileitis and colitis. Serosal fibrosis and fibrous adhesions. Small bowel diverticuli (diverticulosis). Negative for malignancy. Omentum: Acute peritonitis and areas of abscess. Geneva Rosas Electronically Signed Out rdd/08/19/2018 Clinical Information Pre-op Diagnosis: FREE AIR Operative Findings: ILEOCOLONIC RESECTION, POSSIBLE PERFORATION Operation Performed: EXPLORATORY LAPAROTOMY Source of Specimen 1: ILEOCOLONIC RESECTION Gross Description ERNA MELODY ILEOCOLONIC RESECTION, POSSIBLE PERFORATION Three components. The first component is an 18.0 x 15.0 x 11.0 cm aggregate of fibrofatty tissue including omentum. The fragments are focally dusky and necrotic with a patchy exudate. There is no mass lesion. Within one of the fragments, there is a small amount of synthetic mesh. The second component is a 2.5 cm long x 0.6 cm in diameter vermiform appendix with scant attached mesoappendix. There is no fecalith or transmural defect. The third component is a 62.0 cm long segment of terminal ileum that is 4.0 cm in circumference at the proximal margin with a 13.0 cm long segment of colon that is 10.0 cm in circumference at the distal margin. Attached is a larger amount of mesenteric fat. The small bowel and cecal serosa is dusky, purple-barragan with hemorrhage, adhesions and a patchy fibrinopurulent exudate. No definite transmural defects are identified. At the cecum, there is a 3.5 cm long x 0.4 cm in diameter portion of appendix and the distal end is absent (component 2). In the distal aspect there are sutures. The appendix is focally adhesed to the fat. The mucosa is pink-martínez with dusky and hemorrhagic folds. Just proximal to the ileocecal valve, in the distal ileum, there are a few large diverticula up to 3.0 cm. No obvious transmural defect is seen in this region. The wall ranges in thickness from 0.1 to 0.2 cm and there is no marked stricture. Sectioning of the fat reveals a few rubbery nodes up to 2.0 cm. Cassette summary: A component 1, B component 2 entirely, C margins component 3, D appendix component 3, E diverticulum, F diverticulum and section of ileocecal valve, G additional sections of colon, H mesenteric fat surrounding diverticulum and node, I node. tm Microscopic Description Microscopic examination performed. Normal [facility] Comment on above: Performed By: #### L ACWB, PT, PTT, KELI, DIME, BNP, CINTHIA, TSHX, BMP, CK, LIP, LIVP, TROPI, CDP, PRCAL, CRP #### [address] [phone] Planting Material Carrier: Pito Freed MD Urinalysis, Routineon 2018 Acetoacetic Acid,Ur Negative Normal NEG [facility] Comment on above: Performed By: #### L ACWB, PT, PTT, KELI, DIME, BNP, CINTHIA, TSHX, BMP, CK, LIP, LIVP, TROPI, CDP, PRCAL, CRP #### [facility] [employer] [address] [place] [address] [phone] Planting Material Carrier: Pito Freed MD Bilirubin, SemiQt,Ur Negative Normal NEG [facility] Comment on above: Performed By: #### L ACWB, PT, PTT, KELI, DIME, BNP, CINTHIA, TSHX, BMP, CK, LIP, LIVP, TROPI, CDP, PRCAL, CRP #### [facility] [employer] [address] [place] [address] [phone] Planting Material Carrier: Pito Freed MD Color (U) YELLOW Normal YEL [facility] Comment on above: Performed By: #### L ACWB, PT, PTT, KELI, DIME, BNP, CINTHIA, TSHX, BMP, CK, LIP, LIVP, TROPI, CDP, PRCAL, CRP #### [facility] [employer] [address] [place] [address] [phone] Planting Material Carrier: Pito Freed MD Glucose Ql (U) Negative Normal NEG [facility] Comment on above: Performed By: #### L ACWB, PT, PTT, KELI, DIME, BNP, CINTHIA, TSHX, BMP, CK, LIP, LIVP, TROPI, CDP, PRCAL, CRP #### [address] [phone] Planting Material Carrier: Pito Freed MD Hemoglobin, Ur SMALL Abnormal NEG [facility] Comment on above: Performed By: #### L ACWB, PT, PTT, KELI, DIME, BNP, CINTHIA, TSHX, BMP, CK, LIP, LIVP, TROPI, CDP, PRCAL, CRP #### [address] [phone] Planting Material Carrier: Pito Freed MD Leukocyte esterase Test strip Ql (U) Negative Normal NEG [facility] Comment on above: Performed By: #### L ACWB, PT, PTT, KELI, DIME, BNP, CINTHIA, TSHX, BMP, CK, LIP, LIVP, TROPI, CDP, PRCAL, CRP #### [address] [phone] Planting Material Carrier: Pito Freed MD Nitrite,Ur Negative Normal NEG [facility] Comment on above: Performed By: #### L ACWB, PT, PTT, KELI, DIME, BNP, CINTHIA, TSHX, BMP, CK, LIP, LIVP, TROPI, CDP, PRCAL, CRP #### [facility] [employer] [address] [place] [address] [phone] Planting Material Carrier: Pito Freed MD pH (U) 5.0 [pH] Normal 5.0-8.0 [facility] Comment on above: Performed By: #### L ACWB, PT, PTT, KELI, DIME, BNP, CINTHIA, TSHX, BMP, CK, LIP, LIVP, TROPI, CDP, PRCAL, CRP #### [facility] [employer] [address] [place] [address] [phone] Planting Material Carrier: Pito Freed MD Protein Ql (U) 1+ Abnormal NEG [facility] Comment on above: Performed By: #### L ACWB, PT, PTT, KELI, DIME, BNP, CINTHIA, TSHX, BMP, CK, LIP, LIVP, TROPI, CDP, PRCAL, CRP #### [address] [phone] Planting Material Carrier: Pito Freed MD Specific gravity (U) [Rel density] 1.015 Normal 1.005-1.03 0 [facility] Comment on above: Performed By: #### L ACWB, PT, PTT, KELI, DIME, BNP, CINTHIA, TSHX, BMP, CK, LIP, LIVP, TROPI, CDP, PRCAL, CRP #### [address] [phone] Planting Material Carrier: Pito Freed MD Turbidity CLOUDY Abnormal CLEAR [facility] Comment on above: Performed By: #### L ACWB, PT, PTT, KELI, DIME, BNP, CINTHIA, TSHX, BMP, CK, LIP, LIVP, TROPI, CDP, PRCAL, CRP #### [address] [phone] [employer]ing Material Carrier: Pito Freed MD Urobilinogen,Ur Normal Normal NORM [facility] Comment on above: Performed By: #### L ACWB, PT, PTT, KELI, DIME, BNP, CINTHIA, TSHX, BMP, CK, LIP, LIVP, TROPI, CDP, PRCAL, CRP #### [address] [phone] Planting Material Carrier: Pito Freed MD Comment NOT REPORTED Normal [facility] Comment on above: Performed By: #### L ACWB, PT, PTT, KELI, DIME, BNP, CINTHIA, TSHX, BMP, CK, LIP, LIVP, TROPI, CDP, PRCAL, CRP #### [address] [phone] Planting Material Carrier: Pito Freed MD Urinalysis,Microon 9 ----- Normal [facility] Comment on above: Performed By: #### L ACWB, PT, PTT, KELI, DIME, BNP, CINTHIA, TSHX, BMP, CK, LIP, LIVP, TROPI, CDP, PRCAL, CRP #### [address] [phone] Planting Material Carrier: Pito Freed MD Casts LM.LPF (Urine sed) [#/Area] 5 TO 10 HYALINE Normal 0-8 [facility] Comment on above: Result Comment: Refe rence range defined for non-centrifuged specimen. Performed By: #### L ACWB, PT, PTT, KELI, DIME, BNP, CINTHIA, TSHX, BMP, CK, LIP, LIVP, TROPI, CDP, PRCAL, CRP #### [address] [phone] Planting Material Carrier: Pito Freed MD Epithelial cells LM.HPF (Urine sed) [#/Area] 0 TO 2 Normal 0-5 [facility] Comment on above: Performed By: #### L ACWB, PT, PTT, KELI, DIME, BNP, CINTHIA, TSHX, BMP, CK, LIP, LIVP, TROPI, CDP, PRCAL, CRP #### [address] [phone] [employer]ing Material Carrier: Pito Freed MD RBC (U) [#/Vol] 0 TO 2 Normal 0-4 [facility] Comment on above: Result Comment: Refe rence range defined for non-centrifuged specimen. Performed By: #### L ACWB, PT, PTT, KELI, DIME, BNP, CINTHIA, TSHX, BMP, CK, LIP, LIVP, TROPI, CDP, PRCAL, CRP #### [address] [phone] Planting Material Carrier: Pito Freed MD WBC (U) [#/Vol] 0 TO 2 Normal 0-5 [facility] Comment on above: Performed By: #### L ACWB, PT, PTT, KELI, DIME, BNP, CINTHIA, TSHX, BMP, CK, LIP, LIVP, TROPI, CDP, PRCAL, CRP #### [address] [phone] Planting Material Carrier: Pito Freed MD Amorphous sediment LM Ql (Urine sed) NOT REPORTED Normal NONE [facility] Comment on above: Performed By: #### L ACWB, PT, PTT, KELI, DIME, BNP, CINTHIA, TSHX, BMP, CK, LIP, LIVP, TROPI, CDP, PRCAL, CRP #### [address] [id number] [employer]ing Material Carrier: Pito Freed MD Bacteria LM.HPF (Urine sed) [#/Area] NOT REPORTED Normal NONE [facility] Comment on above: Performed By: #### L ACWB, PT, PTT, KELI, DIME, BNP, CINTHIA, TSHX, BMP, CK, LIP, LIVP, TROPI, CDP, PRCAL, CRP #### [address] [phone] Planting Material Carrier: Pito Freed MD Crystals LM Nom (Urine sed) NOT REPORTED Normal NONE [facility] Comment on above: Performed By: #### L ACWB, PT, PTT, KELI, DIME, BNP, CINTHIA, TSHX, BMP, CK, LIP, LIVP, TROPI, CDP, PRCAL, CRP #### [address] [address] [employer]ing Material Carrier: Pito Freed MD Epithelial, Renal NOT REPORTED Normal 0 [facility] Comment on above: Performed By: #### L ACWB, PT, PTT, KELI, DIME, BNP, CINTHIA, TSHX, BMP, CK, LIP, LIVP, TROPI, CDP, PRCAL, CRP #### [address] [phone] Planting Material Carrier: Pito Freed MD Mucus Strands NOT REPORTED Normal [facility] Comment on above: Performed By: #### L ACWB, PT, PTT, KELI, DIME, BNP, CINTHIA, TSHX, BMP, CK, LIP, LIVP, TROPI, CDP, PRCAL, CRP #### [address] [phone] Planting Material Carrier: Pito Freed MD Other Observations NOT REPORTED Normal [facility] Comment on above: Performed By: #### L ACWB, PT, PTT, KELI, DIME, BNP, CINTHIA, TSHX, BMP, CK, LIP, LIVP, TROPI, CDP, PRCAL, CRP #### [address] [id number] Planting Material Carrier: Pito Freed MD Trichomonas NOT REPORTED Normal [facility] Comment on above: Performed By: #### L ACWB, PT, PTT, KELI, DIME, BNP, CINTHIA, TSHX, BMP, CK, LIP, LIVP, TROPI, CDP, PRCAL, CRP #### [address] [id number] Planting Material Carrier: Pito Freed MD Yeast LM Ql (Urine sed) NOT REPORTED Normal [facility] Comment on above: Performed By: #### L ACWB, PT, PTT, KELI, DIME, BNP, CINTHIA, TSHX, BMP, CK, LIP, LIVP, TROPI, CDP, PRCAL, CRP #### [address] [id number] Planting Material Carrier: Pito Freed MD LIVERon 07-10-2018 US LIVER EXAMINATION: RIGHT UPPER QUADRANT ULTRASOUND 07/10/2018 8:09 am COMPARISON: CT scan of the abdomen and pelvis from 07/01/2018, and previous ultrasound from 05/23/2018 HISTORY: ORDERING SYSTEM PROVIDED HISTORY: Liver abscess TECHNOLOGIST PROVIDED HISTORY: look at the resolution of the abscess - pls compare to the CT Ordering Physician Provided Reason for Exam: liver abscess Acuity: Chronic Type of Exam: Subsequent/Follow-up Abscess drainage performed on 05/26/2018; drainage tube removed on 07/01/2018 FINDINGS: LIVER: The liver demonstrates heterogeneous echogenicity inferiorly right lobe, at the site of a recently drained liver abscess. No anechoic focus suspicious for recurrent abscess; two partially echogenic foci with shadowing identified (largest measuring 3.1 x 1.1 x 2.0 cm) and corresponding to small hypodensities noted on CT. Remainder liver unremarkable. No evidence of intrahepatic biliary ductal dilatation. Flow in the portal vein is hepatopetal. BILIARY SYSTEM: Gallbladder is surgically absent. Negative sonographic Alfredo's sign. Common bile duct is within normal limits measuring 5.5 mm. RIGHT KIDNEY: The visualized right kidney is grossly unremarkable without evidence of hydronephrosis. PANCREAS: Visualized portions of the pancreas are unremarkable. OTHER: No evidence of right upper quadrant ascites. IMPRESSION: No recurrent liver abscess or clearly suspicious finding; heterogeneous hepatic parenchyma at previous abscess site with 2 partially echogenic foci (residual with early heterotopic calcification?) RECOMMENDATIONS: Follow-up ultrasound in 3 months. Interpreted by: Agata Jhaveri MD Signed by: Agata Jhaveri MD 07/10/18 Final result Normal [facility] BUN + Creatinineon 9 (cont.) Normal [facility] Comment on above: Result Comment: Aver age GFR for 60-69 years old: 85 mL/min/1.73sq m Chronic Kidney Disease: <60 mL/min/1.73sq m Kidney failure: <15 mL/min/1.73sq m eGFR calculated using average adult body mass. Additional eGFR calculator available at: http://www.[employer].Izooble/multiple_crcl_2012.htm Performed By: #### B UNCRT #### [facility] [address] [place] [address] Planting Material Carrier: Coleman Abebe MD Creatinine mass conc 0.61 mg/dL Low 0.70-1.20 [facility] Comment on above: Performed By: #### B UNCRT #### [facility] [address] [facility] [place] [address] Planting Material Carrier: Coleman Abebe MD GFR, Amer >60 Normal >[address] [facility] Comment on above: Performed By: #### B UNCRT #### [facility] [address] [facility] [place] [address] Planting Material Carrier: Coleman Abebe MD GFR,non Amer >60 Normal >60 [facility] Comment on above: Performed By: #### B UNCRT #### [facility] [address] [facility] [place] [address] Planting Material Carrier: Coleman Abebe MD Urea nitrogen mass conc 12 mg/dL Normal 8-23 [facility] Comment on above: Performed By: #### B UNCRT #### [facility] [address] [facility] [place] [address] Planting Material Carrier: Coleman Abebe MD Staging: NOT REPORTED Normal [facility] Comment on above: Performed By: #### B UNCRT #### [facility] [facility] [place] [address] Planting Material Carrier: Coleman Abebe MD CT ABDOMEN PELVIS W IV CONTR Kaitlin 07-01-2018 CT ABDOMEN PELVIS W IV CONTRAST EXAMINATION: CT OF THE ABDOMEN AND PELVIS WITH CONTRAST, 07/01/2018 2:12 pm TECHNIQUE: CT of the abdomen and pelvis was performed with the administration of intravenous contrast. Multiplanar reformatted images are provided for review. Dose modulation, iterative reconstruction, and/or weight based adjustment of the mA/kV was utilized to reduce the radiation dose to as low as reasonably achievable. COMPARISON: 05/22/2018, MRI 05/23/2018 HISTORY: ORDERING SYSTEM PROVIDED HISTORY: Liver abscess TECHNOLOGIST PROVIDED HISTORY: Look at the resolution of the liver abscess. Ordering Physician Provided Reason for Exam: Liver abscess that has been treated for four weeks, scan today to see if drain can be removed. Acuity: Unknown Type of Exam: Unknown FINDINGS: Lower Chest: Mild patchy consolidation and subpleural ground-glass opacity in the right lower lobe is likely inflammatory/infectious. Organs: Previous cholecystectomy. Pigtail drainage catheter in the inferior right lobe of the liver with marked decrease in size of the multilocular hepatic abscess with a couple of small residual collections measuring under 2 cm each separate from the pigtail. 5 mm hypodensity in the right lobe is too small to characterize by CT but likely benign. Spleen remains mildly enlarged. Adrenal glands and pancreas show no acute abnormality. The kidneys show no hydronephrosis. Similar small bilateral renal cysts. GI/Bowel: Stable hiatal hernia. Evaluation of bowel is limited by lack of oral contrast. Multiple prominent small bowel diverticula. Again shown are large duodenal diverticula measuring up to 5 cm. No signs of bowel obstruction. No regional inflammatory changes or focal fluid collections. Diverticulosis of the colon. No CT evidence of appendicitis. Pelvis: No free fluid in the pelvis. Enlarged prostate gland protruding into the bladder base, similar to the prior study. Correlate with PSA levels. Peritoneum/Retroperitoneu m: Mild calcific plaque without evidence of abdominal aortic aneurysm. No significant bulky retroperitoneal adenopathy. There are scattered nonenlarged upper abdominal and retroperitoneal lymph nodes. Small periportal nodes appear similar. There are two large ventral periumbilical hernias containing multiple small bowel loops without signs of obstruction or incarceration at this time. There is mild regional subcutaneous and mesenteric soft tissue stranding. The appearance is similar to the prior study. Bones/Soft Tissues: Degenerative changes of the spine with no acute osseous abnormality. Old left rib fractures. IMPRESSION: Marked improvement of the previously drained multilocular inferior right hepatic lobe abscess. Pigtail catheter remains in place with a couple of small residual regional hypodensities measuring under 2 cm in size. The patient was offered an attempt at ultrasound-guided aspiration but declined at this time. As there is little drainage (less than 10 mL per day) from the existing drain the catheter will be removed. Similar large ventral abdominal wall hernias containing bowel without evidence of obstruction. Diverticulosis of the colon and multiple small bowel and duodenal diverticula. Small hiatal hernia. Enlarged prostate gland protruding into the bladder base. Mild splenomegaly. Mild patchy consolidation right lower lobe. Interpreted by: Ziyad Mcclain MD Signed by: Ziyad Mcclain MD 07/01/18 Final result Normal [facility] IR FLUOROSCOPY LESS THAN 1 H OURon 07-01-2018 IR FLUOROSCOPY LESS THAN 1 HOUR EXAMINATION: FLUOROSCOPIC GUIDED LIVER ABSCESS DRAINAGE REMOVAL 07/01/2018 2:49 pm FLUOROSCOPY DOSE AND TYPE OR TIME AND EXPOSURES: 13 seconds; D AP 144 COMPARISON: CT 07/01/2018, LIVER ABSCESS DRAINAGE 05/26/2018 HISTORY: Patient with a liver abscess drain, drainage has nearly stopped and the abscess is nearly resolved, patient is on antibiotics, please remove drainage catheter FINDINGS: This procedure was performed by Dr. Mcclain. Liver abscess drainage catheter site was prepped and draped in standard sterile fashion. Fluoroscopic spot view shows a drainage catheter in the right lobe of the liver. The suture was cut and the catheter removed uneventfully over a guidewire. Fluoroscopy confirms removal of the entire catheter. Sterile dressing was applied. There are no immediate complications. The patient left the department in stable condition. IMPRESSION: Liver abscess drainage catheter removed successfully Interpreted by: Ziyad Mcclain MD Signed by: Ziyad Mcclain MD 07/01/18 Final result Normal [facility] CBC with Diffon 06-01-2018 Abs. Basophil 0.04 k/uL Normal 0.00-0.20 [facility] Comment on above: Performed By: #### L ACWB, PT, PTT, KELI, DIME, BNP, CINTHIA, TSHX, BMP, CK, LIP, LIVP, TROPI, CDP, PRCAL, CRP #### [facility] [address] [place] [address] Planting Material Carrier: Pito Freed MD Abs.Imm.Granulocyte 0.10 k/uL Normal 0.00-0.30 [facility] Comment on above: Performed By: #### L ACWB, PT, PTT, KELI, DIME, BNP, CINTHIA, TSHX, BMP, CK, LIP, LIVP, TROPI, CDP, PRCAL, CRP #### [facility] [address] [place] [address] Planting Material Carrier: Pito Freed MD Abs.Neutrophil (Seg) 11.06 k/uL High 1.50-8.10 [facility] Comment on above: Performed By: #### L ACWB, PT, PTT, KELI, DIME, BNP, CINTHIA, TSHX, BMP, CK, LIP, LIVP, TROPI, CDP, PRCAL, CRP #### [address] [address] Planting Material Carrier: Pito Frede MD Basophils/100 WBC (Bld) 0 % Normal 0-2 [facility] Comment on above: Performed By: #### L ACWB, PT, PTT, KELI, DIME, BNP, CINTHIA, TSHX, BMP, CK, LIP, LIVP, TROPI, CDP, PRCAL, CRP #### [place] [phone] Planting Material Carrier: Pito Freed MD Eosinophils (Bld) [#/Vol] 10*3/uL Normal 0.00-0.44 [facility] Comment on above: Performed By: #### L ACWB, PT, PTT, KELI, DIME, BNP, CINTHIA, TSHX, BMP, CK, LIP, LIVP, TROPI, CDP, PRCAL, CRP #### [place] [phone] Planting Material Carrier: Pito Freed MD Eosinophils/100 WBC (Bld) 0 % Low 1-4 [facility] Comment on above: Performed By: #### L ACWB, PT, PTT, KELI, DIME, BNP, CINTHIA, TSHX, BMP, CK, LIP, LIVP, TROPI, CDP, PRCAL, CRP #### [place] [phone] Planting Material Carrier: Pito Freed MD Erythrocyte distribution width (RBC) [Ratio] 15.4 % High 11.8-14.4 [facility] Comment on above: Performed By: #### L ACWB, PT, PTT, KELI, DIME, BNP, CINTHIA, TSHX, BMP, CK, LIP, LIVP, TROPI, CDP, PRCAL, CRP #### [address] [address] Planting Material Carrier: Pito Freed MD Hematocrit (Bld) [Volume fraction] 34.1 % Low 40.7-50.3 [facility] Comment on above: Performed By: #### L ACWB, PT, PTT, KELI, DIME, BNP, CINTHIA, TSHX, BMP, CK, LIP, LIVP, TROPI, CDP, PRCAL, CRP #### [place] [phone] Planting Material Carrier: Pito Freed MD Hemoglobin (Bld) [Mass/Vol] 10.5 g/dL Low 13.0-17.0 [facility] Comment on above: Performed By: #### L ACWB, PT, PTT, KELI, DIME, BNP, CINTHIA, TSHX, BMP, CK, LIP, LIVP, TROPI, CDP, PRCAL, CRP #### [place] [phone] Planting Material Carrier: Pito Freed MD Immature granulocytes (Bld) [#/Vol] 1 % High 0 [facility] Comment on above: Performed By: #### L ACWB, PT, PTT, KELI, DIME, BNP, CINTHIA, TSHX, BMP, CK, LIP, LIVP, TROPI, CDP, PRCAL, CRP #### [place] [phone] Planting Material Carrier: Pito Freed MD Lymphocytes (Bld) [#/Vol] 0.98 10*3/uL Low 1.10-3.70 [facility] Comment on above: Performed By: #### L ACWB, PT, PTT, KELI, DIME, BNP, CINTHIA, TSHX, BMP, CK, LIP, LIVP, TROPI, CDP, PRCAL, CRP #### [address] [id number] Planting Material Carrier: Pito Freed MD Lymphocytes/100 WBC (Bld) 8 % Low 24-43 [facility] Comment on above: Performed By: #### L ACWB, PT, PTT, KELI, DIME, BNP, CINTHIA, TSHX, BMP, CK, LIP, LIVP, TROPI, CDP, PRCAL, CRP #### [address] [id number] Planting Material Carrier: Pito Freed MD MCH (RBC) [Entitic mass] 28.2 pg Normal 25.2-33.5 [facility] Comment on above: Performed By: #### L ACWB, PT, PTT, KELI, DIME, BNP, CINTHIA, TSHX, BMP, CK, LIP, LIVP, TROPI, CDP, PRCAL, CRP #### [address] [phone] Planting Material Carrier: Pito Freed MD MCHC (RBC) [Mass/Vol] 30.8 g/dL Normal 28.4-34.8 [facility] Comment on above: Performed By: #### L ACWB, PT, PTT, KELI, DIME, BNP, CINTHIA, TSHX, BMP, CK, LIP, LIVP, TROPI, CDP, PRCAL, CRP #### [address] [phone] Planting Material Carrier: Pito Freed MD MCV (RBC) [Entitic vol] 91.7 fL Normal 82.6-102.9 [facility] Comment on above: Performed By: #### L ACWB, PT, PTT, KELI, DIME, BNP, CINTHIA, TSHX, BMP, CK, LIP, LIVP, TROPI, CDP, PRCAL, CRP #### [address] [id number] Planting Material Carrier: Pito Freed MD Monocytes (Bld) [#/Vol] 0.59 10*3/uL Normal 0.10-1.20 [facility] Comment on above: Performed By: #### L ACWB, PT, PTT, KELI, DIME, BNP, CINTHIA, TSHX, BMP, CK, LIP, LIVP, TROPI, CDP, PRCAL, CRP #### [address] [phone] Planting Material Carrier: Pito Freed MD Monocytes/100 WBC (Bld) 5 % Normal 3-12 [facility] Comment on above: Performed By: #### L ACWB, PT, PTT, KELI, DIME, BNP, CINTHIA, TSHX, BMP, CK, LIP, LIVP, TROPI, CDP, PRCAL, CRP #### [place] [phone] Planting Material Carrier: Pito Freed MD Neutrophil (Seg) 86 % High 36-65 [facility] Comment on above: Performed By: #### L ACWB, PT, PTT, KELI, DIME, BNP, CINTHIA, TSHX, BMP, CK, LIP, LIVP, TROPI, CDP, PRCAL, CRP #### [place] [phone] Planting Material Carrier: Pito Freed MD NRBC Automated 0.0 per 100 WBC Normal 0.0 [facility] Comment on above: Performed By: #### L ACWB, PT, PTT, KELI, DIME, BNP, CINTHIA, TSHX, BMP, CK, LIP, LIVP, TROPI, CDP, PRCAL, CRP #### [place] [address] Planting Material Carrier: Pito Freed MD Platelet mean volume (Bld) [Entitic vol] 11.3 fL Normal 8.1-13.5 [facility] Comment on above: Performed By: #### L ACWB, PT, PTT, KELI, DIME, BNP, CINTHIA, TSHX, BMP, CK, LIP, LIVP, TROPI, CDP, PRCAL, CRP #### [address] [phone] Planting Material Carrier: Pito Freed MD Platelets (Bld) [#/Vol] 283 10*3/uL Normal 138-453 [facility] Comment on above: Performed By: #### L ACWB, PT, PTT, KELI, DIME, BNP, CINTHIA, TSHX, BMP, CK, LIP, LIVP, TROPI, CDP, PRCAL, CRP #### [address] [phone] Planting Material Carrier: Pito Freed MD RBC (Bld) [#/Vol] 3.72 10*6/uL Low 4.21-5.77 [facility] Comment on above: Performed By: #### L ACWB, PT, PTT, KELI, DIME, BNP, CINTHIA, TSHX, BMP, CK, LIP, LIVP, TROPI, CDP, PRCAL, CRP #### [address] [id number] Planting Material Carrier: Pito Freed MD RBC morphology finding Nom (Bld) ANISOCYTOSIS PRESENT Normal [facility] Comment on above: Performed By: #### L ACWB, PT, PTT, KELI, DIME, BNP, CINTHIA, TSHX, BMP, CK, LIP, LIVP, TROPI, CDP, PRCAL, CRP #### [address] [phone] Planting Material Carrier: Pito Freed MD WBC (Bld) [#/Vol] 12.8 10*3/uL High 3.5-11.3 [facility] Comment on above: Performed By: #### L ACWB, PT, PTT, KELI, DIME, BNP, CINTHIA, TSHX, BMP, CK, LIP, LIVP, TROPI, CDP, PRCAL, CRP #### [address] [phone] Planting Material Carrier: Pito Freed MD Auto Diff Performed NOT REPORTED Normal [facility] Comment on above: Performed By: #### L ACWB, PT, PTT, KELI, DIME, BNP, CINTHIA, TSHX, BMP, CK, LIP, LIVP, TROPI, CDP, PRCAL, CRP #### [place] [phone] Planting Material Carrier: Pito Freed MD Platelets (Bld) [#/Vol] NOT REPORTED Normal [facility] Comment on above: Performed By: #### L ACWB, PT, PTT, KELI, DIME, BNP, CINTHIA, TSHX, BMP, CK, LIP, LIVP, TROPI, CDP, PRCAL, CRP #### [place] [address] Planting Material Carrier: Pito Freed MD WBC Morphology NOT REPORTED Normal [facility] Comment on above: Performed By: #### L ACWB, PT, PTT, KELI, DIME, BNP, CINTHIA, TSHX, BMP, CK, LIP, LIVP, TROPI, CDP, PRCAL, CRP #### [place] [address] Planting Material Carrier: Pito Freed MD CBC with Diffon 05-31-2018 Abs. Basophil 0.03 k/uL Normal 0.00-0.20 [facility] Comment on above: Performed By: #### L ACWB, PT, PTT, KELI, DIME, BNP, CINTHIA, TSHX, BMP, CK, LIP, LIVP, TROPI, CDP, PRCAL, CRP #### [place] [phone] Planting Material Carrier: Pito Freed MD Abs.Imm.Granulocyte 0.19 k/uL Normal 0.00-0.30 [facility] Comment on above: Performed By: #### L ACWB, PT, PTT, KELI, DIME, BNP, ICNTHIA, TSHX, BMP, CK, LIP, LIVP, TROPI, CDP, PRCAL, CRP #### [address] [phone] Planting Material Carrier: Pito Freed MD Abs.Neutrophil (Seg) 10.70 k/uL High 1.50-8.10 [facility] Comment on above: Performed By: #### L ACWB, PT, PTT, KELI, DIME, BNP, CINTHIA, TSHX, BMP, CK, LIP, LIVP, TROPI, CDP, PRCAL, CRP #### [address] [phone] Planting Material Carrier: Pito Freed MD Basophils/100 WBC (Bld) 0 % Normal 0-2 [facility] Comment on above: Performed By: #### L ACWB, PT, PTT, KELI, DIME, BNP, CINTHIA, TSHX, BMP, CK, LIP, LIVP, TROPI, CDP, PRCAL, CRP #### [place] [address] Planting Material Carrier: Pito Freed MD Eosinophils (Bld) [#/Vol] 10*3/uL Normal 0.00-0.44 [facility] Comment on above: Performed By: #### L ACWB, PT, PTT, KELI, DIME, BNP, CINTHIA, TSHX, BMP, CK, LIP, LIVP, TROPI, CDP, PRCAL, CRP #### [address] [address] Planting Material Carrier: Pito Freed MD Eosinophils/100 WBC (Bld) 0 % Low 1-4 [facility] Comment on above: Performed By: #### L ACWB, PT, PTT, KELI, DIME, BNP, CINTHIA, TSHX, BMP, CK, LIP, LIVP, TROPI, CDP, PRCAL, CRP #### [address] [phone] Planting Material Carrier: Pito Freed MD Erythrocyte distribution width (RBC) [Ratio] 15.5 % High 11.8-14.4 [facility] Comment on above: Performed By: #### L ACWB, PT, PTT, KELI, DIME, BNP, CINTHIA, TSHX, BMP, CK, LIP, LIVP, TROPI, CDP, PRCAL, CRP #### [place] [phone] Planting Material Carrier: Pito Freed MD Hematocrit (Bld) [Volume fraction] 36.0 % Low 40.7-50.3 [facility] Comment on above: Performed By: #### L ACWB, PT, PTT, KELI, DIME, BNP, CINTHIA, TSHX, BMP, CK, LIP, LIVP, TROPI, CDP, PRCAL, CRP #### [place] [phone] Planting Material Carrier: Pito Freed MD Hemoglobin (Bld) [Mass/Vol] 10.7 g/dL Low 13.0-17.0 [facility] Comment on above: Performed By: #### L ACWB, PT, PTT, KELI, DIME, BNP, CINTHIA, TSHX, BMP, CK, LIP, LIVP, TROPI, CDP, PRCAL, CRP #### [place] [phone] Planting Material Carrier: Pito Freed MD Immature granulocytes (Bld) [#/Vol] 2 % High 0 [facility] Comment on above: Performed By: #### L ACWB, PT, PTT, KELI, DIME, BNP, CINTHIA, TSHX, BMP, CK, LIP, LIVP, TROPI, CDP, PRCAL, CRP #### [address] [id number] Planting Material Carrier: Pito Freed MD Lymphocytes (Bld) [#/Vol] 0.89 10*3/uL Low 1.10-3.70 [facility] Comment on above: Performed By: #### L ACWB, PT, PTT, KELI, DIME, BNP, CINTHIA, TSHX, BMP, CK, LIP, LIVP, TROPI, CDP, PRCAL, CRP #### [address] [address] Planting Material Carrier: Pito Freed MD Lymphocytes/100 WBC (Bld) 7 % Low 24-43 [facility] Comment on above: Performed By: #### L ACWB, PT, PTT, KELI, DIME, BNP, CINTHIA, TSHX, BMP, CK, LIP, LIVP, TROPI, CDP, PRCAL, CRP #### [address] [address] Planting Material Carrier: Pito Freed MD MCH (RBC) [Entitic mass] 28.3 pg Normal 25.2-33.5 [facility] Comment on above: Performed By: #### L ACWB, PT, PTT, KELI, DIME, BNP, CINTHIA, TSHX, BMP, CK, LIP, LIVP, TROPI, CDP, PRCAL, CRP #### [address] [address] Planting Material Carrier: Pito Freed MD MCHC (RBC) [Mass/Vol] 29.7 g/dL Normal 28.4-34.8 [facility] Comment on above: Performed By: #### L ACWB, PT, PTT, KELI, DIME, BNP, CINTHIA, TSHX, BMP, CK, LIP, LIVP, TROPI, CDP, PRCAL, CRP #### [address] [address] Planting Material Carrier: Pito Freed MD MCV (RBC) [Entitic vol] 95.2 fL Normal 82.6-102.9 [facility] Comment on above: Performed By: #### L ACWB, PT, PTT, KELI, DIME, BNP, CINTHIA, TSHX, BMP, CK, LIP, LIVP, TROPI, CDP, PRCAL, CRP #### [address] [address] Planting Material Carrier: Pito Freed MD Monocytes (Bld) [#/Vol] 0.53 10*3/uL Normal 0.10-1.20 [facility] Comment on above: Performed By: #### L ACWB, PT, PTT, KELI, DIME, BNP, CINTHIA, TSHX, BMP, CK, LIP, LIVP, TROPI, CDP, PRCAL, CRP #### [address] [address] Planting Material Carrier: Pito Freed MD Monocytes/100 WBC (Bld) 4 % Normal 3-12 [facility] Comment on above: Performed By: #### L ACWB, PT, PTT, KELI, DIME, BNP, CINTHIA, TSHX, BMP, CK, LIP, LIVP, TROPI, CDP, PRCAL, CRP #### [address] [id number] Planting Material Carrier: Pito Freed MD Neutrophil (Seg) 87 % High 36-65 [facility] Comment on above: Performed By: #### L ACWB, PT, PTT, KELI, DIME, BNP, CINTHIA, TSHX, BMP, CK, LIP, LIVP, TROPI, CDP, PRCAL, CRP #### [address] [phone] Planting Material Carrier: Pito Freed MD NRBC Automated 0.0 per 100 WBC Normal 0.0 [facility] Comment on above: Performed By: #### L ACWB, PT, PTT, KELI, DIME, BNP, CINTHIA, TSHX, BMP, CK, LIP, LIVP, TROPI, CDP, PRCAL, CRP #### [address] [address] Planting Material Carrier: Pito Freed MD Platelet mean volume (Bld) [Entitic vol] 11.7 fL Normal 8.1-13.5 [facility] Comment on above: Performed By: #### L ACWB, PT, PTT, KELI, DIME, BNP, CINTHIA, TSHX, BMP, CK, LIP, LIVP, TROPI, CDP, PRCAL, CRP #### [address] [id number] Planting Material Carrier: Pito Freed MD Platelets (Bld) [#/Vol] 244 10*3/uL Normal 138-453 [facility] Comment on above: Performed By: #### L ACWB, PT, PTT, KELI, DIME, BNP, CINTHIA, TSHX, BMP, CK, LIP, LIVP, TROPI, CDP, PRCAL, CRP #### [place] [id number] Planting Material Carrier: Pito Freed MD RBC (Bld) [#/Vol] 3.78 10*6/uL Low 4.21-5.77 [facility] Comment on above: Performed By: #### L ACWB, PT, PTT, KELI, DIME, BNP, CINTHIA, TSHX, BMP, CK, LIP, LIVP, TROPI, CDP, PRCAL, CRP #### [place] [phone] Planting Material Carrier: Pito Freed MD RBC morphology finding Nom (Bld) ANISOCYTOSIS PRESENT Normal [facility] Comment on above: Performed By: #### L ACWB, PT, PTT, KELI, DIME, BNP, CINTHIA, TSHX, BMP, CK, LIP, LIVP, TROPI, CDP, PRCAL, CRP #### [address] [phone] Planting Material Carrier: Pito Freed MD WBC (Bld) [#/Vol] 12.3 10*3/uL High 3.5-11.3 [facility] Comment on above: Performed By: #### L ACWB, PT, PTT, KELI, DIME, BNP, CINTHIA, TSHX, BMP, CK, LIP, LIVP, TROPI, CDP, PRCAL, CRP #### [address] [id number] Planting Material Carrier: Pito Freed MD Auto Diff Performed NOT REPORTED Normal [facility] Comment on above: Performed By: #### L ACWB, PT, PTT, KELI, DIME, BNP, CINTHIA, TSHX, BMP, CK, LIP, LIVP, TROPI, CDP, PRCAL, CRP #### [address] [id number] Planting Material Carrier: Pito Fered MD Platelets (Bld) [#/Vol] NOT REPORTED Normal [facility] Comment on above: Performed By: #### L ACWB, PT, PTT, KELI, DIME, BNP, CINTHIA, TSHX, BMP, CK, LIP, LIVP, TROPI, CDP, PRCAL, CRP #### [address] [address] Planting Material Carrier: Pito Freed MD WBC Morphology NOT REPORTED Normal [facility] Comment on above: Performed By: #### L ACWB, PT, PTT, KELI, DIME, BNP, CINTHIA, TSHX, BMP, CK, LIP, LIVP, TROPI, CDP, PRCAL, CRP #### [address] [address] [address] Planting Material Carrier: Pito Freed MD CBC with Diffon 05-30-2018 Abs. Basophil 0.04 k/uL Normal 0.00-0.20 [facility] Comment on above: Performed By: #### L ACWB, PT, PTT, KELI, DIME, BNP, CINTHIA, TSHX, BMP, CK, LIP, LIVP, TROPI, CDP, PRCAL, CRP #### [address] [id number] Planting Material Carrier: Pito Freed MD Abs.Imm.Granulocyte 0.38 k/uL High 0.00-0.30 [facility] Comment on above: Performed By: #### L ACWB, PT, PTT, KELI, DIME, BNP, CINTHIA, TSHX, BMP, CK, LIP, LIVP, TROPI, CDP, PRCAL, CRP #### [place] [id number] Planting Material Carrier: Pito Freed MD Abs.Neutrophil (Seg) 9.88 k/uL High 1.50-8.10 [facility] Comment on above: Performed By: #### L ACWB, PT, PTT, KELI, DIME, BNP, CINTHIA, TSHX, BMP, CK, LIP, LIVP, TROPI, CDP, PRCAL, CRP #### [place] [id number] Planting Material Carrier: Pito Freed MD Basophils/100 WBC (Bld) 0 % Normal 0-2 [facility] Comment on above: Performed By: #### L ACWB, PT, PTT, KELI, DIME, BNP, CINTHIA, TSHX, BMP, CK, LIP, LIVP, TROPI, CDP, PRCAL, CRP #### [place] [address] Planting Material Carrier: Pito Freed MD Eosinophils (Bld) [#/Vol] 10*3/uL Normal 0.00-0.44 [facility] Comment on above: Performed By: #### L ACWB, PT, PTT, KELI, DIME, BNP, CINTHIA, TSHX, BMP, CK, LIP, LIVP, TROPI, CDP, PRCAL, CRP #### [place] [id number] Planting Material Carrier: Pito Freed MD Eosinophils/100 WBC (Bld) 0 % Low 1-4 [facility] Comment on above: Performed By: #### L ACWB, PT, PTT, KELI, DIME, BNP, CINTHIA, TSHX, BMP, CK, LIP, LIVP, TROPI, CDP, PRCAL, CRP #### [address] [address] Planting Material Carrier: Pito Freed MD Erythrocyte distribution width (RBC) [Ratio] 15.5 % High 11.8-14.4 [facility] Comment on above: Performed By: #### L ACWB, PT, PTT, KELI, DIME, BNP, CINTHIA, TSHX, BMP, CK, LIP, LIVP, TROPI, CDP, PRCAL, CRP #### [address] [address] Planting Material Carrier: Pito Freed MD Hematocrit (Bld) [Volume fraction] 32.8 % Low 40.7-50.3 [facility] Comment on above: Performed By: #### L ACWB, PT, PTT, KELI, DIME, BNP, CINTHIA, TSHX, BMP, CK, LIP, LIVP, TROPI, CDP, PRCAL, CRP #### [place] [id number] Planting Material Carrier: Pito Freed MD Hemoglobin (Bld) [Mass/Vol] 10.4 g/dL Low 13.0-17.0 [facility] Comment on above: Performed By: #### L ACWB, PT, PTT, KELI, DIME, BNP, CINTHIA, TSHX, BMP, CK, LIP, LIVP, TROPI, CDP, PRCAL, CRP #### [address] [address] Planting Material Carrier: Pito Freed MD Immature granulocytes (Bld) [#/Vol] 3 % High 0 [facility] Comment on above: Performed By: #### L ACWB, PT, PTT, KELI, DIME, BNP, CINTHIA, TSHX, BMP, CK, LIP, LIVP, TROPI, CDP, PRCAL, CRP #### [address] [id number] Planting Material Carrier: Pito Freed MD Lymphocytes (Bld) [#/Vol] 0.74 10*3/uL Low 1.10-3.70 [facility] Comment on above: Performed By: #### L ACWB, PT, PTT, KELI, DIME, BNP, CINTHIA, TSHX, BMP, CK, LIP, LIVP, TROPI, CDP, PRCAL, CRP #### [address] [phone] Planting Material Carrier: Pito Freed MD Lymphocytes/100 WBC (Bld) 7 % Low 24-43 [facility] Comment on above: Performed By: #### L ACWB, PT, PTT, KELI, DIME, BNP, CINTHIA, TSHX, BMP, CK, LIP, LIVP, TROPI, CDP, PRCAL, CRP #### [address] [phone] Planting Material Carrier: Pito Freed MD MCH (RBC) [Entitic mass] 28.8 pg Normal 25.2-33.5 [facility] Comment on above: Performed By: #### L ACWB, PT, PTT, KELI, DIME, BNP, CINTHIA, TSHX, BMP, CK, LIP, LIVP, TROPI, CDP, PRCAL, CRP #### [address] [phone] Planting Material Carrier: Pito Freed MD MCHC (RBC) [Mass/Vol] 31.7 g/dL Normal 28.4-34.8 [facility] Comment on above: Performed By: #### L ACWB, PT, PTT, KELI, DIME, BNP, CINTHIA, TSHX, BMP, CK, LIP, LIVP, TROPI, CDP, PRCAL, CRP #### [address] [id number] Planting Material Carrier: Pito Freed MD MCV (RBC) [Entitic vol] 90.9 fL Normal 82.6-102.9 [facility] Comment on above: Performed By: #### L ACWB, PT, PTT, KELI, DIME, BNP, CINTHIA, TSHX, BMP, CK, LIP, LIVP, TROPI, CDP, PRCAL, CRP #### [address] [address] Planting Material Carrier: Pito Freed MD Monocytes (Bld) [#/Vol] 0.41 10*3/uL Normal 0.10-1.20 [facility] Comment on above: Performed By: #### L ACWB, PT, PTT, KELI, DIME, BNP, CINTHIA, TSHX, BMP, CK, LIP, LIVP, TROPI, CDP, PRCAL, CRP #### [place] [phone] Planting Material Carrier: Pito Freed MD Monocytes/100 WBC (Bld) 4 % Normal 3-12 [facility] Comment on above: Performed By: #### L ACWB, PT, PTT, KELI, DIME, BNP, CINTHIA, TSHX, BMP, CK, LIP, LIVP, TROPI, CDP, PRCAL, CRP #### [place] [phone] Planting Material Carrier: Pito Freed MD Neutrophil (Seg) 86 % High 36-65 [facility] Comment on above: Performed By: #### L ACWB, PT, PTT, KELI, DIME, BNP, CINTHIA, TSHX, BMP, CK, LIP, LIVP, TROPI, CDP, PRCAL, CRP #### [address] [id number] Planting Material Carrier: Pito Freed MD NRBC Automated 0.0 per 100 WBC Normal 0.0 [facility] Comment on above: Performed By: #### L ACWB, PT, PTT, KELI, DIME, BNP, CINTHIA, TSHX, BMP, CK, LIP, LIVP, TROPI, CDP, PRCAL, CRP #### [address] [address] Planting Material Carrier: Pito Freed MD Platelet mean volume (Bld) [Entitic vol] 11.9 fL Normal 8.1-13.5 [facility] Comment on above: Performed By: #### L ACWB, PT, PTT, KELI, DIME, BNP, CINTHIA, TSHX, BMP, CK, LIP, LIVP, TROPI, CDP, PRCAL, CRP #### [address] [address] Planting Material Carrier: Pito Freed MD Platelets (Bld) [#/Vol] 232 10*3/uL Normal 138-453 [facility] Comment on above: Performed By: #### L ACWB, PT, PTT, KELI, DIME, BNP, CINTHIA, TSHX, BMP, CK, LIP, LIVP, TROPI, CDP, PRCAL, CRP #### [address] [address] Planting Material Carrier: Pito Freed MD RBC (Bld) [#/Vol] 3.61 10*6/uL Low 4.21-5.77 [facility] Comment on above: Performed By: #### L ACWB, PT, PTT, KELI, DIME, BNP, CINTHIA, TSHX, BMP, CK, LIP, LIVP, TROPI, CDP, PRCAL, CRP #### [place] [phone] Planting Material Carrier: Pito Freed MD RBC morphology finding Nom (Bld) ANISOCYTOSIS PRESENT Normal [facility] Comment on above: Performed By: #### L ACWB, PT, PTT, KELI, DIME, BNP, CINTHIA, TSHX, BMP, CK, LIP, LIVP, TROPI, CDP, PRCAL, CRP #### [address] [id number] Planting Material Carrier: Pito Freed MD WBC (Bld) [#/Vol] 11.5 10*3/uL High 3.5-11.3 [facility] Comment on above: Performed By: #### L ACWB, PT, PTT, KELI, DIME, BNP, CINTHIA, TSHX, BMP, CK, LIP, LIVP, TROPI, CDP, PRCAL, CRP #### [address] [id number] Planting Material Carrier: Pito Freed MD Auto Diff Performed NOT REPORTED Normal [facility] Comment on above: Performed By: #### L ACWB, PT, PTT, KELI, DIME, BNP, CINTHIA, TSHX, BMP, CK, LIP, LIVP, TROPI, CDP, PRCAL, CRP #### [place] [address] Planting Material Carrier: Pito Freed MD Platelets (Bld) [#/Vol] NOT REPORTED Normal [facility] Comment on above: Performed By: #### L ACWB, PT, PTT, KELI, DIME, BNP, CINTHIA, TSHX, BMP, CK, LIP, LIVP, TROPI, CDP, PRCAL, CRP #### [address] [phone] Planting Material Carrier: Pito Freed MD WBC Morphology NOT REPORTED Normal [facility] Comment on above: Performed By: #### L ACWB, PT, PTT, KELI, DIME, BNP, CINTHIA, TSHX, BMP, CK, LIP, LIVP, TROPI, CDP, PRCAL, CRP #### [address] [id number] Planting Material Carrier: Pito Freed MD Hgb/Hcton 05-30-2018 Hematocrit (Bld) [Volume fraction] 35.2 % Low 40.7-50.3 [facility] Comment on above: Performed By: #### L ACWB, PT, PTT, KELI, DIME, BNP, CINTHIA, TSHX, BMP, CK, LIP, LIVP, TROPI, CDP, PRCAL, CRP #### [address] [address] Planting Material Carrier: Pito Freed MD Hemoglobin (Bld) [Mass/Vol] 10.8 g/dL Low 13.0-17.0 [facility] Comment on above: Performed By: #### L ACWB, PT, PTT, KELI, DIME, BNP, CINTHIA, TSHX, BMP, CK, LIP, LIVP, TROPI, CDP, PRCAL, CRP #### [place] [phone] Planting Material Carrier: Pito Freed MD CBC with Diffon 05-29-2018 Abs. Basophil 0.00 k/uL Normal 0.0-0.2 [facility] Comment on above: Performed By: #### L ACWB, PT, PTT, KELI, DIME, BNP, CINTHIA, TSHX, BMP, CK, LIP, LIVP, TROPI, CDP, PRCAL, CRP #### [address] [address] Planting Material Carrier: Pito Freed MD Abs.Imm.Granulocyte 0.21 k/uL Normal 0.00-0.30 [facility] Comment on above: Performed By: #### L ACWB, PT, PTT, KELI, DIME, BNP, CINTHIA, TSHX, BMP, CK, LIP, LIVP, TROPI, CDP, PRCAL, CRP #### [place] [phone] Planting Material Carrier: Pito Freed MD Abs.Neutrophil (Seg) 9.54 k/uL High 1.8-7.7 [facility] Comment on above: Performed By: #### L ACWB, PT, PTT, KELI, DIME, BNP, CINTHIA, TSHX, BMP, CK, LIP, LIVP, TROPI, CDP, PRCAL, CRP #### [address] [address] Planting Material Carrier: Pito Freed MD Basophils/100 WBC (Bld) 0 % Normal 0-2 [facility] Comment on above: Performed By: #### L ACWB, PT, PTT, KELI, DIME, BNP, CINTHIA, TSHX, BMP, CK, LIP, LIVP, TROPI, CDP, PRCAL, CRP #### [address] [id number] Planting Material Carrier: Pito Freed MD Eosinophils (Bld) [#/Vol] 0.00 10*3/uL Normal 0.0-0.4 [facility] Comment on above: Performed By: #### L ACWB, PT, PTT, KELI, DIME, BNP, CINTHIA, TSHX, BMP, CK, LIP, LIVP, TROPI, CDP, PRCAL, CRP #### [address] [address] Planting Material Carrier: Pito Freed MD Eosinophils/100 WBC (Bld) 0 % Low 1-4 [facility] Comment on above: Performed By: #### L ACWB, PT, PTT, KELI, DIME, BNP, CINTHIA, TSHX, BMP, CK, LIP, LIVP, TROPI, CDP, PRCAL, CRP #### [place] [id number] Planting Material Carrier: Pito Freed MD Immature granulocytes (Bld) [#/Vol] 2 % High 0 [facility] Comment on above: Performed By: #### L ACWB, PT, PTT, KELI, DIME, BNP, CINTHIA, TSHX, BMP, CK, LIP, LIVP, TROPI, CDP, PRCAL, CRP #### [address] [address] Planting Material Carrier: Pito Freed MD Lymphocytes (Bld) [#/Vol] 0.53 10*3/uL Low 1.0-4.8 [facility] Comment on above: Performed By: #### L ACWB, PT, PTT, KELI, DIME, BNP, CINTHIA, TSHX, BMP, CK, LIP, LIVP, TROPI, CDP, PRCAL, CRP #### [address] [address] Planting Material Carrier: Pito Freed MD Lymphocytes/100 WBC (Bld) 5 % Low 24-44 [facility] Comment on above: Performed By: #### L ACWB, PT, PTT, KELI, DIME, BNP, CINTHIA, TSHX, BMP, CK, LIP, LIVP, TROPI, CDP, PRCAL, CRP #### [place] [id number] Planting Material Carrier: Pito Freed MD Monocytes (Bld) [#/Vol] 0.32 10*3/uL Normal 0.1-0.8 [facility] Comment on above: Performed By: #### L ACWB, PT, PTT, KELI, DIME, BNP, CINTHIA, TSHX, BMP, CK, LIP, LIVP, TROPI, CDP, PRCAL, CRP #### [place] [id number] Planting Material Carrier: Pito Freed MD Monocytes/100 WBC (Bld) 3 % Normal 1-7 [facility] Comment on above: Performed By: #### L ACWB, PT, PTT, KELI, DIME, BNP, CINTHIA, TSHX, BMP, CK, LIP, LIVP, TROPI, CDP, PRCAL, CRP #### [address] [address] Planting Material Carrier: Pito Freed MD Morphology Aneudy (Bld) [Interp] ANISOCYTOSIS PRESENT Normal [facility] Comment on above: Performed By: #### L ACWB, PT, PTT, KELI, DIME, BNP, CINTHIA, TSHX, BMP, CK, LIP, LIVP, TROPI, CDP, PRCAL, CRP #### [address] [address] Planting Material Carrier: Pito Freed MD Neutrophil (Seg) 90 % High 36-66 [facility] Comment on above: Performed By: #### L ACWB, PT, PTT, KELI, DIME, BNP, CINTHIA, TSHX, BMP, CK, LIP, LIVP, TROPI, CDP, PRCAL, CRP #### [address] [address] Planting Material Carrier: Pito Freed MD Erythrocyte distribution width (RBC) [Ratio] 15.5 % High 11.8-14.4 [facility] Comment on above: Performed By: #### L ACWB, PT, PTT, KELI, DIME, BNP, CINTHIA, TSHX, BMP, CK, LIP, LIVP, TROPI, CDP, PRCAL, CRP #### [address] [address] Planting Material Carrier: Pito Freed MD Hematocrit (Bld) [Volume fraction] 33.5 % Low 40.7-50.3 [facility] Comment on above: Performed By: #### L ACWB, PT, PTT, KELI, DIME, BNP, CINTHIA, TSHX, BMP, CK, LIP, LIVP, TROPI, CDP, PRCAL, CRP #### [address] [id number] Planting Material Carrier: Pito Freed MD Hemoglobin (Bld) [Mass/Vol] 10.5 g/dL Low 13.0-17.0 [facility] Comment on above: Performed By: #### L ACWB, PT, PTT, KELI, DIME, BNP, CINTHIA, TSHX, BMP, CK, LIP, LIVP, TROPI, CDP, PRCAL, CRP #### [address] [id number] Planting Material Carrier: Pito Freed MD MCH (RBC) [Entitic mass] 28.8 pg Normal 25.2-33.5 [facility] Comment on above: Performed By: #### L ACWB, PT, PTT, KELI, DIME, BNP, CINTHIA, TSHX, BMP, CK, LIP, LIVP, TROPI, CDP, PRCAL, CRP #### [address] [id number] Planting Material Carrier: Pito Freed MD MCHC (RBC) [Mass/Vol] 31.3 g/dL Normal 28.4-34.8 [facility] Comment on above: Performed By: #### L ACWB, PT, PTT, KELI, DIME, BNP, CINTHIA, TSHX, BMP, CK, LIP, LIVP, TROPI, CDP, PRCAL, CRP #### [address] [id number] Planting Material Carrier: Pito Freed MD MCV (RBC) [Entitic vol] 91.8 fL Normal 82.6-102.9 [facility] Comment on above: Performed By: #### L ACWB, PT, PTT, KELI, DIME, BNP, CINTHIA, TSHX, BMP, CK, LIP, LIVP, TROPI, CDP, PRCAL, CRP #### [address] [id number] Planting Material Carrier: Pito Freed MD NRBC Automated 0.0 per 100 WBC Normal 0.0 [facility] Comment on above: Performed By: #### L ACWB, PT, PTT, KELI, DIME, BNP, CINTHIA, TSHX, BMP, CK, LIP, LIVP, TROPI, CDP, PRCAL, CRP #### [address] [id number] Planting Material Carrier: Pito Freed MD Platelet mean volume (Bld) [Entitic vol] 12.2 fL Normal 8.1-13.5 [facility] Comment on above: Performed By: #### L ACWB, PT, PTT, KELI, DIME, BNP, CINTHIA, TSHX, BMP, CK, LIP, LIVP, TROPI, CDP, PRCAL, CRP #### [address] [phone] Planting Material Carrier: Pito Freed MD Platelets (Bld) [#/Vol] 192 10*3/uL Normal 138-453 [facility] Comment on above: Performed By: #### L ACWB, PT, PTT, KELI, DIME, BNP, CINTHIA, TSHX, BMP, CK, LIP, LIVP, TROPI, CDP, PRCAL, CRP #### [address] [phone] Planting Material Carrier: Pito Freed MD RBC (Bld) [#/Vol] 3.65 10*6/uL Low 4.21-5.77 [facility] Comment on above: Performed By: #### L ACWB, PT, PTT, KELI, DIME, BNP, CINTHIA, TSHX, BMP, CK, LIP, LIVP, TROPI, CDP, PRCAL, CRP #### [address] [phone] Planting Material Carrier: Pito Freed MD WBC (Bld) [#/Vol] 10.6 10*3/uL Normal 3.5-11.3 [facility] Comment on above: Performed By: #### L ACWB, PT, PTT, KELI, DIME, BNP, CINTHIA, TSHX, BMP, CK, LIP, LIVP, TROPI, CDP, PRCAL, CRP #### [address] [id number] Planting Material Carrier: Pito Freed MD Auto Diff Performed NOT REPORTED Normal [facility] Comment on above: Performed By: #### L ACWB, PT, PTT, KELI, DIME, BNP, CINTHIA, TSHX, BMP, CK, LIP, LIVP, TROPI, CDP, PRCAL, CRP #### [address] [phone] Planting Material Carrier: Pito Freed MD Platelets (Bld) [#/Vol] NOT REPORTED Normal [facility] Comment on above: Performed By: #### L ACWB, PT, PTT, KELI, DIME, BNP, CINTHIA, TSHX, BMP, CK, LIP, LIVP, TROPI, CDP, PRCAL, CRP #### [address] [id number] Planting Material Carrier: Pito Freed MD RBC morphology finding Nom (Bld) NOT REPORTED Normal [facility] Comment on above: Performed By: #### L ACWB, PT, PTT, KELI, DIME, BNP, CINTHIA, TSHX, BMP, CK, LIP, LIVP, TROPI, CDP, PRCAL, CRP #### [address] [phone] Planting Material Carrier: Pito Freed MD WBC Morphology NOT REPORTED Normal [facility] Comment on above: Performed By: #### L ACWB, PT, PTT, KELI, DIME, BNP, CINTHIA, TSHX, BMP, CK, LIP, LIVP, TROPI, CDP, PRCAL, CRP #### [address] [phone] Planting Material Carrier: Pito Freed MD Hgb/Hcton 05-29-2018 Hematocrit (Bld) [Volume fraction] 34.1 % Low 40.7-50.3 [facility] Comment on above: Performed By: #### L ACWB, PT, PTT, KELI, DIME, BNP, CINTHIA, TSHX, BMP, CK, LIP, LIVP, TROPI, CDP, PRCAL, CRP #### [address] [id number] Planting Material Carrier: Pito Freed MD Hemoglobin (Bld) [Mass/Vol] 10.7 g/dL Low 13.0-17.0 [facility] Comment on above: Performed By: #### L ACWB, PT, PTT, KELI, DIME, BNP, CINTHIA, TSHX, BMP, CK, LIP, LIVP, TROPI, CDP, PRCAL, CRP #### [address] [address] Planting Material Carrier: Pito Freed MD Hematocrit (Bld) [Volume fraction] 33.7 % Low 40.7-50.3 [facility] Comment on above: Performed By: #### L ACWB, PT, PTT, KELI, DIME, BNP, CINTHIA, TSHX, BMP, CK, LIP, LIVP, TROPI, CDP, PRCAL, CRP #### [address] [address] Planting Material Carrier: Pito Freed MD Hemoglobin (Bld) [Mass/Vol] 10.5 g/dL Low 13.0-17.0 [facility] Comment on above: Performed By: #### L ACWB, PT, PTT, KELI, DIME, BNP, CINTHIA, TSHX, BMP, CK, LIP, LIVP, TROPI, CDP, PRCAL, CRP #### [address] [address] Planting Material Carrier: Pito Freed MD CBC with Diffon 05-28-2018 Abs. Basophil 0.00 k/uL Normal 0.0-0.2 [facility] Comment on above: Performed By: #### L ACWB, PT, PTT, KELI, DIME, BNP, CINTHIA, TSHX, BMP, CK, LIP, LIVP, TROPI, CDP, PRCAL, CRP #### [address] [address] Planting Material Carrier: Pito Freed MD Abs.Imm.Granulocyte 0.86 k/uL High 0.00-0.30 [facility] Comment on above: Performed By: #### L ACWB, PT, PTT, KELI, DIME, BNP, CINTHIA, TSHX, BMP, CK, LIP, LIVP, TROPI, CDP, PRCAL, CRP #### [address] [id number] Planting Material Carrier: Pito Freed MD Abs.Neutrophil (Seg) 10.21 k/uL High 1.8-7.7 [facility] Comment on above: Performed By: #### L ACWB, PT, PTT, KELI, DIME, BNP, CINTHIA, TSHX, BMP, CK, LIP, LIVP, TROPI, CDP, PRCAL, CRP #### [place] [id number] Planting Material Carrier: Pito Freed MD Basophils/100 WBC (Bld) 0 % Normal 0-2 [facility] Comment on above: Performed By: #### L ACWB, PT, PTT, KELI, DIME, BNP, CINTHIA, TSHX, BMP, CK, LIP, LIVP, TROPI, CDP, PRCAL, CRP #### [place] [address] Planting Material Carrier: Pito Freed MD Eosinophils (Bld) [#/Vol] 0.00 10*3/uL Normal 0.0-0.4 [facility] Comment on above: Performed By: #### L ACWB, PT, PTT, KELI, DIME, BNP, CINTHIA, TSHX, BMP, CK, LIP, LIVP, TROPI, CDP, PRCAL, CRP #### [place] [id number] Planting Material Carrier: Pito Freed MD Eosinophils/100 WBC (Bld) 0 % Low 1-4 [facility] Comment on above: Performed By: #### L ACWB, PT, PTT, KELI, DIME, BNP, CINTHIA, TSHX, BMP, CK, LIP, LIVP, TROPI, CDP, PRCAL, CRP #### [address] [id number] Planting Material Carrier: Pito Freed MD Immature granulocytes (Bld) [#/Vol] 7 % High 0 [facility] Comment on above: Performed By: #### L ACWB, PT, PTT, KELI, DIME, BNP, CINTHIA, TSHX, BMP, CK, LIP, LIVP, TROPI, CDP, PRCAL, CRP #### [address] [id number] Planting Material Carrier: Pito Freed MD Lymphocytes (Bld) [#/Vol] 0.86 10*3/uL Low 1.0-4.8 [facility] Comment on above: Performed By: #### L ACWB, PT, PTT, KELI, DIME, BNP, CINTHIA, TSHX, BMP, CK, LIP, LIVP, TROPI, CDP, PRCAL, CRP #### [address] [id number] Planting Material Carrier: Pito Freed MD Lymphocytes/100 WBC (Bld) 7 % Low 24-44 [facility] Comment on above: Performed By: #### L ACWB, PT, PTT, KELI, DIME, BNP, CINTHIA, TSHX, BMP, CK, LIP, LIVP, TROPI, CDP, PRCAL, CRP #### [place] [id number] Planting Material Carrier: Pito Freed MD Monocytes (Bld) [#/Vol] 0.37 10*3/uL Normal 0.1-0.8 [facility] Comment on above: Performed By: #### L ACWB, PT, PTT, KELI, DIME, BNP, CINTHIA, TSHX, BMP, CK, LIP, LIVP, TROPI, CDP, PRCAL, CRP #### [address] [id number] Planting Material Carrier: Pito Freed MD Monocytes/100 WBC (Bld) 3 % Normal 1-7 [facility] Comment on above: Performed By: #### L ACWB, PT, PTT, KELI, DIME, BNP, CINTHIA, TSHX, BMP, CK, LIP, LIVP, TROPI, CDP, PRCAL, CRP #### [address] [phone] Planting Material Carrier: Pito Freed MD Morphology Aenudy (Bld) [Interp] ANISOCYTOSIS PRESENT Normal [facility] Comment on above: Performed By: #### L ACWB, PT, PTT, KELI, DIME, BNP, CINTHIA, TSHX, BMP, CK, LIP, LIVP, TROPI, CDP, PRCAL, CRP #### [place] [id number] Planting Material Carrier: Pito Freed MD Neutrophil (Seg) 83 % High 36-66 [facility] Comment on above: Performed By: #### L ACWB, PT, PTT, KELI, DIME, BNP, CINTHIA, TSHX, BMP, CK, LIP, LIVP, TROPI, CDP, PRCAL, CRP #### [place] [id number] Planting Material Carrier: Pito Freed MD Erythrocyte distribution width (RBC) [Ratio] 15.6 % High 11.8-14.4 [facility] Comment on above: Performed By: #### L ACWB, PT, PTT, KELI, DIME, BNP, CINTHIA, TSHX, BMP, CK, LIP, LIVP, TROPI, CDP, PRCAL, CRP #### [place] [address] Planting Material Carrier: Pito Freed MD Hematocrit (Bld) [Volume fraction] 33.9 % Low 40.7-50.3 [facility] Comment on above: Performed By: #### L ACWB, PT, PTT, KELI, DIME, BNP, CINTHIA, TSHX, BMP, CK, LIP, LIVP, TROPI, CDP, PRCAL, CRP #### [address] [id number] Planting Material Carrier: Pito Freed MD Hemoglobin (Bld) [Mass/Vol] 10.9 g/dL Low 13.0-17.0 [facility] Comment on above: Performed By: #### L ACWB, PT, PTT, KELI, DIME, BNP, CINTHIA, TSHX, BMP, CK, LIP, LIVP, TROPI, CDP, PRCAL, CRP #### [address] [address] Planting Material Carrier: Pito Freed MD MCH (RBC) [Entitic mass] 28.6 pg Normal 25.2-33.5 [facility] Comment on above: Performed By: #### L ACWB, PT, PTT, KELI, DIME, BNP, CINTHIA, TSHX, BMP, CK, LIP, LIVP, TROPI, CDP, PRCAL, CRP #### [address] [address] Planting Material Carrier: Pito Freed MD MCHC (RBC) [Mass/Vol] 32.2 g/dL Normal 28.4-34.8 [facility] Comment on above: Performed By: #### L ACWB, PT, PTT, KELI, DIME, BNP, CINTHIA, TSHX, BMP, CK, LIP, LIVP, TROPI, CDP, PRCAL, CRP #### [address] [address] Planting Material Carrier: Pito Freed MD MCV (RBC) [Entitic vol] 89.0 fL Normal 82.6-102.9 [facility] Comment on above: Performed By: #### L ACWB, PT, PTT, KELI, DIME, BNP, CINTHIA, TSHX, BMP, CK, LIP, LIVP, TROPI, CDP, PRCAL, CRP #### [address] [id number] Planting Material Carrier: Pito Freed MD NRBC Automated 0.0 per 100 WBC Normal 0.0 [facility] Comment on above: Performed By: #### L ACWB, PT, PTT, KELI, DIME, BNP, CINTHIA, TSHX, BMP, CK, LIP, LIVP, TROPI, CDP, PRCAL, CRP #### [address] [id number] Planting Material Carrier: Pito Freed MD Platelet mean volume (Bld) [Entitic vol] 12.5 fL Normal 8.1-13.5 [facility] Comment on above: Performed By: #### L ACWB, PT, PTT, KELI, DIME, BNP, CINTHIA, TSHX, BMP, CK, LIP, LIVP, TROPI, CDP, PRCAL, CRP #### [address] [id number] Planting Material Carrier: Pito Freed MD Platelets (Bld) [#/Vol] 189 10*3/uL Normal 138-453 [facility] Comment on above: Performed By: #### L ACWB, PT, PTT, KELI, DIME, BNP, CINTHIA, TSHX, BMP, CK, LIP, LIVP, TROPI, CDP, PRCAL, CRP #### [address] [id number] Planting Material Carrier: Pito Freed MD RBC (Bld) [#/Vol] 3.81 10*6/uL Low 4.21-5.77 [facility] Comment on above: Performed By: #### L ACWB, PT, PTT, KELI, DIME, BNP, CINTHIA, TSHX, BMP, CK, LIP, LIVP, TROPI, CDP, PRCAL, CRP #### [address] [id number] Planting Material Carrier: Pito Freed MD WBC (Bld) [#/Vol] 12.3 10*3/uL High 3.5-11.3 [facility] Comment on above: Performed By: #### L ACWB, PT, PTT, KELI, DIME, BNP, CINTHIA, TSHX, BMP, CK, LIP, LIVP, TROPI, CDP, PRCAL, CRP #### [address] [id number] Planting Material Carrier: Pito Freed MD Auto Diff Performed NOT REPORTED Normal [facility] Comment on above: Performed By: #### L ACWB, PT, PTT, KELI, DIME, BNP, CINTHIA, TSHX, BMP, CK, LIP, LIVP, TROPI, CDP, PRCAL, CRP #### [address] [id number] Planting Material Carrier: Pito Freed MD Platelets (Bld) [#/Vol] NOT REPORTED Normal [facility] Comment on above: Performed By: #### L ACWB, PT, PTT, KELI, DIME, BNP, CINTHIA, TSHX, BMP, CK, LIP, LIVP, TROPI, CDP, PRCAL, CRP #### [address] [id number] Planting Material Carrier: Pito Freed MD RBC morphology finding Nom (Bld) NOT REPORTED Normal [facility] Comment on above: Performed By: #### L ACWB, PT, PTT, KELI, DIME, BNP, CINTHIA, TSHX, BMP, CK, LIP, LIVP, TROPI, CDP, PRCAL, CRP #### [address] [id number] Planting Material Carrier: Pito Freed MD WBC Morphology NOT REPORTED Normal [facility] Comment on above: Performed By: #### L ACWB, PT, PTT, KELI, DIME, BNP, CINTHIA, TSHX, BMP, CK, LIP, LIVP, TROPI, CDP, PRCAL, CRP #### [address] [id number] Planting Material Carrier: Pito Freed MD Cult,Aerobe/Anaerobeon 05-28 Cult,Aerobe/Anaerobe Specimen Descriptio n .LIVER .ABSCESS DRAINAGE Special Requests PERFECTSERVE DR NG WHEN FINAL Direct Exam MANY NEUTROPHILS NO BACTERIA SEEN Culture ESCHERICHIA COLI SCANT GROWTH NO ANAEROBIC ORGANISMS ISOLATED AT 5 DAYS Report Status FINAL 05/31/2018 SUSCEPTIBILITY Organism ESCHERICHIA COLI Method EMERSON Amikacin NOT REPORTED Ampicillin 8 SUSCEPTIBLE Ampicillin/Sulbactam NOT REPORTED Aztreonam <=1 SUSCEPTIBLE Cefazolin <=4 SUSCEPTIBLE Cefepime NOT REPORTED Ceftriaxone <=1 SUSCEPTIBLE Ciprofloxacin <=0.25 SUSCEPTIBLE Ertapenem NOT REPORTED ESBL NEGATIVE Gentamicin <=1 SUSCEPTIBLE Meropenem NOT REPORTED Nitrofurantoin NOT REPORTED Tigecycline NOT REPORTED Tobramycin <=1 SUSCEPTIBLE Trimethoprim/Sulfa <=20 SUSCEPTIBLE Piperacillin/Tazobactam <=4 SUSCEPTIBLE Normal [facility] Comment on above: Performed By: #### L ACWB, PT, PTT, KELI, DIME, BNP, CINTHIA, TSHX, BMP, CK, LIP, LIVP, TROPI, CDP, PRCAL, CRP #### [address] [address] Planting Material Carrier: Pito Freed MD Cult,Bloodon 05-28-2018 Cult,Blood Specimen Description .BLOOD Special Requests L WRIST 12ML Culture NO GROWTH 6 DAYS Report Status FINAL 05/28/2018 [facility] Comment on above: Performed By: #### L ACWB, PT, PTT, KELI, DIME, BNP, CINTHIA, TSHX, BMP, CK, LIP, LIVP, TROPI, CDP, PRCAL, CRP #### [address] [address] Planting Material Carrier: Pito Freed MD Cult,Blood Specimen Description .BLOOD Special Requests RT FEM 12ML Culture NO GROWTH 6 DAYS Report Status FINAL 05/28/2018 [facility] Comment on above: Performed By: #### L ACWB, PT, PTT, KELI, DIME, BNP, CINTHIA, TSHX, BMP, CK, LIP, LIVP, TROPI, CDP, PRCAL, CRP #### [facility] [place] [address] Planting Material Carrier: Pito Freed MD Hgb/Hcton 05-28-2018 Hematocrit (Bld) [Volume fraction] 35.0 % Low 40.7-50.3 [facility] Comment on above: Performed By: #### L ACWB, PT, PTT, KELI, DIME, BNP, CINTHIA, TSHX, BMP, CK, LIP, LIVP, TROPI, CDP, PRCAL, CRP #### [employer] [address] [place] [address] Planting Material Carrier: Pito Freed MD Hemoglobin (Bld) [Mass/Vol] 10.8 g/dL Low 13.0-17.0 [facility] Comment on above: Performed By: #### L ACWB, PT, PTT, KELI, DIME, BNP, CINTHIA, TSHX, BMP, CK, LIP, LIVP, TROPI, CDP, PRCAL, CRP #### [employer] [address] [place] [address] Planting Material Carrier: Pito Freed MD Basic Metab w/rfx MGon 05-27 (cont.) Normal [facility] Comment on above: Result Comment: Aver age GFR for 60-69 years old: 85 mL/min/1.73sq m Chronic Kidney Disease: <60 mL/min/1.73sq m Kidney failure: <15 mL/min/1.73sq m eGFR calculated using average adult body mass. Additional eGFR calculator available at: http://www.[employer].com/multiple_crcl_2012.htm Performed By: #### L ACWB, PT, PTT, KELI, DIME, BNP, CINTHIA, TSHX, BMP, CK, LIP, LIVP, TROPI, CDP, PRCAL, CRP #### [facility] [address] [place] [address] Planting Material Carrier: Pito Freed MD Anion gap [Moles/Vol] 9 mmol/L Normal 9-17 [facility] Comment on above: Performed By: #### L ACWB, PT, PTT, KELI, DIME, BNP, CINTHIA, TSHX, BMP, CK, LIP, LIVP, TROPI, CDP, PRCAL, CRP #### [address] [address] Planting Material Carrier: Pito Freed MD Calcium [Mass/Vol] 7.2 mg/dL Low 8.6-10.4 [facility] Comment on above: Performed By: #### L ACWB, PT, PTT, KELI, DIME, BNP, CINTHIA, TSHX, BMP, CK, LIP, LIVP, TROPI, CDP, PRCAL, CRP #### [address] [address] Planting Material Carrier: Pito Freed MD Chloride [Moles/Vol] 106 mmol/L Normal 98-107 [facility] Comment on above: Performed By: #### L ACWB, PT, PTT, KELI, DIME, BNP, CINTHIA, TSHX, BMP, CK, LIP, LIVP, TROPI, CDP, PRCAL, CRP #### [address] [address] Planting Material Carrier: Pito Freed MD CO2 [Moles/Vol] 20 mmol/L Normal 20-31 [facility] Comment on above: Performed By: #### L ACWB, PT, PTT, KELI, DIME, BNP, CINTHIA, TSHX, BMP, CK, LIP, LIVP, TROPI, CDP, PRCAL, CRP #### [address] [address] Planting Material Carrier: Pito Freed MD Creatinine [Mass/Vol] 0.69 mg/dL Low 0.70-1.20 [facility] Comment on above: Performed By: #### L ACWB, PT, PTT, KELI, DIME, BNP, CINTHIA, TSHX, BMP, CK, LIP, LIVP, TROPI, CDP, PRCAL, CRP #### [address] [phone] Planting Material Carrier: Pito Freed MD GFR, Amer >60 Normal >60 [facility] Comment on above: Performed By: #### L ACWB, PT, PTT, KELI, DIME, BNP, CINTHIA, TSHX, BMP, CK, LIP, LIVP, TROPI, CDP, PRCAL, CRP #### [address] [id number] Planting Material Carrier: Pito Freed MD GFR,non Amer >60 Normal >60 [facility] Comment on above: Performed By: #### L ACWB, PT, PTT, KELI, DIME, BNP, CINTHIA, TSHX, BMP, CK, LIP, LIVP, TROPI, CDP, PRCAL, CRP #### [address] [id number] Planting Material Carrier: Pito Freed MD Glucose [Mass/Vol] 122 mg/dL High 70-99 [facility] Comment on above: Performed By: #### L ACWB, PT, PTT, KELI, DIME, BNP, CINTHIA, TSHX, BMP, CK, LIP, LIVP, TROPI, CDP, PRCAL, CRP #### [address] [id number] Planting Material Carrier: Pito Freed MD Potassium [Moles/Vol] 4.0 mmol/L Normal 3.7-5.3 [facility] Comment on above: Performed By: #### L ACWB, PT, PTT, KELI, DIME, BNP, CINTHIA, TSHX, BMP, CK, LIP, LIVP, TROPI, CDP, PRCAL, CRP #### [address] [id number] Planting Material Carrier: Pito Freed MD Sodium [Moles/Vol] 135 mmol/L Normal 135-144 [facility] Comment on above: Performed By: #### L ACWB, PT, PTT, KELI, DIME, BNP, CINTHIA, TSHX, BMP, CK, LIP, LIVP, TROPI, CDP, PRCAL, CRP #### [address] [id number] Planting Material Carrier: Pito Freed MD Urea nitrogen [Mass/Vol] 23 mg/dL Normal 8- [facility] Comment on above: Performed By: #### L ACWB, PT, PTT, KELI, DIME, BNP, CINTHIA, TSHX, BMP, CK, LIP, LIVP, TROPI, CDP, PRCAL, CRP #### [address] [address] Planting Material Carrier: Pito Freed MD BUN/CRE Ratio NOT REPORTED Normal - [facility] Comment on above: Performed By: #### L ACWB, PT, PTT, KELI, DIME, BNP, CINTHIA, TSHX, BMP, CK, LIP, LIVP, TROPI, CDP, PRCAL, CRP #### [address] [address] Planting Material Carrier: Pito Freed MD Staging: NOT REPORTED Normal [facility] Comment on above: Performed By: #### L ACWB, PT, PTT, KELI, DIME, BNP, CINTHIA, TSHX, BMP, CK, LIP, LIVP, TROPI, CDP, PRCAL, CRP #### [address] [address] Planting Material Carrier: Pito Freed MD CBC with Diffon 05-27-2018 Abs. Basophil 0.00 k/uL Normal 0.0-0.2 [facility] Comment on above: Performed By: #### L ACWB, PT, PTT, KELI, DIME, BNP, CINTHIA, TSHX, BMP, CK, LIP, LIVP, TROPI, CDP, PRCAL, CRP #### [address] [id number] Planting Material Carrier: Pito Freed MD Abs.Imm.Granulocyte 0.14 k/uL Normal 0.00-0.30 [facility] Comment on above: Performed By: #### L ACWB, PT, PTT, KELI, DIME, BNP, CINTHIA, TSHX, BMP, CK, LIP, LIVP, TROPI, CDP, PRCAL, CRP #### [address] [phone] Planting Material Carrier: Pito Freed MD Abs.Neutrophil (Seg) 12.27 k/uL High 1.8-7.7 [facility] Comment on above: Performed By: #### L ACWB, PT, PTT, KELI, DIME, BNP, CINTHIA, TSHX, BMP, CK, LIP, LIVP, TROPI, CDP, PRCAL, CRP #### [address] [phone] Planting Material Carrier: Pito Freed MD Basophils/100 WBC (Bld) 0 % Normal 0-2 [facility] Comment on above: Performed By: #### L ACWB, PT, PTT, KELI, DIME, BNP, CINTHIA, TSHX, BMP, CK, LIP, LIVP, TROPI, CDP, PRCAL, CRP #### [address] [id number] Planting Material Carrier: Pito Freed MD Eosinophils (Bld) [#/Vol] 0.14 10*3/uL Normal 0.0-0.4 [facility] Comment on above: Performed By: #### L ACWB, PT, PTT, KLEI, DIME, BNP, CINTHIA, TSHX, BMP, CK, LIP, LIVP, TROPI, CDP, PRCAL, CRP #### [address] [id number] Planting Material Carrier: Pito Freed MD Eosinophils/100 WBC (Bld) 1 % Normal 1-4 [facility] Comment on above: Performed By: #### L ACWB, PT, PTT, KELI, DIME, BNP, CINTHIA, TSHX, BMP, CK, LIP, LIVP, TROPI, CDP, PRCAL, CRP #### [address] [address] Planting Material Carrier: Pito Freed MD Immature granulocytes (Bld) [#/Vol] 1 % High 0 [facility] Comment on above: Performed By: #### L ACWB, PT, PTT, KELI, DIME, BNP, CINTHIA, TSHX, BMP, CK, LIP, LIVP, TROPI, CDP, PRCAL, CRP #### [address] [address] Planting Material Carrier: Pito Freed MD Lymphocytes (Bld) [#/Vol] 0.97 10*3/uL Low 1.0-4.8 [facility] Comment on above: Performed By: #### L ACWB, PT, PTT, KELI, DIME, BNP, CINTHIA, TSHX, BMP, CK, LIP, LIVP, TROPI, CDP, PRCAL, CRP #### [address] [address] Planting Material Carrier: Pito Freed MD Lymphocytes/100 WBC (Bld) 7 % Low 24-44 [facility] Comment on above: Performed By: #### L ACWB, PT, PTT, KELI, DIME, BNP, CINTHIA, TSHX, BMP, CK, LIP, LIVP, TROPI, CDP, PRCAL, CRP #### [address] [address] Planting Material Carrier: Pito Freed MD Monocytes (Bld) [#/Vol] 0.28 10*3/uL Normal 0.1-0.8 [facility] Comment on above: Performed By: #### L ACWB, PT, PTT, KELI, DIME, BNP, CINTHIA, TSHX, BMP, CK, LIP, LIVP, TROPI, CDP, PRCAL, CRP #### [address] [id number] Planting Material Carrier: Pito Freed MD Monocytes/100 WBC (Bld) 2 % Normal 1-7 [facility] Comment on above: Performed By: #### L ACWB, PT, PTT, KELI, DIME, BNP, CINTHIA, TSHX, BMP, CK, LIP, LIVP, TROPI, CDP, PRCAL, CRP #### [address] [id number] Planting Material Carrier: Pito Freed MD Morphology Aneudy (Bld) [Interp] ANISOCYTOSIS PRESENT Normal [facility] Comment on above: Performed By: #### L ACWB, PT, PTT, KELI, DIME, BNP, CINTHIA, TSHX, BMP, CK, LIP, LIVP, TROPI, CDP, PRCAL, CRP #### [address] [phone] Planting Material Carrier: Pito Freed MD Neutrophil (Seg) 89 % High 36-66 [facility] Comment on above: Performed By: #### L ACWB, PT, PTT, KELI, DIME, BNP, CINTHIA, TSHX, BMP, CK, LIP, LIVP, TROPI, CDP, PRCAL, CRP #### [address] [id number] Planting Material Carrier: Pito Freed MD Erythrocyte distribution width (RBC) [Ratio] 15.4 % High 11.8-14.4 [facility] Comment on above: Performed By: #### L ACWB, PT, PTT, KELI, DIME, BNP, CINTHIA, TSHX, BMP, CK, LIP, LIVP, TROPI, CDP, PRCAL, CRP #### [address] [address] Planting Material Carrier: Pito Freed MD Hematocrit (Bld) [Volume fraction] 32.8 % Low 40.7-50.3 [facility] Comment on above: Performed By: #### L ACWB, PT, PTT, KELI, DIME, BNP, CINTHIA, TSHX, BMP, CK, LIP, LIVP, TROPI, CDP, PRCAL, CRP #### [address] [address] Planting Material Carrier: Pito Freed MD Hemoglobin (Bld) [Mass/Vol] 10.6 g/dL Low 13.0-17.0 [facility] Comment on above: Performed By: #### L ACWB, PT, PTT, KELI, DIME, BNP, CINTHIA, TSHX, BMP, CK, LIP, LIVP, TROPI, CDP, PRCAL, CRP #### [place] [id number] Planting Material Carrier: Pito Freed MD MCH (RBC) [Entitic mass] 28.6 pg Normal 25.2-33.5 [facility] Comment on above: Performed By: #### L ACWB, PT, PTT, KELI, DIME, BNP, CINTHIA, TSHX, BMP, CK, LIP, LIVP, TROPI, CDP, PRCAL, CRP #### [address] [address] Planting Material Carrier: Pito Freed MD MCHC (RBC) [Mass/Vol] 32.3 g/dL Normal 28.4-34.8 [facility] Comment on above: Performed By: #### L ACWB, PT, PTT, KELI, DIME, BNP, CINTHIA, TSHX, BMP, CK, LIP, LIVP, TROPI, CDP, PRCAL, CRP #### [address] [address] Planting Material Carrier: Pito Freed MD MCV (RBC) [Entitic vol] 88.6 fL Normal 82.6-102.9 [facility] Comment on above: Performed By: #### L ACWB, PT, PTT, KELI, DIME, BNP, CINTHIA, TSHX, BMP, CK, LIP, LIVP, TROPI, CDP, PRCAL, CRP #### [address] [address] Planting Material Carrier: Pito Freed MD NRBC Automated 0.0 per 100 WBC Normal 0.0 [facility] Comment on above: Performed By: #### L ACWB, PT, PTT, KELI, DIME, BNP, CINTHIA, TSHX, BMP, CK, LIP, LIVP, TROPI, CDP, PRCAL, CRP #### [place] [id number] Planting Material Carrier: Pito Freed MD Platelet mean volume (Bld) [Entitic vol] 12.8 fL Normal 8.1-13.5 [facility] Comment on above: Performed By: #### L ACWB, PT, PTT, KELI, DIME, BNP, CINTHIA, TSHX, BMP, CK, LIP, LIVP, TROPI, CDP, PRCAL, CRP #### [place] [id number] Planting Material Carrier: Pito Freed MD Platelets (Bld) [#/Vol] 131 10*3/uL Low 138-453 [facility] Comment on above: Performed By: #### L ACWB, PT, PTT, KELI, DIME, BNP, CINTHIA, TSHX, BMP, CK, LIP, LIVP, TROPI, CDP, PRCAL, CRP #### [place] [id number] Planting Material Carrier: Pito Freed MD RBC (Bld) [#/Vol] 3.70 10*6/uL Low 4.21-5.77 [facility] Comment on above: Performed By: #### L ACWB, PT, PTT, KELI, DIME, BNP, CINTHIA, TSHX, BMP, CK, LIP, LIVP, TROPI, CDP, PRCAL, CRP #### [address] [id number] Planting Material Carrier: Pito Freed MD WBC (Bld) [#/Vol] 13.8 10*3/uL High 3.5-11.3 [facility] Comment on above: Performed By: #### L ACWB, PT, PTT, KELI, DIME, BNP, CINTHIA, TSHX, BMP, CK, LIP, LIVP, TROPI, CDP, PRCAL, CRP #### [address] [id number] Planting Material Carrier: Pito Freed MD Auto Diff Performed NOT REPORTED Normal [facility] Comment on above: Performed By: #### L ACWB, PT, PTT, KELI, DIME, BNP, CINTHIA, TSHX, BMP, CK, LIP, LIVP, TROPI, CDP, PRCAL, CRP #### [address] [id number] Planting Material Carrier: Pito Freed MD Platelets (Bld) [#/Vol] NOT REPORTED Normal [facility] Comment on above: Performed By: #### L ACWB, PT, PTT, KELI, DIME, BNP, CINTHIA, TSHX, BMP, CK, LIP, LIVP, TROPI, CDP, PRCAL, CRP #### [address] [id number] Planting Material Carrier: Pito Freed MD RBC morphology finding Nom (Bld) NOT REPORTED Normal [facility] Comment on above: Performed By: #### L ACWB, PT, PTT, KELI, DIME, BNP, CINTHIA, TSHX, BMP, CK, LIP, LIVP, TROPI, CDP, PRCAL, CRP #### [address] [phone] Planting Material Carrier: Pito Freed MD WBC Morphology NOT REPORTED Normal [facility] Comment on above: Performed By: #### L ACWB, PT, PTT, KELI, DIME, BNP, CINTHIA, TSHX, BMP, CK, LIP, LIVP, TROPI, CDP, PRCAL, CRP #### [address] [address] Planting Material Carrier: Pito Freed MD Hgb/Hcton 05-27-2018 Hematocrit (Bld) [Volume fraction] 33.7 % Low 40.7-50.3 [facility] Comment on above: Performed By: #### L ACWB, PT, PTT, KELI, DIME, BNP, CINTHIA, TSHX, BMP, CK, LIP, LIVP, TROPI, CDP, PRCAL, CRP #### [address] [address] Planting Material Carrier: Pito Freed MD Hemoglobin (Bld) [Mass/Vol] 11.0 g/dL Low 13.0-17.0 [facility] Comment on above: Performed By: #### L ACWB, PT, PTT, KELI, DIME, BNP, CINTHIA, TSHX, BMP, CK, LIP, LIVP, TROPI, CDP, PRCAL, CRP #### [address] [address] Planting Material Carrier: Pito Freed MD CBC with Diffon 05-26-2018 Abs. Basophil 0.00 k/uL Normal 0.0-0.2 [facility] Comment on above: Performed By: #### L ACWB, PT, PTT, KELI, DIME, BNP, CINTHIA, TSHX, BMP, CK, LIP, LIVP, TROPI, CDP, PRCAL, CRP #### [address] [address] Planting Material Carrier: Pito Freed MD Abs.Imm.Granulocyte 0.42 k/uL High 0.00-0.30 [facility] Comment on above: Performed By: #### L ACWB, PT, PTT, KELI, DIME, BNP, CINTHIA, TSHX, BMP, CK, LIP, LIVP, TROPI, CDP, PRCAL, CRP #### [facility] [address] [place] [address] Planting Material Carrier: Pito Freed MD Abs.Neutrophil (Seg) 11.98 k/uL High 1.8-7.7 [facility] Comment on above: Performed By: #### L ACWB, PT, PTT, KELI, DIME, BNP, CINTHIA, TSHX, BMP, CK, LIP, LIVP, TROPI, CDP, PRCAL, CRP #### [place] [id number] Planting Material Carrier: Pito Freed MD Basophils/100 WBC (Bld) 0 % Normal 0-2 [facility] Comment on above: Performed By: #### L ACWB, PT, PTT, KELI, DIME, BNP, CINTHIA, TSHX, BMP, CK, LIP, LIVP, TROPI, CDP, PRCAL, CRP #### [place] [id number] Planting Material Carrier: Pito Freed MD Eosinophils (Bld) [#/Vol] 0.00 10*3/uL Normal 0.0-0.4 [facility] Comment on above: Performed By: #### L ACWB, PT, PTT, KELI, DIME, BNP, CINTHIA, TSHX, BMP, CK, LIP, LIVP, TROPI, CDP, PRCAL, CRP #### [facility] [address] [place], [place] [phone] Planting Material Carrier: Pito Freed MD Eosinophils/100 WBC (Bld) 0 % Low 1-4 [facility] Comment on above: Performed By: #### L ACWB, PT, PTT, KELI, DIME, BNP, CINTHIA, TSHX, BMP, CK, LIP, LIVP, TROPI, CDP, PRCAL, CRP #### [address] [id number] Planting Material Carrier: Pito Freed MD Immature granulocytes (Bld) [#/Vol] 3 % High 0 [facility] Comment on above: Performed By: #### L ACWB, PT, PTT, KELI, DIME, BNP, CINTHIA, TSHX, BMP, CK, LIP, LIVP, TROPI, CDP, PRCAL, CRP #### [address] [id number] Planting Material Carrier: Pito Freed MD Lymphocytes (Bld) [#/Vol] 0.71 10*3/uL Low 1.0-4.8 [facility] Comment on above: Performed By: #### L ACWB, PT, PTT, KELI, DIME, BNP, CINTHIA, TSHX, BMP, CK, LIP, LIVP, TROPI, CDP, PRCAL, CRP #### [place] [id number] Planting Material Carrier: Pito Freed MD Lymphocytes/100 WBC (Bld) 5 % Low 24-44 [facility] Comment on above: Performed By: #### L ACWB, PT, PTT, KELI, DIME, BNP, CINTHIA, TSHX, BMP, CK, LIP, LIVP, TROPI, CDP, PRCAL, CRP #### [place] [id number] Planting Material Carrier: Pito Freed MD Monocytes (Bld) [#/Vol] 0.99 10*3/uL High 0.1-0.8 [facility] Comment on above: Performed By: #### L ACWB, PT, PTT, KELI, DIME, BNP, CINTHIA, TSHX, BMP, CK, LIP, LIVP, TROPI, CDP, PRCAL, CRP #### [address] [id number] Planting Material Carrier: Pito Freed MD Monocytes/100 WBC (Bld) 7 % Normal 1-7 [facility] Comment on above: Performed By: #### L ACWB, PT, PTT, KELI, DIME, BNP, CINTHIA, TSHX, BMP, CK, LIP, LIVP, TROPI, CDP, PRCAL, CRP #### [address] [id number] Planting Material Carrier: Pito Freed MD Morphology Aneudy (Bld) [Interp] ANISOCYTOSIS PRESENT Normal [facility] Comment on above: Result Comment: TOXI C GRANULATION PRESENT Performed By: #### L ACWB, PT, PTT, KELI, DIME, BNP, CINTHIA, TSHX, BMP, CK, LIP, LIVP, TROPI, CDP, PRCAL, CRP #### [address] [address] Planting Material Carrier: Pito Freed MD Neutrophil (Seg) 85 % High 36-66 [facility] Comment on above: Performed By: #### L ACWB, PT, PTT, KELI, DIME, BNP, CINTHIA, TSHX, BMP, CK, LIP, LIVP, TROPI, CDP, PRCAL, CRP #### [address] [address] Planting Material Carrier: Pito Freed MD Erythrocyte distribution width (RBC) [Ratio] 15.2 % High 11.8-14.4 [facility] Comment on above: Performed By: #### L ACWB, PT, PTT, KELI, DIME, BNP, CINTHIA, TSHX, BMP, CK, LIP, LIVP, TROPI, CDP, PRCAL, CRP #### [address] [phone] Planting Material Carrier: Pito Freed MD Hematocrit (Bld) [Volume fraction] 34.1 % Low 40.7-50.3 [facility] Comment on above: Performed By: #### L ACWB, PT, PTT, KELI, DIME, BNP, CINTHIA, TSHX, BMP, CK, LIP, LIVP, TROPI, CDP, PRCAL, CRP #### [address] [address] Planting Material Carrier: Pito Freed MD Hemoglobin (Bld) [Mass/Vol] 11.3 g/dL Low 13.0-17.0 [facility] Comment on above: Performed By: #### L ACWB, PT, PTT, KELI, DIME, BNP, CINTHIA, TSHX, BMP, CK, LIP, LIVP, TROPI, CDP, PRCAL, CRP #### [address] [address] Planting Material Carrier: Pito Freed MD MCH (RBC) [Entitic mass] 29.1 pg Normal 25.2-33.5 [facility] Comment on above: Performed By: #### L ACWB, PT, PTT, KELI, DIME, BNP, CINTHIA, TSHX, BMP, CK, LIP, LIVP, TROPI, CDP, PRCAL, CRP #### [address] [address] Planting Material Carrier: Pito Freed MD MCHC (RBC) [Mass/Vol] 33.1 g/dL Normal 28.4-34.8 [facility] Comment on above: Performed By: #### L ACWB, PT, PTT, KELI, DIME, BNP, CINTHIA, TSHX, BMP, CK, LIP, LIVP, TROPI, CDP, PRCAL, CRP #### [address] [address] Planting Material Carrier: Pito Freed MD MCV (RBC) [Entitic vol] 87.9 fL Normal 82.6-102.9 [facility] Comment on above: Performed By: #### L ACWB, PT, PTT, KELI, DIME, BNP, CINTHIA, TSHX, BMP, CK, LIP, LIVP, TROPI, CDP, PRCAL, CRP #### [address] [id number] [employer]ing Material Carrier: Pito Freed MD NRBC Automated 0.0 per 100 WBC Normal 0.0 [facility] Comment on above: Performed By: #### L ACWB, PT, PTT, KELI, DIME, BNP, CINTHIA, TSHX, BMP, CK, LIP, LIVP, TROPI, CDP, PRCAL, CRP #### [address] [id number] Planting Material Carrier: Pito Freed MD Platelets (Bld) [#/Vol] See Reflexed IPF Result Normal 138-453 [facility] Comment on above: Performed By: #### L ACWB, PT, PTT, KELI, DIME, BNP, CINTHIA, TSHX, BMP, CK, LIP, LIVP, TROPI, CDP, PRCAL, CRP #### [address] [id number] [employer] Material Carrier: Pito Freed MD RBC (Bld) [#/Vol] 3.88 10*6/uL Low 4.21-5.77 [facility] Comment on above: Performed By: #### L ACWB, PT, PTT, KELI, DIME, BNP, CINTHIA, TSHX, BMP, CK, LIP, LIVP, TROPI, CDP, PRCAL, CRP #### [address] [address] [employer] Material Carrier: Pito Freed MD WBC (Bld) [#/Vol] 14.1 10*3/uL High 3.5-11.3 [facility] Comment on above: Performed By: #### L ACWB, PT, PTT, KELI, DIME, BNP, CINTHIA, TSHX, BMP, CK, LIP, LIVP, TROPI, CDP, PRCAL, CRP #### [address] [id number] [employer] Material Carrier: Pito Freed MD Auto Diff Performed NOT REPORTED Normal [facility] Comment on above: Performed By: #### L ACWB, PT, PTT, KELI, DIME, BNP, CINTHIA, TSHX, BMP, CK, LIP, LIVP, TROPI, CDP, PRCAL, CRP #### [address] [id number] Planting Material Carrier: Pito Freed MD Platelet mean volume (Bld) [Entitic vol] NOT REPORTED Normal 8.1-13.5 [facility] Comment on above: Performed By: #### L ACWB, PT, PTT, KELI, DIME, BNP, CINTHIA, TSHX, BMP, CK, LIP, LIVP, TROPI, CDP, PRCAL, CRP #### [address] [id number] Planting Material Carrier: Pito Freed MD Platelets (Bld) [#/Vol] NOT REPORTED Normal [facility] Comment on above: Performed By: #### L ACWB, PT, PTT, KELI, DIME, BNP, CINTHIA, TSHX, BMP, CK, LIP, LIVP, TROPI, CDP, PRCAL, CRP #### [address] [id number] Planting Material Carrier: Pito Freed MD RBC morphology finding Nom (Bld) NOT REPORTED Normal [facility] Comment on above: Performed By: #### L ACWB, PT, PTT, KELI, DIME, BNP, CINTHIA, TSHX, BMP, CK, LIP, LIVP, TROPI, CDP, PRCAL, CRP #### [address] [id number] Planting Material Carrier: Pito Freed MD WBC Morphology NOT REPORTED Normal [facility] Comment on above: Performed By: #### L ACWB, PT, PTT, KELI, DIME, BNP, CINTHIA, TSHX, BMP, CK, LIP, LIVP, TROPI, CDP, PRCAL, CRP #### [address] [place] [phone] Planting Material Carrier: Pito Freed MD Comp Metabolic Pr/rfx MGon 0 05-26-2018 (cont.) Normal [facility] Comment on above: Result Comment: Aver age GFR for 60-69 years old: 85 mL/min/1.73sq m Chronic Kidney Disease: <60 mL/min/1.73sq m Kidney failure: <15 mL/min/1.73sq m eGFR calculated using average adult body mass. Additional eGFR calculator available at: http://www.[employer]/multiple_crcl_2012.htm Performed By: #### L ACWB, PT, PTT, KELI, DIME, BNP, CINTHIA, TSHX, BMP, CK, LIP, LIVP, TROPI, CDP, PRCAL, CRP #### [place] [id number] Planting Material Carrier: Pito Freed MD Albumin [Mass/Vol] 1.9 g/dL Low 3.5-5.2 [facility] Comment on above: Performed By: #### L ACWB, PT, PTT, KELI, DIME, BNP, CINTHIA, TSHX, BMP, CK, LIP, LIVP, TROPI, CDP, PRCAL, CRP #### [facility] [employer] [address] [place] [address] Planting Material Carrier: Pito Freed MD Albumin/Globulin [Mass ratio] 0.6 {ratio} Low 1.0-2.5 [facility] Comment on above: Performed By: #### L ACWB, PT, PTT, KELI, DIME, BNP, CINTHIA, TSHX, BMP, CK, LIP, LIVP, TROPI, CDP, PRCAL, CRP #### [facility] [employer] [address] [place] [address] Planting Material Carrier: Pito Freed MD Alkaline Phos 92 U/L Normal 40-129 [facility] Comment on above: Performed By: #### L ACWB, PT, PTT, KELI, DIME, BNP, CINTHIA, TSHX, BMP, CK, LIP, LIVP, TROPI, CDP, PRCAL, CRP #### [address] [phone] Planting Material Carrier: Pito Freed MD ALT [Catalytic activity/Vol] 64 U/L High 5-41 [facility] Comment on above: Performed By: #### L ACWB, PT, PTT, KELI, DIME, BNP, CINTHIA, TSHX, BMP, CK, LIP, LIVP, TROPI, CDP, PRCAL, CRP #### [address] [id number] Planting Material Carrier: Pito Freed MD Anion gap [Moles/Vol] 11 mmol/L Normal 9-17 [facility] Comment on above: Performed By: #### L ACWB, PT, PTT, KELI, DIME, BNP, CINTHIA, TSHX, BMP, CK, LIP, LIVP, TROPI, CDP, PRCAL, CRP #### [address] [phone] Planting Material Carrier: Pito Freed MD AST [Catalytic activity/Vol] 54 U/L High <40 [facility] Comment on above: Performed By: #### L ACWB, PT, PTT, KELI, DIME, BNP, CINTHIA, TSHX, BMP, CK, LIP, LIVP, TROPI, CDP, PRCAL, CRP #### [address] [id number] Planting Material Carrier: Pito Freed MD Bilirubin Ql (U) 0.74 mg/dL Normal 0.3-1.2 [facility] Comment on above: Performed By: #### L ACWB, PT, PTT, KELI, DIME, BNP, CINTHIA, TSHX, BMP, CK, LIP, LIVP, TROPI, CDP, PRCAL, CRP #### [address] [id number] Planting Material Carrier: Pito Freed MD Calcium [Mass/Vol] 7.4 mg/dL Low 8.6-10.4 [facility] Comment on above: Performed By: #### L ACWB, PT, PTT, KELI, DIME, BNP, CINTHIA, TSHX, BMP, CK, LIP, LIVP, TROPI, CDP, PRCAL, CRP #### [address] [address] Planting Material Carrier: Pito Freed MD Chloride [Moles/Vol] 105 mmol/L Normal 98-107 [facility] Comment on above: Performed By: #### L ACWB, PT, PTT, KELI, DIME, BNP, CINTHIA, TSHX, BMP, CK, LIP, LIVP, TROPI, CDP, PRCAL, CRP #### [address] [address] Planting Material Carrier: Pito Freed MD CO2 [Moles/Vol] 19 mmol/L Low 20-31 [facility] Comment on above: Performed By: #### L ACWB, PT, PTT, KELI, DIME, BNP, CINTHIA, TSHX, BMP, CK, LIP, LIVP, TROPI, CDP, PRCAL, CRP #### [address] [address] Planting Material Carrier: Pito Freed MD Creatinine [Mass/Vol] 0.87 mg/dL Normal 0.70-1.20 [facility] Comment on above: Performed By: #### L ACWB, PT, PTT, KELI, DIME, BNP, CINTHIA, TSHX, BMP, CK, LIP, LIVP, TROPI, CDP, PRCAL, CRP #### [address] [address] Planting Material Carrier: Pito Freed MD GFR, Amer >60 Normal >60 [facility] Comment on above: Performed By: #### L ACWB, PT, PTT, KELI, DIME, BNP, CINTHIA, TSHX, BMP, CK, LIP, LIVP, TROPI, CDP, PRCAL, CRP #### [address] [phone] Planting Material Carrier: Pito Freed MD GFR,non Amer >60 Normal >60 [facility] Comment on above: Performed By: #### L ACWB, PT, PTT, KELI, DIME, BNP, CINTHIA, TSHX, BMP, CK, LIP, LIVP, TROPI, CDP, PRCAL, CRP #### [address] [phone] Planting Material Carrier: Pito Freed MD Glucose [Mass/Vol] 115 mg/dL High 70-99 [facility] Comment on above: Performed By: #### L ACWB, PT, PTT, KELI, DIME, BNP, CINTHIA, TSHX, BMP, CK, LIP, LIVP, TROPI, CDP, PRCAL, CRP #### [address] [address] Planting Material Carrier: Pito Freed MD Potassium [Moles/Vol] 4.2 mmol/L Normal 3.7-5.3 [facility] Comment on above: Performed By: #### L ACWB, PT, PTT, KELI, DIME, BNP, CINTHIA, TSHX, BMP, CK, LIP, LIVP, TROPI, CDP, PRCAL, CRP #### [address] [id number] Planting Material Carrier: Pito Freed MD Protein [Mass/Vol] 5.0 g/dL Low 6.4-8.3 [facility] Comment on above: Performed By: #### L ACWB, PT, PTT, KELI, DIME, BNP, CINTHIA, TSHX, BMP, CK, LIP, LIVP, TROPI, CDP, PRCAL, CRP #### [address] [phone] Planting Material Carrier: Pito Freed MD Sodium [Moles/Vol] 135 mmol/L Normal 135-144 [facility] Comment on above: Performed By: #### L ACWB, PT, PTT, KELI, DIME, BNP, CINTHIA, TSHX, BMP, CK, LIP, LIVP, TROPI, CDP, PRCAL, CRP #### [address] [address] Planting Material Carrier: Pito Freed MD Urea nitrogen [Mass/Vol] 28 mg/dL High 10-16 [facility] Comment on above: Performed By: #### L ACWB, PT, PTT, KELI, DIME, BNP, CINTHIA, TSHX, BMP, CK, LIP, LIVP, TROPI, CDP, PRCAL, CRP #### [address] [address] Planting Material Carrier: Pito Freed MD BUN/CRE Ratio NOT REPORTED Normal 11-13 [facility] Comment on above: Performed By: #### L ACWB, PT, PTT, KELI, DIME, BNP, CINTHIA, TSHX, BMP, CK, LIP, LIVP, TROPI, CDP, PRCAL, CRP #### [address] [address] Planting Material Carrier: Pito Freed MD Staging: NOT REPORTED Normal [facility] Comment on above: Performed By: #### L ACWB, PT, PTT, KELI, DIME, BNP, CINTHIA, TSHX, BMP, CK, LIP, LIVP, TROPI, CDP, PRCAL, CRP #### [address] [address] Planting Material Carrier: Pito Freed MD Hgb/Hcton 05-26-2018 Hematocrit (Bld) [Volume fraction] 33.0 % Low 40.7-50.3 [facility] Comment on above: Performed By: #### L ACWB, PT, PTT, KELI, DIME, BNP, CINTHIA, TSHX, BMP, CK, LIP, LIVP, TROPI, CDP, PRCAL, CRP #### [employer] [address] [place] [address] Planting Material Carrier: Pito Freed MD Hemoglobin (Bld) [Mass/Vol] 10.9 g/dL Low 13.0-17.0 [facility] Comment on above: Performed By: #### L ACWB, PT, PTT, KELI, DIME, BNP, CINTHIA, TSHX, BMP, CK, LIP, LIVP, TROPI, CDP, PRCAL, CRP #### [facility] [employer] [address] [place] [address] Planting Material Carrier: Pito Freed MD [facility] (NOTE) [id number] [facility] CONSULTING PATHOLOGISTS [facility] [place] ANATOMIC PATHOLOGY [address] [place] [phone] NONGYNECOLOGICAL CYTOPATHOLOGY CONSULTATION [facility] [id number] Path Number: [id number] Collected: 05/26/2018 Received: 05/26/2018 Reported: 05/27/2018 08:14 -- Diagnosis -- FLUID LIVER: NEGATIVE FOR MALIGNANCY. ACUTE INFLAMMATION. Geneva Cooper Electronically Signed Out ajb/05/27/2018 Clinical Information Liver abscess. Source of Specimen 1: FLUID LIVER Gross Description LIVER ABSCESS 100.0 ML. brown cloudy fluid. MICROSCOPIC DESCRIPTION Microscopic examination performed. Normal [facility] Comment on above: Performed By: #### L ACWB, PT, PTT, KELI, DIME, BNP, CINTHIA, TSHX, BMP, CK, LIP, LIVP, TROPI, CDP, PRCAL, CRP #### [facility] [employer] [address] [place] [address] Planting Material Carrier: Pito Freed MD IR ABSCESS DRAINAGE PERCon 0 05-26-2018 IR ABSCESS DRAINAGE PERC PROCEDURE: IR ABSCESS DRAIN PERC; ultrasound-guided aspiration superior liver abscess MODERATE CONSCIOUS SEDATION 05/26/2018 HISTORY: ORDERING SYSTEM PROVIDED HISTORY: liver abscess - plsn aspirate and try to empty, leave a drain if possible, send for aerobioc and anaerobic cultures pls TECHNOLOGIST PROVIDED HISTORY: liver abscess - plsn aspirate and try to empty, leave a drain if possible, send for aerobioc and anaerobic cultures pls also send path if it seems more like a mass TECHNIQUE: Ultrasound and fluoroscopy were utilized CONTRAST: None SEDATION: 0.5 mgversed and 100 mcg fentanyl were titrated intravenously for moderate sedation monitored under my direction. Total intraservice time of sedation was 30 minutes. The patient's vital signs were monitored throughout the procedure and recorded in the patient's medical record by the nurse. FLUOROSCOPY DOSE AND TYPE OR TIME AND EXPOSURES: 0.3 minute; 810 cGy cm squared DESCRIPTION OF PROCEDURE: Informed consent was obtained after a detailed explanation of the procedure including risks, benefits, and alternatives. [place] protocol was observed. Under ultrasound guidance, after localizing, marking and anesthetizing the skin overlying the lateral right upper hepatic lobe with 1% lidocaine, a small incision was made. Under live sonography, a 5 [place] Yueh needle was advanced into the superior hepatic fluid collection/abscess. Catheter tip was confirmed within the fluid collection. The catheter was advanced and the needle was removed. Approximately 275 mL of foul smelling purulent material was drained until and sonography demonstrated collapse of the the superior collection. The catheter was removed. Attention was made to the lower right hepatic fluid collection. Under live sonography, after localizing, marking and anesthetizing the skin overlying the lateral right abdomen, a small incision was made and an 18 gauge trocar needle was advanced into the fluid pocket. An 035 guidewire was inserted and under fluoroscopy was negotiated further into the cavity. This allowed placement of an 8 [place] drainage catheter after fascial tract dilatation. 70 mL of purulent material was drained from the catheter while the patient was in the procedure room. The catheter was sutured to the skin, dressed appropriately and connected to a IDA bulb. The patient tolerated the procedures well and left the department stable condition. Dr. Samuel was present. FINDINGS: Multifocal right hepatic lobe abscess is/fluid collection which do not clearly communicate. Collapse of the superior right hepatic lobe fluid collection/abscess. Placement of an 8 [place] drain in the lower right hepatic abscess. IMPRESSION: Ultrasound-guided aspiration of the superior right hepatic abscess with a 5 [place] Yueh. Ultrasound and fluoroscopic guided placement of an 8 [place] drain in the lower right hepatic abscess. Interpreted by: Rinku Samuel MD Signed by: Rinku Samuel MD 05/26/18 Final result Normal [facility] Myoglobinon 05-26-2018 Myoglobin [Mass/Vol] 79 ng/mL High 28-72 [facility] Comment on above: Performed By: #### L ACWB, PT, PTT, KELI, DIME, BNP, CINTHIA, TSHX, BMP, CK, LIP, LIVP, TROPI, CDP, PRCAL, CRP #### [address] [phone] Planting Material Carrier: Pito Freed MD Non-Business Communications Instructor Cytologyon 9 Case No: [id number] Normal [facility] Comment on above: Performed By: #### L ACWB, PT, PTT, KELI, DIME, BNP, CINTHIA, TSHX, BMP, CK, LIP, LIVP, TROPI, CDP, PRCAL, CRP #### [address] [phone] Planting Material Carrier: Pito Freed MD Specimen Description .LIVER Normal [facility] Comment on above: Result Comment: .ABS CESS DRAINAGE Performed By: #### L ACWB, PT, PTT, KELI, DIME, BNP, CINTHIA, TSHX, BMP, CK, LIP, LIVP, TROPI, CDP, PRCAL, CRP #### [address] [phone] Planting Material Carrier: Pito Freed MD PLT, Immature Fract.on 05-26 Platelet, Fluoresc. 117 k/uL Low 138-453 [facility] Comment on above: Performed By: #### L ACWB, PT, PTT, KELI, DIME, BNP, CINTHIA, TSHX, BMP, CK, LIP, LIVP, TROPI, CDP, PRCAL, CRP #### [address] [id number] Planting Material Carrier: Pito Freed MD PLT, Immature Fract. 13.9 % High 1.1-10.3 [facility] Comment on above: Performed By: #### L ACWB, PT, PTT, KELI, DIME, BNP, CINTHIA, TSHX, BMP, CK, LIP, LIVP, TROPI, CDP, PRCAL, CRP #### [address] [phone] Planting Material Carrier: Pito Freed MD Platelet, Fluoresc. 108 k/uL Low 138-453 [facility] Comment on above: Result Comment: ORDE RED BY LAB Performed By: #### L ACWB, PT, PTT, KELI, DIME, BNP, CINTHIA, TSHX, BMP, CK, LIP, LIVP, TROPI, CDP, PRCAL, CRP #### [address] [phone] Planting Material Carrier: Pito Freed MD PLT, Immature Fract. 11.1 % High 1.1-10.3 [facility] Comment on above: Result Comment: ORDE RED BY LAB Performed By: #### L ACWB, PT, PTT, KELI, DIME, BNP, CINTHIA, TSHX, BMP, CK, LIP, LIVP, TROPI, CDP, PRCAL, CRP #### [address] [phone] Planting Material Carrier: Pito Freed MD PTon 05-26-2018 INR Coag (PPP) [Relative time] 1.3 {INR} Normal [facility] Comment on above: Result Comment: Therapeutic Range: Moderate Anticoagulant Intensity: INR = 2.0-3.0 High Anticoagulant Intensity: INR = 2.5-3.5 Performed By: #### L ACWB, PT, PTT, KELI, DIME, BNP, CINTHIA, TSHX, BMP, CK, LIP, LIVP, TROPI, CDP, PRCAL, CRP #### [facility] [employer] [address] [place] [address] [phone] Planting Material Carrier: Pito Freed MD PT Coag (PPP) [Time] 13.5 s High 9.0-12.0 [facility] Comment on above: Performed By: #### L ACWB, PT, PTT, KELI, DIME, BNP, CINTHIA, TSHX, BMP, CK, LIP, LIVP, TROPI, CDP, PRCAL, CRP #### [address] [phone] Planting Material Carrier: Pito Freed MD Platelet Counton 05-26-2018 Platelets (Bld) [#/Vol] See Reflexed IPF Result Normal 138-453 [facility] Comment on above: Performed By: #### L ACWB, PT, PTT, KELI, DIME, BNP, CINTHIA, TSHX, BMP, CK, LIP, LIVP, TROPI, CDP, PRCAL, CRP #### [place] [phone] Planting Material Carrier: Pito Freed MD Smear to Pathologiston 05-26 Smear to Pathologist SEE REPORT Normal [facility] Comment on above: Result Comment: REVIEWING PATHOLOGIST: AGATA SCOTT M.D. Performed By: #### L ACWB, PT, PTT, KELI, DIME, BNP, CINTHIA, TSHX, BMP, CK, LIP, LIVP, TROPI, CDP, PRCAL, CRP #### [address] [phone] Planting Material Carrier: Pito Freed MD CBC with Diffon 05-25-2018 Abs. Basophil 0.00 k/uL Normal 0.0-0.2 [facility] Comment on above: Performed By: #### L ACWB, PT, PTT, KELI, DIME, BNP, CINTHIA, TSHX, BMP, CK, LIP, LIVP, TROPI, CDP, PRCAL, CRP #### [address] [phone] Planting Material Carrier: Pito Freed MD Abs.Imm.Granulocyte 0.22 k/uL Normal 0.00-0.30 [facility] Comment on above: Performed By: #### L ACWB, PT, PTT, KELI, DIME, BNP, CINTHIA, TSHX, BMP, CK, LIP, LIVP, TROPI, CDP, PRCAL, CRP #### [address] [id number] Planting Material Carrier: Pito Freed MD Abs.Neutrophil (Seg) 9.74 k/uL High 1.8-7.7 [facility] Comment on above: Performed By: #### L ACWB, PT, PTT, KELI, DIME, BNP, CINTHIA, TSHX, BMP, CK, LIP, LIVP, TROPI, CDP, PRCAL, CRP #### [place] [phone] Planting Material Carrier: Pito Freed MD Basophils/100 WBC (Bld) 0 % Normal 0-2 [facility] Comment on above: Performed By: #### L ACWB, PT, PTT, KELI, DIME, BNP, CINTHIA, TSHX, BMP, CK, LIP, LIVP, TROPI, CDP, PRCAL, CRP #### [place] [id number] Planting Material Carrier: Pito Freed MD Eosinophils (Bld) [#/Vol] 0.00 10*3/uL Normal 0.0-0.4 [facility] Comment on above: Performed By: #### L ACWB, PT, PTT, KELI, DIME, BNP, CINTHIA, TSHX, BMP, CK, LIP, LIVP, TROPI, CDP, PRCAL, CRP #### [place] [phone] Planting Material Carrier: Pito Freed MD Eosinophils/100 WBC (Bld) 0 % Low 1-4 [facility] Comment on above: Performed By: #### L ACWB, PT, PTT, KELI, DIME, BNP, CINTHIA, TSHX, BMP, CK, LIP, LIVP, TROPI, CDP, PRCAL, CRP #### [address] [address] Planting Material Carrier: Pito Freed MD Immature granulocytes (Bld) [#/Vol] 2 % High 0 [facility] Comment on above: Performed By: #### L ACWB, PT, PTT, KELI, DIME, BNP, CINTHIA, TSHX, BMP, CK, LIP, LIVP, TROPI, CDP, PRCAL, CRP #### [place] [address] Planting Material Carrier: Pito rFeed MD Lymphocytes (Bld) [#/Vol] 0.90 10*3/uL Low 1.0-4.8 [facility] Comment on above: Performed By: #### L ACWB, PT, PTT, KELI, DIME, BNP, CINTHIA, TSHX, BMP, CK, LIP, LIVP, TROPI, CDP, PRCAL, CRP #### [place] [address] Planting Material Carrier: Pito Freed MD Lymphocytes/100 WBC (Bld) 8 % Low 24-44 [facility] Comment on above: Performed By: #### L ACWB, PT, PTT, KELI, DIME, BNP, CINTHIA, TSHX, BMP, CK, LIP, LIVP, TROPI, CDP, PRCAL, CRP #### [place] [id number] Planting Material Carrier: Pito Freed MD Monocytes (Bld) [#/Vol] 0.34 10*3/uL Normal 0.1-0.8 [facility] Comment on above: Performed By: #### L ACWB, PT, PTT, KELI, DIME, BNP, CINTHIA, TSHX, BMP, CK, LIP, LIVP, TROPI, CDP, PRCAL, CRP #### [address] [id number] Planting Material Carrier: Pito Freed MD Monocytes/100 WBC (Bld) 3 % Normal 1-7 [facility] Comment on above: Performed By: #### L ACWB, PT, PTT, KELI, DIME, BNP, CINTHIA, TSHX, BMP, CK, LIP, LIVP, TROPI, CDP, PRCAL, CRP #### [address] [phone] Planting Material Carrier: Pito Freed MD Morphology Aneudy (Bld) [Interp] ANISOCYTOSIS PRESENT Normal [facility] Comment on above: Result Comment: TOXI C GRANULATION PRESENT Performed By: #### L ACWB, PT, PTT, KELI, DIME, BNP, CINTHIA, TSHX, BMP, CK, LIP, LIVP, TROPI, CDP, PRCAL, CRP #### [address] [phone] Planting Material Carrier: Pito Freed MD Neutrophil (Seg) 87 % High 36-66 [facility] Comment on above: Performed By: #### L ACWB, PT, PTT, KELI, DIME, BNP, CINTHIA, TSHX, BMP, CK, LIP, LIVP, TROPI, CDP, PRCAL, CRP #### [address] [phone] Planting Material Carrier: Pito Freed MD Erythrocyte distribution width (RBC) [Ratio] 15.4 % High 11.8-14.4 [facility] Comment on above: Performed By: #### L ACWB, PT, PTT, KELI, DIME, BNP, CINTHIA, TSHX, BMP, CK, LIP, LIVP, TROPI, CDP, PRCAL, CRP #### [address] [phone] Planting Material Carrier: Pito Freed MD Hematocrit (Bld) [Volume fraction] 34.5 % Low 40.7-50.3 [facility] Comment on above: Performed By: #### L ACWB, PT, PTT, KELI, DIME, BNP, CINTHIA, TSHX, BMP, CK, LIP, LIVP, TROPI, CDP, PRCAL, CRP #### [address] [address] Planting Material Carrier: Pito Freed MD Hemoglobin (Bld) [Mass/Vol] 11.2 g/dL Low 13.0-17.0 [facility] Comment on above: Performed By: #### L ACWB, PT, PTT, KELI, DIME, BNP, CINTHIA, TSHX, BMP, CK, LIP, LIVP, TROPI, CDP, PRCAL, CRP #### [address] [address] Planting Material Carrier: Pito Freed MD MCH (RBC) [Entitic mass] 28.8 pg Normal 25.2-33.5 [facility] Comment on above: Performed By: #### L ACWB, PT, PTT, KELI, DIME, BNP, CINTHIA, TSHX, BMP, CK, LIP, LIVP, TROPI, CDP, PRCAL, CRP #### [address] [address] Planting Material Carrier: Pito Freed MD MCHC (RBC) [Mass/Vol] 32.5 g/dL Normal 28.4-34.8 [facility] Comment on above: Performed By: #### L ACWB, PT, PTT, KELI, DIME, BNP, CINTHIA, TSHX, BMP, CK, LIP, LIVP, TROPI, CDP, PRCAL, CRP #### [address] [address] Planting Material Carrier: Pito Freed MD MCV (RBC) [Entitic vol] 88.7 fL Normal 82.6-102.9 [facility] Comment on above: Performed By: #### L ACWB, PT, PTT, KELI, DIME, BNP, CINTHIA, TSHX, BMP, CK, LIP, LIVP, TROPI, CDP, PRCAL, CRP #### [address] [address] Planting Material Carrier: Pito Freed MD NRBC Automated 0.0 per 100 WBC Normal 0.0 [facility] Comment on above: Performed By: #### L ACWB, PT, PTT, KELI, DIME, BNP, CINTHIA, TSHX, BMP, CK, LIP, LIVP, TROPI, CDP, PRCAL, CRP #### [address] [address] Planting Material Carrier: Pito Freed MD Platelets (Bld) [#/Vol] See Reflexed IPF Result Normal 138-453 [facility] Comment on above: Performed By: #### L ACWB, PT, PTT, KELI, DIME, BNP, CINTHIA, TSHX, BMP, CK, LIP, LIVP, TROPI, CDP, PRCAL, CRP #### [address] [address] Planting Material Carrier: Pito Freed MD RBC (Bld) [#/Vol] 3.89 10*6/uL Low 4.21-5.77 [facility] Comment on above: Performed By: #### L ACWB, PT, PTT, KELI, DIME, BNP, CINTHIA, TSHX, BMP, CK, LIP, LIVP, TROPI, CDP, PRCAL, CRP #### [address] [phone] Planting Material Carrier: Pito Freed MD WBC (Bld) [#/Vol] 11.2 10*3/uL Normal 3.5-11.3 [facility] Comment on above: Performed By: #### L ACWB, PT, PTT, KELI, DIME, BNP, CINTHIA, TSHX, BMP, CK, LIP, LIVP, TROPI, CDP, PRCAL, CRP #### [address] [phone] Planting Material Carrier: Pito Freed MD Auto Diff Performed NOT REPORTED Normal [facility] Comment on above: Performed By: #### L ACWB, PT, PTT, KELI, DIME, BNP, CINTHIA, TSHX, BMP, CK, LIP, LIVP, TROPI, CDP, PRCAL, CRP #### [address] [address] Planting Material Carrier: Pito Freed MD Platelet mean volume (Bld) [Entitic vol] NOT REPORTED Normal 8.1-13.5 [facility] Comment on above: Performed By: #### L ACWB, PT, PTT, KELI, DIME, BNP, CINTHIA, TSHX, BMP, CK, LIP, LIVP, TROPI, CDP, PRCAL, CRP #### [address] [address] Planting Material Carrier: Pito Freed MD Platelets (Bld) [#/Vol] NOT REPORTED Normal [facility] Comment on above: Performed By: #### L ACWB, PT, PTT, KELI, DIME, BNP, CINTHIA, TSHX, BMP, CK, LIP, LIVP, TROPI, CDP, PRCAL, CRP #### [address] [phone] Planting Material Carrier: Pito Freed MD RBC morphology finding Nom (Bld) NOT REPORTED Normal [facility] Comment on above: Performed By: #### L ACWB, PT, PTT, KELI, DIME, BNP, CINTHIA, TSHX, BMP, CK, LIP, LIVP, TROPI, CDP, PRCAL, CRP #### [address] [id number] Planting Material Carrier: Pito Freed MD WBC Morphology NOT REPORTED Normal [facility] Comment on above: Performed By: #### L ACWB, PT, PTT, KELI, DIME, BNP, CINTHIA, TSHX, BMP, CK, LIP, LIVP, TROPI, CDP, PRCAL, CRP #### [address] [phone] Planting Material Carrier: Pito Freed MD Comp Metabolic Pr/rfx MGon 0 05-25-2018 (cont.) Normal [facility] Comment on above: Result Comment: Aver age GFR for 60-69 years old: 85 mL/min/1.73sq m Chronic Kidney Disease: <60 mL/min/1.73sq m Kidney failure: <15 mL/min/1.73sq m eGFR calculated using average adult body mass. Additional eGFR calculator available at: http://www.[employer]/multiple_crcl_2011.htm Performed By: #### L ACWB, PT, PTT, KELI, DIME, BNP, CINTHIA, TSHX, BMP, CK, LIP, LIVP, TROPI, CDP, PRCAL, CRP #### [address] [address] Planting Material Carrier: Pito Freed MD Albumin [Mass/Vol] 2.0 g/dL Low 3.5-5.2 [facility] Comment on above: Performed By: #### L ACWB, PT, PTT, KELI, DIME, BNP, CINTHIA, TSHX, BMP, CK, LIP, LIVP, TROPI, CDP, PRCAL, CRP #### [address] [id number] Planting Material Carrier: Pito Freed MD Albumin/Globulin [Mass ratio] 0.7 {ratio} Low 1.0-2.5 [facility] Comment on above: Performed By: #### L ACWB, PT, PTT, KELI, DIME, BNP, CINTHIA, TSHX, BMP, CK, LIP, LIVP, TROPI, CDP, PRCAL, CRP #### [address] [address] Planting Material Carrier: Pito Freed MD Alkaline Phos 108 U/L Normal 40-129 [facility] Comment on above: Performed By: #### L ACWB, PT, PTT, KELI, DIME, BNP, CINTHIA, TSHX, BMP, CK, LIP, LIVP, TROPI, CDP, PRCAL, CRP #### [address] [id number] Planting Material Carrier: Pito Freed MD ALT [Catalytic activity/Vol] 82 U/L High 5-41 [facility] Comment on above: Performed By: #### L ACWB, PT, PTT, KELI, DIME, BNP, CINTHIA, TSHX, BMP, CK, LIP, LIVP, TROPI, CDP, PRCAL, CRP #### [address] [id number] Planting Material Carrier: Pito Freed MD Anion gap [Moles/Vol] 13 mmol/L Normal 9-17 [facility] Comment on above: Performed By: #### L ACWB, PT, PTT, KELI, DIME, BNP, CINTHIA, TSHX, BMP, CK, LIP, LIVP, TROPI, CDP, PRCAL, CRP #### [address] [id number] Planting Material Carrier: Pito Freed MD AST [Catalytic activity/Vol] 75 U/L High <40 [facility] Comment on above: Performed By: #### L ACWB, PT, PTT, KELI, DIME, BNP, CINTHIA, TSHX, BMP, CK, LIP, LIVP, TROPI, CDP, PRCAL, CRP #### [address] [id number] Planting Material Carrier: Pito Freed MD Bilirubin Ql (U) 0.46 mg/dL Normal 0.3-1.2 [facility] Comment on above: Performed By: #### L ACWB, PT, PTT, KELI, DIME, BNP, CINTHIA, TSHX, BMP, CK, LIP, LIVP, TROPI, CDP, PRCAL, CRP #### [address] [address] Planting Material Carrier: Pito Freed MD Calcium [Mass/Vol] 7.4 mg/dL Low 8.6-10.4 [facility] Comment on above: Performed By: #### L ACWB, PT, PTT, KELI, DIME, BNP, CINTHIA, TSHX, BMP, CK, LIP, LIVP, TROPI, CDP, PRCAL, CRP #### [address] [id number] Planting Material Carrier: Pito Freed MD Chloride [Moles/Vol] 107 mmol/L Normal 98-107 [facility] Comment on above: Performed By: #### L ACWB, PT, PTT, KELI, DIME, BNP, CINTHIA, TSHX, BMP, CK, LIP, LIVP, TROPI, CDP, PRCAL, CRP #### [address] [id number] Planting Material Carrier: Pito Freed MD CO2 [Moles/Vol] 17 mmol/L Low 20-31 [facility] Comment on above: Performed By: #### L ACWB, PT, PTT, KELI, DIME, BNP, CINTHIA, TSHX, BMP, CK, LIP, LIVP, TROPI, CDP, PRCAL, CRP #### [address] [id number] Planting Material Carrier: Pito Freed MD Creatinine [Mass/Vol] 0.99 mg/dL Normal 0.70-1.20 [facility] Comment on above: Performed By: #### L ACWB, PT, PTT, KELI, DIME, BNP, CINTHIA, TSHX, BMP, CK, LIP, LIVP, TROPI, CDP, PRCAL, CRP #### [address] [address] Planting Material Carrier: Pito Freed MD GFR, Amer >60 Normal >60 [facility] Comment on above: Performed By: #### L ACWB, PT, PTT, KEIL, DIME, BNP, CINTHIA, TSHX, BMP, CK, LIP, LIVP, TROPI, CDP, PRCAL, CRP #### [address] [address] Planting Material Carrier: Pito Freed MD GFR,non Amer >60 Normal >60 [facility] Comment on above: Performed By: #### L ACWB, PT, PTT, KELI, DIME, BNP, CINTHIA, TSHX, BMP, CK, LIP, LIVP, TROPI, CDP, PRCAL, CRP #### [address] [address] Planting Material Carrier: Pito Freed MD Glucose [Mass/Vol] 144 mg/dL High 70-99 [facility] Comment on above: Performed By: #### L ACWB, PT, PTT, KELI, DIME, BNP, CINTHIA, TSHX, BMP, CK, LIP, LIVP, TROPI, CDP, PRCAL, CRP #### [address] [address] Planting Material Carrier: Pito Freed MD Potassium [Moles/Vol] 4.3 mmol/L Normal 3.7-5.3 [facility] Comment on above: Performed By: #### L ACWB, PT, PTT, KELI, DIME, BNP, CINTHIA, TSHX, BMP, CK, LIP, LIVP, TROPI, CDP, PRCAL, CRP #### [address] [id number] Planting Material Carrier: Pito Freed MD Protein [Mass/Vol] 4.9 g/dL Low 6.4-8.3 [facility] Comment on above: Performed By: #### L ACWB, PT, PTT, KELI, DIME, BNP, CINTHIA, TSHX, BMP, CK, LIP, LIVP, TROPI, CDP, PRCAL, CRP #### [address] [id number] Planting Material Carrier: Pito Freed MD Sodium [Moles/Vol] 137 mmol/L Normal 135-144 [facility] Comment on above: Performed By: #### L ACWB, PT, PTT, KELI, DIME, BNP, CINTHIA, TSHX, BMP, CK, LIP, LIVP, TROPI, CDP, PRCAL, CRP #### [address] [id number] Planting Material Carrier: Pito Freed MD Urea nitrogen [Mass/Vol] 36 mg/dL High 10-16 [facility] Comment on above: Performed By: #### L ACWB, PT, PTT, KELI, DIME, BNP, CINTHIA, TSHX, BMP, CK, LIP, LIVP, TROPI, CDP, PRCAL, CRP #### [address] [id number] Planting Material Carrier: Pito Freed MD BUN/CRE Ratio NOT REPORTED Normal 11-13 [facility] Comment on above: Performed By: #### L ACWB, PT, PTT, KELI, DIME, BNP, CINTHIA, TSHX, BMP, CK, LIP, LIVP, TROPI, CDP, PRCAL, CRP #### [address] [id number] Planting Material Carrier: Pito Freed MD Staging: NOT REPORTED Normal [facility] Comment on above: Performed By: #### L ACWB, PT, PTT, KELI, DIME, BNP, CINTHIA, TSHX, BMP, CK, LIP, LIVP, TROPI, CDP, PRCAL, CRP #### [address] [id number] Planting Material Carrier: Pito Freed MD Hgb/Hcton 05-25-2018 Hematocrit (Bld) [Volume fraction] 34.7 % Low 40.7-50.3 [facility] Comment on above: Performed By: #### L ACWB, PT, PTT, KELI, DIME, BNP, CINTHIA, TSHX, BMP, CK, LIP, LIVP, TROPI, CDP, PRCAL, CRP #### [address] [address] Planting Material Carrier: Pito Freed MD Hemoglobin (Bld) [Mass/Vol] 11.6 g/dL Low 13.0-17.0 [facility] Comment on above: Performed By: #### L ACWB, PT, PTT, KELI, DIME, BNP, CINTHIA, TSHX, BMP, CK, LIP, LIVP, TROPI, CDP, PRCAL, CRP #### [address] [address] Planting Material Carrier: Pito Freed MD Hematocrit (Bld) [Volume fraction] 35.5 % Low 40.7-50.3 [facility] Comment on above: Performed By: #### L ACWB, PT, PTT, KELI, DIME, BNP, CINTHIA, TSHX, BMP, CK, LIP, LIVP, TROPI, CDP, PRCAL, CRP #### [address] [address] Planting Material Carrier: Pito Freed MD Hemoglobin (Bld) [Mass/Vol] 11.2 g/dL Low 13.0-17.0 [facility] Comment on above: Performed By: #### L ACWB, PT, PTT, KELI, DIME, BNP, CINTHIA, TSHX, BMP, CK, LIP, LIVP, TROPI, CDP, PRCAL, CRP #### [address] [address] Planting Material Carrier: Pito Freed MD Mycoplasma Ab, IgMon 05-25-2 019 Mycoplasma Ab, IgM 0.03 Normal <0.91 [facility] Comment on above: Result Comment: Reference Range: <=0.90 Negative 0.91-1.09 Equivocal >=1.10 Positive Performed By: #### L ACWB, PT, PTT, KELI, DIME, BNP, CINTHIA, TSHX, BMP, CK, LIP, LIVP, TROPI, CDP, PRCAL, CRP #### [address] [address] Planting Material Carrier: Pito Freed MD Myoglobinon 05-25-2018 Myoglobin [Mass/Vol] 144 ng/mL High 28-72 [facility] Comment on above: Performed By: #### L ACWB, PT, PTT, KELI, DIME, BNP, CINTHIA, TSHX, BMP, CK, LIP, LIVP, TROPI, CDP, PRCAL, CRP #### [address] [address] Planting Material Carrier: Pito Freed MD PLT, Immature Fract.on 05-25 Platelet, Fluoresc. 77 k/uL Low 138-453 [facility] Comment on above: Result Comment: ORDE RED BY LAB Performed By: #### L ACWB, PT, PTT, KELI, DIME, BNP, CINTHIA, TSHX, BMP, CK, LIP, LIVP, TROPI, CDP, PRCAL, CRP #### [address] [address] Planting Material Carrier: Pito Freed MD PLT, Immature Fract. 16.1 % High 1.1-10.3 [facility] Comment on above: Result Comment: ORDE RED BY LAB Performed By: #### L ACWB, PT, PTT, KELI, DIME, BNP, CINTHIA, TSHX, BMP, CK, LIP, LIVP, TROPI, CDP, PRCAL, CRP #### [address] [address] Planting Material Carrier: Pito Freed MD Phosphorus, Inorg.on 019 Phosphorus, Inorg. 1.9 mg/dL Low 2.5-4.5 [facility] Comment on above: Performed By: #### L ACWB, PT, PTT, KELI, DIME, BNP, CINTHIA, TSHX, BMP, CK, LIP, LIVP, TROPI, CDP, PRCAL, CRP #### [address] [place], [place] [id number] Planting Material Carrier: Pito Freed MD Procalcitoninon 05-25-2018 Procalcitonin 52.37 ng/mL High <0.09 [facility] Comment on above: Result Comment: Suspected Sepsis: 0.09-0.49 ng/mL Low likelihood of sepsis. 0.50-2.00 ng/mL Increased likelihood of sepsis. Antibiotics encouraged. >2.00 ng/mL High risk of sepsis/shock. Antibiotics strongly encouraged. Suspected Lower Resp Tract Infections: 0.09-0.24 ng/mL Low likelihood of bacterial infection. >0.24 ng/mL Increased likelihood of bacterial infection. Antibiotics encouraged. With successful antibiotic therapy, PCT levels should decrease rapidly. (Half-life of 24 to 36 hours.) Procalcitonin values from samples collected within the first 6 hours of systemic infection may still be low. Retesting may be indicated. Values from day 1 and day 4 can be entered into the Change in Procalcitonin Calculator ([email or web address]-ryx-pgttksekcl.com) to determine the patient's Mortality Risk Prognosis Performed By: #### L ACWB, PT, PTT, KELI, DIME, BNP, CINTHIA, TSHX, BMP, CK, LIP, LIVP, TROPI, CDP, PRCAL, CRP #### [address] [place], [place] [id number] Planting Material Carrier: Pito Freed MD B12/Folate Panelon 9 Cobalamin (Vitamin B12) [Mass/Vol] 1647 pg/mL High 232-1245 [facility] Comment on above: Performed By: #### L ACWB, PT, PTT, KELI, DIME, BNP, CINTHIA, TSHX, BMP, CK, LIP, LIVP, TROPI, CDP, PRCAL, CRP #### [facility] [address] [place] [address] [id number] Planting Material Carrier: Pito Freed MD Folic Acid 7.2 ng/mL Normal >4.8 [facility] Comment on above: Performed By: #### L ACWB, PT, PTT, KELI, DIME, BNP, CINTHIA, TSHX, BMP, CK, LIP, LIVP, TROPI, CDP, PRCAL, CRP #### [address] [id number] Planting Material Carrier: Pito Freed MD Basic Metab w/rfx MGon 05-24 (cont.) Normal [facility] Comment on above: Result Comment: Aver age GFR for 60-69 years old: 85 mL/min/1.73sq m Chronic Kidney Disease: <60 mL/min/1.73sq m Kidney failure: <15 mL/min/1.73sq m eGFR calculated using average adult body mass. Additional eGFR calculator available at: http://www.[employer]/multiple_crcl_2012.htm Performed By: #### L ACWB, PT, PTT, KELI, DIME, BNP, CINTHIA, TSHX, BMP, CK, LIP, LIVP, TROPI, CDP, PRCAL, CRP #### [address] [address] Planting Material Carrier: Pito Freed MD Anion gap [Moles/Vol] 14 mmol/L Normal 9-17 [facility] Comment on above: Performed By: #### L ACWB, PT, PTT, KELI, DIME, BNP, CINTHIA, TSHX, BMP, CK, LIP, LIVP, TROPI, CDP, PRCAL, CRP #### [address] [id number] Planting Material Carrier: Pito Freed MD Calcium [Mass/Vol] 6.9 mg/dL Low 8.6-10.4 [facility] Comment on above: Performed By: #### L ACWB, PT, PTT, KELI, DIME, BNP, CINTHIA, TSHX, BMP, CK, LIP, LIVP, TROPI, CDP, PRCAL, CRP #### [address] [phone] Planting Material Carrier: Pito Freed MD Chloride [Moles/Vol] 103 mmol/L Normal 98-107 [facility] Comment on above: Performed By: #### L ACWB, PT, PTT, KELI, DIME, BNP, CINTHIA, TSHX, BMP, CK, LIP, LIVP, TROPI, CDP, PRCAL, CRP #### [address] [id number] Planting Material Carrier: Pito Freed MD CO2 [Moles/Vol] 18 mmol/L Low 20-31 [facility] Comment on above: Performed By: #### L ACWB, PT, PTT, KELI, DIME, BNP, CINTHIA, TSHX, BMP, CK, LIP, LIVP, TROPI, CDP, PRCAL, CRP #### [address] [id number] Planting Material Carrier: Pito Freed MD Creatinine [Mass/Vol] 1.35 mg/dL High 0.70-1.20 [facility] Comment on above: Performed By: #### L ACWB, PT, PTT, KELI, DIME, BNP, CINTHIA, TSHX, BMP, CK, LIP, LIVP, TROPI, CDP, PRCAL, CRP #### [address] [phone] Planting Material Carrier: Pito Freed MD GFR, Amer >60 Normal >60 [facility] Comment on above: Performed By: #### L ACWB, PT, PTT, KELI, DIME, BNP, CINTHIA, TSHX, BMP, CK, LIP, LIVP, TROPI, CDP, PRCAL, CRP #### [address] [phone] Planting Material Carrier: Pito Freed MD GFR,non Amer 53 mL/min Low >60 [facility] Comment on above: Performed By: #### L ACWB, PT, PTT, KELI, DIME, BNP, CINTHIA, TSHX, BMP, CK, LIP, LIVP, TROPI, CDP, PRCAL, CRP #### [address] [address] [employer]ing Material Carrier: Pito Freed MD Glucose [Mass/Vol] 154 mg/dL High 70-99 [facility] Comment on above: Performed By: #### L ACWB, PT, PTT, KELI, DIME, BNP, CINTHIA, TSHX, BMP, CK, LIP, LIVP, TROPI, CDP, PRCAL, CRP #### [address] [phone] Planting Material Carrier: Pito Freed MD Potassium [Moles/Vol] 3.8 mmol/L Normal 3.7-5.3 [facility] Comment on above: Performed By: #### L ACWB, PT, PTT, KELI, DIME, BNP, CINTHIA, TSHX, BMP, CK, LIP, LIVP, TROPI, CDP, PRCAL, CRP #### [address] [address] [employer]ing Material Carrier: Pito Freed MD Sodium [Moles/Vol] 135 mmol/L Normal 135-144 [facility] Comment on above: Performed By: #### L ACWB, PT, PTT, KELI, DIME, BNP, CINTHIA, TSHX, BMP, CK, LIP, LIVP, TROPI, CDP, PRCAL, CRP #### [address] [phone] Planting Material Carrier: Pito Freed MD Urea nitrogen [Mass/Vol] 61 mg/dL High 8-23 [facility] Comment on above: Performed By: #### L ACWB, PT, PTT, KELI, DIME, BNP, CINTHIA, TSHX, BMP, CK, LIP, LIVP, TROPI, CDP, PRCAL, CRP #### [address] [phone] Planting Material Carrier: Pito Freed MD BUN/CRE Ratio NOT REPORTED Normal 11-13 [facility] Comment on above: Performed By: #### L ACWB, PT, PTT, KELI, DIME, BNP, CINTHIA, TSHX, BMP, CK, LIP, LIVP, TROPI, CDP, PRCAL, CRP #### [address] [phone] Planting Material Carrier: Pito Freed MD Staging: NOT REPORTED Normal [facility] Comment on above: Performed By: #### L ACWB, PT, PTT, KELI, DIME, BNP, CINTHIA, TSHX, BMP, CK, LIP, LIVP, TROPI, CDP, PRCAL, CRP #### [place] [id number] Planting Material Carrier: Pito Freed MD CBC with Diffon 05-24-2018 Abs. Basophil 0.00 k/uL Normal 0.0-0.2 [facility] Comment on above: Performed By: #### L ACWB, PT, PTT, KELI, DIME, BNP, CINTHIA, TSHX, BMP, CK, LIP, LIVP, TROPI, CDP, PRCAL, CRP #### [address] [id number] Planting Material Carrier: Pito Freed MD Abs.Imm.Granulocyte 0.00 k/uL Normal 0.00-0.30 [facility] Comment on above: Performed By: #### L ACWB, PT, PTT, KELI, DIME, BNP, CINTHIA, TSHX, BMP, CK, LIP, LIVP, TROPI, CDP, PRCAL, CRP #### [address] [id number] Planting Material Carrier: Pito Freed MD Abs.Neutrophil (Seg) 8.23 k/uL High 1.8-7.7 [facility] Comment on above: Performed By: #### L ACWB, PT, PTT, KELI, DIME, BNP, CINTHIA, TSHX, BMP, CK, LIP, LIVP, TROPI, CDP, PRCAL, CRP #### [place] [id number] [employer]ing Material Carrier: Pito Freed MD Basophils/100 WBC (Bld) 0 % Normal 0-2 [facility] Comment on above: Performed By: #### L ACWB, PT, PTT, KELI, DIME, BNP, CINTHIA, TSHX, BMP, CK, LIP, LIVP, TROPI, CDP, PRCAL, CRP #### [place] [id number] Planting Material Carrier: Pito Freed MD Eosinophils (Bld) [#/Vol] 0.00 10*3/uL Normal 0.0-0.4 [facility] Comment on above: Performed By: #### L ACWB, PT, PTT, KELI, DIME, BNP, CINTHIA, TSHX, BMP, CK, LIP, LIVP, TROPI, CDP, PRCAL, CRP #### [place] [id number] Planting Material Carrier: Pito Freed MD Eosinophils/100 WBC (Bld) 0 % Low 1-4 [facility] Comment on above: Performed By: #### L ACWB, PT, PTT, KELI, DIME, BNP, CINTHIA, TSHX, BMP, CK, LIP, LIVP, TROPI, CDP, PRCAL, CRP #### [place] [id number] [employer]ing Material Carrier: Pito Freed MD Immature granulocytes (Bld) [#/Vol] 0 % Normal 0 [facility] Comment on above: Performed By: #### L ACWB, PT, PTT, KELI, DIME, BNP, CINTHIA, TSHX, BMP, CK, LIP, LIVP, TROPI, CDP, PRCAL, CRP #### [address] [address] Planting Material Carrier: Pito Freed MD Lymphocytes (Bld) [#/Vol] 0.88 10*3/uL Low 1.0-4.8 [facility] Comment on above: Performed By: #### L ACWB, PT, PTT, KELI, DIME, BNP, CINTHIA, TSHX, BMP, CK, LIP, LIVP, TROPI, CDP, PRCAL, CRP #### [address] [address] Planting Material Carrier: Pito Freed MD Lymphocytes/100 WBC (Bld) 9 % Low 24-44 [facility] Comment on above: Performed By: #### L ACWB, PT, PTT, KELI, DIME, BNP, CINTHIA, TSHX, BMP, CK, LIP, LIVP, TROPI, CDP, PRCAL, CRP #### [address] [address] Planting Material Carrier: Pito Freed MD Monocytes (Bld) [#/Vol] 0.69 10*3/uL Normal 0.1-0.8 [facility] Comment on above: Performed By: #### L ACWB, PT, PTT, KELI, DIME, BNP, CINTHIA, TSHX, BMP, CK, LIP, LIVP, TROPI, CDP, PRCAL, CRP #### [address] [address] Planting Material Carrier: Pito Freed MD Monocytes/100 WBC (Bld) 7 % Normal 1-7 [facility] Comment on above: Performed By: #### L ACWB, PT, PTT, KELI, DIME, BNP, CINTHIA, TSHX, BMP, CK, LIP, LIVP, TROPI, CDP, PRCAL, CRP #### [address] [id number] Planting Material Carrier: Pito Freed MD Morphology Aneudy (Bld) [Interp] ANISOCYTOSIS PRESENT Normal [facility] Comment on above: Result Comment: INCR EASED BANDS PRESENT TOXIC GRANULATION PRESENT VACUOLATED NEUTROPHILS PRESENT Performed By: #### L ACWB, PT, PTT, KELI, DIME, BNP, CINTHIA, TSHX, BMP, CK, LIP, LIVP, TROPI, CDP, PRCAL, CRP #### [address] [phone] Planting Material Carrier: Pito Freed MD Neutrophil (Seg) 84 % High 36-66 [facility] Comment on above: Performed By: #### L ACWB, PT, PTT, KELI, DIME, BNP, CINTHIA, TSHX, BMP, CK, LIP, LIVP, TROPI, CDP, PRCAL, CRP #### [address] [phone] Planting Material Carrier: Pito Freed MD NRBC Automated 0.0 per 100 WBC Normal 0.0 [facility] Comment on above: Performed By: #### L ACWB, PT, PTT, KELI, DIME, BNP, CINTHIA, TSHX, BMP, CK, LIP, LIVP, TROPI, CDP, PRCAL, CRP #### [address] [phone] Planting Material Carrier: Pito Freed MD Platelet mean volume (Bld) [Entitic vol] 14.1 fL High 8.1-13.5 [facility] Comment on above: Performed By: #### L ACWB, PT, PTT, KELI, DIME, BNP, CINTHIA, TSHX, BMP, CK, LIP, LIVP, TROPI, CDP, PRCAL, CRP #### [address] [phone] Planting Material Carrier: Pito Freed MD Platelets (Bld) [#/Vol] 60 10*3/uL Low 138-453 [facility] Comment on above: Performed By: #### L ACWB, PT, PTT, KELI, DIME, BNP, CINTHIA, TSHX, BMP, CK, LIP, LIVP, TROPI, CDP, PRCAL, CRP #### [address] [address] Planting Material Carrier: Pito Freed MD WBC (Bld) [#/Vol] 9.8 10*3/uL Normal 3.5-11.3 [facility] Comment on above: Performed By: #### L ACWB, PT, PTT, KELI, DIME, BNP, CINTHIA, TSHX, BMP, CK, LIP, LIVP, TROPI, CDP, PRCAL, CRP #### [address] [address] Planting Material Carrier: Pito Freed MD Erythrocyte distribution width (RBC) [Ratio] 15.3 % High 11.8-14.4 [facility] Comment on above: Performed By: #### L ACWB, PT, PTT, KELI, DIME, BNP, CINTHIA, TSHX, BMP, CK, LIP, LIVP, TROPI, CDP, PRCAL, CRP #### [address] [address] Planting Material Carrier: Pito Freed MD Hematocrit (Bld) [Volume fraction] 34.3 % Low 40.7-50.3 [facility] Comment on above: Performed By: #### L ACWB, PT, PTT, KELI, DIME, BNP, CINTHIA, TSHX, BMP, CK, LIP, LIVP, TROPI, CDP, PRCAL, CRP #### [address] [address] Planting Material Carrier: Pito Freed MD Hemoglobin (Bld) [Mass/Vol] 11.1 g/dL Low 13.0-17.0 [facility] Comment on above: Performed By: #### L ACWB, PT, PTT, KELI, DIME, BNP, CINTHIA, TSHX, BMP, CK, LIP, LIVP, TROPI, CDP, PRCAL, CRP #### [address] [address] Planting Material Carrier: Pito Freed MD MCH (RBC) [Entitic mass] 28.7 pg Normal 25.2-33.5 [facility] Comment on above: Performed By: #### L ACWB, PT, PTT, KELI, DIME, BNP, CINTHIA, TSHX, BMP, CK, LIP, LIVP, TROPI, CDP, PRCAL, CRP #### [address] [address] Planting Material Carrier: Pito Freed MD MCHC (RBC) [Mass/Vol] 32.4 g/dL Normal 28.4-34.8 [facility] Comment on above: Performed By: #### L ACWB, PT, PTT, KELI, DIME, BNP, CINTHIA, TSHX, BMP, CK, LIP, LIVP, TROPI, CDP, PRCAL, CRP #### [address] [address] Planting Material Carrier: Pito Freed MD MCV (RBC) [Entitic vol] 88.6 fL Normal 82.6-102.9 [facility] Comment on above: Performed By: #### L ACWB, PT, PTT, KELI, DIME, BNP, CINTHIA, TSHX, BMP, CK, LIP, LIVP, TROPI, CDP, PRCAL, CRP #### [address] [address] Planting Material Carrier: Pito Freed MD RBC (Bld) [#/Vol] 3.87 10*6/uL Low 4.21-5.77 [facility] Comment on above: Performed By: #### L ACWB, PT, PTT, KELI, DIME, BNP, CINTHIA, TSHX, BMP, CK, LIP, LIVP, TROPI, CDP, PRCAL, CRP #### [address] [id number] Planting Material Carrier: Pito Freed MD Auto Diff Performed NOT REPORTED Normal [facility] Comment on above: Performed By: #### L ACWB, PT, PTT, KELI, DIME, BNP, CINTHIA, TSHX, BMP, CK, LIP, LIVP, TROPI, CDP, PRCAL, CRP #### [address] [address] Planting Material Carrier: Pito Freed MD Platelets (Bld) [#/Vol] NOT REPORTED Normal [facility] Comment on above: Performed By: #### L ACWB, PT, PTT, KELI, DIME, BNP, CINTHIA, TSHX, BMP, CK, LIP, LIVP, TROPI, CDP, PRCAL, CRP #### [address] [id number] Planting Material Carrier: Pito Freed MD RBC morphology finding Nom (Bld) NOT REPORTED Normal [facility] Comment on above: Performed By: #### L ACWB, PT, PTT, KELI, DIME, BNP, CINTHIA, TSHX, BMP, CK, LIP, LIVP, TROPI, CDP, PRCAL, CRP #### [address] [address] Planting Material Carrier: Pito Freed MD WBC Morphology NOT REPORTED Normal [facility] Comment on above: Performed By: #### L ACWB, PT, PTT, KELI, DIME, BNP, CINTHIA, TSHX, BMP, CK, LIP, LIVP, TROPI, CDP, PRCAL, CRP #### [address] [address] Planting Material Carrier: Pito Freed MD Calcium, Ionicon 05-24-2018 Calcium [Mass/Vol] 1.01 mmol/L Low 1.13-1.33 [facility] Comment on above: Performed By: #### L ACWB, PT, PTT, KELI, DIME, BNP, CINTHIA, TSHX, BMP, CK, LIP, LIVP, TROPI, CDP, PRCAL, CRP #### [address] [address] Planting Material Carrier: Pito Freed MD Creatine Kinaseon 05-24-2018 CK [Catalytic activity/Vol] 641 U/L High 39-308 [facility] Comment on above: Performed By: #### L ACWB, PT, PTT, KELI, DIME, BNP, CINTHIA, TSHX, BMP, CK, LIP, LIVP, TROPI, CDP, PRCAL, CRP #### [place] [id number] [employer] Material Carrier: Pito Freed MD Flu A/B, Molecularon 019 Influenza A Negative Normal NEG [facility] Comment on above: Result Comment: Infl uenza A RNA not detected by nucleic acid amplification. Performed By: #### L ACWB, PT, PTT, KELI, DIME, BNP, CINTHIA, TSHX, BMP, CK, LIP, LIVP, TROPI, CDP, PRCAL, CRP #### [address] [address] [employer]ing Material Carrier: Pito Freed MD Influenza B Negative Normal NEG [facility] Comment on above: Result Comment: Infl uenza B RNA not detected by nucleic acid amplification. Performed By: #### L ACWB, PT, PTT, KELI, DIME, BNP, CINTHIA, TSHX, BMP, CK, LIP, LIVP, TROPI, CDP, PRCAL, CRP #### [place] [id number] Planting Material Carrier: Pito Freed MD Source: .NASOPHARYNGEAL SWAB Normal [facility] Comment on above: Performed By: #### L ACWB, PT, PTT, KELI, DIME, BNP, CINTHIA, TSHX, BMP, CK, LIP, LIVP, TROPI, CDP, PRCAL, CRP #### [address] [id number] Planting Material Carrier: Pito Freed MD Giardia/Cryptosp Agon 2018 Giardia/Cryptosp Ag Specimen Description .FECES Special Requests NOT REPORTED Direct Exam Giardia Antigen Assay Negative Cryptosporidium Antigen Assay Negative Report Status FINAL 05/24/2018 Normal [facility] Comment on above: Performed By: #### L ACWB, PT, PTT, KELI, DIME, BNP, CINTHIA, TSHX, BMP, CK, LIP, LIVP, TROPI, CDP, PRCAL, CRP #### [address] [id number] Planting Material Carrier: Pito Freed MD Hepatitis Acute [facility] 05-24 Hep A Ab,IgM NONREACTIVE Normal NR [facility] Comment on above: Performed By: #### L ACWB, PT, PTT, KELI, DIME, BNP, CINTHIA, TSHX, BMP, CK, LIP, LIVP, TROPI, CDP, PRCAL, CRP #### [address] [id number] Planting Material Carrier: Pito Freed MD Hep B Core Ab,IgM NONREACTIVE Normal NR [facility] Comment on above: Performed By: #### L ACWB, PT, PTT, KELI, DIME, BNP, CINTHIA, TSHX, BMP, CK, LIP, LIVP, TROPI, CDP, PRCAL, CRP #### [address] [id number] Planting Material Carrier: Pito Freed MD Hep B Surf Ag NONREACTIVE Normal NR [facility] Comment on above: Performed By: #### L ACWB, PT, PTT, KELI, DIME, BNP, CINTHIA, TSHX, BMP, CK, LIP, LIVP, TROPI, CDP, PRCAL, CRP #### [address] [id number] Planting Material Carrier: Pito Freed MD Hep C Ab NONREACTIVE Normal NR [facility] Comment on above: Result Comment: The hepatitis C procedure used in our laboratory is a Chemiluminescent test specific for three recombinant HCV antigens. A negative anti-HCV result indicates that the antibodies to hepatitis C virus are not present at this time. Individuals with reactive anti-HCV should be considered infected and infectious until proven otherwise. Confirmation of all equivocal or reactive results is recommended by ordering HCV RNA by PCR. Performed By: #### L ACWB, PT, PTT, KELI, DIME, BNP, CINTHIA, TSHX, BMP, CK, LIP, LIVP, TROPI, CDP, PRCAL, CRP #### [address] [address] Planting Material Carrier: Pito Freed MD Hgb/Hcton 05-24-2018 Hematocrit (Bld) [Volume fraction] 35.6 % Low 40.7-50.3 [facility] Comment on above: Performed By: #### L ACWB, PT, PTT, KELI, DIME, BNP, CINTHIA, TSHX, BMP, CK, LIP, LIVP, TROPI, CDP, PRCAL, CRP #### [address] [address] Planting Material Carrier: Pito Freed MD Hemoglobin (Bld) [Mass/Vol] 11.5 g/dL Low 13.0-17.0 [facility] Comment on above: Performed By: #### L ACWB, PT, PTT, KELI, DIME, BNP, CINTHIA, TSHX, BMP, CK, LIP, LIVP, TROPI, CDP, PRCAL, CRP #### [address] [address] Planting Material Carrier: Pito Freed MD Hematocrit (Bld) [Volume fraction] 36.5 % Low 40.7-50.3 [facility] Comment on above: Performed By: #### L ACWB, PT, PTT, KELI, DIME, BNP, CINTHIA, TSHX, BMP, CK, LIP, LIVP, TROPI, CDP, PRCAL, CRP #### [address] [id number] Planting Material Carrier: Pito Freed MD Hemoglobin (Bld) [Mass/Vol] 11.6 g/dL Low 13.0-17.0 [facility] Comment on above: Performed By: #### L ACWB, PT, PTT, KELI, DIME, BNP, CINTHIA, TSHX, BMP, CK, LIP, LIVP, TROPI, CDP, PRCAL, CRP #### [address] [id number] Planting Material Carrier: Pito Freed MD Hematocrit (Bld) [Volume fraction] 35.2 % Low 40.7-50.3 [facility] Comment on above: Performed By: #### L ACWB, PT, PTT, KELI, DIME, BNP, CINTHIA, TSHX, BMP, CK, LIP, LIVP, TROPI, CDP, PRCAL, CRP #### [address] [id number] Planting Material Carrier: Pito Freed MD Hemoglobin (Bld) [Mass/Vol] 11.7 g/dL Low 13.0-17.0 [facility] Comment on above: Performed By: #### L ACWB, PT, PTT, KELI, DIME, BNP, CINTHIA, TSHX, BMP, CK, LIP, LIVP, TROPI, CDP, PRCAL, CRP #### [address] [id number] Planting Material Carrier: Pito Freed MD Iron Binding Cap.on 05-25-19 19 % Fe Saturation 12 % Low 20-55 [facility] Comment on above: Performed By: #### L ACWB, PT, PTT, KELI, DIME, BNP, CINTHIA, TSHX, BMP, CK, LIP, LIVP, TROPI, CDP, PRCAL, CRP #### [address] [address] Planting Material Carrier: Pito Freed MD Iron [Mass/Vol] 15 ug/dL Low 59-158 [facility] Comment on above: Performed By: #### L ACWB, PT, PTT, KELI, DIME, BNP, CINTHIA, TSHX, BMP, CK, LIP, LIVP, TROPI, CDP, PRCAL, CRP #### [address] [id number] Planting Material Carrier: Pito Freed MD Total Fe Binding Cap 128 ug/dL Low 250-450 [facility] Comment on above: Performed By: #### L ACWB, PT, PTT, KELI, DIME, BNP, CINTHIA, TSHX, BMP, CK, LIP, LIVP, TROPI, CDP, PRCAL, CRP #### [address] [phone] Planting Material Carrier: Pito Freed MD Unbound Fe Bind Cap 113 ug/dL Normal 112-347 [facility] Comment on above: Performed By: #### L ACWB, PT, PTT, KELI, DIME, BNP, CINTHIA, TSHX, BMP, CK, LIP, LIVP, TROPI, CDP, PRCAL, CRP #### [address] [id number] Planting Material Carrier: Pito Freed MD LDL Chol, Directon 9 LDL Chol, Direct 15 mg/dL Normal <100 [facility] Comment on above: Performed By: #### L ACWB, PT, PTT, KELI, DIME, BNP, CINTHIA, TSHX, BMP, CK, LIP, LIVP, TROPI, CDP, PRCAL, CRP #### [address] [id number] Planting Material Carrier: Pito Freed MD Lactate, Sepsison 05-24-2018 Lactic Acid,Sep Wbld 1.4 mmol/L Normal 0.5-1.9 [facility] Comment on above: Performed By: #### L ACWB, PT, PTT, KELI, DIME, BNP, CINTHIA, TSHX, BMP, CK, LIP, LIVP, TROPI, CDP, PRCAL, CRP #### [address] [address] Planting Material Carrier: Pito Freed MD Lactic Acid, Sepsis NOT REPORTED Normal 0.5-1.9 [facility] Comment on above: Performed By: #### L ACWB, PT, PTT, KELI, DIME, BNP, CINTHIA, TSHX, BMP, CK, LIP, LIVP, TROPI, CDP, PRCAL, CRP #### [address] [id number] Planting Material Carrier: Pito Freed MD Lactic Acid,Whole Blon 05-24 Lactic Acid,Whole Bl 1.5 mmol/L Normal 0.7-2.1 [facility] Comment on above: Performed By: #### L ACWB, PT, PTT, KELI, DIME, BNP, CINTHIA, TSHX, BMP, CK, LIP, LIVP, TROPI, CDP, PRCAL, CRP #### [address] [id number] Planting Material Carrier: Pito Freed MD Lactic Acid,Whole Bl 2.3 mmol/L High 0.7-2.1 [facility] Comment on above: Performed By: #### L ACWB, PT, PTT, KELI, DIME, BNP, CINTHIA, TSHX, BMP, CK, LIP, LIVP, TROPI, CDP, PRCAL, CRP #### [address] [address] Planting Material Carrier: Pito Freed MD Lipid Profileon 05-24-2018 Cholesterol in LDL [Mass/Vol] Normal 0-130 [facility] Comment on above: Result Comment: Calc ulation not valid for Triglyceride value greater than 400 mg/dL. Direct LDL reflexed LDL Guidelines: <100 Desirable 100-129 Near to/above Desirable 130-159 Borderline >159 Undesirable Direct (measured) LDL and calculated LDL are not interchangeable tests. Performed By: #### L ACWB, PT, PTT, KELI, DIME, BNP, CINTHIA, TSHX, BMP, CK, LIP, LIVP, TROPI, CDP, PRCAL, CRP #### [address] [address] Planting Material Carrier: Pito Freed MD Cholesterol [Mass/Vol] 131 mg/dL Normal <200 [facility] Comment on above: Result Comment: Cholesterol Guidelines: <200 Desirable 200-240 Borderline >240 Undesirable Performed By: #### L ACWB, PT, PTT, KELI, DIME, BNP, CINTHIA, TSHX, BMP, CK, LIP, LIVP, TROPI, CDP, PRCAL, CRP #### [address] [address] Planting Material Carrier: Pito Freed MD Cholesterol in HDL [Mass/Vol] 8 mg/dL Low >40 [facility] Comment on above: Result Comment: HDL Guidelines: <40 Undesirable 40-59 Borderline >59 Desirable Performed By: #### L ACWB, PT, PTT, KELI, DIME, BNP, CINTHIA, TSHX, BMP, CK, LIP, LIVP, TROPI, CDP, PRCAL, CRP #### [address] [address] Planting Material Carrier: Pito Freed MD Cholesterol.total/Chol esterol in HDL [Mass ratio] 16.4 {ratio} High <5 [facility] Comment on above: Performed By: #### L ACWB, PT, PTT, KELI, DIME, BNP, CINTHIA, TSHX, BMP, CK, LIP, LIVP, TROPI, CDP, PRCAL, CRP #### [address] [address] Planting Material Carrier: Pito Freed MD Triglyceride [Mass/Vol] 496 mg/dL High <150 [facility] Comment on above: Result Comment: Triglyceride Guidelines: <150 Desirable 150-199 Borderline 200-499 High >499 Very high Based on AHA Guidelines for fasting triglyceride, November 2011. Performed By: #### L ACWB, PT, PTT, KELI, DIME, BNP, CINTHIA, TSHX, BMP, CK, LIP, LIVP, TROPI, CDP, PRCAL, CRP #### [address] [phone] Planting Material Carrier: Pito Freed MD Cholesterol in VLDL [Mass/Vol] NOT REPORTED Normal 03-25 [facility] Comment on above: Performed By: #### L ACWB, PT, PTT, KELI, DIME, BNP, CINTHIA, TSHX, BMP, CK, LIP, LIVP, TROPI, CDP, PRCAL, CRP #### [address] [phone] Planting Material Carrier: Pito Freed MD Liver Profileon 05-24-2018 AST [Catalytic activity/Vol] 136 U/L High <40 [facility] Comment on above: Performed By: #### L ACWB, PT, PTT, KLEI, DIME, BNP, CINTHIA, TSHX, BMP, CK, LIP, LIVP, TROPI, CDP, PRCAL, CRP #### [address] [phone] Planting Material Carrier: Pito Freed MD Bilirubin, Indirect 0.16 mg/dL Normal 0.00-1.00 [facility] Comment on above: Performed By: #### L ACWB, PT, PTT, KELI, DIME, BNP, CINTHIA, TSHX, BMP, CK, LIP, LIVP, TROPI, CDP, PRCAL, CRP #### [address] [phone] Planting Material Carrier: Pito Freed MD Bilirubin.direct [Mass/Vol] 0.13 mg/dL Normal <0.31 [facility] Comment on above: Performed By: #### L ACWB, PT, PTT, KELI, DIME, BNP, CINTHIA, TSHX, BMP, CK, LIP, LIVP, TROPI, CDP, PRCAL, CRP #### [address] [address] Planting Material Carrier: Pito Freed MD Albumin [Mass/Vol] 2.1 g/dL Low 3.-[address] [place] [address] Comment on above: Performed By: #### L ACWB, PT, PTT, KELI, DIME, BNP, CINTHIA, TSHX, BMP, CK, LIP, LIVP, TROPI, CDP, PRCAL, CRP #### [address] [address] Planting Material Carrier: Pito Freed MD Albumin [Mass/Vol] 2.3 g/dL Low 3.-[address] Comment on above: Performed By: #### L ACWB, PT, PTT, KELI, DIME, BNP, CINTHIA, TSHX, BMP, CK, LIP, LIVP, TROPI, CDP, PRCAL, CRP #### [address] [address] Planting Material Carrier: Pito Freed MD Albumin/Globulin [Mass ratio] 0.8 {ratio} Low 1.0-2.[address] [place] [address] Comment on above: Performed By: #### L ACWB, PT, PTT, KELI, DIME, BNP, CINTHIA, TSHX, BMP, CK, LIP, LIVP, TROPI, CDP, PRCAL, CRP #### [address] [phone] Planting Material Carrier: Pito Freed MD Albumin/Globulin [Mass ratio] 0.7 {ratio} Low 1.0-2.[address] [place] [address] Comment on above: Performed By: #### L ACWB, PT, PTT, KELI, DIME, BNP, CINTHIA, TSHX, BMP, CK, LIP, LIVP, TROPI, CDP, PRCAL, CRP #### [address] [address] Planting Material Carrier: Pito Freed MD Alkaline Phos 126 U/L Normal 40-129 [facility] Comment on above: Performed By: #### L ACWB, PT, PTT, KELI, DIME, BNP, CINTHIA, TSHX, BMP, CK, LIP, LIVP, TROPI, CDP, PRCAL, CRP #### [address] [address] Planting Material Carrier: Pito Freed MD Alkaline Phos 127 U/L Normal 40-129 [facility] Comment on above: Performed By: #### L ACWB, PT, PTT, KELI, DIME, BNP, CINTHIA, TSHX, BMP, CK, LIP, LIVP, TROPI, CDP, PRCAL, CRP #### [address] [phone] Planting Material Carrier: Pito Freed MD ALT [Catalytic activity/Vol] 113 U/L High 5-41 [facility] Comment on above: Performed By: #### L ACWB, PT, PTT, KELI, DIME, BNP, CINTHIA, TSHX, BMP, CK, LIP, LIVP, TROPI, CDP, PRCAL, CRP #### [address] [address] Planting Material Carrier: Pito Freed MD ALT [Catalytic activity/Vol] 115 U/L High 5-41 [facility] Comment on above: Performed By: #### L ACWB, PT, PTT, KELI, DIME, BNP, CINTHIA, TSHX, BMP, CK, LIP, LIVP, TROPI, CDP, PRCAL, CRP #### [address] [id number] Planting Material Carrier: Pito Freed MD AST [Catalytic activity/Vol] 130 U/L High <40 [facility] Comment on above: Performed By: #### L ACWB, PT, PTT, KELI, DIME, BNP, CINTHIA, TSHX, BMP, CK, LIP, LIVP, TROPI, CDP, PRCAL, CRP #### [address] [id number] Planting Material Carrier: Pito Freed MD Bilirubin Ql (U) 0.29 mg/dL Low 0.3-1.2 [facility] Comment on above: Performed By: #### L ACWB, PT, PTT, KELI, DIME, BNP, CINTHIA, TSHX, BMP, CK, LIP, LIVP, TROPI, CDP, PRCAL, CRP #### [address] [address] Planting Material Carrier: Pito Freed MD Bilirubin Ql (U) 0.31 mg/dL Normal 0.3-1.2 [facility] Comment on above: Performed By: #### L ACWB, PT, PTT, KELI, DIME, BNP, CINTHIA, TSHX, BMP, CK, LIP, LIVP, TROPI, CDP, PRCAL, CRP #### [address] [id number] Planting Material Carrier: Pito Freed MD Bilirubin, Indirect 0.12 mg/dL Normal 0.00-1.00 [facility] Comment on above: Performed By: #### L ACWB, PT, PTT, KELI, DIME, BNP, CINTHIA, TSHX, BMP, CK, LIP, LIVP, TROPI, CDP, PRCAL, CRP #### [address] [phone] Planting Material Carrier: Pito Freed MD Bilirubin.direct [Mass/Vol] 0.19 mg/dL Normal <0.31 [facility] Comment on above: Performed By: #### L ACWB, PT, PTT, KELI, DIME, BNP, CINTHIA, TSHX, BMP, CK, LIP, LIVP, TROPI, CDP, PRCAL, CRP #### [address] [id number] Planting Material Carrier: Pito Freed MD Protein [Mass/Vol] 5.3 g/dL Low 6.4-8.3 [facility] Comment on above: Performed By: #### L ACWB, PT, PTT, KELI, DIME, BNP, CINTHIA, TSHX, BMP, CK, LIP, LIVP, TROPI, CDP, PRCAL, CRP #### [address] [phone] Planting Material Carrier: Pito Freed MD Globulin (S) [Mass/Vol] NOT REPORTED Normal 1.5-3.8 [facility] Comment on above: Performed By: #### L ACWB, PT, PTT, KELI, DIME, BNP, CINTHIA, TSHX, BMP, CK, LIP, LIVP, TROPI, CDP, PRCAL, CRP #### [address] [phone] Planting Material Carrier: Pito Freed MD Globulin (S) [Mass/Vol] NOT REPORTED Normal 1.5-3.8 [facility] Comment on above: Performed By: #### L ACWB, PT, PTT, KELI, DIME, BNP, CINTHIA, TSHX, BMP, CK, LIP, LIVP, TROPI, CDP, PRCAL, CRP #### [address] [phone] Planting Material Carrier: Pito Freed MD MRSA, DNA, Nasalon 9 MRSA, DNA, Nasal NEGATIVE: MRSA DNA n ot detected by nucleic acid amplification. Normal NMRSAA [facility] Comment on above: Result Comment: Results should be used as an adjunct to nosocomial control efforts to identify patients needing enhanced precautions. The test is not intended to identify patients with staphylococcal infections. Results should not be used to guide or monitor treatment for MRSA infections. Performed By: #### L ACWB, PT, PTT, KELI, DIME, BNP, CINTHIA, TSHX, BMP, CK, LIP, LIVP, TROPI, CDP, PRCAL, CRP #### [facility] [place], [place] [id number] Planting Material Carrier: Pito Freed MD Magnesiumon 05-24-2018 Magnesium [Mass/Vol] 3.1 mg/dL High 1.6-2.6 [facility] Comment on above: Performed By: #### L ACWB, PT, PTT, KELI, DIME, BNP, CINTHIA, TSHX, BMP, CK, LIP, LIVP, TROPI, CDP, PRCAL, CRP #### [facility] [place], [place] [id number] Planting Material Carrier: Pito Freed MD Myoglobinon 05-24-2018 Myoglobin [Mass/Vol] 343 ng/mL High 28-72 [facility] Comment on above: Performed By: #### L ACWB, PT, PTT, KELI, DIME, BNP, CINTHIA, TSHX, BMP, CK, LIP, LIVP, TROPI, CDP, PRCAL, CRP #### [facility] [address] [place] [address] [id number] Planting Material Carrier: Pito Freed MD Procalcitoninon 05-24-2018 Procalcitonin >100.00 High <0.09 [facility] Comment on above: Result Comment: Suspected Sepsis: 0.09-0.49 ng/mL Low likelihood of sepsis. 0.50-2.00 ng/mL Increased likelihood of sepsis. Antibiotics encouraged. >2.00 ng/mL High risk of sepsis/shock. Antibiotics strongly encouraged. Suspected Lower Resp Tract Infections: 0.09-0.24 ng/mL Low likelihood of bacterial infection. >0.24 ng/mL Increased likelihood of bacterial infection. Antibiotics encouraged. With successful antibiotic therapy, PCT levels should decrease rapidly. (Half-life of 24 to 36 hours.) Procalcitonin values from samples collected within the first 6 hours of systemic infection may still be low. Retesting may be indicated. Values from day 1 and day 4 can be entered into the Change in Procalcitonin Calculator (www.dlomjn-abl-uvravhfsll.com) to determine the patient's Mortality Risk Prognosis Performed By: #### L ACWB, PT, PTT, KELI, DIME, BNP, CINTHIA, TSHX, BMP, CK, LIP, LIVP, TROPI, CDP, PRCAL, CRP #### [address] [id number] Planting Material Carrier: Pito Freed MD Vitamin D 25 OHon 05-24-2018 Vitamin D 25 OH 7.2 ng/mL Low 30.0-100.0 [facility] Comment on above: Result Comment: Reference Range: Vitamin D status Range Deficiency <20 ng/mL Mild Deficiency 20-30 ng/mL Sufficiency 30-100 ng/mL Toxicity >100 ng/mL Performed By: #### L ACWB, PT, PTT, KELI, DIME, BNP, CINTHIA, TSHX, BMP, CK, LIP, LIVP, TROPI, CDP, PRCAL, CRP #### [address] [id number] Planting Material Carrier: Pito Freed MD XR CHEST PORTABLEon 05-25-19 19 XR CHEST PORTABLE EXAMINATION: SINGLE XRAY VIEW OF THE CHEST 05/24/2018 6:07 am COMPARISON: 23 hours prior HISTORY: ORDERING SYSTEM PROVIDED HISTORY: influenza pneumonia TECHNOLOGIST PROVIDED HISTORY: influenza pneumonia FINDINGS: The cardiac silhouette is within normal limits for size. The pulmonary vasculature is within normal limits. There is no focal consolidation, pleural effusion or pneumothorax. Minimal opacity again seen left lower lobe near cardiac apex. The visualized osseous structures demonstrate no acute abnormality. IMPRESSION: Interstitial opacities less prominent than seen previously. No focal consolidation. Interpreted by: Renard Mcgregor MD Signed by: Renard Mcgregor MD 05/24/18 Final result Normal [facility] APTTon 05-23-2018 aPTT Coag (Bld) [Time] 31.4 s High 20.5-30.5 [facility] Comment on above: Performed By: #### L ACWB, PT, PTT, KELI, DIME, BNP, CINTHIA, TSHX, BMP, CK, LIP, LIVP, TROPI, CDP, PRCAL, CRP #### [facility] [address] [phone] Planting Material Carrier: Pito Freed MD aPTT Coag (Bld) [Time] 32.9 s High 20.5-30.5 [facility] Comment on above: Performed By: #### L ACWB, PT, PTT, KELI, DIME, BNP, CINTHIA, TSHX, BMP, CK, LIP, LIVP, TROPI, CDP, PRCAL, CRP #### [address] [phone] Planting Material Carrier: Pito Freed MD aPTT Coag (Bld) [Time] 51.5 s High 20.5-30.5 [facility] Comment on above: Performed By: #### L ACWB, PT, PTT, KELI, DIME, BNP, CINTHIA, TSHX, BMP, CK, LIP, LIVP, TROPI, CDP, PRCAL, CRP #### [address] [id number] Planting Material Carrier: Pito Freed MD Alpha Fetoproteinon 05-24-19 19 Alpha Fetoprotein 1.0 ug/L Normal <8.4 [facility] Comment on above: Result Comment: The Brook ECLIA assay is used. Results obtained with different assay methods cannot be used interchangeably. Performed By: #### L ACWB, PT, PTT, KELI, DIME, BNP, CINTHIA, TSHX, BMP, CK, LIP, LIVP, TROPI, CDP, PRCAL, CRP #### [address] [phone] Planting Material Carrier: Pito Freed MD Basic Metab w/rfx MGon 05-23 (cont.) Normal [facility] Comment on above: Result Comment: Aver age GFR for 60-69 years old: 85 mL/min/1.73sq m Chronic Kidney Disease: <60 mL/min/1.73sq m Kidney failure: <15 mL/min/1.73sq m eGFR calculated using average adult body mass. Additional eGFR calculator available at: http://www.[employer].com/multiple_crcl_2012.htm Performed By: #### L ACWB, PT, PTT, KELI, DIME, BNP, CINTHIA, TSHX, BMP, CK, LIP, LIVP, TROPI, CDP, PRCAL, CRP #### [address] [address] Planting Material Carrier: Pito Freed MD Anion gap [Moles/Vol] 15 mmol/L Normal 9-17 [facility] Comment on above: Performed By: #### L ACWB, PT, PTT, KELI, DIME, BNP, CINTHIA, TSHX, BMP, CK, LIP, LIVP, TROPI, CDP, PRCAL, CRP #### [address] [address] Planting Material Carrier: Pito Freed MD Calcium [Mass/Vol] 6.9 mg/dL Low 8.6-10.4 [facility] Comment on above: Performed By: #### L ACWB, PT, PTT, KELI, DIME, BNP, CINTHIA, TSHX, BMP, CK, LIP, LIVP, TROPI, CDP, PRCAL, CRP #### [address] [address] Planting Material Carrier: Pito Freed MD Chloride [Moles/Vol] 101 mmol/L Normal 98-107 [facility] Comment on above: Performed By: #### L ACWB, PT, PTT, KELI, DIME, BNP, CINTHIA, TSHX, BMP, CK, LIP, LIVP, TROPI, CDP, PRCAL, CRP #### [place] [id number] Planting Material Carrier: Pito Freed MD CO2 [Moles/Vol] 16 mmol/L Low 20-31 [facility] Comment on above: Performed By: #### L ACWB, PT, PTT, KELI, DIME, BNP, CINTHIA, TSHX, BMP, CK, LIP, LIVP, TROPI, CDP, PRCAL, CRP #### [address] [address] Planting Material Carrier: Pito Freed MD Creatinine [Mass/Vol] 2.32 mg/dL High 0.70-1.20 [facility] Comment on above: Performed By: #### L ACWB, PT, PTT, KELI, DIME, BNP, CINTHIA, TSHX, BMP, CK, LIP, LIVP, TROPI, CDP, PRCAL, CRP #### [address] [phone] Planting Material Carrier: Pito Freed MD GFR, Amer 35 mL/min Low >60 [facility] Comment on above: Performed By: #### L ACWB, PT, PTT, KELI, DIME, BNP, CINTHIA, TSHX, BMP, CK, LIP, LIVP, TROPI, CDP, PRCAL, CRP #### [address] [phone] Planting Material Carrier: Pito Freed MD GFR,non Amer 29 mL/min Low >60 [facility] Comment on above: Performed By: #### L ACWB, PT, PTT, KELI, DIME, BNP, CINTHIA, TSHX, BMP, CK, LIP, LIVP, TROPI, CDP, PRCAL, CRP #### [address] [phone] Planting Material Carrier: Pito Freed MD Glucose [Mass/Vol] 124 mg/dL High 70-99 [facility] Comment on above: Performed By: #### L ACWB, PT, PTT, KELI, DIME, BNP, CINTHIA, TSHX, BMP, CK, LIP, LIVP, TROPI, CDP, PRCAL, CRP #### [address] [phone] Planting Material Carrier: Pito Freed MD Potassium [Moles/Vol] 4.3 mmol/L Normal 3.7-5.3 [facility] Comment on above: Performed By: #### L ACWB, PT, PTT, KELI, DIME, BNP, CINTHIA, TSHX, BMP, CK, LIP, LIVP, TROPI, CDP, PRCAL, CRP #### [address] [address] Planting Material Carrier: Pito Freed MD Sodium [Moles/Vol] 132 mmol/L Low 135-144 [facility] Comment on above: Performed By: #### L ACWB, PT, PTT, KELI, DIME, BNP, CINTHIA, TSHX, BMP, CK, LIP, LIVP, TROPI, CDP, PRCAL, CRP #### [address] [address] Planting Material Carrier: Pito Freed MD Urea nitrogen [Mass/Vol] 70 mg/dL High 8-23 [facility] Comment on above: Performed By: #### L ACWB, PT, PTT, KELI, DIME, BNP, CINTHIA, TSHX, BMP, CK, LIP, LIVP, TROPI, CDP, PRCAL, CRP #### [address] [address] Planting Material Carrier: Pito Freed MD BUN/CRE Ratio NOT REPORTED Normal - [facility] Comment on above: Performed By: #### L ACWB, PT, PTT, KELI, DIME, BNP, CINTHIA, TSHX, BMP, CK, LIP, LIVP, TROPI, CDP, PRCAL, CRP #### [address] [id number] Planting Material Carrier: Pito Freed MD Staging: NOT REPORTED Normal [facility] Comment on above: Performed By: #### L ACWB, PT, PTT, KELI, DIME, BNP, CINTHIA, TSHX, BMP, CK, LIP, LIVP, TROPI, CDP, PRCAL, CRP #### [address] [id number] [employer] Carrier: Pito Freed MD Basic Metabolic Profon 05-23 Anion gap [Moles/Vol] 20 mmol/L High 9-17 [facility] Comment on above: Performed By: #### L ACWB, PT, PTT, KELI, DIME, BNP, CINTHIA, TSHX, BMP, CK, LIP, LIVP, TROPI, CDP, PRCAL, CRP #### [address] [id number] Planting Material Carrier: Pito Freed MD Calcium [Mass/Vol] 6.9 mg/dL Low 8.6-10.4 [facility] Comment on above: Performed By: #### L ACWB, PT, PTT, KELI, DIME, BNP, CINTHIA, TSHX, BMP, CK, LIP, LIVP, TROPI, CDP, PRCAL, CRP #### [address] [phone] Planting Material Carrier: Pito Freed MD Chloride [Moles/Vol] 97 mmol/L Low 98-107 [facility] Comment on above: Performed By: #### L ACWB, PT, PTT, KELI, DIME, BNP, CINTHIA, TSHX, BMP, CK, LIP, LIVP, TROPI, CDP, PRCAL, CRP #### [address] [phone] Planting Material Carrier: Pito Freed MD CO2 [Moles/Vol] 12 mmol/L Low 20-31 [facility] Comment on above: Performed By: #### L ACWB, PT, PTT, KELI, DIME, BNP, CINTHIA, TSHX, BMP, CK, LIP, LIVP, TROPI, CDP, PRCAL, CRP #### [address] [phone] Planting Material Carrier: Pito Freed MD Creatinine [Mass/Vol] 2.46 mg/dL High 0.70-1.20 [facility] Comment on above: Performed By: #### L ACWB, PT, PTT, KELI, DIME, BNP, CINTHIA, TSHX, BMP, CK, LIP, LIVP, TROPI, CDP, PRCAL, CRP #### [facility] [employer] [address] [place] [address] [phone] Planting Material Carrier: Pito Freed MD GFR, Amer 32 mL/min Low >60 [facility] Comment on above: Performed By: #### L ACWB, PT, PTT, KELI, DIME, BNP, CINTHIA, TSHX, BMP, CK, LIP, LIVP, TROPI, CDP, PRCAL, CRP #### [address] [id number] Planting Material Carrier: Pito Freed MD GFR,non Amer 27 mL/min Low >60 [facility] Comment on above: Performed By: #### L ACWB, PT, PTT, KELI, DIME, BNP, CINTHIA, TSHX, BMP, CK, LIP, LIVP, TROPI, CDP, PRCAL, CRP #### [address] [id number] Planting Material Carrier: Pito Freed MD Glucose [Mass/Vol] 131 mg/dL High 70-99 [facility] Comment on above: Performed By: #### L ACWB, PT, PTT, KELI, DIME, BNP, CINTHIA, TSHX, BMP, CK, LIP, LIVP, TROPI, CDP, PRCAL, CRP #### [facility] [employer] [address] [place] [address] [phone] Planting Material Carrier: Pito Freed MD Potassium [Moles/Vol] 3.9 mmol/L Normal 3.7-5.3 [facility] Comment on above: Performed By: #### L ACWB, PT, PTT, KELI, DIME, BNP, CINTHIA, TSHX, BMP, CK, LIP, LIVP, TROPI, CDP, PRCAL, CRP #### [address] [phone] Planting Material Carrier: Pito Freed MD Sodium [Moles/Vol] 129 mmol/L Low 135-144 [facility] Comment on above: Performed By: #### L ACWB, PT, PTT, KELI, DIME, BNP, CINTHIA, TSHX, BMP, CK, LIP, LIVP, TROPI, CDP, PRCAL, CRP #### [address] [phone] Planting Material Carrier: Pito Freed MD Urea nitrogen [Mass/Vol] 74 mg/dL High 8- [facility] Comment on above: Performed By: #### L ACWB, PT, PTT, KELI, DIME, BNP, CINTHIA, TSHX, BMP, CK, LIP, LIVP, TROPI, CDP, PRCAL, CRP #### [address] [phone] Planting Material Carrier: Pito Freed MD (cont.) Normal [facility] Comment on above: Result Comment: Aver age GFR for 60-69 years old: 85 mL/min/1.73sq m Chronic Kidney Disease: <60 mL/min/1.73sq m Kidney failure: <15 mL/min/1.73sq m eGFR calculated using average adult body mass. Additional eGFR calculator available at: http://www.[employer].com/multiple_crcl_2012.htm Performed By: #### L ACWB, PT, PTT, KELI, DIME, BNP, CINTHIA, TSHX, BMP, CK, LIP, LIVP, TROPI, CDP, PRCAL, CRP #### [address] [phone] Planting Material Carrier: Pito Freed MD BUN/CRE Ratio NOT REPORTED Normal 11-13 [facility] Comment on above: Performed By: #### L ACWB, PT, PTT, KELI, DIME, BNP, CINTHIA, TSHX, BMP, CK, LIP, LIVP, TROPI, CDP, PRCAL, CRP #### [address] [id number] Planting Material Carrier: Pito Freed MD Staging: NOT REPORTED Normal [facility] Comment on above: Performed By: #### L ACWB, PT, PTT, KELI, DIME, BNP, CINTHIA, TSHX, BMP, CK, LIP, LIVP, TROPI, CDP, PRCAL, CRP #### [address] [phone] Planting Material Carrier: Pito Freed MD C diff Ag + Toxinon 05-24-19 19 C diff Ag + Toxin Negative Normal [facility] Comment on above: Performed By: #### L ACWB, PT, PTT, KELI, DIME, BNP, CINTHIA, TSHX, BMP, CK, LIP, LIVP, TROPI, CDP, PRCAL, CRP #### [address] [phone] Planting Material Carrier: Pito Freed MD Specimen Description .FECES Normal [facility] Comment on above: Performed By: #### L ACWB, PT, PTT, KELI, DIME, BNP, CINTHIA, TSHX, BMP, CK, LIP, LIVP, TROPI, CDP, PRCAL, CRP #### [address] [phone] Planting Material Carrier: Pito Freed MD C difficile tox, PCRon 05-23 C difficile tox, PCR WRONG TEST ORDERED Abnormal CDTNEG [facility] Comment on above: Performed By: #### L ACWB, PT, PTT, KELI, DIME, BNP, CINTHIA, TSHX, BMP, CK, LIP, LIVP, TROPI, CDP, PRCAL, CRP #### [address] [address] Planting Material Carrier: Pito Freed MD Specimen Description .FECES Normal [facility] Comment on above: Performed By: #### L ACWB, PT, PTT, KELI, DIME, BNP, CINTHIA, TSHX, BMP, CK, LIP, LIVP, TROPI, CDP, PRCAL, CRP #### [address] [address] Planting Material Carrier: Pito Freed MD CBC with Diffon 05-23-2018 Abs. Basophil 0.00 k/uL Normal 0.0-0.2 [facility] Comment on above: Performed By: #### L ACWB, PT, PTT, KELI, DIME, BNP, CINTHIA, TSHX, BMP, CK, LIP, LIVP, TROPI, CDP, PRCAL, CRP #### [address] [address] Planting Material Carrier: Pito Freed MD Abs.Imm.Granulocyte 0.24 k/uL Normal 0.00-0.30 [facility] Comment on above: Performed By: #### L ACWB, PT, PTT, KELI, DIME, BNP, CINTHIA, TSHX, BMP, CK, LIP, LIVP, TROPI, CDP, PRCAL, CRP #### [place] [phone] Planting Material Carrier: Pito Freed MD Abs.Neutrophil (Seg) 7.13 k/uL Normal 1.8-7.7 [facility] Comment on above: Performed By: #### L ACWB, PT, PTT, KELI, DIME, BNP, CINTHIA, TSHX, BMP, CK, LIP, LIVP, TROPI, CDP, PRCAL, CRP #### [place] [phone] Planting Material Carrier: Pito Freed MD Basophils/100 WBC (Bld) 0 % Normal 0-2 [facility] Comment on above: Performed By: #### L ACWB, PT, PTT, KELI, DIME, BNP, CINTHIA, TSHX, BMP, CK, LIP, LIVP, TROPI, CDP, PRCAL, CRP #### [address] [address] Planting Material Carrier: Pito Freed MD Eosinophils (Bld) [#/Vol] 0.00 10*3/uL Normal 0.0-0.4 [facility] Comment on above: Performed By: #### L ACWB, PT, PTT, KELI, DIME, BNP, CINTHIA, TSHX, BMP, CK, LIP, LIVP, TROPI, CDP, PRCAL, CRP #### [address] [address] Planting Material Carrier: Pito Freed MD Eosinophils/100 WBC (Bld) 0 % Low 1-4 [facility] Comment on above: Performed By: #### L ACWB, PT, PTT, KELI, DIME, BNP, CINTHIA, TSHX, BMP, CK, LIP, LIVP, TROPI, CDP, PRCAL, CRP #### [place] [phone] Planting Material Carrier: Pito Freed MD Immature granulocytes (Bld) [#/Vol] 3 % High 0 [facility] Comment on above: Performed By: #### L ACWB, PT, PTT, KELI, DIME, BNP, CINTHIA, TSHX, BMP, CK, LIP, LIVP, TROPI, CDP, PRCAL, CRP #### [place] [phone] Planting Material Carrier: Pito Freed MD Lymphocytes (Bld) [#/Vol] 0.65 10*3/uL Low 1.0-4.8 [facility] Comment on above: Performed By: #### L ACWB, PT, PTT, KELI, DIME, BNP, CINTHIA, TSHX, BMP, CK, LIP, LIVP, TROPI, CDP, PRCAL, CRP #### [place] [phone] Planting Material Carrier: Pito Freed MD Lymphocytes/100 WBC (Bld) 8 % Low 24-44 [facility] Comment on above: Performed By: #### L ACWB, PT, PTT, KELI, DIME, BNP, CINTHIA, TSHX, BMP, CK, LIP, LIVP, TROPI, CDP, PRCAL, CRP #### [address] [address] Planting Material Carrier: Pito Freed MD Monocytes (Bld) [#/Vol] 0.08 10*3/uL Low 0.1-0.8 [facility] Comment on above: Performed By: #### L ACWB, PT, PTT, KELI, DIME, BNP, CINTHIA, TSHX, BMP, CK, LIP, LIVP, TROPI, CDP, PRCAL, CRP #### [address] [address] Planting Material Carrier: Pito Freed MD Monocytes/100 WBC (Bld) 1 % Normal 1-7 [facility] Comment on above: Performed By: #### L ACWB, PT, PTT, KELI, DIME, BNP, CINTHIA, TSHX, BMP, CK, LIP, LIVP, TROPI, CDP, PRCAL, CRP #### [address] [address] Planting Material Carrier: Pito Freed MD Morphology Aneudy (Bld) [Interp] ANISOCYTOSIS PRESENT Normal [facility] Comment on above: Result Comment: INCR EASED BANDS PRESENT VACUOLATED NEUTROPHILS PRESENT TOXIC GRANULATION PRESENT Performed By: #### L ACWB, PT, PTT, KELI, DIME, BNP, CINTHIA, TSHX, BMP, CK, LIP, LIVP, TROPI, CDP, PRCAL, CRP #### [address] [address] Planting Material Carrier: Pito Freed MD Neutrophil (Seg) 88 % High 36-66 [facility] Comment on above: Performed By: #### L ACWB, PT, PTT, KELI, DIME, BNP, CINTHIA, TSHX, BMP, CK, LIP, LIVP, TROPI, CDP, PRCAL, CRP #### [address] [address] Planting Material Carrier: Pito Freed MD NRBC Automated 0.0 per 100 WBC Normal 0.0 [facility] Comment on above: Performed By: #### L ACWB, PT, PTT, KELI, DIME, BNP, CINTHIA, TSHX, BMP, CK, LIP, LIVP, TROPI, CDP, PRCAL, CRP #### [address] [address] Planting Material Carrier: Pito Freed MD WBC (Bld) [#/Vol] 8.1 10*3/uL Normal 3.5-11.3 [facility] Comment on above: Performed By: #### L ACWB, PT, PTT, KELI, DIME, BNP, CINTHIA, TSHX, BMP, CK, LIP, LIVP, TROPI, CDP, PRCAL, CRP #### [address] [address] Planting Material Carrier: Pito Freed MD Erythrocyte distribution width (RBC) [Ratio] 15.2 % High 11.8-14.4 [facility] Comment on above: Performed By: #### L ACWB, PT, PTT, KELI, DIME, BNP, CINTHIA, TSHX, BMP, CK, LIP, LIVP, TROPI, CDP, PRCAL, CRP #### [address] [address] Planting Material Carrier: Pito Freed MD Hematocrit (Bld) [Volume fraction] 37.2 % Low 40.7-50.3 [facility] Comment on above: Performed By: #### L ACWB, PT, PTT, KELI, DIME, BNP, CINTHIA, TSHX, BMP, CK, LIP, LIVP, TROPI, CDP, PRCAL, CRP #### [address] [phone] Planting Material Carrier: Pito Freed MD Hemoglobin (Bld) [Mass/Vol] 12.0 g/dL Low 13.0-17.0 [facility] Comment on above: Performed By: #### L ACWB, PT, PTT, KELI, DIME, BNP, CINTHIA, TSHX, BMP, CK, LIP, LIVP, TROPI, CDP, PRCAL, CRP #### [address] [phone] Planting Material Carrier: Pito Freed MD MCH (RBC) [Entitic mass] 29.1 pg Normal 25.2-33.5 [facility] Comment on above: Performed By: #### L ACWB, PT, PTT, KELI, DIME, BNP, CINTHIA, TSHX, BMP, CK, LIP, LIVP, TROPI, CDP, PRCAL, CRP #### [address] [phone] Planting Material Carrier: Pito Freed MD MCHC (RBC) [Mass/Vol] 32.3 g/dL Normal 28.4-34.8 [facility] Comment on above: Performed By: #### L ACWB, PT, PTT, KELI, DIME, BNP, CINTHIA, TSHX, BMP, CK, LIP, LIVP, TROPI, CDP, PRCAL, CRP #### [address] [phone] Planting Material Carrier: Pito Freed MD MCV (RBC) [Entitic vol] 90.3 fL Normal 82.6-102.9 [facility] Comment on above: Performed By: #### L ACWB, PT, PTT, KELI, DIME, BNP, CINTHIA, TSHX, BMP, CK, LIP, LIVP, TROPI, CDP, PRCAL, CRP #### [address] [address] Planting Material Carrier: Pito Freed MD Platelets (Bld) [#/Vol] See Reflexed IPF Result Normal 138-453 [facility] Comment on above: Performed By: #### L ACWB, PT, PTT, KELI, DIME, BNP, CINTHIA, TSHX, BMP, CK, LIP, LIVP, TROPI, CDP, PRCAL, CRP #### [address] [phone] Planting Material Carrier: Pito Freed MD RBC (Bld) [#/Vol] 4.12 10*6/uL Low 4.21-5.77 [facility] Comment on above: Performed By: #### L ACWB, PT, PTT, KELI, DIME, BNP, CINTHIA, TSHX, BMP, CK, LIP, LIVP, TROPI, CDP, PRCAL, CRP #### [address] [phone] Planting Material Carrier: Pito Freed MD Auto Diff Performed NOT REPORTED Normal [facility] Comment on above: Performed By: #### L ACWB, PT, PTT, KELI, DIME, BNP, CINTHIA, TSHX, BMP, CK, LIP, LIVP, TROPI, CDP, PRCAL, CRP #### [address] [phone] Planting Material Carrier: Pito Freed MD Platelet mean volume (Bld) [Entitic vol] NOT REPORTED Normal 8.1-13.5 [facility] Comment on above: Performed By: #### L ACWB, PT, PTT, KELI, DIME, BNP, CINTHIA, TSHX, BMP, CK, LIP, LIVP, TROPI, CDP, PRCAL, CRP #### [address] [address] Planting Material Carrier: Pito Freed MD Platelets (Bld) [#/Vol] NOT REPORTED Normal [facility] Comment on above: Performed By: #### L ACWB, PT, PTT, KELI, DIME, BNP, CINTHIA, TSHX, BMP, CK, LIP, LIVP, TROPI, CDP, PRCAL, CRP #### [address] [phone] Planting Material Carrier: Pito Freed MD RBC morphology finding Nom (Bld) NOT REPORTED Normal [facility] Comment on above: Performed By: #### L ACWB, PT, PTT, KELI, DIME, BNP, CINTHIA, TSHX, BMP, CK, LIP, LIVP, TROPI, CDP, PRCAL, CRP #### [address] [phone] Planting Material Carrier: Pito Freed MD WBC Morphology NOT REPORTED Normal [facility] Comment on above: Performed By: #### L ACWB, PT, PTT, KELI, DIME, BNP, CINTHIA, TSHX, BMP, CK, LIP, LIVP, TROPI, CDP, PRCAL, CRP #### [address] [phone] Planting Material Carrier: Pito Freed MD Abs. Basophil 0.00 k/uL Normal 0.0-0.2 [facility] Comment on above: Performed By: #### L ACWB, PT, PTT, KELI, DIME, BNP, CINTHIA, TSHX, BMP, CK, LIP, LIVP, TROPI, CDP, PRCAL, CRP #### [place] [phone] Planting Material Carrier: Pito Freed MD Abs.Imm.Granulocyte 0.17 k/uL Normal 0.00-0.30 [facility] Comment on above: Performed By: #### L ACWB, PT, PTT, KELI, DIME, BNP, CINTHIA, TSHX, BMP, CK, LIP, LIVP, TROPI, CDP, PRCAL, CRP #### [address] [id number] Planting Material Carrier: Pito Freed MD Abs.Neutrophil (Seg) 15.27 k/uL High 1.8-7.7 [facility] Comment on above: Performed By: #### L ACWB, PT, PTT, KELI, DIME, BNP, CINTHIA, TSHX, BMP, CK, LIP, LIVP, TROPI, CDP, PRCAL, CRP #### [place] [phone] Planting Material Carrier: Pito Freed MD Basophils/100 WBC (Bld) 0 % Normal 0-2 [facility] Comment on above: Performed By: #### L ACWB, PT, PTT, KELI, DIME, BNP, CINTHIA, TSHX, BMP, CK, LIP, LIVP, TROPI, CDP, PRCAL, CRP #### [place] [address] Planting Material Carrier: Pito Freed MD Eosinophils (Bld) [#/Vol] 0.00 10*3/uL Normal 0.0-0.4 [facility] Comment on above: Performed By: #### L ACWB, PT, PTT, KELI, DIME, BNP, CINTHIA, TSHX, BMP, CK, LIP, LIVP, TROPI, CDP, PRCAL, CRP #### [place] [address] Planting Material Carrier: Pito Freed MD Eosinophils/100 WBC (Bld) 0 % Low 1-4 [facility] Comment on above: Performed By: #### L ACWB, PT, PTT, KELI, DIME, BNP, CINTHIA, TSHX, BMP, CK, LIP, LIVP, TROPI, CDP, PRCAL, CRP #### [place] [address] Planting Material Carrier: Pito Freed MD Immature granulocytes (Bld) [#/Vol] 1 % High 0 [facility] Comment on above: Performed By: #### L ACWB, PT, PTT, KELI, DIME, BNP, CINTHIA, TSHX, BMP, CK, LIP, LIVP, TROPI, CDP, PRCAL, CRP #### [address] [address] Planting Material Carrier: Pito Freed MD Lymphocytes (Bld) [#/Vol] 0.50 10*3/uL Low 1.0-4.8 [facility] Comment on above: Performed By: #### L ACWB, PT, PTT, KELI, DIME, BNP, CINTHIA, TSHX, BMP, CK, LIP, LIVP, TROPI, CDP, PRCAL, CRP #### [address] [address] Planting Material Carrier: Pito Freed MD Lymphocytes/100 WBC (Bld) 3 % Low 24-44 [facility] Comment on above: Performed By: #### L ACWB, PT, PTT, KELI, DIME, BNP, CINTHIA, TSHX, BMP, CK, LIP, LIVP, TROPI, CDP, PRCAL, CRP #### [address] [address] Planting Material Carrier: Pito Freed MD Monocytes (Bld) [#/Vol] 0.66 10*3/uL Normal 0.1-0.8 [facility] Comment on above: Performed By: #### L ACWB, PT, PTT, KELI, DIME, BNP, CINTHIA, TSHX, BMP, CK, LIP, LIVP, TROPI, CDP, PRCAL, CRP #### [address] [address] Planting Material Carrier: Pito Freed MD Monocytes/100 WBC (Bld) 4 % Normal 1-7 [facility] Comment on above: Performed By: #### L ACWB, PT, PTT, KELI, DIME, BNP, CINTHIA, TSHX, BMP, CK, LIP, LIVP, TROPI, CDP, PRCAL, CRP #### [address] [phone] Planting Material Carrier: Pito Freed MD Morphology Aneudy (Bld) [Interp] INCREASED BANDS PRESENT Normal [facility] Comment on above: Result Comment: ANIS OCYTOSIS PRESENT Performed By: #### L ACWB, PT, PTT, KELI, DIME, BNP, CINTHIA, TSHX, BMP, CK, LIP, LIVP, TROPI, CDP, PRCAL, CRP #### [address] [phone] Planting Material Carrier: Pito Freed MD Neutrophil (Seg) 92 % High 36-66 [facility] Comment on above: Performed By: #### L ACWB, PT, PTT, KELI, DIME, BNP, CINTHIA, TSHX, BMP, CK, LIP, LIVP, TROPI, CDP, PRCAL, CRP #### [address] [phone] Planting Material Carrier: Pito Freed MD Erythrocyte distribution width (RBC) [Ratio] 14.9 % High 11.8-14.4 [facility] Comment on above: Performed By: #### L ACWB, PT, PTT, KELI, DIME, BNP, CINTHIA, TSHX, BMP, CK, LIP, LIVP, TROPI, CDP, PRCAL, CRP #### [address] [id number] Planting Material Carrier: Pito Freed MD Hematocrit (Bld) [Volume fraction] 35.9 % Low 40.7-50.3 [facility] Comment on above: Performed By: #### L ACWB, PT, PTT, KELI, DIME, BNP, CINTHIA, TSHX, BMP, CK, LIP, LIVP, TROPI, CDP, PRCAL, CRP #### [address] [id number] Planting Material Carrier: Pito Freed MD Hemoglobin (Bld) [Mass/Vol] 11.5 g/dL Low 13.0-17.0 [facility] Comment on above: Performed By: #### L ACWB, PT, PTT, KELI, DIME, BNP, CINTHIA, TSHX, BMP, CK, LIP, LIVP, TROPI, CDP, PRCAL, CRP #### [address] [address] Planting Material Carrier: Pito Freed MD MCH (RBC) [Entitic mass] 28.7 pg Normal 25.2-33.5 [facility] Comment on above: Performed By: #### L ACWB, PT, PTT, KELI, DIME, BNP, CINTHIA, TSHX, BMP, CK, LIP, LIVP, TROPI, CDP, PRCAL, CRP #### [address] [address] Planting Material Carrier: Pito Freed MD MCHC (RBC) [Mass/Vol] 32.0 g/dL Normal 28.4-34.8 [facility] Comment on above: Performed By: #### L ACWB, PT, PTT, KELI, DIME, BNP, CINTHIA, TSHX, BMP, CK, LIP, LIVP, TROPI, CDP, PRCAL, CRP #### [address] [address] Planting Material Carrier: Pito Freed MD MCV (RBC) [Entitic vol] 89.5 fL Normal 82.6-102.9 [facility] Comment on above: Performed By: #### L ACWB, PT, PTT, KELI, DIME, BNP, CINTHIA, TSHX, BMP, CK, LIP, LIVP, TROPI, CDP, PRCAL, CRP #### [address] [address] Planting Material Carrier: Pito Freed MD NRBC Automated 0.0 per 100 WBC Normal 0.0 [facility] Comment on above: Performed By: #### L ACWB, PT, PTT, KELI, DIME, BNP, CINTHIA, TSHX, BMP, CK, LIP, LIVP, TROPI, CDP, PRCAL, CRP #### [address] [phone] Planting Material Carrier: Pito Freed MD Platelets (Bld) [#/Vol] See Reflexed IPF Result Normal 138-453 [facility] Comment on above: Performed By: #### L ACWB, PT, PTT, KELI, DIME, BNP, CINTHIA, TSHX, BMP, CK, LIP, LIVP, TROPI, CDP, PRCAL, CRP #### [address] [phone] Planting Material Carrier: Pito Freed MD RBC (Bld) [#/Vol] 4.01 10*6/uL Low 4.21-5.77 [facility] Comment on above: Performed By: #### L ACWB, PT, PTT, KELI, DIME, BNP, CINTHIA, TSHX, BMP, CK, LIP, LIVP, TROPI, CDP, PRCAL, CRP #### [address] [phone] Planting Material Carrier: Pito Freed MD WBC (Bld) [#/Vol] 16.6 10*3/uL High 3.5-11.3 [facility] Comment on above: Performed By: #### L ACWB, PT, PTT, KELI, DIME, BNP, CINTHIA, TSHX, BMP, CK, LIP, LIVP, TROPI, CDP, PRCAL, CRP #### [address] [id number] Planting Material Carrier: Pito Freed MD Auto Diff Performed NOT REPORTED Normal [facility] Comment on above: Performed By: #### L ACWB, PT, PTT, KELI, DIME, BNP, CINTHIA, TSHX, BMP, CK, LIP, LIVP, TROPI, CDP, PRCAL, CRP #### [address] [phone] Planting Material Carrier: Pito Freed MD Platelet mean volume (Bld) [Entitic vol] NOT REPORTED Normal 8.1-13.5 [facility] Comment on above: Performed By: #### L ACWB, PT, PTT, KELI, DIME, BNP, CINTHIA, TSHX, BMP, CK, LIP, LIVP, TROPI, CDP, PRCAL, CRP #### [address] [phone] Planting Material Carrier: Pito Freed MD Platelets (Bld) [#/Vol] NOT REPORTED Normal [facility] Comment on above: Performed By: #### L ACWB, PT, PTT, KELI, DIME, BNP, CINTHIA, TSHX, BMP, CK, LIP, LIVP, TROPI, CDP, PRCAL, CRP #### [address] [phone] Planting Material Carrier: Pito Freed MD RBC morphology finding Nom (Bld) NOT REPORTED Normal [facility] Comment on above: Performed By: #### L ACWB, PT, PTT, KELI, DIME, BNP, CINTHIA, TSHX, BMP, CK, LIP, LIVP, TROPI, CDP, PRCAL, CRP #### [address] [phone] Planting Material Carrier: Pito Freed MD WBC Morphology NOT REPORTED Normal [facility] Comment on above: Performed By: #### L ACWB, PT, PTT, KELI, DIME, BNP, CINTHIA, TSHX, BMP, CK, LIP, LIVP, TROPI, CDP, PRCAL, CRP #### [address] [address] Planting Material Carrier: Pito Freed MD CT CHEST PULMONARY EMBOLISM W CONTRASTon 05-23-2018 CT CHEST PULMONARY EMBOLISM W CONTRAST EXAMINATION: CTA OF THE CHEST 05/22/2018 9:57 pm TECHNIQUE: CTA of the chest was performed after the administration of intravenous contrast. Multiplanar reformatted images are provided for review. MIP images are provided for review. Dose modulation, iterative reconstruction, and/or weight based adjustment of the mA/kV was utilized to reduce the radiation dose to as low as reasonably achievable. COMPARISON: None. HISTORY: ORDERING SYSTEM PROVIDED HISTORY: r/o PE TECHNOLOGIST PROVIDED HISTORY: Ordering Physician Provided Reason for Exam: r/oPE Acuity: Unknown Type of Exam: Unknown 2 days of worsening generalized fatigue, malaise, chills, cough. Patients cough is non-productive. Patient was diagnosed with influenza at an Urgent Care 2 days ago FINDINGS: Pulmonary Arteries: Pulmonary arteries are suboptimally opacified for evaluation. No evidence of central or lobar pulmonary artery intraluminal filling defect to suggest pulmonary embolism. Main pulmonary artery is normal in caliber. Mediastinum: Heart is [id number] enlarged in size. No pericardial effusion. Coronary artery calcifications identified. No suspicious mediastinal, hilar, or axillary not identified per CT criteria. Lungs/pleura: Lingular atelectasis versus infiltrate. Mild interstitial thickening identified involving the lungs may relate to underlying edema pneumonia or interstitial pulmonary edema. Minimal right basilar atelectasis. No pleural effusion pneumothorax. Upper Abdomen: Tiny locule gas identified involving the right hepatic lobe of uncertain clinical significance. Soft Tissues/Bones: Degenerative changes of the thoracic spine. IMPRESSION: Suboptimal timing contrast bolus. No convincing evidence of central or lobar pulmonary emboli. Cardiomegaly with coronary artery calcifications. Interstitial thickening may be related to atypical pneumonia versus minimal pulmonary edema. Tiny locule of gas identified involving the right hepatic lobe. Please correlate with possible recent instrumentation. Consider cross-sectional imaging of the abdomen pelvis as clinically warranted with contrast. Interpreted by: Panchito Hightower MD Signed by: Panchito Hightower MD 05/22/18 Final result Normal [facility] Creatine Kinaseon 05-23-2018 CK [Catalytic activity/Vol] 1175 U/L High 39-308 [facility] Comment on above: Performed By: #### L ACWB, PT, PTT, KELI, DIME, BNP, CINTHIA, TSHX, BMP, CK, LIP, LIVP, TROPI, CDP, PRCAL, CRP #### [facility] [address] [place] [address] Planting Material Carrier: Pito Freed MD Creatinine,Random Uron 05-23 Creatinine [Mass/Vol] 111.5 mg/dL Normal 39.0-259.0 [facility] Comment on above: Performed By: #### L ACWB, PT, PTT, KELI, DIME, BNP, CINTHIA, TSHX, BMP, CK, LIP, LIVP, TROPI, CDP, PRCAL, CRP #### [address] [phone] Planting Material Carrier: Pito Freed MD Cult,Urine,CCon 05-23-2018 Cult,Urine,CC Specimen Description .CLEAN CATCH URINE Special Requests NOT REPORTED Culture NO GROWTH Report Status FINAL 05/23/2018 Normal [facility] Comment on above: Performed By: #### L ACWB, PT, PTT, KELI, DIME, BNP, CINTHIA, TSHX, BMP, CK, LIP, LIVP, TROPI, CDP, PRCAL, CRP #### [address] [phone] Planting Material Carrier: Pito Freed MD Fibrin Split Prodon 05-24-19 19 Fibrin Split Prod >20 High <5 [facility] Comment on above: Performed By: #### L ACWB, PT, PTT, KELI, DIME, BNP, CINTHIA, TSHX, BMP, CK, LIP, LIVP, TROPI, CDP, PRCAL, CRP #### [address] [id number] Planting Material Carrier: Pito Freed MD Fibrin Split Prod >20 High <5 [facility] Comment on above: Performed By: #### L ACWB, PT, PTT, KELI, DIME, BNP, CINTHIA, TSHX, BMP, CK, LIP, LIVP, TROPI, CDP, PRCAL, CRP #### [address] [phone] Planting Material Carrier: Pito Freed MD Fibrinogenon 05-23-2018 Fibrinogen 803 mg/dL High 140-420 [facility] Comment on above: Performed By: #### L ACWB, PT, PTT, KELI, DIME, BNP, CINTHIA, TSHX, BMP, CK, LIP, LIVP, TROPI, CDP, PRCAL, CRP #### [address] [address] Planting Material Carrier: Pito Freed MD Fibrinogen 877 mg/dL High 140-420 [facility] Comment on above: Performed By: #### L ACWB, PT, PTT, KELI, DIME, BNP, CINTHIA, TSHX, BMP, CK, LIP, LIVP, TROPI, CDP, PRCAL, CRP #### [address] [address] Planting Material Carrier: Pito Freed MD Hgb/Hcton 05-23-2018 Hematocrit (Bld) [Volume fraction] 35.2 % Low 40.7-50.3 [facility] Comment on above: Performed By: #### L ACWB, PT, PTT, KELI, DIME, BNP, CINTHIA, TSHX, BMP, CK, LIP, LIVP, TROPI, CDP, PRCAL, CRP #### [address] [address] Planting Material Carrier: Pito Freed MD Hemoglobin (Bld) [Mass/Vol] 11.7 g/dL Low 13.0-17.0 [facility] Comment on above: Performed By: #### L ACWB, PT, PTT, KELI, DIME, BNP, CINTHIA, TSHX, BMP, CK, LIP, LIVP, TROPI, CDP, PRCAL, CRP #### [address] [address] Planting Material Carrier: Pito Freed MD Lactate, Sepsison 05-23-2018 Lactic Acid,Sep Wbld 2.7 mmol/L High 0.5-1.9 [facility] Comment on above: Performed By: #### L ACWB, PT, PTT, KELI, DIME, BNP, CINTHIA, TSHX, BMP, CK, LIP, LIVP, TROPI, CDP, PRCAL, CRP #### [address] [address] Planting Material Carrier: Pito Freed MD Lactic Acid, Sepsis NOT REPORTED Normal 0.5-1.9 [facility] Comment on above: Performed By: #### L ACWB, PT, PTT, KELI, DIME, BNP, CINTHIA, TSHX, BMP, CK, LIP, LIVP, TROPI, CDP, PRCAL, CRP #### [address] [address] Planting Material Carrier: Pito Freed MD Lactic Acid,Whole Blon 05-23 Lactic Acid,Whole Bl 2.4 mmol/L High 0.7-2.1 [facility] Comment on above: Performed By: #### L ACWB, PT, PTT, KELI, DIME, BNP, CINTHIA, TSHX, BMP, CK, LIP, LIVP, TROPI, CDP, PRCAL, CRP #### [address] [address] Planting Material Carrier: Pito Freed MD Lactic Acid,Whole Bl 3.7 mmol/L High 0.7-2.1 [facility] Comment on above: Performed By: #### L ACWB, PT, PTT, KELI, DIME, BNP, CINTHIA, TSHX, BMP, CK, LIP, LIVP, TROPI, CDP, PRCAL, CRP #### [address] [address] Planting Material Carrier: Pito Freed MD Legionella Ag, Uron 05-24-19 19 Legionella Ag, Ur Specimen Description .CLEAN CATCH URINE Special Requests NOT REPORTED Direct Exam DUPLICATE ORDER Report Status FINAL 05/23/2018 Normal [facility] Comment on above: Performed By: #### L ACWB, PT, PTT, KELI, DIME, BNP, CINTHIA, TSHX, BMP, CK, LIP, LIVP, TROPI, CDP, PRCAL, CRP #### [facility] [place], [place] [phone] Planting Material Carrier: Pito Freed MD Legionella Ag, Ur Specimen Description .CLEAN CATCH URINE Special Requests NOT REPORTED Direct Exam Urine negative for L. pneumophilia serogroup 1 antigen. Infection due to Legionella cannot be ruled out since (1) other L. pneumophilia serogroups and other Legionella species may cause disease, (2) antigen may not be present in early infection (<3 days). and (3) the level of antigen present in the urine may be below the detectable levels of this test. Report Status FINAL 05/23/2018 Normal [facility] Comment on above: Performed By: #### L ACWB, PT, PTT, KELI, DIME, BNP, CINTHIA, TSHX, BMP, CK, LIP, LIVP, TROPI, CDP, PRCAL, CRP #### [address] [address] Planting Material Carrier: Pito Freed MD MRI ABDOMEN WO CONTRASTon MRI ABDOMEN WO CONTRAST EXAMINATION: MRI OF THE ABDOMEN WITHOUT CONTRAST, 05/23/2018 9:29 pm TECHNIQUE: Multiplanar multisequence MRI of the abdomen was performed without the administration of intravenous contrast. COMPARISON: CT abdomen 05/22/2018 12:[address] PA chest 05/22/2018 and ultrasound liver 05/23/2018. HISTORY: ORDERING SYSTEM PROVIDED HISTORY: LIVER LESION, >10 cm, INDETERMINATE ON US, CT, MRI WITHOUT CONTRAST, HX OF EXTRAHEPATIC MALIGNANCY FINDINGS: LIVER: Poly locular thick-walled fluid collections involve the posterior segment right hepatic lobe as demonstrated on CT. Conglomerate measurement series 4, image 22 is 10.5 x 14 cm. Gas seen within this lesion on CT is not appreciable on MRI. Diffuse associated EPI signal abnormality is demonstrated predominantly peripherally. This appears to be predominantly the result of T2 shine through. GALLBLADDER: Not visualized status post cholecystectomy. OTHER ORGANS: The spleen and adrenal glands appear unremarkable. Pancreas and kidneys appear unremarkable. Benign bilateral renal cysts are noted. DUCTS: The common bile duct measures 8 mm. The pancreatic duct measures 2-3 mm. PERITONEUM/RETROPERITONEU M: Unremarkable appearance of the aorta aorta. No aneurysm. Unremarkable appearance of the IVC. No adenopathy or fluid. BONES/SOFT TISSUES: Unremarkable appearance. LOWER CHEST: Trace right pleural effusion and right basilar relaxation atelectasis. Cardiac and posterior mediastinal structures visualized are unremarkable. IMPRESSION: 1. Nonspecific unenhanced MR imaging of the right hepatic lobe lesion seen on prior CT and ultrasound is in keeping with abscess formation. A metastatic lesion with superinfection is a consideration as well. Tissue sampling is likely indicated. 2. Mild extrahepatic bile duct dilatation status post cholecystectomy typical of reservoir effect. 3. Trace right pleural effusion and right basilar relaxation atelectasis. Interpreted by: Humberto Ureña MD Signed by: Humberto Ureña MD 05/23/18 Final result Normal [facility] MRSA, DNA, Nasalon 9 Specimen Description .NASAL SWAB Normal [facility] Comment on above: Performed By: #### L ACWB, PT, PTT, KELI, DIME, BNP, CINTHIA, TSHX, BMP, CK, LIP, LIVP, TROPI, CDP, PRCAL, CRP #### [facility] [address] [place] [address] Planting Material Carrier: Pito Freed MD Myoglobinon 05-23-2018 Myoglobin [Mass/Vol] 1611 ng/mL High 28-72 [facility] Comment on above: Result Comment: Prev ious Alert Value Reported Performed By: #### L ACWB, PT, PTT, KELI, DIME, BNP, CINTHIA, TSHX, BMP, CK, LIP, LIVP, TROPI, CDP, PRCAL, CRP #### [facility] [address] [place] [address] Planting Material Carrier: Pito Freed MD O+P,Giardia Ag Onlyon 2018 O+P,Giardia Ag Only Specimen Description .FECES Special Requests NOT REPORTED Direct Exam DUPLICATE ORDER Report Status FINAL 05/23/2018 Normal [facility] Comment on above: Performed By: #### L ACWB, PT, PTT, KELI, DIME, BNP, CINTHIA, TSHX, BMP, CK, LIP, LIVP, TROPI, CDP, PRCAL, CRP #### [address] [address] Planting Material Carrier: Pito Freed MD Occult Blood, Fecalon 2018 Occult Blood 1 Positive Abnormal NEG [facility] Comment on above: Performed By: #### L ACWB, PT, PTT, KELI, DIME, BNP, CINTHIA, TSHX, BMP, CK, LIP, LIVP, TROPI, CDP, PRCAL, CRP #### [address] [address] Planting Material Carrier: Pito Freed MD Specimen 1 Date NOT REPORTED Normal [facility] Comment on above: Performed By: #### L ACWB, PT, PTT, KELI, DIME, BNP, CINTHIA, TSHX, BMP, CK, LIP, LIVP, TROPI, CDP, PRCAL, CRP #### [address] [address] Planting Material Carrier: Pito Freed MD Specimen 1 Time NOT REPORTED Normal [facility] Comment on above: Performed By: #### L ACWB, PT, PTT, KELI, DIME, BNP, CINTHIA, TSHX, BMP, CK, LIP, LIVP, TROPI, CDP, PRCAL, CRP #### [address] [address] Planting Material Carrier: Pito Freed MD Specimen 2 Date NOT REPORTED Normal [facility] Comment on above: Performed By: #### L ACWB, PT, PTT, KELI, DIME, BNP, CINTHIA, TSHX, BMP, CK, LIP, LIVP, TROPI, CDP, PRCAL, CRP #### [address] [address] Planting Material Carrier: Pito Freed MD Specimen 2 Time NOT REPORTED Normal [facility] Comment on above: Performed By: #### L ACWB, PT, PTT, KELI, DIME, BNP, CINTHIA, TSHX, BMP, CK, LIP, LIVP, TROPI, CDP, PRCAL, CRP #### [facility] [address] [place] [address] Planting Material Carrier: Pito Freed MD Specimen 3 Date NOT REPORTED Normal [facility] Comment on above: Performed By: #### L ACWB, PT, PTT, KELI, DIME, BNP, CINTHIA, TSHX, BMP, CK, LIP, LIVP, TROPI, CDP, PRCAL, CRP #### [address] [phone] Planting Material Carrier: Pito Freed MD Specimen 3 Time NOT REPORTED Normal [facility] Comment on above: Performed By: #### L ACWB, PT, PTT, KELI, DIME, BNP, CINTHIA, TSHX, BMP, CK, LIP, LIVP, TROPI, CDP, PRCAL, CRP #### [address] [address] Planting Material Carrier: Pito Freed MD Occult Blood 2 NOT REPORTED Normal NEG [facility] Comment on above: Performed By: #### L ACWB, PT, PTT, KELI, DIME, BNP, CINTHIA, TSHX, BMP, CK, LIP, LIVP, TROPI, CDP, PRCAL, CRP #### [address] [address] Planting Material Carrier: Pito Freed MD Occult Blood 3 NOT REPORTED Normal NEG [facility] Comment on above: Performed By: #### L ACWB, PT, PTT, KELI, DIME, BNP, CINTHIA, TSHX, BMP, CK, LIP, LIVP, TROPI, CDP, PRCAL, CRP #### [address] [phone] Planting Material Carrier: Pito Freed MD PLT, Immature Fract.on 05-23 Platelet, Fluoresc. 80 k/uL Low 138-453 [facility] Comment on above: Result Comment: ORDE RED BY LAB Performed By: #### L ACWB, PT, PTT, KELI, DIME, BNP, CINTHIA, TSHX, BMP, CK, LIP, LIVP, TROPI, CDP, PRCAL, CRP #### [place] [phone] Planting Material Carrier: Pito Freed MD PLT, Immature Fract. 11.8 % High 1.1-10.3 [facility] Comment on above: Result Comment: ORDE RED BY LAB Performed By: #### L ACWB, PT, PTT, KELI, DIME, BNP, CINTHIA, TSHX, BMP, CK, LIP, LIVP, TROPI, CDP, PRCAL, CRP #### [place] [phone] Planting Material Carrier: Pito Frede MD Platelet, Fluoresc. 110 k/uL Low 138-159 [facility] Comment on above: Result Comment: ORDE RED BY LAB Performed By: #### L ACWB, PT, PTT, KELI, DIME, BNP, CINTHIA, TSHX, BMP, CK, LIP, LIVP, TROPI, CDP, PRCAL, CRP #### [place] [phone] Planting Material Carrier: Pito Freed MD PLT, Immature Fract. 11.7 % High 1.1-10.3 [facility] Comment on above: Result Comment: ORDE RED BY LAB Performed By: #### L ACWB, PT, PTT, KELI, DIME, BNP, CINTHIA, TSHX, BMP, CK, LIP, LIVP, TROPI, CDP, PRCAL, CRP #### [place] [phone] Planting Material Carrier: Pito Freed MD Protein,Tot,[place] Uron 2018 Tot Prot. Conc. 65 mg/dL Normal [facility] Comment on above: Result Comment: No n ormal range established. Performed By: #### L ACWB, PT, PTT, KELI, DIME, BNP, CINTHIA, TSHX, BMP, CK, LIP, LIVP, TROPI, CDP, PRCAL, CRP #### [address] [address] Planting Material Carrier: Pito Freed MD Resp Viral Panelon 9 Adenovirus Not Detected Normal [facility] Comment on above: Performed By: #### L ACWB, PT, PTT, KELI, DIME, BNP, CINTHIA, TSHX, BMP, CK, LIP, LIVP, TROPI, CDP, PRCAL, CRP #### [address] [address] Planting Material Carrier: Pito Freed MD Bordetella pertussis Not Detected Normal [facility] Comment on above: Performed By: #### L ACWB, PT, PTT, KELI, DIME, BNP, CINHTIA, TSHX, BMP, CK, LIP, LIVP, TROPI, CDP, PRCAL, CRP #### [address] [address] Planting Material Carrier: Pito Freed MD Chlamyd.pneumoniae Not Detected Normal [facility] Comment on above: Performed By: #### L ACWB, PT, PTT, KELI, DIME, BNP, CINTHIA, TSHX, BMP, CK, LIP, LIVP, TROPI, CDP, PRCAL, CRP #### [facility] [address] [place] [address] Planting Material Carrier: Pito Freed MD Coronavirus 229E Not Detected Normal [facility] Comment on above: Performed By: #### L ACWB, PT, PTT, KELI, DIME, BNP, CINTHIA, TSHX, BMP, CK, LIP, LIVP, TROPI, CDP, PRCAL, CRP #### [facility] [address] [place] [address] [phone] Planting Material Carrier: Pito Freed MD Coronavirus HKU1 Not Detected [facility] Comment on above: Performed By: #### L ACWB, PT, PTT, KELI, DIME, BNP, CINTHIA, TSHX, BMP, CK, LIP, LIVP, TROPI, CDP, PRCAL, CRP #### [address] [phone] Planting Material Carrier: Pito Freed MD Coronavirus NL63 Not Detected [facility] Comment on above: Performed By: #### L ACWB, PT, PTT, KELI, DIME, BNP, CINTHIA, TSHX, BMP, CK, LIP, LIVP, TROPI, CDP, PRCAL, CRP #### [address] [phone] Planting Material Carrier: Pito Freed MD Coronavirus OC43 Not Detected [facility] Comment on above: Performed By: #### L ACWB, PT, PTT, KELI, DIME, BNP, CINTHIA, TSHX, BMP, CK, LIP, LIVP, TROPI, CDP, PRCAL, CRP #### [address] [phone] Planting Material Carrier: Pito Freed MD Human Metapneumo Not Detected [facility] Comment on above: Performed By: #### L ACWB, PT, PTT, KELI, DIME, BNP, CINTHIA, TSHX, BMP, CK, LIP, LIVP, TROPI, CDP, PRCAL, CRP #### [address] [phone] Planting Material Carrier: Pito Freed MD Influenza A Not Detected [facility] Comment on above: Performed By: #### L ACWB, PT, PTT, KELI, DIME, BNP, CINTHIA, TSHX, BMP, CK, LIP, LIVP, TROPI, CDP, PRCAL, CRP #### [facility] [address] [place] [address] Planting Material Carrier: Pito Freed MD Influenza B Not Detected Normal [facility] Comment on above: Performed By: #### L ACWB, PT, PTT, KELI, DIME, BNP, CINTHIA, TSHX, BMP, CK, LIP, LIVP, TROPI, CDP, PRCAL, CRP #### [address] [address] Planting Material Carrier: Pito Freed MD Mycoplas.pneumoniae Not Detected Normal [facility] Comment on above: Result Comment: Perf ormed by multiplexed nucleic acid assay. Performed By: #### L ACWB, PT, PTT, KELI, DIME, BNP, CINTHIA, TSHX, BMP, CK, LIP, LIVP, TROPI, CDP, PRCAL, CRP #### [address] [phone] Planting Material Carrier: Pito Freed MD Parainfluenza 1 Not Detected Normal [facility] Comment on above: Performed By: #### L ACWB, PT, PTT, KELI, DIME, BNP, CINTHIA, TSHX, BMP, CK, LIP, LIVP, TROPI, CDP, PRCAL, CRP #### [address] [phone] Planting Material Carrier: Pito Freed MD Parainfluenza 2 Not Detected Normal [facility] Comment on above: Performed By: #### L ACWB, PT, PTT, KELI, DIME, BNP, CINTHIA, TSHX, BMP, CK, LIP, LIVP, TROPI, CDP, PRCAL, CRP #### [facility] [address] [place] [address] [phone] Planting Material Carrier: Pito Freed MD Parainfluenza 3 Not Detected Normal [facility] Comment on above: Performed By: #### L ACWB, PT, PTT, KELI, DIME, BNP, CINTHIA, TSHX, BMP, CK, LIP, LIVP, TROPI, CDP, PRCAL, CRP #### [address] [phone] Planting Material Carrier: Pito Freed MD Parainfluenza 4 Not Detected Normal [facility] Comment on above: Performed By: #### L ACWB, PT, PTT, KELI, DIME, BNP, CINTHIA, TSHX, BMP, CK, LIP, LIVP, TROPI, CDP, PRCAL, CRP #### [address] [phone] Planting Material Carrier: Pito Freed MD Resp Syncytial Virus Not Detected Normal [facility] Comment on above: Performed By: #### L ACWB, PT, PTT, KEIL, DIME, BNP, CINTHIA, TSHX, BMP, CK, LIP, LIVP, TROPI, CDP, PRCAL, CRP #### [address] [phone] Planting Material Carrier: Pito Freed MD Rhino/Enterovirus Not Detected Normal [facility] Comment on above: Performed By: #### L ACWB, PT, PTT, KELI, DIME, BNP, CINTHIA, TSHX, BMP, CK, LIP, LIVP, TROPI, CDP, PRCAL, CRP #### [address] [phone] Planting Material Carrier: Pito Freed MD Influenza A H1 NOT REPORTED Normal [facility] Comment on above: Performed By: #### L ACWB, PT, PTT, KELI, DIME, BNP, CINTHIA, TSHX, BMP, CK, LIP, LIVP, TROPI, CDP, PRCAL, CRP #### [address] [phone] Planting Material Carrier: Pito Freed MD Influenza A H1-2009 NOT REPORTED Normal [facility] Comment on above: Performed By: #### L ACWB, PT, PTT, KELI, DIME, BNP, CINTHIA, TSHX, BMP, CK, LIP, LIVP, TROPI, CDP, PRCAL, CRP #### [address] [address] Planting Material Carrier: Pito Freed MD Influenza A H3 NOT REPORTED Normal [facility] Comment on above: Performed By: #### L ACWB, PT, PTT, KELI, DIME, BNP, CINTHIA, TSHX, BMP, CK, LIP, LIVP, TROPI, CDP, PRCAL, CRP #### [address] [address] Planting Material Carrier: Pito Freed MD Source: .NASOPHARYNGEAL SWAB Normal [facility] Comment on above: Performed By: #### L ACWB, PT, PTT, KELI, DIME, BNP, CINTHIA, TSHX, BMP, CK, LIP, LIVP, TROPI, CDP, PRCAL, CRP #### [address] [address] Planting Material Carrier: Pito Freed MD Retic Counton 05-23-2018 Absolute Retic 0.020 M/uL Low 0.030-0.08 0 [facility] Comment on above: Performed By: #### L ACWB, PT, PTT, KELI, DIME, BNP, CINTHIA, TSHX, BMP, CK, LIP, LIVP, TROPI, CDP, PRCAL, CRP #### [place] [phone] Planting Material Carrier: Pito Freed MD IRF 8.400 % Normal 2.7-18.3 [facility] Comment on above: Performed By: #### L ACWB, PT, PTT, KELI, DIME, BNP, CINTHIA, TSHX, BMP, CK, LIP, LIVP, TROPI, CDP, PRCAL, CRP #### [address] [address] Planting Material Carrier: Pito Freed MD Retic Count 0.6 % Normal 0.5-1.9 [facility] Comment on above: Performed By: #### L ACWB, PT, PTT, KELI, DIME, BNP, CINTHIA, TSHX, BMP, CK, LIP, LIVP, TROPI, CDP, PRCAL, CRP #### [address] [phone] Planting Material Carrier: Pito Freed MD Retic Hemoglobin 28.5 pg Normal 28.2-35.7 [facility] Comment on above: Performed By: #### L ACWB, PT, PTT, KELI, DIME, BNP, CINTHIA, TSHX, BMP, CK, LIP, LIVP, TROPI, CDP, PRCAL, CRP #### [address] [phone] Planting Material Carrier: Pito Freed MD Rotavirus Ag Detecton 2018 Rotavirus Ag Detect Specimen Description .FECES Special Requests NOT REPORTED Direct Exam Negative for Rotavirus Report Status FINAL 05/23/2018 Normal [facility] Comment on above: Performed By: #### L ACWB, PT, PTT, KELI, DIME, BNP, CINTHIA, TSHX, BMP, CK, LIP, LIVP, TROPI, CDP, PRCAL, CRP #### [address] [phone] Planting Material Carrier: Pito Freed MD Sodium, Random Uron 05-24-19 19 Na Conc. Urine 20 mmol/L Normal [facility] Comment on above: Result Comment: No n ormal range established. Performed By: #### L ACWB, PT, PTT, KELI, DIME, BNP, CINTHIA, TSHX, BMP, CK, LIP, LIVP, TROPI, CDP, PRCAL, CRP #### [address] [address] Planting Material Carrier: Pito Freed MD Stool PCR Batteryon 05-24-19 19 Campylobacter sp PCR NEGATIVE: No Campylobacter spp. (jejuni or coli) DNA Detected Normal [facility] Comment on above: Performed By: #### L ACWB, PT, PTT, KELI, DIME, BNP, CINTHIA, TSHX, BMP, CK, LIP, LIVP, TROPI, CDP, PRCAL, CRP #### [address] [address] Planting Material Carrier: Pito Freed MD E coli enterotox PCR NEGATIVE: No Enterotoxigenic E. coli (ETEC) Heat-labile and heat-stable (LT/ST) Normal [facility] Comment on above: Result Comment: DNA Detected Performed By: #### L ACWB, PT, PTT, KELI, DIME, BNP, CINTHIA, TSHX, BMP, CK, LIP, LIVP, TROPI, CDP, PRCAL, CRP #### [address] [address] Planting Material Carrier: Pito Freed MD Plesiomonas sp PCR Negative Normal [facility] Comment on above: Performed By: #### L ACWB, PT, PTT, KELI, DIME, BNP, CINTHIA, TSHX, BMP, CK, LIP, LIVP, TROPI, CDP, PRCAL, CRP #### [address] [address] Planting Material Carrier: Pito Freed MD Salmonella sp PCR Negative Normal [facility] Comment on above: Performed By: #### L ACWB, PT, PTT, KELI, DIME, BNP, CINTHIA, TSHX, BMP, CK, LIP, LIVP, TROPI, CDP, PRCAL, CRP #### [address] [address] Planting Material Carrier: Pito Freed MD Shigatoxin gene PCR Negative Normal [facility] Comment on above: Performed By: #### L ACWB, PT, PTT, KELI, DIME, BNP, CINTHIA, TSHX, BMP, CK, LIP, LIVP, TROPI, CDP, PRCAL, CRP #### [address] [phone] Planting Material Carrier: Pito Freed MD Shigella sp PCR Negative Normal [facility] Comment on above: Performed By: #### L ACWB, PT, PTT, KELI, DIME, BNP, CINTHIA, TSHX, BMP, CK, LIP, LIVP, TROPI, CDP, PRCAL, CRP #### [address] [phone] Planting Material Carrier: Pito Freed MD Vibrio sp PCR NEGATIVE: No Vibrio (V. vulnificus, V, parahaemolyticus and V. cholerae) DNA Normal [facility] Comment on above: Result Comment: Dete cted Performed By: #### L ACWB, PT, PTT, KELI, DIME, BNP, CINTHIA, TSHX, BMP, CK, LIP, LIVP, TROPI, CDP, PRCAL, CRP #### [address] [phone] Planting Material Carrier: Pito Freed MD Yersinia gene PCR Negative Normal [facility] Comment on above: Performed By: #### L ACWB, PT, PTT, KELI, DIME, BNP, CINTHIA, TSHX, BMP, CK, LIP, LIVP, TROPI, CDP, PRCAL, CRP #### [address] [address] Planting Material Carrier: Pito Freed MD Strep pneum Ag,CSF/Uron 04-26 Strep pneum Ag,CSF/Ur Specimen Descripti on .CLEAN CATCH URINE Special Requests NOT REPORTED Direct Exam NEGATIVE: Strep pneumoniae antigen not detected Report Status FINAL 05/23/2018 Normal [facility] Comment on above: Performed By: #### L ACWB, PT, PTT, KELI, DIME, BNP, CINTHIA, TSHX, BMP, CK, LIP, LIVP, TROPI, CDP, PRCAL, CRP #### [facility] [address] [place] [address] Planting Material Carrier: Pito Freed MD Surgical Pathologyon 019 Surgical Pathology (NOTE) [id number] [facility] ANATOMIC PATHOLOG[facility] [address] [place] [phone] SURGICAL PATHOLOGY CONSULTATION Patient Name: AHIM OLIVER MR#: [id number] Specimen #[id number] Procedures/Addenda PERIPHERAL BLOOD REPORT Date Ordered: 05/25/2018 Status: Signed Out Date Complete: 05/25/2018 By: Agata Scott M.D. Date Reported: 05/25/2018 INTERPRETATION PERIPHERAL BLOOD: MILD NORMOCYTIC ANEMIA, COMPATIBLE WITH HYPOPROLIFERATIVE ANEMIA, MODERATE THROMBOCYTOPENIA AND MILD NEUTROPHILIC LEFT SHIFT; CLINICAL HISTORY-INFLUENZA, SEPSIS, POSSIBLE LIVER ABSCESSES. RESULTS-COMMENTS PERIPHERAL BLOOD STUDY HEMOGRAM DIFFERENTIAL % ABSOLUTE (K/UL) WBC (K/uL) 8.1 IMM GRANS 3 0.24 RBC (K/uL) 4.12 SEGS 88 7.13 HGB (G/dL) 12.0 LYMPHS 8 0.65 HCT (%) 37.2 ATYP. LYMPH MCV (FL.) 90.3 MONOS 1 0.08 MCH (PG.) 29.1 EOS 0 0.00 MCHC (g/dL) 32.3 BASO 0 0.00 RDW (%) 15.2 PLT (k/uL) See IPF Immat. Frac. 11.8 Fluoresc. 80 RETIC (%) 0.6 Absolute RetCt 0.020 PERIPHERAL EXAMINATION BY PATHOLOGIST PLATELETS: Small percentage of large platelets LEUKOCYTES: Mild neutrophilic left shift. Neutrophilic cytoplasmic vacuolization and toxic granulation ERYTHROCYTES: Mild anisocytosis and target cells Agata Scott M.D. Source: 1: PERIPHERAL BLOOD SMEAR TO PATHOLOGIST Normal [facility] Comment on above: Performed By: #### L ACWB, PT, PTT, KELI, DIME, BNP, CINTHIA, TSHX, BMP, CK, LIP, LIVP, TROPI, CDP, PRCAL, CRP #### [employer] [address] [place] [address] Planting Material Carrier: Pito Freed MD Troponinon 05-23-2018 Troponin I.cardiac [Mass/Vol] 64 ng/L Critically high 0-22 [facility] Comment on above: Result Comment: Prev ious Alert Value Reported High Sensitivity Troponin values cannot be compared with other Troponin methodologies. Patients with high levels of Biotin oral intake (i.e >5mg/day) may have falsely decreased Troponin levels. Samples collected within 8 hours of biotin intake may require additional information for diagnosis. Performed By: #### L ACWB, PT, PTT, KELI, DIME, BNP, CINTHIA, TSHX, BMP, CK, LIP, LIVP, TROPI, CDP, PRCAL, CRP #### [employer] [address] [place] [address] [id number] Planting Material Carrier: Pito Freed MD Troponin I.cardiac [Mass/Vol] NOT REPORTED Normal [facility] Comment on above: Performed By: #### L ACWB, PT, PTT, KELI, DIME, BNP, CINTHIA, TSHX, BMP, CK, LIP, LIVP, TROPI, CDP, PRCAL, CRP #### [facility] [employer] [address] [place] [id number] Planting Material Carrier: Pito Freed MD LIVERon 05-23-2018 US LIVER EXAMINATION: RIGHT UPPER QUADRANT ULTRASOUND 05/23/2018 1:11 pm COMPARISON: Outside noncontrast CT 05/22/2018 HISTORY: ORDERING SYSTEM PROVIDED HISTORY: liver abscess? FINDINGS: LIVER: A complex mixed fluid collection in the posterior right hepatic lobe measures at least 14 x 7 cm, corresponding to the abnormality on CT. There appears to be a separate component bulging the liver capsule posteriorly and inferiorly measuring up to 6 cm, as seen on CT. The main portal vein is patent and demonstrates antegrade flow. BILIARY SYSTEM: Status post cholecystectomy. Common bile duct is within normal limits measuring 3 mm. RIGHT KIDNEY: The partially visualized right kidney is without hydronephrosis. PANCREAS: Obscured OTHER: No evidence of right upper quadrant ascites. IMPRESSION: Findings compatible with liver abscess involving the posterior right hepatic lobe, corresponding to the findings on CT. This could be better delineated with contrast-enhanced abdominal CT or MRI. If contrast is contraindicated, a noncontrast MRI would provide useful information. Interpreted by: Agata Chamorro MD Signed by: Agata Chamorro MD 05/23/18 Final result Normal [facility] US RENAL COMPLETEon 05-24-19 US RENAL COMPLETE EXAMINATION: RETROPERITONEAL ULTRASOUND OF THE KIDNEYS AND URINARY BLADDER 05/23/2018 COMPARISON: CT 1 day prior. HISTORY: ORDERING SYSTEM PROVIDED HISTORY: RENAL FAILURE, ACUTE (KIDNEY INJURY) Initial encounter. FINDINGS: Kidneys: The right kidney measures 11.3 x 7.7 x 6.9 cm with parenchymal thickness of 1.4 cm and the left kidney measures 13.8 x 5.3 x 6.5 cm with parenchymal thickness of 2.3 cm. There is a stable benign single subcentimeter right renal cyst and 2 benign left renal cysts measuring up to 1.8 cm in diameter. Kidneys demonstrate normal cortical echogenicity. No evidence of hydronephrosis or intrarenal stones. Bladder: Decompressed by Ajrrett catheter. IMPRESSION: 1. No acute obstructive uropathy. 2. Benign bilateral renal cysts. 3. Urinary bladder decompressed by a Jarrett catheter. Interpreted by: Agata Theodore MD Signed by: Agata Theodore MD 05/23/18 Final result Normal [facility] XR CHEST PORTABLEon 05-24-19 XR CHEST PORTABLE EXAMINATION: SINGLE XRAY VIEW OF THE CHEST 05/23/2018 6:23 am COMPARISON: May 22, 2018 HISTORY: ORDERING SYSTEM PROVIDED HISTORY: influenza pneumonia TECHNOLOGIST PROVIDED HISTORY: influenza pneumonia FINDINGS: The cardiomediastinal silhouette is unchanged in appearance. Mild interstitial prominence in the mid and lower lung olmstead, right greater than left is noted, more prominent in the interval. There is no consolidation, pneumothorax, or evidence of edema. No effusion is appreciated. The osseous structures are unchanged in appearance. IMPRESSION: Interstitial opacities have increased in the interval, which may represent interstitial infection or developing edema. Interpreted by: Agata Chamorro MD Signed by: Agata Chamorro MD 05/23/18 Final result Normal [facility] APTTon 03-29-2019 aPTT Coag (Bld) [Time] 23.8 s Normal 20.5-30.5 [facility] Comment on above: Performed By: #### L ACWB, PT, PTT, KELI, DIME, BNP, CINTHIA, TSHX, BMP, CK, LIP, LIVP, TROPI, CDP, PRCAL, CRP #### [address] [id number] Planting Material Carrier: Pito Freed MD aPTT Coag (Bld) [Time] 24.9 s Normal 20.5-30.5 [facility] Comment on above: Performed By: #### L ACWB, PT, PTT, KELI, DIME, BNP, CINTHIA, TSHX, BMP, CK, LIP, LIVP, TROPI, CDP, PRCAL, CRP #### [address] [address] Planting Material Carrier: Pito Freed MD Ammoniaon 05-22-2018 Ammonia (P) [Mass/Vol] 93 umol/L High 16-60 [facility] Comment on above: Performed By: #### L ACWB, PT, PTT, KELI, DIME, BNP, CINTHIA, TSHX, BMP, CK, LIP, LIVP, TROPI, CDP, PRCAL, CRP #### [address] [phone] Planting Material Carrier: Pito Freed MD Basic Metabolic Profon 05-22 Anion gap [Moles/Vol] 21 mmol/L High 9-17 [facility] Comment on above: Performed By: #### L ACWB, PT, PTT, KELI, DIME, BNP, CINTHIA, TSHX, BMP, CK, LIP, LIVP, TROPI, CDP, PRCAL, CRP #### [address] [phone] Planting Material Carrier: Pito Freed MD Calcium [Mass/Vol] 7.4 mg/dL Low 8.6-10.4 [facility] Comment on above: Performed By: #### L ACWB, PT, PTT, KELI, DIME, BNP, CINTHIA, TSHX, BMP, CK, LIP, LIVP, TROPI, CDP, PRCAL, CRP #### [address] [phone] Planting Material Carrier: Pito Freed MD Chloride [Moles/Vol] 101 mmol/L Normal 98-107 [facility] Comment on above: Performed By: #### L ACWB, PT, PTT, KELI, DIME, BNP, CINTHIA, TSHX, BMP, CK, LIP, LIVP, TROPI, CDP, PRCAL, CRP #### [address] [address] Planting Material Carrier: Pito Freed MD CO2 [Moles/Vol] 12 mmol/L Low 20-31 [facility] Comment on above: Performed By: #### L ACWB, PT, PTT, KELI, DIME, BNP, CINTHIA, TSHX, BMP, CK, LIP, LIVP, TROPI, CDP, PRCAL, CRP #### [place] [phone] Planting Material Carrier: Pito Freed MD Creatinine [Mass/Vol] 2.59 mg/dL High 0.70-1.20 [facility] Comment on above: Performed By: #### L ACWB, PT, PTT, KELI, DIME, BNP, CINTHIA, TSHX, BMP, CK, LIP, LIVP, TROPI, CDP, PRCAL, CRP #### [address] [phone] Planting Material Carrier: Pito Freed MD GFR, Amer 31 mL/min Low >60 [facility] Comment on above: Performed By: #### L ACWB, PT, PTT, KELI, DIME, BNP, CINTHIA, TSHX, BMP, CK, LIP, LIVP, TROPI, CDP, PRCAL, CRP #### [address] [phone] Planting Material Carrier: Pito Freed MD GFR,non Amer 25 mL/min Low >60 [facility] Comment on above: Performed By: #### L ACWB, PT, PTT, KELI, DIME, BNP, CINTHIA, TSHX, BMP, CK, LIP, LIVP, TROPI, CDP, PRCAL, CRP #### [address] [phone] Planting Material Carrier: Pito Freed MD Glucose [Mass/Vol] 100 mg/dL High 70-99 [facility] Comment on above: Performed By: #### L ACWB, PT, PTT, KELI, DIME, BNP, CINTHIA, TSHX, BMP, CK, LIP, LIVP, TROPI, CDP, PRCAL, CRP #### [address] [phone] Planting Material Carrier: Pito Freed MD Potassium [Moles/Vol] 3.5 mmol/L Low 3.7-5.3 [facility] Comment on above: Performed By: #### L ACWB, PT, PTT, KELI, DIME, BNP, CINTHIA, TSHX, BMP, CK, LIP, LIVP, TROPI, CDP, PRCAL, CRP #### [address] [phone] Planting Material Carrier: Pito Freed MD Sodium [Moles/Vol] 134 mmol/L Low 135-144 [facility] Comment on above: Performed By: #### L ACWB, PT, PTT, KELI, DIME, BNP, CINTHIA, TSHX, BMP, CK, LIP, LIVP, TROPI, CDP, PRCAL, CRP #### [address] [phone] Planting Material Carrier: Pito Freed MD Urea nitrogen [Mass/Vol] 65 mg/dL High 8-23 [facility] Comment on above: Performed By: #### L ACWB, PT, PTT, KELI, DIME, BNP, CINTHIA, TSHX, BMP, CK, LIP, LIVP, TROPI, CDP, PRCAL, CRP #### [address] [phone] Planting Material Carrier: Pito Freed MD (cont.) Normal [facility] Comment on above: Result Comment: Aver age GFR for 60-69 years old: 85 mL/min/1.73sq m Chronic Kidney Disease: <60 mL/min/1.73sq m Kidney failure: <15 mL/min/1.73sq m eGFR calculated using average adult body mass. Additional eGFR calculator available at: http://www.[employer]/multiple_crcl_2011.htm Performed By: #### L ACWB, PT, PTT, KELI, DIME, BNP, CINTHIA, TSHX, BMP, CK, LIP, LIVP, TROPI, CDP, PRCAL, CRP #### [address] [phone] Planting Material Carrier: Pito Freed MD BUN/CRE Ratio NOT REPORTED Normal 11-13 [facility] Comment on above: Performed By: #### L ACWB, PT, PTT, KELI, DIME, BNP, CINTHIA, TSHX, BMP, CK, LIP, LIVP, TROPI, CDP, PRCAL, CRP #### [address] [phone] Planting Material Carrier: Pito Freed MD Staging: NOT REPORTED Normal [facility] Comment on above: Performed By: #### L ACWB, PT, PTT, KELI, DIME, BNP, CINTHIA, TSHX, BMP, CK, LIP, LIVP, TROPI, CDP, PRCAL, CRP #### [address] [phone] Planting Material Carrier: Pito Freed MD Brain Natri. Peptideon 05-22 Natriuretic peptide B (Bld) [Mass/Vol] 2877 pg/mL High <300 [facility] Comment on above: Result Comment: Pro- BNP results cannot be compared to BNP results. Performed By: #### L ACWB, PT, PTT, KELI, DIME, BNP, CINTHIA, TSHX, BMP, CK, LIP, LIVP, TROPI, CDP, PRCAL, CRP #### [address] [id number] Planting Material Carrier: Pito Freed MD Natriuretic peptide B (Bld) [Mass/Vol] Pro-BNP Reference Range: Normal [facility] Comment on above: Result Comment: Rule Out: <300 [place] Zone: Age <50 300-450 Age 50-75 300-900 Age >75 300-1800 Usually represents mild to moderate HF but other cardiopulmonary causes cannot be ruled out. Rule In: Age <50 >450 Age 50-75 >900 Age >75 >1800 Performed By: #### L ACWB, PT, PTT, KELI, DIME, BNP, CINTHIA, TSHX, BMP, CK, LIP, LIVP, TROPI, CDP, PRCAL, CRP #### [address] [address] Planting Material Carrier: Pito Freed MD C-Reactive Proteinon 019 CRP [Mass/Vol] 320.3 mg/L High 0.0-5.0 [facility] Comment on above: Performed By: #### L ACWB, PT, PTT, KELI, DIME, BNP, CINTHIA, TSHX, BMP, CK, LIP, LIVP, TROPI, CDP, PRCAL, CRP #### [address] [address] Planting Material Carrier: Pito Freed MD CBC with Diffon 05-22-2018 Abs. Basophil 0.00 k/uL Normal 0.0-0.2 [facility] Comment on above: Performed By: #### L ACWB, PT, PTT, KELI, DIME, BNP, CINTHIA, TSHX, BMP, CK, LIP, LIVP, TROPI, CDP, PRCAL, CRP #### [address] [phone] Planting Material Carrier: Pito Freed MD Abs.Imm.Granulocyte 0.10 k/uL Normal 0.00-0.30 [facility] Comment on above: Performed By: #### L ACWB, PT, PTT, KELI, DIME, BNP, CINTHIA, TSHX, BMP, CK, LIP, LIVP, TROPI, CDP, PRCAL, CRP #### [address] [phone] Planting Material Carrier: Pito Freed MD Abs.Neutrophil (Seg) 9.31 k/uL High 1.8-7.7 [facility] Comment on above: Performed By: #### L ACWB, PT, PTT, KELI, DIME, BNP, CINTHIA, TSHX, BMP, CK, LIP, LIVP, TROPI, CDP, PRCAL, CRP #### [place] [id number] Planting Material Carrier: Pito Freed MD Basophils/100 WBC (Bld) 0 % Normal 0-2 [facility] Comment on above: Performed By: #### L ACWB, PT, PTT, KELI, DIME, BNP, CINTHIA, TSHX, BMP, CK, LIP, LIVP, TROPI, CDP, PRCAL, CRP #### [place] [address] Planting Material Carrier: Pito Freed MD Eosinophils (Bld) [#/Vol] 0.00 10*3/uL Normal 0.0-0.4 [facility] Comment on above: Performed By: #### L ACWB, PT, PTT, KELI, DIME, BNP, CINTHIA, TSHX, BMP, CK, LIP, LIVP, TROPI, CDP, PRCAL, CRP #### [address] [phone] Planting Material Carrier: Pito Freed MD Eosinophils/100 WBC (Bld) 0 % Low 1-4 [facility] Comment on above: Performed By: #### L ACWB, PT, PTT, KELI, DIME, BNP, CINTHIA, TSHX, BMP, CK, LIP, LIVP, TROPI, CDP, PRCAL, CRP #### [address] [address] Planting Material Carrier: Pito Freed MD Immature granulocytes (Bld) [#/Vol] 1 % High 0 [facility] Comment on above: Performed By: #### L ACWB, PT, PTT, KELI, DIME, BNP, CINTHIA, TSHX, BMP, CK, LIP, LIVP, TROPI, CDP, PRCAL, CRP #### [address] [address] Planting Material Carrier: Pito Freed MD Lymphocytes (Bld) [#/Vol] 0.19 10*3/uL Low 1.0-4.8 [facility] Comment on above: Performed By: #### L ACWB, PT, PTT, KELI, DIME, BNP, CINTHIA, TSHX, BMP, CK, LIP, LIVP, TROPI, CDP, PRCAL, CRP #### [address] [address] Planting Material Carrier: Pito Freed MD Lymphocytes/100 WBC (Bld) 2 % Low 24-44 [facility] Comment on above: Performed By: #### L ACWB, PT, PTT, KELI, DIME, BNP, CINTHIA, TSHX, BMP, CK, LIP, LIVP, TROPI, CDP, PRCAL, CRP #### [address] [address] Planting Material Carrier: Pito Freed MD Monocytes (Bld) [#/Vol] 0.10 10*3/uL Normal 0.1-0.8 [facility] Comment on above: Performed By: #### L ACWB, PT, PTT, KELI, DIME, BNP, CINTHIA, TSHX, BMP, CK, LIP, LIVP, TROPI, CDP, PRCAL, CRP #### [address] [phone] Planting Material Carrier: Pito Freed MD Monocytes/100 WBC (Bld) 1 % Normal 1-7 [facility] Comment on above: Performed By: #### L ACWB, PT, PTT, KELI, DIME, BNP, CINTHIA, TSHX, BMP, CK, LIP, LIVP, TROPI, CDP, PRCAL, CRP #### [address] [phone] Planting Material Carrier: Pito Freed MD Morphology Aneudy (Bld) [Interp] ANISOCYTOSIS PRESENT Normal [facility] Comment on above: Result Comment: VACU OLATED NEUTROPHILS PRESENT DOHLE BODIES PRESENT Performed By: #### L ACWB, PT, PTT, KELI, DIME, BNP, CINTHIA, TSHX, BMP, CK, LIP, LIVP, TROPI, CDP, PRCAL, CRP #### [address] [phone] Planting Material Carrier: Pito Freed MD Neutrophil (Seg) 96 % High 36-66 [facility] Comment on above: Performed By: #### L ACWB, PT, PTT, KELI, DIME, BNP, CINTHIA, TSHX, BMP, CK, LIP, LIVP, TROPI, CDP, PRCAL, CRP #### [address] [phone] Planting Material Carrier: Pito Freed MD NRBC Automated 0.0 per 100 WBC Normal 0.0 [facility] Comment on above: Performed By: #### L ACWB, PT, PTT, KELI, DIME, BNP, CINTHIA, TSHX, BMP, CK, LIP, LIVP, TROPI, CDP, PRCAL, CRP #### [address] [phone] Planting Material Carrier: Pito Freed MD Platelets (Bld) [#/Vol] 240 10*3/uL Normal 138-453 [facility] Comment on above: Result Comment: Smea r estimate of platelet count. Performed By: #### L ACWB, PT, PTT, KELI, DIME, BNP, CINTHIA, TSHX, BMP, CK, LIP, LIVP, TROPI, CDP, PRCAL, CRP #### [address] [phone] Planting Material Carrier: Pito Freed MD WBC (Bld) [#/Vol] 9.7 10*3/uL Normal 3.5-11.3 [facility] Comment on above: Performed By: #### L ACWB, PT, PTT, KELI, DIME, BNP, CINTHIA, TSHX, BMP, CK, LIP, LIVP, TROPI, CDP, PRCAL, CRP #### [address] [phone] Planting Material Carrier: Pito Freed MD Erythrocyte distribution width (RBC) [Ratio] 14.6 % High 11.8-14.4 [facility] Comment on above: Performed By: #### L ACWB, PT, PTT, KELI, DIME, BNP, CINTHIA, TSHX, BMP, CK, LIP, LIVP, TROPI, CDP, PRCAL, CRP #### [address] [phone] Planting Material Carrier: Pito Freed MD Hematocrit (Bld) [Volume fraction] 36.5 % Low 40.7-50.3 [facility] Comment on above: Performed By: #### L ACWB, PT, PTT, KELI, DIME, BNP, CINTHIA, TSHX, BMP, CK, LIP, LIVP, TROPI, CDP, PRCAL, CRP #### [address] [phone] Planting Material Carrier: Pito Freed MD Hemoglobin (Bld) [Mass/Vol] 11.8 g/dL Low 13.0-17.0 [facility] Comment on above: Performed By: #### L ACWB, PT, PTT, KELI, DIME, BNP, CINTHIA, TSHX, BMP, CK, LIP, LIVP, TROPI, CDP, PRCAL, CRP #### [address] [address] Planting Material Carrier: Pito Freed MD MCH (RBC) [Entitic mass] 28.9 pg Normal 25.2-33.5 [facility] Comment on above: Performed By: #### L ACWB, PT, PTT, KELI, DIME, BNP, CINTHIA, TSHX, BMP, CK, LIP, LIVP, TROPI, CDP, PRCAL, CRP #### [address] [address] Planting Material Carrier: Pito Freed MD MCHC (RBC) [Mass/Vol] 32.3 g/dL Normal 28.4-34.8 [facility] Comment on above: Performed By: #### L ACWB, PT, PTT, KELI, DIME, BNP, CINTHIA, TSHX, BMP, CK, LIP, LIVP, TROPI, CDP, PRCAL, CRP #### [address] [address] Planting Material Carrier: Pito Freed MD MCV (RBC) [Entitic vol] 89.2 fL Normal 82.6-102.9 [facility] Comment on above: Performed By: #### L ACWB, PT, PTT, KELI, DIME, BNP, CINTHIA, TSHX, BMP, CK, LIP, LIVP, TROPI, CDP, PRCAL, CRP #### [address] [address] Planting Material Carrier: Pito Freed MD RBC (Bld) [#/Vol] 4.09 10*6/uL Low 4.21-5.77 [facility] Comment on above: Performed By: #### L ACWB, PT, PTT, KELI, DIME, BNP, CINTHIA, TSHX, BMP, CK, LIP, LIVP, TROPI, CDP, PRCAL, CRP #### [address] [phone] Planting Material Carrier: Pito Freed MD Auto Diff Performed NOT REPORTED Normal [facility] Comment on above: Performed By: #### L ACWB, PT, PTT, KELI, DIME, BNP, CINTHIA, TSHX, BMP, CK, LIP, LIVP, TROPI, CDP, PRCAL, CRP #### [address] [id number] Planting Material Carrier: Pito Freed MD Platelet mean volume (Bld) [Entitic vol] NOT REPORTED Normal 8.1-13.5 [facility] Comment on above: Performed By: #### L ACWB, PT, PTT, KELI, DIME, BNP, CINTHIA, TSHX, BMP, CK, LIP, LIVP, TROPI, CDP, PRCAL, CRP #### [address] [id number] Planting Material Carrier: Pito Freed MD Platelets (Bld) [#/Vol] NOT REPORTED Normal [facility] Comment on above: Performed By: #### L ACWB, PT, PTT, KELI, DIME, BNP, CINTHIA, TSHX, BMP, CK, LIP, LIVP, TROPI, CDP, PRCAL, CRP #### [address] [id number] Planting Material Carrier: Pito Freed MD RBC morphology finding Nom (Bld) NOT REPORTED Normal [facility] Comment on above: Performed By: #### L ACWB, PT, PTT, KELI, DIME, BNP, CINTHIA, TSHX, BMP, CK, LIP, LIVP, TROPI, CDP, PRCAL, CRP #### [address] [address] Planting Material Carrier: Pito Freed MD WBC Morphology NOT REPORTED Normal [facility] Comment on above: Performed By: #### L ACWB, PT, PTT, KELI, DIME, BNP, CINTHIA, TSHX, BMP, CK, LIP, LIVP, TROPI, CDP, PRCAL, CRP #### [place] [id number] [place], [place] [id number] Planting Material Carrier: Pito Freed MD Creatine Kinaseon 05-22-2018 CK [Catalytic activity/Vol] 1184 U/L High 39-308 [facility] Comment on above: Performed By: #### L ACWB, PT, PTT, KELI, DIME, BNP, CINTHIA, TSHX, BMP, CK, LIP, LIVP, TROPI, CDP, PRCAL, CRP #### [address] [phone] Planting Material Carrier: Pito Freed MD D-Dimer Teston 05-22-2018 D-Dimer Test 20.83 mg/L FEU Normal [facility] Comment on above: Result Comment: When combined with a low clinical probability, a D dimer value of <0.50 mg/L FEU is considered negative for DVT and PE (negative predictive value of 98%, sensitivity of 97%). If this test is not being used to help rule out DVT and PE, then the following reference range should be utilized: 0.00 - 1.02 mg/L FEU. The [employer] D-Dimer assay is intended for use as an aid in the diagnosis of venous thromboembolism (DVT and PE) and the results should be interpreted in conjunction with the patient's medical history, clinical presentation, and other findings. Elevated levels of D-dimer activity can be seen in any state of coagulation activation and is not recommended in patients with therapeutic dose anticoagulant therapy for >24 hours, fibrinolytic therapy within the previous 7 days, trauma or surgery within the previous 4 weeks, disseminated malignancies, aortic aneurysm, sepsis, severe infections, pneumonia, severe skin infections, liver cirrhosis, advanced age, coronary disease, diabetes, and . A very low percentage of patients with DVT may yield D-dimer results below the cutoff of 0.5 mg/L FEU. This is known to be more prevalent in patients with distal DVT. Performed By: #### L ACWB, PT, PTT, KELI, DIME, BNP, CINTHIA, TSHX, BMP, CK, LIP, LIVP, TROPI, CDP, PRCAL, CRP #### [address] [address] Planting Material Carrier: Pito Freed MD Lactic Acid,Whole Blon 05-22 Lactic Acid,Whole Bl 5.1 mmol/L High 0.7-2.1 [facility] Comment on above: Performed By: #### L ACWB, PT, PTT, KELI, DIME, BNP, CINTHIA, TSHX, BMP, CK, LIP, LIVP, TROPI, CDP, PRCAL, CRP #### [address] [address] Planting Material Carrier: Pito Freed MD Lipaseon 05-22-2018 Lipase [Catalytic activity/Vol] 21 U/L Normal 13-60 [facility] Comment on above: Performed By: #### L ACWB, PT, PTT, KELI, DIME, BNP, CINTHIA, TSHX, BMP, CK, LIP, LIVP, TROPI, CDP, PRCAL, CRP #### [address] [address] Planting Material Carrier: Pito Freed MD Liver Profileon 05-22-2018 Albumin [Mass/Vol] 2.1 g/dL Low 3.5-5.2 [facility] Comment on above: Performed By: #### L ACWB, PT, PTT, KELI, DIME, BNP, CINTHIA, TSHX, BMP, CK, LIP, LIVP, TROPI, CDP, PRCAL, CRP #### [address] [phone] Planting Material Carrier: Pito Freed MD Albumin/Globulin [Mass ratio] 0.6 {ratio} Low 1.0-2.5 [facility] Comment on above: Performed By: #### L ACWB, PT, PTT, KELI, DIME, BNP, CINTHIA, TSHX, BMP, CK, LIP, LIVP, TROPI, CDP, PRCAL, CRP #### [address] [phone] Planting Material Carrier: Pito Freed MD Alkaline Phos 153 U/L High 40-129 [facility] Comment on above: Performed By: #### L ACWB, PT, PTT, KELI, DIME, BNP, CINTHIA, TSHX, BMP, CK, LIP, LIVP, TROPI, CDP, PRCAL, CRP #### [address] [id number] Planting Material Carrier: Pito Freed MD ALT [Catalytic activity/Vol] 126 U/L High 5-41 [facility] Comment on above: Performed By: #### L ACWB, PT, PTT, KELI, DIME, BNP, CINTHIA, TSHX, BMP, CK, LIP, LIVP, TROPI, CDP, PRCAL, CRP #### [address] [phone] Planting Material Carrier: Pito Freed MD AST [Catalytic activity/Vol] 170 U/L High <40 [facility] Comment on above: Performed By: #### L ACWB, PT, PTT, KELI, DIME, BNP, CINTHIA, TSHX, BMP, CK, LIP, LIVP, TROPI, CDP, PRCAL, CRP #### [address] [id number] Planting Material Carrier: Pito Freed MD Bilirubin Ql (U) 0.36 mg/dL Normal 0.3-1.2 [facility] Comment on above: Performed By: #### L ACWB, PT, PTT, KELI, DIME, BNP, CINTHIA, TSHX, BMP, CK, LIP, LIVP, TROPI, CDP, PRCAL, CRP #### [address] [id number] Planting Material Carrier: Pito Freed MD Bilirubin, Indirect 0.17 mg/dL Normal 0.00-1.00 [facility] Comment on above: Performed By: #### L ACWB, PT, PTT, KELI, DIME, BNP, CINTHIA, TSHX, BMP, CK, LIP, LIVP, TROPI, CDP, PRCAL, CRP #### [address] [id number] Planting Material Carrier: Pito Freed MD Bilirubin.direct [Mass/Vol] 0.19 mg/dL Normal <0.31 [facility] Comment on above: Performed By: #### L ACWB, PT, PTT, KELI, DIME, BNP, CINTHIA, TSHX, BMP, CK, LIP, LIVP, TROPI, CDP, PRCAL, CRP #### [address] [id number] Planting Material Carrier: Pito Freed MD Protein [Mass/Vol] 5.9 g/dL Low 6.4-8.3 [facility] Comment on above: Performed By: #### L ACWB, PT, PTT, KELI, DIME, BNP, CINTHIA, TSHX, BMP, CK, LIP, LIVP, TROPI, CDP, PRCAL, CRP #### [address] [phone] Planting Material Carrier: Pito Freed MD Globulin (S) [Mass/Vol] NOT REPORTED Normal 1.5-3.8 [facility] Comment on above: Performed By: #### L ACWB, PT, PTT, KELI, DIME, BNP, CINTHIA, TSHX, BMP, CK, LIP, LIVP, TROPI, CDP, PRCAL, CRP #### [address] [phone] Planting Material Carrier: Pito Freed MD Myoglobinon 05-22-2018 Myoglobin [Mass/Vol] 1701 ng/mL High 28-72 [facility] Comment on above: Performed By: #### L ACWB, PT, PTT, KELI, DIME, BNP, CINTHIA, TSHX, BMP, CK, LIP, LIVP, TROPI, CDP, PRCAL, CRP #### [address] [phone] Planting Material Carrier: Pito Freed MD PTon 05-22-2018 INR Coag (PPP) [Relative time] 1.1 {INR} Normal [facility] Comment on above: Result Comment: Therapeutic Range: Moderate Anticoagulant Intensity: INR = 2.0-3.0 High Anticoagulant Intensity: INR = 2.5-3.5 Performed By: #### L ACWB, PT, PTT, KELI, DIME, BNP, CINTHIA, TSHX, BMP, CK, LIP, LIVP, TROPI, CDP, PRCAL, CRP #### [address] [id number] Planting Material Carrier: Pito Freed MD PT Coag (PPP) [Time] 11.5 s Normal 9.0-12.0 [facility] Comment on above: Performed By: #### L ACWB, PT, PTT, KELI, DIME, BNP, CINTHIA, TSHX, BMP, CK, LIP, LIVP, TROPI, CDP, PRCAL, CRP #### [place] [id number] Planting Material Carrier: Pito Freed MD Procalcitoninon 05-22-2018 Procalcitonin >100.00 High <0.09 [facility] Comment on above: Result Comment: Suspected Sepsis: 0.09-0.49 ng/mL Low likelihood of sepsis. 0.50-2.00 ng/mL Increased likelihood of sepsis. Antibiotics encouraged. >2.00 ng/mL High risk of sepsis/shock. Antibiotics strongly encouraged. Suspected Lower Resp Tract Infections: 0.09-0.24 ng/mL Low likelihood of bacterial infection. >0.24 ng/mL Increased likelihood of bacterial infection. Antibiotics encouraged. With successful antibiotic therapy, PCT levels should decrease rapidly. (Half-life of 24 to 36 hours.) Procalcitonin values from samples collected within the first 6 hours of systemic infection may still be low. Retesting may be indicated. Values from day 1 and day 4 can be entered into the Change in Procalcitonin Calculator ([email or web address]) to determine the patient's Mortality Risk Prognosis Performed By: #### L ACWB, PT, PTT, KELI, DIME, BNP, CINTHIA, TSHX, BMP, CK, LIP, LIVP, TROPI, CDP, PRCAL, CRP #### [facility] [address] [place] [id number] Planting Material Carrier: Pito Freed MD TSH w/reflex to FT4on 2018 TSH Qn 1.27 m[IU]/L Normal 0.30-5.00 [facility] Comment on above: Performed By: #### L ACWB, PT, PTT, KELI, DIME, BNP, CINTHIA, TSHX, BMP, CK, LIP, LIVP, TROPI, CDP, PRCAL, CRP #### [address] [id number] Planting Material Carrier: Pito Freed MD Troponinon 05-22-2018 Troponin I.cardiac [Mass/Vol] 64 ng/L Critically high 0-22 [facility] Comment on above: Result Comment: High Sensitivity Troponin values cannot be compared with other Troponin methodologies. Patients with high levels of Biotin oral intake (i.e >5mg/day) may have falsely decreased Troponin levels. Samples collected within 8 hours of biotin intake may require additional information for diagnosis. Previous Alert Value Reported Performed By: #### L ACWB, PT, PTT, KELI, DIME, BNP, CINTHIA, TSHX, BMP, CK, LIP, LIVP, TROPI, CDP, PRCAL, CRP #### [facility] [employer] [address] [place] [id number] Planting Material Carrier: Pito Freed MD Troponin I.cardiac [Mass/Vol] NOT REPORTED Normal [facility] Comment on above: Performed By: #### L ACWB, PT, PTT, KELI, DIME, BNP, CINTHIA, TSHX, BMP, CK, LIP, LIVP, TROPI, CDP, PRCAL, CRP #### [address] [id number] Planting Material Carrier: Pito Freed MD Troponin I.cardiac [Mass/Vol] 58 ng/L Critically high 0-22 [facility] Comment on above: Result Comment: High Sensitivity Troponin values cannot be compared with other Troponin methodologies. Patients with high levels of Biotin oral intake (i.e >5mg/day) may have falsely decreased Troponin levels. Samples collected within 8 hours of biotin intake may require additional information for diagnosis. Performed By: #### L ACWB, PT, PTT, KELI, DIME, BNP, CINTHIA, TSHX, BMP, CK, LIP, LIVP, TROPI, CDP, PRCAL, CRP #### [address] [id number] Planting Material Carrier: Pito Freed MD Troponin I.cardiac [Mass/Vol] NOT REPORTED Normal [facility] Comment on above: Performed By: #### L ACWB, PT, PTT, KELI, DIME, BNP, CINTHIA, TSHX, BMP, CK, LIP, LIVP, TROPI, CDP, PRCAL, CRP #### [address] [id number] Planting Material Carrier: Pito Freed MD Urinalysis w/ Microon 2018 ----- Normal [facility] Comment on above: Performed By: #### L ACWB, PT, PTT, KELI, DIME, BNP, CINTHIA, TSHX, BMP, CK, LIP, LIVP, TROPI, CDP, PRCAL, CRP #### [address] [phone] Planting Material Carrier: Pito Freed MD Epithelial cells LM.HPF (Urine sed) [#/Area] None Normal 0-5 [facility] Comment on above: Performed By: #### L ACWB, PT, PTT, KELI, DIME, BNP, CINTHIA, TSHX, BMP, CK, LIP, LIVP, TROPI, CDP, PRCAL, CRP #### [address] [phone] Planting Material Carrier: Pito Freed MD Mucus Strands 1+ Abnormal NONE [facility] Comment on above: Performed By: #### L ACWB, PT, PTT, KELI, DIME, BNP, CINTHIA, TSHX, BMP, CK, LIP, LIVP, TROPI, CDP, PRCAL, CRP #### [address] [phone] Planting Material Carrier: Pito Freed MD RBC (U) [#/Vol] 5 TO 10 Normal 0-2 [facility] Comment on above: Performed By: #### L ACWB, PT, PTT, KELI, DIME, BNP, CINTHIA, TSHX, BMP, CK, LIP, LIVP, TROPI, CDP, PRCAL, CRP #### [address] [phone] Planting Material Carrier: Pito Freed MD WBC (U) [#/Vol] 0 TO 2 Normal 0-5 [facility] Comment on above: Performed By: #### L ACWB, PT, PTT, KELI, DIME, BNP, CINTHIA, TSHX, BMP, CK, LIP, LIVP, TROPI, CDP, PRCAL, CRP #### [address] [id number] Planting Material Carrier: Pito Freed MD Acetoacetic Acid,Ur TRACE Abnormal NEG [facility] Comment on above: Performed By: #### L ACWB, PT, PTT, KELI, DIME, BNP, CINTHIA, TSHX, BMP, CK, LIP, LIVP, TROPI, CDP, PRCAL, CRP #### [address] [phone] Planting Material Carrier: Pito Freed MD Bilirubin, SemiQt,Ur Negative Normal NEG [facility] Comment on above: Performed By: #### L ACWB, PT, PTT, KELI, DIME, BNP, CINTHIA, TSHX, BMP, CK, LIP, LIVP, TROPI, CDP, PRCAL, CRP #### [address] [id number] Planting Material Carrier: iPto Freed MD Color (U) DARK YELLOW Abnormal YEL [facility] Comment on above: Performed By: #### L ACWB, PT, PTT, KELI, DIME, BNP, CINTHIA, TSHX, BMP, CK, LIP, LIVP, TROPI, CDP, PRCAL, CRP #### [place] [address] Planting Material Carrier: Pito Freed MD Glucose Ql (U) Negative Normal NEG [facility] Comment on above: Performed By: #### L ACWB, PT, PTT, KELI, DIME, BNP, CINTHIA, TSHX, BMP, CK, LIP, LIVP, TROPI, CDP, PRCAL, CRP #### [place] [address] Planting Material Carrier: Pito Freed MD Hemoglobin, Ur LARGE Abnormal NEG [facility] Comment on above: Performed By: #### L ACWB, PT, PTT, KELI, DIME, BNP, CINTHIA, TSHX, BMP, CK, LIP, LIVP, TROPI, CDP, PRCAL, CRP #### [address] [id number] Planting Material Carrier: Pito Freed MD Leukocyte esterase Test strip Ql (U) TRACE Abnormal NEG [facility] Comment on above: Performed By: #### L ACWB, PT, PTT, KELI, DIME, BNP, CINTHIA, TSHX, BMP, CK, LIP, LIVP, TROPI, CDP, PRCAL, CRP #### [address] [id number] Planting Material Carrier: Pito Freed MD Nitrite,Ur Negative Normal NEG [facility] Comment on above: Performed By: #### L ACWB, PT, PTT, KELI, DIME, BNP, CINTHIA, TSHX, BMP, CK, LIP, LIVP, TROPI, CDP, PRCAL, CRP #### [address] [id number] Planting Material Carrier: Pito Freed MD pH (U) 5.0 [pH] Normal 5.0-8.0 [facility] Comment on above: Performed By: #### L ACWB, PT, PTT, KELI, DIME, BNP, CINTHIA, TSHX, BMP, CK, LIP, LIVP, TROPI, CDP, PRCAL, CRP #### [address] [phone] Planting Material Carrier: Pito Freed MD Protein Ql (U) 2+ Abnormal NEG [facility] Comment on above: Performed By: #### L ACWB, PT, PTT, KELI, DIME, BNP, CINTHIA, TSHX, BMP, CK, LIP, LIVP, TROPI, CDP, PRCAL, CRP #### [address] [id number] Planting Material Carrier: Pito Freed MD Specific gravity (U) [Rel density] 1.023 Normal 1.005-1.03 0 [facility] Comment on above: Performed By: #### L ACWB, PT, PTT, KELI, DIME, BNP, CINTHIA, TSHX, BMP, CK, LIP, LIVP, TROPI, CDP, PRCAL, CRP #### [address] [id number] Planting Material Carrier: Pito Freed MD Turbidity TURBID Abnormal CLEAR [facility] Comment on above: Performed By: #### L ACWB, PT, PTT, KELI, DIME, BNP, CINTHIA, TSHX, BMP, CK, LIP, LIVP, TROPI, CDP, PRCAL, CRP #### [address] [id number] Planting Material Carrier: Pito Freed MD Urobilinogen,Ur Normal Normal NORM [facility] Comment on above: Performed By: #### L ACWB, PT, PTT, KELI, DIME, BNP, CINTHIA, TSHX, BMP, CK, LIP, LIVP, TROPI, CDP, PRCAL, CRP #### [address] [phone] Planting Material Carrier: Pito Freed MD Amorphous sediment LM Ql (Urine sed) NOT REPORTED Normal NONE [facility] Comment on above: Performed By: #### L ACWB, PT, PTT, KELI, DIME, BNP, CINTHIA, TSHX, BMP, CK, LIP, LIVP, TROPI, CDP, PRCAL, CRP #### [address] [phone] Planting Material Carrier: Pito Freed MD Bacteria LM.HPF (Urine sed) [#/Area] NOT REPORTED Normal NONE [facility] Comment on above: Performed By: #### L ACWB, PT, PTT, KELI, DIME, BNP, CINTHIA, TSHX, BMP, CK, LIP, LIVP, TROPI, CDP, PRCAL, CRP #### [address] [phone] Planting Material Carrier: Pito Freed MD Casts LM.LPF (Urine sed) [#/Area] NOT REPORTED Normal 0-2 [facility] Comment on above: Performed By: #### L ACWB, PT, PTT, KELI, DIME, BNP, CINTHIA, TSHX, BMP, CK, LIP, LIVP, TROPI, CDP, PRCAL, CRP #### [address] [id number] Planting Material Carrier: Pito Freed MD Crystals LM Nom (Urine sed) NOT REPORTED Normal NONE [facility] Comment on above: Performed By: #### L ACWB, PT, PTT, KELI, DIME, BNP, CINTHIA, TSHX, BMP, CK, LIP, LIVP, TROPI, CDP, PRCAL, CRP #### [address] [phone] Planting Material Carrier: Pito Freed MD Epithelial, Renal NOT REPORTED Normal 0 [facility] Comment on above: Performed By: #### L ACWB, PT, PTT, KELI, DIME, BNP, CINTHIA, TSHX, BMP, CK, LIP, LIVP, TROPI, CDP, PRCAL, CRP #### [address] [id number] Planting Material Carrier: Pito Freed MD Other Observations NOT REPORTED Normal NREQ [facility] Comment on above: Performed By: #### L ACWB, PT, PTT, KELI, DIME, BNP, CINTHIA, TSHX, BMP, CK, LIP, LIVP, TROPI, CDP, PRCAL, CRP #### [address] [phone] Planting Material Carrier: Pito Freed MD Trichomonas NOT REPORTED Normal NONE [facility] Comment on above: Performed By: #### L ACWB, PT, PTT, KELI, DIME, BNP, CINTHIA, TSHX, BMP, CK, LIP, LIVP, TROPI, CDP, PRCAL, CRP #### [facility] [employer] [address] [place] [phone] Planting Material Carrier: Pito Freed MD Yeast LM Ql (Urine sed) NOT REPORTED Normal NONE [facility] Comment on above: Performed By: #### L ACWB, PT, PTT, KELI, DIME, BNP, CINTHIA, TSHX, BMP, CK, LIP, LIVP, TROPI, CDP, PRCAL, CRP #### [facility] [address] [place] [address] Planting Material Carrier: Pito Freed MD XR CHEST PORTABLEon 05-23-19 XR CHEST PORTABLE EXAMINATION: SINGLE XRAY VIEW OF THE CHEST 05/22/2018 8:12 pm COMPARISON: Earlier same day HISTORY: ORDERING SYSTEM PROVIDED HISTORY: sob, desaturation FINDINGS: The lungs are without acute focal process. No effusion or pneumothorax. The cardiomediastinal silhouette is within normal limits. Mild degenerative change of the thoracic spine. IMPRESSION: No focal airspace consolidation or overt edema. Interpreted by: Muriel Macedo MD Signed by: Muriel Macedo MD 05/22/18 Final result Normal [facility] Vital Signs Date Time Vital Sign Value Performing Clinician Facility 09-04-2023 09:01-0400 Blood Pressure Location ADRIANA BUSTAMANTE [facility] 09-04-2023 09:01-0400 Diastolic blood pressure 88 mm[Hg] ADRIANA BUSTAMANTE [facility] 09-04-2023 09:01-0400 Heart rate 62 /min ADRIANA BUSTAMANTE [facility] 09-04-2023 09:01-0400 Systolic blood pressure 145 mm[Hg] ADRIANA BUSTAMANTE [facility] 02-26-2023 09:07-0500 Diastolic blood pressure 90 mm[Hg] DO Alyse Schwerer Work Phone: [facility] 02-26-2023 09:07-0500 Heart rate 60 /min DO Alyse Schwerer Work Phone: [facility] 02-26-2023 09:07-0500 Respiratory rate 16 /min DO Alyse Schwerer Work Phone: [facility] 02-26-2023 09:07-0500 SaO2% (BldA) [Mass fraction] 95 % DO Alyse Schwerer Work Phone: [facility] 02-26-2023 09:07-0500 Systolic blood pressure 147 mm[Hg] DO Alyse Schwerer Work Phone: [facility] 02-26-2023 06:57-0500 Body height 190.5 cm DO Alyse Schwerer Work Phone: [facility] 02-26-2023 06:57-0500 Body temperature 97.7 [degF] DO Alyse Schwerer Work Phone: [facility] 02-26-2023 06:57-0500 Body weight 116.11 kg DO Alyse Schwerer Work Phone: [facility] 12-26-2022 09:30-0400 Body height 190.5 cm Alyse Schwerer Other [employer] Other 12-26-2022 09:30-0400 Body mass index (BMI) [Ratio] 32.33 kg/m2 Alyse Schwerer Other [employer] Other 12-26-2022 09:30-0400 Body temperature 98 [degF] Alyse Schwerer Other [employer] Other 12-26-2022 09:30-0400 Body weight 117.35 kg Alyse Schwerer Other [employer] Other 12-26-2022 09:30-0400 Diastolic blood pressure 78 mm[Hg] Alyse Schwerer Other [employer] Other 12-26-2022 09:30-0400 SaO2% (BldA) [Mass fraction] 98 % Alyse Schwerer Other [facility] [employer] Other 12-26-2022 09:30-0400 Systolic blood pressure 140 mm[Hg] Alyse Schwerer Other [facility] [employer] Other 10-19-2022 07:12-0400 Body temperature 98.3 [degF] DO Alyse Schwerer Work Phone: [facility] 10-19-2022 07:12-0400 Diastolic blood pressure 80 mm[Hg] DO Alyse Schwerer Work Phone: [facility] 10-19-2022 07:12-0400 Heart rate 67 /min DO Alyse Schwerer Work Phone: [facility] 10-19-2022 07:12-0400 Respiratory rate 18 /min DO Alyse Schwerer Work Phone: [facility] 10-19-2022 07:12-0400 SaO2% (BldA) [Mass fraction] 97 % DO Alyse Schwerer Work Phone: [facility] 10-19-2022 07:12-0400 Systolic blood pressure 170 mm[Hg] DO Alyse Schwerer Work Phone: [facility] 10-19-2022 07:11-0400 Body height 185.42 cm DO Alyse Schwerer Work Phone: [facility] 10-19-2022 07:11-0400 Body weight 122 kg DO Alyse Schwerer Work Phone: [facility] 02-06-2022 08:41-0500 Blood Pressure Location Ailyn Alexander [facility] 02-06-2022 08:41-0500 Diastolic blood pressure 74 mm[Hg] Ailyn Lue [facility] 02-06-2022 08:41-0500 Heart rate 76 /min Ailyn Lue [facility] 02-06-2022 08:41-0500 Respiratory rate 16 /min Ailyn Lue [facility] 02-06-2022 08:41-0500 Systolic blood pressure 130 mm[Hg] Ailyn Lue [facility] 10-17-2021 10:13-0400 Blood Pressure Location Ailyn Lue [facility] 10-17-2021 10:13-0400 Diastolic blood pressure 89 mm[Hg] Ailyn Lue [facility] 10-17-2021 10:13-0400 Heart rate 78 /min Ailyn Lue [facility] 10-17-2021 10:13-0400 Respiratory rate 16 /min Ailyn Lue [facility] 10-17-2021 10:13-0400 Systolic blood pressure 131 mm[Hg] Ailyn Lue [facility] 08-22-2021 08:14-0400 Blood Pressure Location Ailyn Lue [facility] 08-22-2021 08:14-0400 Diastolic blood pressure 86 mm[Hg] Ailyn Lue [facility] 08-22-2021 08:14-0400 Heart rate 72 /min Ailyn Lue [facility] 08-22-2021 08:14-0400 Respiratory rate 16 /min Ailyn Lue [facility] 08-22-2021 08:14-0400 Systolic blood pressure 137 mm[Hg] Ailyn Lue [facility] 06-14-2021 10:30-0400 Body height 190.5 cm Alyse Schwerer Other [employer] Other 06-14-2021 10:30-0400 Body mass index (BMI) [Ratio] 32.56 kg/m2 Alyse Schwerer Other [employer] Other 06-14-2021 10:30-0400 Body weight 118.16 kg Alyse Schwerer Other [employer] Other 06-14-2021 10:30-0400 Diastolic blood pressure 98 mm[Hg] Alyse Schwerer Other [employer] Other 06-14-2021 10:30-0400 Respiratory rate 18 /min Alyse Schwerer Other [employer] Other 06-14-2021 10:30-0400 SaO2% (BldA) [Mass fraction] 98 % Alyse Schwerer Other [employer] Other 06-14-2021 10:30-0400 Systolic blood pressure 160 mm[Hg] Alyse Schwerer Other [employer] Other 03-15-2021 16:00-0500 Body height 190.5 cm Alyse Schwerer Other [employer] Other 03-15-2021 16:00-0500 Body mass index (BMI) [Ratio] 30.66 kg/m2 Alyse Schwerer Other [employer] Other 03-15-2021 16:00-0500 Body temperature 99.5 [degF] Alyse Schwerer Other [employer] Other 03-15-2021 16:00-0500 Body weight 111.27 kg Alyse Schwerer Other [employer] Other 03-15-2021 16:00-0500 Diastolic blood pressure 95 mm[Hg] Alyse Schwerer Other [employer] Other 03-15-2021 16:00-0500 SaO2% (BldA) [Mass fraction] 99 % Alyse Schwerer Other [employer] Other 03-15-2021 16:00-0500 Systolic blood pressure 160 mm[Hg] Alyse Schwerer Other [employer] Other 08-17-2018 20:15-0400 Respiratory rate NOT REPORTED [facility] Comment on above: Performed By: #### LACWB, PT, PTT, KELI, DIME, BNP, CINTHIA, TSHX, BMP, CK, LIP, LIVP, TROPI, CDP, PRCAL, CRP #### [employer] [address] [place] [id number] Planting Material Carrier: Pito Freed MD 08-17-2018 19:18-0400 Respiratory rate NOT REPORTED [facility] Comment on above: Performed By: #### LACWB, PT, PTT, KELI, DIME, BNP, CINTHIA, TSHX, BMP, CK, LIP, LIVP, TROPI, CDP, PRCAL, CRP #### [facility] [address] [place] [id number] Planting Material Carrier: Pito Freed MD 08-17-2018 18:23-0400 Respiratory rate NOT REPORTED [facility] Comment on above: Performed By: #### LACWB, PT, PTT, KELI, DIME, BNP, CINTHIA, TSHX, BMP, CK, LIP, LIVP, TROPI, CDP, PRCAL, CRP #### [facility] [address] [place] [id number] Planting Material Carrier: Pito Freed MD Encounters Encounter Date Encounter Type Care Provider Facility Start: 04-30-2024 End: 04-30-2024 ambulatory [facility] Start: 11-10-2023 End: [facility]: 09-04-2023 End: 09-04-2023 ambulatory ADRIANA BUSTAMANTE Facility:[facility] Start: 09-04-2023 End: 09-04-2023 Patient encounter procedure ADRIANA BUSTAMANTE [facility] Start: 05-09-2023 End: 05-09-2023 ambulatory ANJALI [facility] Start: 03-05-2023 End: 03-05-2023 ambulatory Adriana Bustamante Facility:[facility] Start: 03-05-2023 End: 03-05-2023 ambulatory DO Alyse E Schwerer Work Phone: [facility] Work Phone: Start: 03-05-2023 End: 03-05-2023 Patient encounter procedure DO Alyse Schwerer Work Phone: [facility] Start: 03-04-2023 End: 03-04-2023 ambulatory ADRIANA BUSTAMANTE Facility:[facility] Start: 02-26-2023 End: 02-26-2023 ambulatory Asim Dodge Facility:[facility] Start: 02-26-2023 End: 02-26-2023 Admission to same day surgery center DO Alyse Schwerer Work Phone: [facility] Work Phone: Start: 02-26-2023 End: 02-26-2023 ambulatory DO Alyse E Schwerer Work Phone: [facility] Work Phone: Start: 12-27-2022 End: 12-27-2022 ambulatory Asim Dodge Other [employer] Other Start: 12-27-2022 Telephone encounter Asim ANDERSON [facility] [employer] Start: 12-26-2022 End: 12-26-2022 ambulatory Alyse Schwerer Other [employer] Other Start: 12-26-2022 Office outpatient vi sit 25 minutes Alyse Isbell [facility] Start: 12-23-2022 End: 12-23-2022 ambulatory Alyse E Schwerer Facility:[facility] Start: 12-23-2022 Encounter for genera l adult medical examination without abnormal findings Alyse Isbell [facility] Start: 12-23-2022 End: 12-23-2022 ambulatory DO Alyse E Schwerer Work Phone: [facility] Work Phone: Start: 12-23-2022 End: 12-23-2022 Patient encounter procedure DO Alyse Schwerer Work Phone: [facility] Start: 10-21-2022 End: 10-21-2022 ambulatory Alyse Schwerer Other [employer] [facility] [employer] Other Start: 10-21-2022 Telephone encounter Alyse Schwerer [facility] Start: 10-19-2022 End: 10-19-2022 Emergency department patient visit [facility] Start: 10-19-2022 End: 10-19-2022 Emergency department patient visit Javad Geneva Stephens Facility:[facility] Start: 10-19-2022 End: 10-19-2022 Emergency department patient visit DO Alyse Schwerer Work Phone: [facility] Work Phone: Start: 06-14-2022 End: 06-14-2022 ambulatory Ailyn Alexander Facility:[facility] Start: 04-25-2022 End: 04-25-2022 ambulatory Alyse Schwerer Other [employer] [facility] [employer] Other Start: 04-25-2022 Telephone encounter Alyse Schwerer [facility] Start: 02-06-2022 End: 02-06-2022 Patient encounter procedure Ailyn Alexander [facility] Start: 01-22-2022 End: 01-22-2022 ambulatory DO Alyse E Schwerer Work Phone: [facility] Work Phone: Start: 01-22-2022 End: 01-22-2022 Patient encounter procedure DO Alyse Schwerer Work Phone: [facility] [place] Start: 01-03-2022 End: 01-04-2022 ambulatory AILYN ALEXANDER . Facility:[facility] Start: 10-17-2021 End: 10-17-2021 Lab Drop off Ailyn Alexander [facility] Start: 10-17-2021 End: 10-17-2021 Patient encounter procedure Ailyn Alexander [facility] Start: 09-25-2021 End: 09-26-2021 ambulatory AILYN ALEXANDER . Facility: Start: 08-22-2021 End: 08-22-2021 Lab Drop off Ailyn Alexander [facility] Start: 08-22-2021 End: 08-22-2021 Patient encounter procedure Ailyn Alexander [facility] Start: 06-14-2021 End: 06-14-2021 ambulatory Alyse Schwerer Other [employer] Other Start: 06-14-2021 Patient encounter procedure Alyse Schwerer [facility] Start: 05-02-2021 End: 05-02-2021 ambulatory Alyse Schwerer Other [employer] Other Start: 05-02-2021 Telephone encounter Alyse Schwerer [facility] Start: 05-01-2021 End: 05-01-2021 ambulatory Alyse Schwerer Other [employer] Other Start: 05-01-2021 Telephone encounter Alyse Goffr [facility] Start: 04-23-2021 End: 04-23-2021 ambulatory Alyse Goffr Other [employer] Other Start: 04-23-2021 Telephone encounter Alyse Goffr [facility] Start: 04-03-2021 End: 04-03-2021 ambulatory Alyse Walkererer Other [employer] Other Start: 04-03-2021 Telephone encounter Alyse Goffr [facility] Start: 03-15-2021 End: 03-15-2021 ambulatory Alyse Walkererer Other [employer] Other Start: 03-15-2021 FQHC visit new patient Alyse Love rer [facility] Start: 01-26-2021 End: 01-27-2021 ambulatory REFERRED SELF Facility:[facility] Start: 12-21-2020 End: 12-29-2020 Evaluation and management of inpatient ADRIANA SÁNCHEZ Facility:[facility] Start: 11-27-2020 End: 12-08-2020 Evaluation and management of inpatient REFERRED SELF Facility:[facility] Start: 08-17-2018 End: 08-25-2018 Evaluation and management of inpatient [facility] Start: 07-10-2018 End: 07-13-2018 Patient encounter procedure [facility] Start: 07-01-2018 End: 07-04-2018 Patient encounter procedure [facility] Start: 06-08-2018 End: 06-11-2018 Patient encounter procedure [facility] Start: 05-22-2018 End: 06-01-2018 Evaluation and management of inpatient RAMO SULLIVAN [facility] Procedures Date Procedure Procedure Detail Performing Clinician Start: 02-26-2023 Screening colonoscopy D O Alyse Isbell Work Phone: Start: 11-28-2020 INTRODUCTION OF OTHE R GAS INTO RESP TRACT, VIA OPENING JIANLIN SÁNCHEZ Start: 11-27-2020 RELEASE LEFT ABDOMEN MUSCLE, PERC ENDO APPROACH JIANLIN SÁNCHEZ Start: 11-27-2020 RELEASE RIGHT ABDOME N MUSCLE, PERC ENDO APPROACH JIANLIN SÁNCHEZ Start: 11-27-2020 RELEASE SMALL INTEST INE, OPEN APPROACH ELIONLIN SÁNCHEZ Start: 11-27-2020 SUPPLEMENT ABDOMINAL WALL WITH SYNTH SUB, OPEN APPROACH JIANLIN SÁNCHEZ Start: 08-25-2018 Gluc bld gluc mntr d ev cleared fda spec home use [facility] Start: 08-25-2018 PULSE OXIMETRY, CONTINUOUS RAMO LAURIE Start: 08-25-2018 MISCELLANEOUS NURSIN G CARE ORDER (SPECIFY) [facility] Start: 08-25-2018 Assay of magnesium [facility] Start: 08-25-2018 Assay of phosphorus inorganic [facility] Start: 08-25-2018 Glucose blood reagent strip [facility] Start: 08-25-2018 DISCHARGE PATIENT AZALIA Wallace [facility] Start: 08-25-2018 Gluc bld gluc mntr d ev cleared fda spec home use [facility] Start: 08-25-2018 [facility] Start: 08-25-2018 IP CONSULT TO HOME C ARE NEEDS [facility] Start: 08-25-2018 Glucose blood reagent strip [facility] Start: 08-25-2018 DIET CARB CONTROL AZALIA Wallace [facility] Start: 08-25-2018 Gluc bld gluc mntr d ev cleared fda spec home [facility] Start: 08-25-2018 PULSE OXIMETRY, CONTINUOUS RAMO LAURIE Start: 08-25-2018 Glucose blood reagent [facility] Start: 08-25-2018 Gluc bld gluc mntr d ev cleared fda spec home [facility] Start: 08-25-2018 INITIATE OXYGEN THER APY PROTOCOL [facility] Start: 08-25-2018 PULSE OXIMETRY, CONTINUOUS RAMO LAURIE Start: 08-25-2018 Glucose blood reagent strip RAMO [facility] Start: 08-25-2018 Gluc bld gluc mntr d ev cleared fda spec home [facility] Start: 08-25-2018 PULSE OXIMETRY, CONTINUOUS [facility] Start: 08-25-2018 Glucose blood reagent strip [facility] Start: 08-25-2018 Gluc bld gluc mntr d ev cleared fda spec home use [facility] Start: 08-25-2018 STRICT INTAKE AND OUTPUT [facility] Start: 08-25-2018 PULSE OXIMETRY, [facility]INUOUS [facility] Start: 08-25-2018 Glucose blood reagent strip [facility] Start: 08-24-2018 Glucose blood reagent strip [facility] Start: 08-24-2018 Gluc bld gluc mntr d ev cleared fda spec home use [facility] Start: 08-24-2018 PULSE OXIMETRY, CONTINUOUS [facility] Start: 08-24-2018 Glucose blood reagent strip [facility] Start: 08-24-2018 Gluc bld gluc mntr d ev cleared fda spec home use [facility] Start: 08-24-2018 PULSE OXIMETRY, CONTINUOUS [facility] Start: 08-24-2018 Glucose blood reagent strip [facility] Start: 08-24-2018 Gluc bld gluc mntr d ev cleared fda spec home use [facility] Start: 08-24-2018 PULSE OXIMETRY, CONTINUOUS [facility] Start: 08-24-2018 Glucose blood reagent strip [facility] Start: 08-24-2018 Gluc bld gluc mntr d ev cleared fda spec home use [facility] Start: 08-24-2018 INITIATE OXYGEN THER APY PROTOCOL [facility] Start: 08-24-2018 PULSE OXIMETRY, CONTINUOUS [facility] Start: 08-24-2018 Assay of magnesium [facility] Start: 08-24-2018 Assay of phosphorus inorganic [facility] Start: 08-24-2018 Assay of triglycerides [facility] Start: 08-24-2018 Glucose blood reagent strip [facility] Start: 08-24-2018 Gluc bld gluc mntr d ev cleared fda spec home use [facility] Start: 08-24-2018 PULSE OXIMETRY, CONTINUOUS [facility] Start: 08-24-2018 Glucose blood reagent strip [facility] Start: 08-24-2018 Gluc bld gluc mntr d ev cleared fda spec home use [facility] Start: 08-24-2018 STRICT INTAKE AND OUTPUT [facility] Start: 08-24-2018 PULSE OXIMETRY, CONTINUOUS [facility] Start: 08-23-2018 Glucose blood reagent strip [facility] Start: 08-23-2018 Gluc bld gluc mntr d ev cleared fda spec home use [facility] Start: 08-23-2018 PULSE OXIMETRY, CONTINUOUS [facility] Start: 08-23-2018 Glucose blood reagent strip [facility] Start: 08-23-2018 Gluc bld gluc mntr d ev cleared fda spec home use [facility] Start: 08-23-2018 PULSE OXIMETRY, CONTINUOUS [facility] Start: 08-23-2018 Glucose blood reagent strip [facility] Start: 08-23-2018 IP CONSULT TO PHARMACY [facility] Start: 08-23-2018 Gluc bld gluc mntr d ev cleared fda spec home use [facility] Start: 08-23-2018 PULSE OXIMETRY, CONTINUOUS [facility] Start: 08-23-2018 TRANSFER PATIENT [facility] Start: 08-23-2018 Gluc bld gluc mntr d ev cleared fda spec home use [facility] Start: 08-23-2018 INITIATE OXYGEN THER APY PROTOCOL [facility] Start: 08-23-2018 PULSE OXIMETRY, CONTINUOUS [facility] Start: 08-23-2018 Assay of magnesium [facility] Start: 08-23-2018 Assay of phosphorus inorganic [facility] Start: 08-23-2018 Basic metabolic pane l calcium total [facility] Start: 08-23-2018 Glucose blood reagent strip [facility] Start: 08-23-2018 Gluc bld gluc mntr d ev cleared fda spec home use [facility] Start: 08-23-2018 PULSE OXIMETRY, CONTINUOUS [facility] Start: 08-23-2018 Glucose blood reagent strip [facility] Start: 08-23-2018 Gluc bld gluc mntr d ev cleared fda spec home use [facility] Start: 08-23-2018 STRICT INTAKE AND OUTPUT [facility] Start: 08-23-2018 PULSE OXIMETRY, CONTINUOUS [facility] Start: 08-23-2018 Glucose blood reagent strip [facility] Start: 08-22-2018 Gluc bld gluc mntr d ev cleared fda spec home [facility] Start: 08-22-2018 PULSE OXIMETRY, CONTINUOUS [facility] Start: 08-22-2018 Glucose blood reagent strip [facility] Start: 08-22-2018 Gluc bld gluc mntr d ev cleared fda spec home use [facility] Start: 08-22-2018 PULSE OXIMETRY, CONTINUOUS [facility] Start: 08-22-2018 Glucose blood reagent strip [facility] Start: 08-22-2018 DIETARY NUTRITION SUPPLEMENTS [facility] Start: 08-22-2018 Gluc bld gluc mntr d ev cleared fda spec home use [facility] Start: 08-22-2018 PULSE OXIMETRY, CONTINUOUS [facility] Start: 08-22-2018 Glucose blood reagent strip [facility] Start: 08-22-2018 OT EVAL AND TREAT RADHAE L [facility] Start: 08-22-2018 PT EVAL AND TREAT RADHAE L [facility] Start: 08-22-2018 Gluc bld gluc mntr d ev cleared fda spec home use [facility] Start: 08-22-2018 INITIATE OXYGEN THER APY PROTOCOL [facility] Start: 08-22-2018 PULSE OXIMETRY, CONTINUOUS [facility] Start: 08-22-2018 Glucose blood reagent strip [facility] Start: 08-22-2018 Assay of magnesium [facility] Start: 08-22-2018 Assay of phosphorus inorganic [facility] Start: 08-22-2018 Assay of triglycerides [facility] Start: 08-22-2018 Basic metabolic pane l calcium total [facility] Start: 08-22-2018 Gluc bld gluc mntr d ev cleared fda spec home use [facility] Start: 08-22-2018 PULSE OXIMETRY, CONTINUOUS [facility] Start: 08-22-2018 Glucose blood reagent strip [facility] Start: 08-22-2018 Gluc bld gluc mntr d ev cleared fda spec home use [facility] Start: 08-22-2018 STRICT INTAKE AND OUTPUT [facility] Start: 08-22-2018 PULSE OXIMETRY, CONTINUOUS [facility] Start: 08-21-2018 Glucose blood reagent strip [facility] Start: 08-21-2018 Gluc bld gluc mntr d ev cleared fda spec home use [facility] Start: 08-21-2018 PULSE OXIMETRY, CONTINUOUS [facility] Start: 08-21-2018 Glucose blood reagent strip [facility] Start: 08-21-2018 Gluc bld gluc mntr d ev cleared fda spec home use [facility] Start: 08-21-2018 PULSE OXIMETRY, CONTINUOUS [facility] Start: 08-21-2018 PT EVAL AND TREAT RAJEROD Wallace [facility] Start: 08-21-2018 Basic metabolic pane l calcium total [facility] Start: 08-21-2018 Blood count complete automated [facility] Start: 08-21-2018 Glucose blood reagent strip [facility] Start: 08-21-2018 CATHETER REMOVAL [facility] Start: 08-21-2018 EXTUBATION [facility] Start: 08-21-2018 Glucose blood reagent strip [facility] Start: 08-21-2018 TRANSFER PATIENT [facility] Start: 08-21-2018 Gluc bld gluc mntr d ev cleared fda spec home use [facility] Start: 08-21-2018 PULSE OXIMETRY, CONTINUOUS [facility] Start: 08-21-2018 Gluc bld gluc mntr d ev cleared fda spec home use [facility] Start: 08-21-2018 INITIATE OXYGEN THER APY PROTOCOL [facility] Start: 08-21-2018 PULSE OXIMETRY, CONTINUOUS [facility] Start: 08-21-2018 Glucose blood reagent strip [facility] Start: 08-21-2018 Assay of magnesium [facility] Start: 08-21-2018 Assay of phosphorus inorganic [facility] Start: 08-21-2018 Basic metabolic pane l calcium total [facility] Start: 08-21-2018 ARTERIAL BLOOD GAS, POC [facility] Start: 08-21-2018 Gluc bld gluc mntr d ev cleared fda spec home use [facility] Start: 08-21-2018 PULSE OXIMETRY, CONTINUOUS [facility] Start: 08-21-2018 Glucose blood reagent strip [facility] Start: 08-21-2018 Gluc bld gluc mntr d ev cleared fda spec home use [facility] Start: 06-28-2019 STRICT INTAKE AND OUTPUT [facility] Start: 08-21-2018 PULSE OXIMETRY, CONTINUOUS [facility] Start: 08-21-2018 Glucose blood reagent strip [facility] Start: 08-20-2018 Gluc bld gluc mntr d ev cleared fda spec home use [facility] Start: 08-20-2018 PULSE OXIMETRY, CONTINUOUS [facility] Start: 08-20-2018 Glucose blood reagent strip [facility] Start: 08-20-2018 Gluc bld gluc mntr d ev cleared fda spec home use [facility] Start: 08-20-2018 PULSE OXIMETRY, CONTINUOUS [facility] Start: 08-20-2018 Glucose blood reagent strip [facility] Start: 08-20-2018 Gluc bld gluc mntr d ev cleared fda spec home use [facility] Start: 08-20-2018 PULSE OXIMETRY, CONTINUOUS [facility] Start: 08-20-2018 Glucose blood reagent strip [facility] Start: 08-20-2018 HEMOGLOBIN AND HEMAT OCRIT, BLOOD [facility] Start: 08-20-2018 Gluc bld gluc mntr d ev cleared fda spec home use [facility] Start: 08-20-2018 INITIATE OXYGEN THER APY PROTOCOL [facility] Start: 08-20-2018 PULSE OXIMETRY, CONTINUOUS [facility] Start: 08-20-2018 Glucose blood reagent strip [facility] Start: 08-20-2018 Assay of magnesium [facility] Start: 08-20-2018 Assay of phosphorus inorganic [facility] Start: 08-20-2018 Assay of triglycerides [facility] Start: 08-20-2018 Comprehensive metabo lic panel [facility] Start: 08-20-2018 Gluc bld gluc mntr d ev cleared fda spec home use [facility] Start: 08-20-2018 PULSE OXIMETRY, CONTINUOUS [facility] Start: 08-20-2018 ARTERIAL BLOOD GAS, POC [facility] Start: 08-20-2018 LACTIC ACID,POINT OF CARE [facility] Start: 08-20-2018 Glucose blood reagent strip [facility] Start: 08-20-2018 DAILY [facility] Start: 08-20-2018 Gluc bld gluc mntr d ev cleared fda spec home use [facility] Start: 08-20-2018 STRICT INTAKE AND OUTPUT RAMO [facility] Start: 08-20-2018 PULSE OXIMETRY, CONTINUOUS [facility] Start: 08-20-2018 Glucose blood reagent strip [facility] Start: 08-19-2018 Gluc bld gluc mntr d ev cleared fda spec home use RAMO [facility] Start: 08-19-2018 PULSE OXIMETRY, CONTINUOUS [facility] Start: 08-19-2018 Glucose blood reagent strip [facility] Start: 08-19-2018 PULSE OXIMETRY, CONTINUOUS [facility] Start: 08-19-2018 Assay of magnesium [facility] Start: 08-19-2018 Assay of phosphorus inorganic [facility] Start: 08-19-2018 Basic metabolic pane l calcium total [facility] Start: 08-19-2018 Blood count complete automated [facility] Start: 08-19-2018 Calcium ionized [facility] Start: 08-19-2018 MISCELLANEOUS NURSIN G CARE ORDER (SPECIFY) [facility] Start: 08-19-2018 NOTIFY PHYSICIAN (SPECIFY) [facility] Start: 08-19-2018 STRICT INTAKE AND OUTPUT [facility] Start: 08-19-2018 VITAL SIGNS [facility] Start: 08-19-2018 Gluc bld gluc mntr d ev cleared [facility]da spec [facility] Start: 08-19-2018 Level iv surg pathol ogy gross&microscopic exam [facility] Start: 08-19-2018 ARTERIAL BLOOD GAS, POC [facility] Start: 08-19-2018 LACTIC ACID,POINT OF CARE [facility] Start: 08-19-2018 IP CONSULT TO DIETITIAN [facility] Start: 08-19-2018 ABG DRAW [facility] Start: 08-19-2018 Radiologic exam ches t single view [facility] Start: 08-19-2018 Glucose blood reagent strip [facility] Start: 08-19-2018 TRANSFER PATIENT [facility] Start: 08-19-2018 Level iv surg pathol ogy gross&microscopic exam [facility] Start: 08-19-2018 PULSE OXIMETRY, CONTINUOUS [facility] Start: 08-19-2018 Glucose blood reagent strip [facility] Start: 08-19-2018 Glucose blood reagent strip [facility] Start: 08-19-2018 INITIATE OXYGEN THER APY PROTOCOL [facility] Start: 08-19-2018 PULSE OXIMETRY, CONTINUOUS [facility] Start: 08-19-2018 Glucose blood reagent strip [facility] Start: 08-19-2018 Glucose blood reagent strip [facility] Start: 08-19-2018 PULSE OXIMETRY, CONTINUOUS [facility] Start: 08-19-2018 Assay of magnesium [facility] Start: 08-19-2018 Assay of phosphorus inorganic [facility] Start: 08-19-2018 Basic metabolic pane l calcium total [facility] Start: 08-19-2018 Blood count complete auto&auto difrntl wbc [facility] Start: 08-19-2018 ARTERIAL BLOOD GAS, POC [facility] Start: 08-19-2018 Gluc bld gluc mntr d ev cleared fda spec home use [facility] Start: 08-19-2018 LACTIC ACID,POINT OF CARE [facility] Start: 08-19-2018 Glucose blood reagent strip [facility] Start: 08-19-2018 PULSE OXIMETRY, CONTINUOUS [facility] Start: 08-19-2018 Glucose blood reagent strip [facility] Start: 08-19-2018 Glucose blood reagent strip [facility] Start: 08-18-2018 Glucose blood reagent strip [facility] Start: 08-18-2018 PULSE OXIMETRY, CONTINUOUS [facility] Start: 08-18-2018 ARTERIAL BLOOD GAS, POC [facility] Start: 08-18-2018 Gluc bld gluc mntr d ev cleared fda spec home use [facility] Start: 08-18-2018 LACTIC ACID,POINT OF CARE [facility] Start: 08-18-2018 ARTERIAL BLOOD GAS, POC [facility] Start: 08-18-2018 Glucose blood reagent strip [facility] Start: 08-18-2018 ABG DRAW [facility] Start: 08-18-2018 PULSE OXIMETRY, CONTINUOUS [facility] Start: 08-18-2018 Glucose blood reagent strip [facility] Start: 08-18-2018 Glucose blood reagent strip [facility] Start: 08-18-2018 Transfusion blood/bl ood components [facility] Start: 08-18-2018 PULSE OXIMETRY, CONTINUOUS [facility] Start: 08-18-2018 Glucose blood reagent strip [facility] Start: 08-18-2018 HEAD OF BED 60 DEGRE ES OR LESS [facility] Start: 08-18-2018 ELEVATE HEELS OFF OF BED [facility] Start: 08-18-2018 NURSING COMMUNICATION R QUAN [facility] Start: 08-18-2018 TURN PATIENT [facility]O [facility]TRE Start: 08-18-2018 Glucose blood reagent strip [facility] Start: 08-18-2018 Radiologic exam ches t single view [facility] Start: 08-18-2018 ARTERIAL BLOOD GAS, POC [facility] Start: 08-18-2018 LACTIC ACID,POINT OF CARE [facility] Start: 08-18-2018 INITIATE OXYGEN THER APY PROTOCOL [facility] Start: 08-18-2018 PULSE OXIMETRY, CONTINUOUS [facility] Start: 08-18-2018 RHYTHM STRIP REPORT [facility] Start: 08-18-2018 PULSE OXIMETRY, CONTINUOUS [facility] Start: 08-18-2018 Basic metabolic pane l calcium total [facility] Start: 08-18-2018 Blood count complete auto&auto difrntl wbc [facility] Start: 08-18-2018 Calcium ionized [facility] Start: 08-18-2018 ARTERIAL BLOOD GAS, POC [facility] Start: 08-18-2018 Gluc bld gluc mntr d ev cleared fda spec home use [facility] Start: 08-18-2018 LACTIC ACID,POINT OF CARE [facility] Start: 08-18-2018 Radiologic exam ches t single view [facility] Start: 08-18-2018 PULSE OXIMETRY, CONTINUOUS [facility] Start: 08-18-2018 TRANSFUSE RED BLOOD CELLS [facility] Start: 08-18-2018 PULSE OXIMETRY, CONTINUOUS [facility] Start: 08-17-2018 Assay of magnesium [facility] Start: 08-17-2018 Assay of phosphorus inorganic [facility] Start: 08-17-2018 Blood count complete automated [facility] Start: 08-17-2018 Calcium ionized [facility] Start: 08-17-2018 Comprehensive metabo lic panel [facility] Start: 08-17-2018 Prothrombin time [facility] Start: 08-17-2018 Thromboplastin time partial plasma/whole blood [facility] Start: 08-17-2018 Radiologic exam ches t single view [facility] Start: 08-17-2018 ARTERIAL BLOOD GAS, POC [facility] Start: 08-17-2018 Gluc bld gluc mntr d ev cleared fda spec home use [facility] Start: 08-17-2018 LACTIC ACID,POINT OF CARE [facility] Start: 08-17-2018 Iadna s aureus methi cillin resist amp probe tq [facility] Start: 08-17-2018 ABG DRAW [facility] Start: 08-17-2018 NURSING COMMUNICATION R QUAN [facility] Start: 08-17-2018 FULL CODE [facility] Start: 08-17-2018 INITIATE OXYGEN THER APY PROTOCOL [facility] Start: 08-17-2018 INTAKE AND OUTPUT AZALIA Wallace [facility] Start: 08-17-2018 REASON FOR NO MECHAN ICAL VTE PROPHYLAXIS [facility] Start: 08-17-2018 VITAL SIGNS [facility] Start: 08-17-2018 TRANSFER PATIENT [facility] Start: 08-17-2018 TYPE AND SCREEN [facility] Start: 08-17-2018 Cul prsmptv pthgnc o rganism scrn w/colony estimj [facility] Start: 08-17-2018 Level iv surg pathol ogy gross&microscopic exam [facility]OS[facility] Start: 08-17-2018 Blood gases any comb ination ph pco2 po2 co2 hco3 [facility] Start: 08-17-2018 Chloride bld [facility] Start: 08-17-2018 Creatinine other source [facility] Start: 08-17-2018 Gluc bld gluc mntr d ev cleared fda spec home use [facility] Start: 08-17-2018 Potassium serum plas ma/whole blood RAMO [facility] Start: 08-17-2018 Sodium serum plasma or whole blood RAMO LAURIE Start: 08-17-2018 Culture bacterial quanttative colony count urine RAMO GOVEAL Start: 08-17-2018 Urinalysis microscopic only RAMO GOVEAL Start: 08-17-2018 Urnls dip stick/tabl et rgnt auto w/o microscopy RAMO GOVEAL Start: 08-17-2018 PATIENT STATUS (FROM ED OR OR/PROCEDURAL) RAMO SULLIVAN Start: 08-17-2018 TELEMETRY MONITORING RA SHUBHMA SULLIVAN Start: 08-17-2018 Calcium ionized RAMO GOVEAL Start: 08-17-2018 Immunofixj electroph oresis serum RAMO GOVEAL Start: 08-17-2018 Assay of lactate RAMO GOVEAL Start: 08-17-2018 Blood count complete auto&auto difrntl wbc RAMO GOVEAL Start: 08-17-2018 Comprehensive metabo lic panel RAMO GOVEAL Start: 08-17-2018 IP CONSULT TO [facility] SURGERY RAMO GOVEAL Start: 08-17-2018 Level iv surg pathol ogy gross&microscopic exam RAMO GOVEAL Start: 07-10-2018 Us abdominal real ti me w/image limited TANYA AOUAD Start: 07-01-2018 Fluoroscopy up to 1 hour physician/qhp time TANYA AOUAD Start: 07-01-2018 Ct abdomen & pelvis w/contrast material TANYA AOUAD Start: 07-01-2018 BUN AND CREATININE ARLE TTE AOUAD Start: 06-01-2018 DISCHARGE PATIENT AZALIA SULLIVAN Start: 06-01-2018 REMOVE PICC RAMO PERSAUD UT Start: 06-01-2018 C DIFF CONTACT ISOLATION RAMO GOVEAL Start: 06-01-2018 INITIATE OXYGEN THER APY PROTOCOL RAMO GOVEAL Start: 06-01-2018 NASAL CANNULA OXYGEN RA SHUBHAM SULLIVAN Start: 06-01-2018 Blood count complete auto&auto difrntl wbc RAMO GOVEAL Start: 06-01-2018 INTAKE AND OUTPUT AZALIA GOVEAL Start: 05-31-2018 INITIATE OXYGEN THER APY PROTOCOL RAMO GOVEAL Start: 05-31-2018 NASAL CANNULA OXYGEN RA SHUBHAM SULLIVAN Start: 05-31-2018 Blood count complete auto&auto difrntl wbc RAMO GOVEAL Start: 05-31-2018 INTAKE AND OUTPUT AZALIA SULLIVAN Start: 05-30-2018 IP CONSULT TO HOME C ARE NEEDS RAMO SULLIVAN Start: 05-30-2018 DISCHARGE PATIENT AZALIA SULLIVAN Start: 05-30-2018 HEMOGLOBIN AND HEMAT OCRIT, BLOOD RAMO LAURIE Start: 05-30-2018 INITIATE OXYGEN THER APY PROTOCOL RAMO LAURIE Start: 05-30-2018 NASAL CANNULA OXYGEN RA HEEL LAURIE Start: 05-30-2018 Blood count complete auto&auto difrntl wbc RAMO LAUREI Start: 05-30-2018 INTAKE AND OUTPUT RAHEE L LAURIE Start: 05-29-2018 HEMOGLOBIN AND HEMAT OCRIT, BLOOD RAMO LAURIE Start: 05-29-2018 HEMOGLOBIN AND HEMAT OCRIT, BLOOD RAMO LAURIE Start: 05-29-2018 INITIATE OXYGEN THER APY PROTOCOL RAMO LAURIE Start: 05-29-2018 NASAL CANNULA OXYGEN RA HEEL LAURIE Start: 05-29-2018 Blood count complete auto&auto difrntl wbc RAMO LAURIE Start: 05-29-2018 INTAKE AND OUTPUT RAHEE L LAURIE Start: 05-28-2018 HEMOGLOBIN AND HEMAT OCRIT, BLOOD RAMO LAURIE Start: 05-28-2018 INITIATE OXYGEN THER APY PROTOCOL RAMO [facility] Start: 05-28-2018 NASAL CANNULA OXYGEN RA HEEL LAURIE Start: 05-28-2018 Blood count complete auto&auto difrntl wbc RAMO LAURIE Start: 05-28-2018 [facility] ctr vad w/ subq port age 4 yr/> RAMO LAURIE Start: 05-28-2018 INTAKE AND OUTPUT RAHEE L LAURIE Start: 05-27-2018 HEMOGLOBIN AND HEMAT OCRIT, BLOOD RAMO LAURIE Start: 05-27-2018 [facility] ctr vad w/ subq port age 4 yr/> RAMO LAURIE Start: 05-27-2018 MISCELLANEOUS NURSIN G CARE ORDER (SPECIFY) RAMO LAURIE Start: 05-27-2018 INITIATE OXYGEN THER APY PROTOCOL RAMO [facility] Start: 05-27-2018 NASAL CANNULA OXYGEN RA HEEL LAURIE Start: 05-27-2018 Blood count complete auto&auto difrntl wbc RAMO LAURIE Start: 05-27-2018 Comprehensive metabo lic [facility] Start: 05-27-2018 INTAKE AND OUTPUT RAHEE L LAURIE Start: 05-26-2018 HEMOGLOBIN AND HEMAT OCRIT, BLOOD RAMO LAURIE Start: 05-26-2018 NOTIFY PHYSICIAN (SPECIFY) RAMO [facility] Start: 05-26-2018 NURSING COMMUNICATION R QUAN [facility] Start: 05-26-2018 DIET GENERAL RAMO [facility] Start: 05-26-2018 Level iv surg pathol ogy gross&microscopic exam RAMO [facility] Start: 05-26-2018 Prothrombin time RAMO [facility] Start: 05-26-2018 Cul prsmptv pthgnc o rganism scrn w/colony estimj RAMO [facility] Start: 05-26-2018 Cytopath fl nongyn, sm/fltr RAMO [facility] Start: 05-26-2018 Radiological guidanc e prq drg w/plmt cath rs&i RAMO [facility] Start: 05-26-2018 INITIATE OXYGEN THER APY PROTOCOL RAMO [facility] Start: 05-26-2018 NASAL CANNULA OXYGEN RA HEEL [facility] Start: 05-26-2018 Blood count complete auto&auto difrntl wbc RAMO [facility] Start: 05-26-2018 Myoglobin RAMO [facility]SAUD [facility] Start: 05-26-2018 Reticulated platelet assay RAMO [facility] Start: 05-26-2018 INTAKE AND OUTPUT AZALIA Wallace [facility] Start: 05-26-2018 Blood count platelet automated RAMO [facility] Start: 05-26-2018 Reticulated platelet assay RAMO [facility] Start: 05-25-2018 HEMOGLOBIN AND HEMAT OCRIT, BLOOD RAMO [facility] Start: 05-25-2018 CATHETER REMOVAL RAMO [facility] Start: 05-25-2018 Echo tthrc r-t 2d w/ wom-mode compl spec&colr d RAMO [facility] Start: 05-25-2018 ELEVATE HEELS OFF OF BED RAMO [facility] Start: 05-25-2018 HEAD OF BED 60 DEGRE ES OR LESS RAMO [facility] Start: 05-25-2018 SKIN CARE RAMO [facility] Start: 05-25-2018 TURN PATIENT RAMO [facility] Start: 05-25-2018 NURSING COMMUNICATION R QUAN [facility] Start: 05-25-2018 VERIFY INFORMED CONSENT RAMO [facility] Start: 05-25-2018 LAB SCANNED REPORT LAWRENCE DALE [facility] Start: 05-25-2018 INITIATE OXYGEN THER APY PROTOCOL RAMO [facility] Start: 05-25-2018 NASAL CANNULA OXYGEN RA HEEL [facility] Start: 05-25-2018 HEMOGLOBIN AND HEMAT OCRIT, BLOOD [facility] Start: 05-25-2018 RHYTHM STRIP REPORT [facility] Start: 05-25-2018 Assay of phosphorus inorganic [facility] Start: 05-25-2018 Blood count complete auto&auto difrntl wbc [facility] Start: 05-25-2018 Myoglobin [facility] Start: 05-25-2018 Procalcitonin (pct) [facility] Start: 05-25-2018 Reticulated platelet assay [facility] Start: 05-25-2018 INTAKE AND OUTPUT [facility] Start: 05-24-2018 OT EVAL AND TREAT [facility] Start: 05-24-2018 PT EVAL AND TREAT [facility] Start: 05-24-2018 HEMOGLOBIN AND HEMAT OCRIT, BLOOD [facility] Start: 05-24-2018 PLACE INTERMITTENT P NEUMATIC COMPRESSION DEVICE [facility] Start: 05-24-2018 NASAL CANNULA OXYGEN [facility] Start: 05-24-2018 25 hydroxy includes fractions if performed [facility] Start: 05-24-2018 Acute hepatitis panel R [facility] Start: 05-24-2018 Antibody herpes smplx type 1 [facility] Start: 05-24-2018 Iron binding capacity R [facility] Start: 05-24-2018 Lipid panel [facility] Start: 05-24-2018 Lipoprotein direct measurement ldl cholesterol [facility] Start: 05-24-2018 TRANSFER PATIENT [facility] Start: 05-24-2018 CATHETER REMOVAL [facility] Start: 05-24-2018 FLU A/B, MOLECULAR [facility] Start: 05-24-2018 INITIATE OXYGEN THER APY PROTOCOL [facility] Start: 05-24-2018 Assay of lactate [facility] Start: 05-24-2018 Assay of magnesium [facility] Start: 05-24-2018 Calcium ionized [facility] Start: 05-24-2018 HEMOGLOBIN AND HEMAT OCRIT, BLOOD [facility] Start: 05-24-2018 Hepatic function panel [facility] Start: 05-24-2018 Procalcitonin (pct) [facility] Start: 05-24-2018 Radiologic exam ches t single view [facility] Start: 05-24-2018 Assay of lactate RAMO GOVEAL Start: 05-24-2018 Blood count complete auto&auto difrntl wbc RAMO GOVEAL Start: 05-24-2018 Comprehensive metabo lic panel RAMO [facility] Start: 05-24-2018 Creatine kinase total R HUMBERTO LAURIE Start: 05-24-2018 Hepatic function panel RAMO [facility] Start: 05-24-2018 Myoglobin [facility]O [facility] Start: 05-24-2018 Ecg routine ecg w/le ast 12 lds w/i&r RAMO GOVEAL Start: 05-24-2018 EKG REPORT RAMO PERSAUD [facility] Start: 05-24-2018 DAILY WEIGHTS RAMO [facility] Start: 05-24-2018 INTAKE AND OUTPUT AZALIA Wallace LAURIE Start: 05-24-2018 Assay of lactate [facility] Start: 05-24-2018 HEMOGLOBIN AND HEMAT OCRIT, BLOOD [facility] Start: 05-23-2018 Mri abdomen w/o cont rast material [facility] Start: 05-23-2018 Us retroperitoneal r eal time w/image complete [facility] Start: 05-23-2018 Creatine kinase total R [facility] Start: 05-23-2018 IP CONSULT TO INFECT IOUS DISEASES [facility] Start: 05-23-2018 Fibrin dgradj splt p roduxs aggluj slide semiquan [facility] Start: 05-23-2018 Fibrinogen activity [facility] Start: 05-23-2018 HEMOGLOBIN AND HEMAT OCRIT, BLOOD [facility] Start: 05-23-2018 Iadna s aureus methi cillin resist amp probe tq [facility] Start: 05-23-2018 IP CONSULT TO GI RAMO [facility] Start: 05-23-2018 MISCELLANEOUS NURSIN G CARE ORDER (SPECIFY) RAMO [facility] Start: 05-23-2018 FULL CODE RAMO [facility] Start: 05-23-2018 NOTIFY PHYSICIAN (SPECIFY) [facility] Start: 05-23-2018 NURSING COMMUNICATION R [facility] Start: 05-23-[address] PL[address] INTERMITTENT P NEUMATIC COMPRESSION DEVICE [facility] Start: 05-23-2018 REASON FOR NO CHEMIC AL VTE PROPHYLAXIS [facility] Start: 05-23-2018 RESPIRATORY CARE TIA LUATION ONLY RAMO [facility] Start: 05-23-2018 Us abdominal real ti me w/image limited RAMO [facility] Start: 05-23-2018 Iadna respiratry pro be & rev trnscr 12- target RAMO [facility] Start: 05-23-2018 Antibody mycoplsm AZALIA Wallace [facility] Start: 05-23-2018 Assay of lactate [facility] Start: 05-23-2018 Fibrin dgradj splt p roduxs aggluj slide semiquan RAMO [facility] Start: 05-23-2018 Fibrinogen activity [facility] Start: 05-23-2018 Thromboplastin time partial plasma/whole blood [facility] Start: 05-23-2018 Assay of urine sodium R QUAN [facility] Start: 05-23-2018 Creatinine other source RAMO [facility] Start: 05-23-2018 Iaad ia mult step me thod nos each organism [facility] Start: 05-23-2018 Protein total xcpt refractometry urine [facility] Start: 05-23-2018 Level iv surg pathol ogy gross&microscopic exam [facility] Start: 05-23-2018 Dup-scan xtr veins c omplete bilateral study [facility] Start: 05-23-2018 Alpha-fetoprotein serum [facility] Start: 05-23-2018 INITIATE OXYGEN THER APY PROTOCOL [facility] Start: 05-23-2018 Radiologic exam ches t single view [facility] Start: 05-23-2018 Assay of lactate [facility] Start: 05-23-2018 Blood count complete auto&auto difrntl wbc [facility] Start: 05-23-2018 Blood count reticulo cyte automated [facility] Start: 05-23-2018 Blood smear peripher al interp phys w/writ report [facility] Start: 05-23-2018 Comprehensive metabo lic panel [facility] Start: 05-23-2018 Reticulated platelet assay [facility] Start: 05-23-2018 Thromboplastin time partial plasma/whole blood [facility] Start: 05-23-2018 INITIATE OXYGEN THER APY PROTOCOL [facility] Start: 05-23-2018 INTAKE AND OUTPUT AZALIA Wallace [facility] Start: 05-23-2018 TELEMETRY MONITORING RA SHUBHAM [facility] Start: 05-23-2018 VITAL SIGNS [facility]O [facility] Start: 05-23-2018 GIARDIA ANTIGEN [facility] Start: 05-23-2018 GIARDIA / CRYPTOSPOR IDUM ANTIGENS [facility] Start: 05-23-2018 Iaad ia rotavirus Zion Wallace [facility] Start: 05-23-2018 Cul bact stool aerob ic isol salmonella&shigell [facility] Start: 05-23-2018 Inf agent det nuclei c acid clostridium amp probe [facility] Start: 05-23-2018 Toxin/antitoxin assa y tissue culture [facility] Start: 05-23-2018 Virus centrifuge enh ncd id imfluor stain ea [facility] Start: 05-23-2018 Thromboplastin time partial plasma/whole blood [facility] Start: 05-23-2018 Assay of lactate [facility] Start: 05-23-2018 Assay of troponin quantitative [facility] Start: 05-23-2018 Basic metabolic pane l calcium total [facility] Start: 05-23-2018 Blood count complete auto&auto difrntl wbc [facility] Start: 05-23-2018 Creatine kinase total R [facility] Start: 05-23-2018 Myoglobin RAMO BELTRE Start: 05-23-2018 Reticulated platelet assay [facility] Start: 05-23-2018 Ecg routine ecg w/le ast 12 lds w/i&r RAMO [facility] Start: 05-23-2018 EKG REPORT RAMO BELTRE Start: 05-23-2018 IP CONSULT TO CARDIOLOGY [facility] Start: 05-23-2018 Ct thorax w/contrast material [facility] Start: 05-22-2018 Radiologic exam ches t single view [facility] Start: 05-22-2018 Thromboplastin time partial plasma/whole blood [facility] Start: 05-22-2018 Assay of troponin quantitative [facility] Start: 05-22-2018 Culture bacterial bl ood aerobic w/id isolates [facility] Start: 05-22-2018 PATIENT STATUS (FROM ED OR OR/PROCEDURAL) [facility] Start: 05-22-2018 Culture bacterial bl ood aerobic w/id isolates [facility] Start: 05-22-2018 Culture bacterial quanttative colony count urine [facility] Start: 05-22-2018 Urnls dip stick/tabl et reagent auto microscopy [facility] Start: 05-22-2018 Ecg routine ecg w/le ast 12 lds w/i&r [facility] Start: 05-22-2018 EKG REPORT RAMO JAM [facility] Start: 05-22-2018 Assay of ammonia [facility] Start: 05-22-2018 Assay of lactate [facility] Start: 05-22-2018 Assay of lipase [facility] Start: 05-22-2018 Assay of thyroid sti mulating hormone tsh [facility] Start: 05-22-2018 Assay of troponin quantitative [facility] Start: 05-22-2018 Basic metabolic pane l calcium total [facility] Start: 05-22-2018 Blood count complete auto&auto difrntl wbc [facility] Start: 05-22-2018 BRAIN NATRIURETIC PEPTIDE [facility] Start: 05-22-2018 C-reactive protein [facility] Start: 05-22-2018 Creatine kinase total R [facility] Start: 05-22-2018 Fibrin dgradj produc ts d-dimer quantitative [facility] Start: 05-22-2018 Hepatic function panel [facility] Start: 05-22-2018 Myoglobin [facility] Start: 05-22-2018 Procalcitonin (pct) [facility] Start: 05-22-2018 Prothrombin time [facility] Start: 05-22-2018 Thromboplastin time partial plasma/whole blood [facility] Start: 05-22-2018 IP CONSULT TO CRITICAL CARE [facility] Start: 05-22-2018 IP CONSULT TO NEPHROLOGY [facility] Start: 05-22-2018 ANION GAP (CALC) POC [facility] Start: 05-22-2018 Blood count hemoglobin [facility] Start: 05-22-2018 Calcium ionized [facility] Start: 05-22-2018 Chloride other source R [facility] Start: 05-22-2018 CREATININE W/GFR POI NT OF CARE [facility] Start: 05-22-2018 Gluc bld gluc mntr d ev cleared fda spec home use RAMO GOVEAL Start: 05-22-2018 LACTIC ACID,POINT OF CARE RAMO GOVEAL Start: 05-22-2018 Potassium serum plas ma/whole blood RAMO GOVEAL Start: 05-22-2018 Sodium serum plasma or whole blood RAMO GOVEAL Start: 05-22-2018 VENOUS BLOOD GAS, PO INT OF CARE RAMO GOVEAL Herniated structure (morphologic abnormality) Ailyn Alexander Plan of Treatment Date Care Activity Detail Author Start: 02-26-2023 [facility] Start: 01-22-2022 MR Prostate WO and W contrast IV [facility] Start: 01-22-2022 MR prostate wo/w con MR prostate wo/ w con [facility] Patient Education [facility] Work Phone: Patient referral [facility] Work Phone: Immunizations Immunization Date Immunization Notes Care Provider Kaiden martin 01-24-2023 influenza virus vaccine, unspecified formulation ADRIANA LORETTA [facility] 12-16-2022 COVID-19 Vaccine Pfi zer - Documentation Purposes Only Alyse Schwgeovannir Other [employer] Other 12-16-2022 Flu Shot - Documentation Purposes Only Alyse Schwerer Other [employer] Other 06-18-2022 Prevnar 20 Alyse Schwere r Other [facility] 12-05-2021 influenza virus vaccine, unspecified formulation Ailyn Alexander [facility] 12-05-2021 SARS-CoV-2 (COVID-19 ) [id number] Ailyn Alexander [facility] 12-05-2021 influenza, seasonal, injectable Alyse Schwerer Other [employer] Other 06-14-2021 tetanus toxoid, redu brian diphtheria toxoid, and acellular pertussis vaccine, adsorbed Alyse Schwerer Other [facility] 03-15-2021 pneumococcal conjuga te vaccine, 13 valent Alyse Schwerer Other [facility] 11-24-2020 COVID-19 Vaccine Pfi zer - Documentation Purposes Only Alyse Schwerer Other [facility] 11-22-2020 influenza virus vaccine, unspecified formulation Ailyn Lue [facility] 11-13-2020 influenza, injectabl e, quadrivalent, contains preservative Alyse Schwerer Other [employer] Other 11-13-2020 influenza virus vaccine, unspecified formulation Ailyn Lue [facility] 06-29-2020 zoster vaccine, live Alyse Schwerer Other [employer] Other 06-29-2020 zoster vaccine recombinant Ailyn Lue [facility] 05-23-2020 COVID-19 Vaccine Pfi zer - Documentation Purposes Only Alyse Schwerer Other [facility] 05-02-2020 COVID-19 Vaccine Pfi zer - Documentation Purposes Only Alyse Schwerer Other [facility] 03-02-2020 zoster vaccine, live Alyse Schwerer Other [employer] Other 03-02-2020 zoster vaccine recombinant Ailyn Lue [facility] 11-06-2019 influenza, injectabl e, quadrivalent, preservative free Alyse Schwerer Other [employer] Other 11-06-2019 influenza virus vaccine, unspecified formulation Ailyn Lue [facility] 12-10-2018 influenza virus vaccine, unspecified formulation Ailyn Lue [facility] 12-10-2017 influenza virus vaccine, unspecified formulation Ailyn Lue [facility] Payers Date Payer Category Payer Unknown [id number] 2022 Self-pay [id number] 2014 Unknown [id number] 2010 Self-pay [id number] 1960 Medicare [id number] 2. [id number] 1954 Unknown [id number] 2.16.8 [id number] 1954 Unknown [id number] 2.16.8 [id number] 1954 Unknown [id number] 2.16.8 [id number] 1954 Unknown [id number] 2.16.8 [id number] 1954 Unknown [id number] 2.16.8 40.1.284619.3.579.2.175 1954 Unknown [id number] 2.16.8 40.1.851554.3.579.2.175 1954 Unknown [id number] 2.16.8 40.1.505226.3.579.2.647 1954 Unknown [id number] 2.16.8 40.1.080959.3.579.2.647 1954 Unknown [id number] 2.16.8 40.1.104251.3.579.2.647 1954 Unknown [id number] 2.16.84 0.1.280015.3.579.2.593 1954 Unknown [id number] 2.16.84 0.1.179232.3.579.2.593 1954 Unknown [id number] 2.16.8 40.1.342238.3.579.2.173 1954 Unknown [id number] 2.16.8 40.1.468816.3.579.2.727 1954 Unknown [id number] 2.16.8 [id number] Medicare Medicare [id number] Unknown [id number] 2.16.8 [id number] Unknown [id number] 2.16.8 40.1.938416.3.579.2.531 Unknown [id number] 2.16.8 40.1.244146.3.579.2.531 Unknown [id number] 2.16.8 40.1.020578.3.579.2.531 Unknown [id number] 2.16.8 [id number] Social History Date Type Detail Facility Sex Assigned At [employer] Other Tobacco smoking status No Smokin g Status Entered [facility] Start: 10-17-2021 End: 09-04-2023 Tobacco smoking status Never smoked tobacco (finding) [facility] Start: 1955 Sex Assigned At Male F [facility] Tobacco smoking status Never [facility] Medical Equipment Procedure Code Equipment Code Equipment Origin al Text Equipment Identifier Dates Lancets - Start: 09-06-2019 Goals Date Patient Goal Desired Activity /State Functional Status Date Assessment Result Facility 09-04-2023 Functional Status N/A [facility] 02-06-2022 Functional Status N/A [facility] 10-17-2021 Functional Status N/A [facility] 08-22-2021 Functional Status N/A [facility] Clinical Notes 12-08-2020 to 04-30-2024 Laboratory Note Date & Type Note Facility 04-30-2024 Note [place] [facility] Subjective Haim Oliver is a 68 y.o. year old male patient being seen for 6 mo follow up hypertension, hyperlipidemia, and PAF. He had routine labs with lipid panel in Feb 2024. Denies chest pain, SOB, and palpitations. Says he gets dizzy sometimes, but denies syncope and bleeding on Eliquis. Patient Active Problem List Diagnosis Bilateral cataracts Diabetes mellitus (CMS/HCC) Essential hypertension Glaucoma Hypercholesterolemia Paroxysmal atrial fibrillation (CMS/HCC) Umbilical hernia Ventral incisional hernia JAIDEN (acute kidney injury) Anemia Bandemia CRP elevated Diarrhea Gastrointestinal hemorrhage with melena Influenza Interstitial pneumonia (CMS/HCC) Liver abscess Non-traumatic rhabdomyolysis S/P exploratory laparotomy Sepsis, unspecified organism (CMS/HCC) Septic shock (CMS/HCC) Thrombocytopenia Transaminitis Family History Problem Relation Name Age of Onset Hypertension Mother Cancer Father Social History Tobacco Use Smoking status: Never Smokeless tobacco: Never Substance Use Topics Alcohol use: Yes Comment: occasional Drug use: Never DIPESH Ramon is seen in follow-up. This is the first time I meet him. He is a 68-year-old man with history of hypertension, hyperlipidemia and paroxysmal atrial fibrillation maintained on anticoagulation therapy with Eliquis. In addition he has diabetes. Today he reports that he has been doing well. He has no chest pain, shortness of breath and no palpitations. He has mild lower extremity edema. Sometimes he says he gets lightheaded. He is currently maintained on amlodipine 10 mg daily, carvedilol 25 mg twice daily, losartan hydrochlorothiazide 100-25 mg once daily. He is on Eliquis 5 mg twice daily and atorvastatin 10 mg daily. His blood pressure is not controlled. Review of Systems Cardiovascular: Positive for leg swelling. Neurological: Positive for dizziness and light-headedness. All other systems reviewed and are negative. Objective Visit Vitals BP 150/88 (BP Location: Right arm, Patient Position: Sitting) Pulse 64 Ht 1.905 m (6' 3 ) Wt 119 kg (262 lb) SpO2 97% BMI 32.75 kg/m??? Smoking Status Never BSA 2.51 m??? Physical Exam Constitutional: Appearance: He is well-developed. He is obese. He is not ill-appearing. HENT: Head: Normocephalic and atraumatic. Nose: Nose normal. Eyes: General: No scleral icterus. Pupils: Pupils are equal, round, and reactive to light. Neck: Thyroid: No thyromegaly. Vascular: No JVD. Cardiovascular: Rate and Rhythm: Normal rate and regular rhythm. Pulses: Radial pulses are 2+ on the right side and 2+ on the left side. Heart sounds: Normal heart sounds. No murmur heard. No friction rub. No gallop. Pulmonary: Effort: Pulmonary effort is normal. No respiratory distress. Breath sounds: Normal breath sounds. No wheezing or rales. Chest: Chest wall: No tenderness. Abdominal: General: Bowel sounds are normal. There is no distension. Palpations: Abdomen is soft. Tenderness: There is no abdominal tenderness. Musculoskeletal: General: No swelling. Cervical back: Neck supple. Right lower le+ Pitting Edema present. Left lower le+ Pitting Edema present. Skin: General: Skin is warm and dry. Neurological: General: No focal deficit present. Mental Status: He is alert and oriented to person, place, and time. Psychiatric: Mood and Affect: Mood normal. Behavior: Behavior is cooperative. Judgment: Judgment normal. Allergies No Known Allergies Medications Current Outpatient Medications: amLODIPine (Norvasc) 10 mg tablet, TAKE 1 TABLET BY MOUTH EVERY DAY, Disp: 90 tablet, Rfl: 3 atorvastatin (Lipitor) 10 mg tablet, TAKE 1 TABLET BY MOUTH EVERY DAY FOR 90 DAYS, Disp: , Rfl: carvedilol (Coreg) 25 mg tablet, Take 1 tablet (25 mg) by mouth with breakfast and with evening meal., Disp: 180 tablet, Rfl: 3 Eliquis 5 mg tablet, TAKE 1 TABLET BY MOUTH IN THE MORNING AND AT BEDTIME, Disp: 180 tablet, Rfl: 3 fenofibrate (Tricor) 145 mg tablet, TAKE 1 TABLET BY MOUTH EVERY DAY FOR 90 DAYS, Disp: , Rfl: losartan-hydrochlorothiazide (Hyzaar) 100-25 mg tablet, Take 1 tablet by mouth in the morning., Disp: 90 tablet, Rfl: 3 metFORMIN XR (Glucophage-XR) 750 mg 24 hr tablet, TAKE 1 TABLET BY MOUTH EVERY DAY WITH EVENING MEAL FOR 90 DAYS, Disp: , Rfl: tamsulosin (Flomax) 0.4 mg 24 hr capsule, Take 0.4 mg by mouth in the morning., Disp: , Rfl: spironolactone (Aldactone) 25 mg tablet, Take 0.5 tablets (12.5 mg) by mouth in the morning., Disp: 45 tablet, Rfl: 3 Recent Labs No visits with results within 6 Month(s) from this visit. Latest known visit with results is: [facility] on 01/26/2021 Component Date Value Glucose POC 01/26/2021 122 (H) Blood testing 03/18/2024: Hemoglobin 13, platelets 210, potassium 4.0, BUN 15, creatinine 1.34, EGFR 53, LFTs normal, (more content not included)... [facility] 11-10-2023 Note [id number] VASc=3- Age, HTN, DM Remains stable. He appears to be in rhythm and rate is well-controlled with carvedilol and he remains on Eliquis anticoagulation without any bleeding concerns. [facility] 11-10-2023 Note Continue fenofibrate and Lipitor 10 mg daily Provided patient with prescription for lipids and annual labs including liver function [facility] 11-10-2023 Note Hypertension is elev ated the patient states at home blood pressures typically 140s over 70-80. I do not have any current renal function or electrolytes unguinal leave losartan/hydrochlorothiazide as his and increase carvedilol to 25 mg twice daily, and continue Norvasc 10 mg daily. Discussed with patient to call office for any concerning symptoms with the increased carvedilol dose-including but not limited to 2 increased fatigue, lightheadedness, dizziness, syncope, slow heart rate-told patient normal heart rate is between 60-100. [facility] 11-10-2023 Note [facility] CARDIOLOGY PROGR ESS NOTE HPI: Haim Oliver is a 67 y.o. male here for routine F/U HPI 67 y.o. male here for routine f/U for HTN, HLD, PAF Very pleasant patient presents today for routine follow-up. Denies any cardiac activity limiting symptoms such as chest pain, shortness of breath. Overall states he is feeling very well denies any palpitations, lightheadedness, dizziness, syncope. Denies any bleeding tendencies with anticoagulation other than the occasional nosebleed that resolves without further intervention. Pt dienies chest pain, sob, Palpatations Review of Systems Cardiovascular: Leg swelling: very minimal. Neurological: Positive for light-headedness. All other systems reviewed and are negative Visit Vitals BP 142/77 (BP Location: Left arm, Patient Position: Sitting) Pulse 72 Ht 1.905 m (6' 3 ) Wt 117 kg (259 lb) SpO2 96% BMI 32.37 kg/m??? Smoking Status Never BSA 2.49 m??? No Known Allergies Medications: Current Outpatient Medications on File Prior to Visit Medication Sig Dispense Refill amLODIPine (Norvasc) 10 mg tablet TAKE 1 TABLET BY MOUTH EVERY DAY 90 tablet 3 atorvastatin (Lipitor) 10 mg tablet TAKE 1 TABLET BY MOUTH EVERY DAY FOR 90 DAYS Eliquis 5 mg tablet TAKE 1 TABLET BY MOUTH IN THE MORNING AND AT BEDTIME 180 tablet 3 fenofibrate (Tricor) 145 mg tablet TAKE 1 TABLET BY MOUTH EVERY DAY FOR 90 DAYS losartan-hydrochlorothiazide (Hyzaar) 100-25 mg tablet Take 1 tablet by mouth in the morning. 90 tablet 3 metFORMIN XR (Glucophage-XR) 750 mg 24 hr tablet TAKE 1 TABLET BY MOUTH EVERY DAY WITH EVENING MEAL FOR 90 DAYS tamsulosin (Flomax) 0.4 mg 24 hr capsule Take 0.4 mg by mouth in the morning. [DISCONTINUED] carvedilol (Coreg) 12.5 mg tablet TAKE 1 TABLET (12.5 MG) BY MOUTH WITH BREAKFAST AND WITH EVENING MEAL. 180 tablet 3 No current facility-administered medications on file prior to visit. Physical Exam: Constitutional: Appearance: Normal appearance. Without apparent distress, chronically ill HENT: Head: Normocephalic and atraumatic. Nose: Nose normal. Mouth/Throat: Mouth: Mucous membranes are moist. Eyes: Extraocular Movements: Extraocular movements intact. Conjunctiva/sclera: Conjunctivae normal. Neck: Vascular: No JVD. Cardiovascular: Rate and Rhythm: Normal rate and regular rhythm. Pulses: Dorsalis pedis pulses are 3 on the right side and 3on the left side. Posterior tibial pulses are 3 on the right side and 3 on the left side. Heart sounds: Normal heart sounds, S1 normal and S2 normal. Pulmonary: Effort: Pulmonary effort is normal. Breath sounds: Normal breath sounds. Abdominal: General: Bowel sounds are normal. Palpations: Abdomen is softly distended and fluctuant-patient has abdominal binder in place.. Musculoskeletal: General: Normal range of motion. Cervical back: Normal range of motion. Right lower leg: No edema. Left lower leg: No edema. Skin: General: Skin is warm and dry. Capillary Refill: Capillary refill takes less than 2 seconds. Neurological: General: No focal deficit present. Mental Status: he is alert and oriented to person, place, and time. Psychiatric: Mood and Affect: Mood normal. Behavior: Behavior normal. Thought Content: Thought content normal. Judgment: Judgment normal. Labs: F/U with PCP- staff called PCP office for lab results-states only PSA was completed Prescription provided to patient for CBC, CMP and lipid profile Last lab values have been reviewed CV Testing: EKG (01/08/2021): SR ECHO (11/30/2020) Left Ventricle: The left ventricle is normal size. Global left ventricular systolic function is hyperdynamic. EF range is estimated at 65 % -70 %. Left ventricular wall thickness is mildly increased. No regional wall motion abnormality. Concentric left ventricular hypertrophy. Right Ventricle: The right ventricle is normal in size. Right ventricular systolic function appears normal. Unable to assess right sided pressures due to lack of measurable tricuspid regurgitation. Left Atrium: The left atrium appears normal in size. Pericardium: Anterior free space is seen; effusion versus fat pad. Overall Conclusions: No significant valvular abnormalities Assessment/Plan: Essential hypertension Hypertension is elevated the patient states at home blood pressures typically 140s over 70-80. I do not have any current renal function or electrolytes unguinal leave losartan/hydrochlorothiazide as his and increase carvedilol to 25 mg twice daily, and continue Norvasc 10 mg daily. Discussed with patient to call office for any concerning symptoms with the increased carvedilol dose-including but not limited to 2 increased fatigue, lightheadedness, dizziness, syncope, slow heart rate-told patient normal heart rate is between 60-100. Hypercholesterolemia Continue fenofibrate and Lipitor 10 mg daily Provided patient with prescription for lipids and (more content not included)... [facility] 11-10-2023 Note Pt is here for a six month follow up. Pt dienies chest pain, sob, Palpatations Review of Systems Cardiovascular: Leg swelling: very minimal. Neurological: Positive for light-headedness. All other systems reviewed and are negative. [facility] 09-04-2023 Evaluation + Plan note Diagnostic Tests PendingPSA Free & Total 09/04/23 Future Scheduled TestsPSA Free & Total 09/04/23 [facility] [place] 09-04-2023 Hospital Discharge instructions Patient Education 09/04/2023 09:41:13 Benign Prostatic Hyperplasia Benign Prostatic Hyperplasia Benign prostatic hyperplasia (BPH) is an enlarged prostate gland that is caused by the normal aging process. The prostate may get bigger as a man gets older. The condition is not caused by cancer. The prostate is a walnut-sized gland that is involved in the production of semen. It is located in front of the rectum and below the bladder. The bladder stores urine. The urethra carries stored urine out of the body. An enlarged prostate can press on the urethra. This can make it harder to pass urine. The buildup of urine in the bladder can cause infection. Back pressure and infection may progress to bladder damage and kidney (renal) failure. What are the causes? This condition is part of the normal aging process. However, not all men develop problems from this condition. If the prostate enlarges away from the urethra, urine flow will not be blocked. If it enlarges toward the urethra and compresses it, there will be problems passing urine. What increases the risk? This condition is more likely to develop in men older than 50 years. What are the signs or symptoms? Symptoms of this condition include: Getting up often during the night to urinate. Needing to urinate frequently during the day. Difficulty starting urine flow. Decrease in size and strength of your urine stream. Leaking (dribbling) after urinating. Inability to pass urine. This needs immediate treatment. Inability to completely empty your bladder. Pain when you pass urine. This is more common if there is also an infection. Urinary tract infection (UTI). How is this diagnosed? This condition is diagnosed based on your medical history, a physical exam, and your symptoms. Tests will also be done, such as: A post-void bladder scan. This measures any amount of urine that may remain in your bladder after you finish urinating. A digital rectal exam. In a rectal exam, your health care provider checks your prostate by putting a lubricated, gloved finger into your rectum to feel the back of your prostate gland. This exam detects the size of your gland and any abnormal lumps or growths. An exam of your urine (urinalysis). A prostate specific antigen (PSA) screening. This is a blood test used to screen for prostate cancer. An ultrasound. This test uses sound waves to electronically produce a picture of your prostate gland. Your health care provider may refer you to a specialist in kidney and prostate diseases (urologist). How is this treated? Once symptoms begin, your health care provider will monitor your condition (active surveillance or watchful waiting). Treatment for this condition will depend on the severity of your condition. Treatment may include: Observation and yearly exams. This may be the only treatment needed if your condition and symptoms are mild. Medicines to relieve your symptoms, including: ?Medicines to shrink the prostate. ?Medicines to relax the muscle of the prostate. Surgery in severe cases. Surgery may include: ?Prostatectomy. In this procedure, the prostate tissue is removed completely through an open incision or with a laparoscope or robotics. ?Transurethral resection of the prostate (TURP). In this procedure, a tool is inserted through the opening at the tip of the penis (urethra). It is used to cut away tissue of the inner core of the prostate. The pieces are removed through the same opening of the penis. This removes the blockage. ?Transurethral incision (TUIP). In this procedure, small cuts are made in the prostate. This lessens the prostate's pressure on the urethra. ?Transurethral microwave thermotherapy (TUMT). This procedure uses microwaves to create heat. The heat destroys and removes a small amount of prostate tissue. ?Transurethral needle ablation (TUNA). This procedure uses radio frequencies to destroy and remove a small amount of prostate tissue. ?Interstitial laser coagulation (ILC). This procedure uses a laser to destroy and remove a small amount of prostate tissue. ?Transurethral electrovaporization (TUVP). This procedure uses electrodes to destroy and remove a small amount of prostate tissue. ?Prostatic urethral lift. This procedure inserts an implant to push the lobes of the prostate away from the urethra. Follow these instructions at home: Take [id number] and prescription medicines only as told by your health care provider. Monitor your symptoms for any changes. Contact your health care provider with any changes. Avoid drinking large amounts of liquid before going to bed or out in public. Avoid or reduce how much caffeine or alcohol you drink. Give yourself time when you urinate. Keep all follow-up visits. This is important. Contact a health care provider if: You have unexplained back pain. Your symptoms do not get better with treatment. You develop side effects from the medicine you are taking. Your urine becomes very dark or has a bad smell. Your lower abdomen becomes distended and you have trouble passing urine. Get help right away if: You have a fever or chills. You suddenly cannot urinate. You feel light-headed or very dizzy, or you faint. There are large amounts of blood or clots in your urine. Your urinary problems become hard to manage. You develop moderate to severe low back or flank pain. The flank is the side of your body between the ribs and the hip. These symptoms may be an emergency. Get help right away. Call 911. Do not wait to see if the symptoms will go away. Do not drive yourself to the hospital. Summary Benign prostatic hyperplasia (BPH) is an enlarged prostate that is caused by the normal aging process. It is not caused by cancer. An enlarged prostate can press on the urethra. This can make it hard to pass urine. This condition is more likely to develop in men older than 50 years. Get help right away if you suddenly cannot urinate. This information is not intended to replace advice given to you by your health care provider. Make sure you discuss any questions you have with your health care provider. Document Revised: 08/29/2021 Document Reviewed: 08/29/2021 [employer] Patient Education 2022 [employer]. Follow Up Care 03/04/2023 14:55:56 With:ADRIANA BUSTAMANTE PA-C, URL Address: When:1 year [facility] 09-04-2023 Note Patient Education Urology Benign Prostatic Hyperplasia Benign prostatic hyperplasia (BPH) is an enlarged prostate gland that is caused by the normal aging process. The prostate may get bigger as a man gets older. The condition is not caused by cancer. The prostate is a walnut-sized gland that is involved in the production of semen. It is located in front of the rectum and below the bladder. The bladder stores urine. The urethra carries stored urine out of the body. An enlarged prostate can press on the urethra. This can make it harder to pass urine. The buildup of urine in the bladder can cause infection. Back pressure and infection may progress to bladder damage and kidney (renal) failure. What are the causes? This condition is part of the normal aging process. However, not all men develop problems from this condition. If the prostate enlarges away from the urethra, urine flow will not be blocked. If it enlarges toward the urethra and compresses it, there will be problems passing urine. What increases the risk? This condition is more likely to develop in men older than 50 years. What are the signs or symptoms? Symptoms of this condition include: ? Getting up often during the night to urinate. ? Needing to urinate frequently during the day. ? Difficulty starting urine flow. ? Decrease in size and strength of your urine stream. ? Leaking (dribbling) after urinating. ? Inability to pass urine. This needs immediate treatment. ? Inability to completely empty your bladder. ? Pain when you pass urine. This is more common if there is also an infection. ? Urinary tract infection (UTI). How is this diagnosed? This condition is diagnosed based on your medical history, a physical exam, and your symptoms. Tests will also be done, such as: ? A post-void bladder scan. This measures any amount of urine that may remain in your bladder after you finish urinating. ? A digital rectal exam. In a rectal exam, your health care provider checks your prostate by putting a lubricated, gloved finger into your rectum to feel the back of your prostate gland. This exam detects the size of your gland and any abnormal lumps or growths. ? An exam of your urine (urinalysis). ? A prostate specific antigen (PSA) screening. This is a blood test used to screen for prostate cancer. ? An ultrasound. This test uses sound waves to electronically produce a picture of your prostate gland. Your health care provider may refer you to a specialist in kidney and prostate diseases (urologist). How is this treated? Once symptoms begin, your health care provider will monitor your condition (active surveillance or watchful waiting). Treatment for this condition will depend on the severity of your condition. Treatment may include: ? Observation and yearly exams. This may be the only treatment needed if your condition and symptoms are mild. ? Medicines to relieve your symptoms, including: ? Medicines to shrink the prostate. ? Medicines to relax the muscle of the prostate. ? Surgery in severe cases. Surgery may include: ? Prostatectomy. In this procedure, the prostate tissue is removed completely through an open incision or with a laparoscope or robotics. ? Transurethral resection of the prostate (TURP). In this procedure, a tool is inserted through the opening at the tip of the penis (urethra). It is used to cut away tissue of the inner core of the prostate. The pieces are removed through the same opening of the penis. This removes the blockage. ? Transurethral incision (TUIP). In this procedure, small cuts are made in the prostate. This lessens the prostate's pressure on the urethra. ? Transurethral microwave thermotherapy (TUMT). This procedure uses microwaves to create heat. The heat destroys and removes a small amount of prostate tissue. ? Transurethral needle ablation (TUNA). This procedure uses radio frequencies to destroy and remove a small amount of prostate tissue. ? Interstitial laser coagulation (ILC). This procedure uses a laser to destroy and remove a small amount of prostate tissue. ? Transurethral electrovaporization (TUVP). This procedure uses electrodes to destroy and remove a small amount of prostate tissue. ? Prostatic urethral lift. This procedure inserts an implant to push the lobes of the prostate away from the urethra. Follow these instructions at home: ? Take [id number] and prescription medicines only as told by your health care provider. ? Monitor your symptoms for any changes. Contact your health care provider with any changes. ? Avoid drinking large amounts of liquid before going to bed or out in public. ? Avoid or reduce how much caffeine or alcohol you drink. ? Give yourself time when you urinate. ? Keep all follow-up visits. This is important. Contact a health care provider if: ? You have unexplained back pain. ? Your symptoms do not get better with treatment. ? You develop side effec (more content not included)... [facility] 05-09-2023 Note Patient here for 6 m o follow up PAF, hypertension, and hyperlipidemia. Denies chest pain, SOB, palpitations, lightheadedness/syncope, and bleeding on Eliquis. Doing very well. Review of Systems Cardiovascular: Positive for leg swelling (very minimal). All other systems reviewed and are negative. [facility] 05-09-2023 Note [facility]TP CARDIOLOGY PROGR ESS NOTE HPI: Haim Oliver is a 67 y.o. male here for routine f/U for HTN, HLD, PAF Patient presents for follow up. He is doing well. He denies any cardiac complaints or concerns. Patient denies any chest pain or shortness of breath. Patient denies any lower extremity edema, orthopnea, or proximal nocturnal dyspnea. No near-syncope or syncope. No dizziness or lightheadedness. He is taking his medications as prescribed and denies any bleeding complications. Review of Systems 10 point ROS is performed and is negative unless otherwise specified in HPI Visit Vitals BP 138/82 (BP Location: Left arm, Patient Position: Sitting) Pulse 59 Ht 1.905 m (6' 3 ) Wt 122 kg (270 lb) SpO2 96% BMI 33.75 kg/m??? Smoking Status Never BSA 2.54 m??? No Known Allergies Medications: Current Outpatient Medications on File Prior to Visit Medication Sig Dispense Refill amLODIPine (Norvasc) 10 mg tablet TAKE 1 TABLET BY MOUTH EVERY DAY 90 tablet 3 atorvastatin (Lipitor) 10 mg tablet TAKE 1 TABLET BY MOUTH EVERY DAY FOR 90 DAYS carvedilol (Coreg) 12.5 mg tablet TAKE 1 TABLET (12.5 MG) BY MOUTH WITH BREAKFAST AND WITH EVENING MEAL. 180 tablet 3 Eliquis 5 mg tablet TAKE 1 TABLET BY MOUTH IN THE MORNING AND AT BEDTIME 180 tablet 3 fenofibrate (Tricor) 145 mg tablet TAKE 1 TABLET BY MOUTH EVERY DAY FOR 90 DAYS losartan-hydrochlorothiazide (Hyzaar) 100-25 mg tablet Take 1 tablet by mouth in the morning. 90 tablet 3 metFORMIN XR (Glucophage-XR) 750 mg 24 hr tablet TAKE 1 TABLET BY MOUTH EVERY DAY WITH EVENING MEAL FOR 90 DAYS tamsulosin (Flomax) 0.4 mg 24 hr capsule Take 0.4 mg by mouth in the morning. No current facility-administered medications on file prior to visit. Physical Exam: Constitutional: Appearance: Normal appearance. Without apparent distress, obese HENT: Head: Normocephalic and atraumatic. Nose: Nose normal. Mouth/Throat: Mouth: Mucous membranes are moist. Eyes: Extraocular Movements: Extraocular movements intact. Conjunctiva/sclera: Conjunctivae normal. Neck: Vascular: No JVD. Cardiovascular: Rate and Rhythm: Normal rate and regular rhythm. Pulses: Dorsalis pedis pulses are 3 on the right side and 3on the left side. Posterior tibial pulses are 3 on the right side and 3 on the left side. Heart sounds: Normal heart sounds, S1 normal and S2 normal. Pulmonary: Effort: Pulmonary effort is normal. Breath sounds: Normal breath sounds. Abdominal: General: Bowel sounds are normal. Palpations: Abdomen is soft, and rounded. Musculoskeletal: General: Normal range of motion. Cervical back: Normal range of motion. Right lower leg: No edema. Left lower leg: No edema. Skin: General: Skin is warm and dry. Capillary Refill: Capillary refill takes less than 2 seconds. Neurological: General: No focal deficit present. Mental Status: he is alert and oriented to person, place, and time. Psychiatric: Mood and Affect: Mood normal. Behavior: Behavior normal. Thought Content: Thought content normal. Judgment: Judgment normal. Labs: F/U with PCP- staff called PCP office for lab results Last lab values have been reviewed CV Testing: EKG (01/08/2021): SR ECHO (11/30/2020) Left Ventricle: The left ventricle is normal size. Global left ventricular systolic function is hyperdynamic. EF range is estimated at 65 % -70 %. Left ventricular wall thickness is mildly increased. No regional wall motion abnormality. Concentric left ventricular hypertrophy. Right Ventricle: The right ventricle is normal in size. Right ventricular systolic function appears normal. Unable to assess right sided pressures due to lack of measurable tricuspid regurgitation. Left Atrium: The left atrium appears normal in size. Pericardium: Anterior free space is seen; effusion versus fat pad. Overall Conclusions: No significant valvular abnormalities No echocardiogram results found for the past 12 months Assessment/Plan: Paroxysmal atrial fibrillation (CMS/HCC) [id number] VASc=3- Age, HTN, DM Continue anticoagulation with eliquis Monitor for s/s of bleeding Continue coreg- rate controlled Patient denies any bleeding Hypercholesterolemia Continue lipitor 10 mg daily and tricor 145 mg daily F/U with PCP for annual labs Essential hypertension Patient states that he checks his Bp regularly at home He states that Bp is well controlled Continue coreg 12.5 mg BID, norvasc 10 mg daily, hyzaar 100-25 mg daily Anjali Britt MD Interventional Cardiology, [facility] 02-26-2023 Procedure note [facility] 12-26-2022 Evaluation note Encounter Date Diagnosis Assessment Notes Dec, Type 2 diabetes mellitus without complication, without long-term current use of insulin (ICD-10 - E11.9) a1c slightly up- will continue to monitor in 6 months. Dec, Essential hypertension (ICD-10 - I10) slightly high at this time, checks at home and reports it is routinely good. Dec, Mixed hyperlipidemia (ICD-10 - E78.2) up to date with labs and good Dec, Atrial fibrillation, unspecified type (ICD-10 - I48.91) continues to follow with cardiology Dec, Elevated cholesterol with high triglycerides (ICD-10 - E78.2) Dec, Elevated PSA (ICD-10 - R97.20) continues to follow with Dr. Alexander up to date with labs for PSA 05/2022, continues to be high he reports she is just monitoring it, had Prostate MRI. Dec, Colon cancer screening (ICD-10 - Z12.11) last records we have gotten- colonoscopy 02/20/2015 with 2 year recall, he had declined previously but now agreeable-will get set up. Dec, Other we did discuss rsv, shingles vaccines. [employer] Other 12-14-2022 Hospital Discharge instructions Patient Education 02/06/2022 09:01:30 Benign Prostatic Hyperplasia Benign Prostatic Hyperplasia Benign prostatic hyperplasia (BPH) is an enlarged prostate gland that is caused by the normal agingprocess and not by cancer. The prostate is a walnut-sized gland that is involved in the production of semen. It is located in front of the rectum and below the bladder. The bladder stores urine and the urethra is the tube that carries the urine out of the body. The prostate may get bigger as a man gets older. An enlarged prostate can press on the urethra. This can make it harder to pass urine. The build-up of urine in the bladder can cause infection. Back pressure and infection may progress to bladder damage and kidney (renal) failure. What are the causes? This condition is part of a normal aging process. However, not all men develop problems from this condition. If the prostate enlarges away from the urethra, urine flow will not be blocked. If it enlarges toward the urethra and compresses it, there will be problems passing urine. What increases the risk? This condition is more likely to develop in men over the age of 50 years. What are the signs or symptoms? Symptoms of this condition include: Getting up often during the night to urinate. Needing to urinate frequently during the day. Difficulty starting urine flow. Decrease in size and strength of your urine stream. Leaking (dribbling) after urinating. Inability to pass urine. This needs immediate treatment. Inability to completely empty your bladder. Pain when you pass urine. This is more common if there is also an infection. Urinary tract infection (UTI). How is this diagnosed? This condition is diagnosed based on your medical history, a physical exam, and your symptoms. Tests will also be done, such as: A post-void bladder scan. This measures any amount of urine that may remain in your bladder after you finish urinating. A digital rectal exam. In a rectal exam, your health care provider checks your prostate by putting a lubricated, gloved finger into your rectum to feel the back of your prostate gland. This exam detects the size of your gland and any abnormal lumps or growths. An exam of your urine (urinalysis). A prostate specific antigen (PSA) screening. This is a blood test used to screen for prostate cancer. An ultrasound. This test uses sound waves to electronically produce a picture of your prostate gland. Your health care provider may refer you to a specialist in kidney and prostate diseases (urologist). How is this treated? Once symptoms begin, your health care provider will monitor your condition (active surveillance or watchful waiting). Treatment for this condition will depend on the severity of your condition. Treatment may include: Observation and yearly exams. This may be the only treatment needed if your condition and symptoms are mild. Medicines to relieve your symptoms, including: ?Medicines to shrink the prostate. ?Medicines to relax the muscle of the prostate. Surgery in severe cases. Surgery may include: ?Prostatectomy. In this procedure, the prostate tissue is removed completely through an open incision or with a laparoscope or robotics. ?Transurethral resection of the prostate (TURP). In this procedure, a tool is inserted through the opening at the tip of the penis (urethra). It is used to cut away tissue of the inner core of the prostate. The pieces are removed through the same opening of the penis. This removes the blockage. ?Transurethral incision (TUIP). In this procedure, small cuts are made in the prostate. This lessens the prostate's pressure on the urethra. ?Transurethral microwave thermotherapy (TUMT). This procedure uses microwaves to create heat. The heat destroys and removes a small amount of prostate tissue. ?Transurethral needle ablation (TUNA). This procedure uses radio frequencies to destroy and remove a small amount of prostate tissue. ?Interstitial laser coagulation (ILC). This procedure uses a laser to destroy and remove a small amount of prostate tissue. ?Transurethral electrovaporization (TUVP). This procedure uses electrodes to destroy and remove a small amount of prostate tissue. ?Prostatic urethral lift. This procedure inserts an implant to push the lobes of the prostate away from the urethra. Follow these instructions at home: Take jduu-lzv-itbsqkf and prescription medicines only as told by your health care provider. Monitor your symptoms for any changes. Contact your health care provider with any changes. Avoid drinking large amounts of liquid before going to bed or out in public. Avoid or reduce how much caffeine or alcohol you drink. Give yourself time when you urinate. Keep all follow-up visits as told by your health care provider. This is important. Contact a health care provider if: You have unexplained back pain. Your symptoms do not get better with treatment. You develop side effects from the medicine you are taking. Your urine becomes very dark or has a bad smell. Your lower abdomen becomes distended and you have trouble passing your urine. Get help right away if: You have a fever or chills. You suddenly cannot urinate. You feel lightheaded, or very dizzy, or you faint. There are large amounts of blood or clots in the urine. Your urinary problems become hard to manage. You develop moderate to severe low back or flank pain. The flank is the side of your body between the ribs and the hip. These symptoms may represent a serious problem that is an emergency. Do not wait to see if the symptoms will go away. Get medical help right away. Call your local emergency services (911 in the [place] Do not drive yourself to the hospital. Summary Benign prostatic hyperplasia (BPH) is an enlarged prostate that is caused by the normal aging process and not by cancer. An enlarged prostate can press on the urethra. This can make it hard to pass urine. This condition is part of a normal aging process and is more likely to develop in men over the age of 50 years. Get help right away if you suddenly cannot urinate. This information is not intended to replace advice given to you by your health care provider. Make sure you discuss any questions you have with your health care provider. Document Released: 02/10/2006 Document Revised: 01/05/2019 Document Reviewed: 03/17/2017 [employer] Patient Education 2019 [employer]. Follow Up Care 01/02/2022 10:48:38 With:Benjamin FENG, AMARI Spann, URO Address: When:6 months Comments:w/ PSA F/T [facility] 08-24-2022 Hospital Discharge instructions Patient Education 10/17/2021 10:47:26 Prostatitis Prostatitis Prostatitis is swelling or inflammation of the prostate gland. The prostate is a walnut-sized glandthat is involved in the production of semen. It is located below a man's bladder, in front of the rectum. There are four types of prostatitis: Chronic nonbacterial prostatitis. This is the most common type of prostatitis. It may be associatedwith a viral infection or autoimmune disorder. Acute bacterial prostatitis. This is the least common type of prostatitis. It starts quickly and isusually associated with a bladder infection, high fever, and shaking chills. It can occur at any age. Chronic bacterial prostatitis. This type usually results from acute bacterial prostatitis that happens repeatedly (is recurrent) or has not been treated properly. It can occur in men of any age but is most common among middle-aged men whose prostate has begun to get larger. The symptoms are not as severe as symptoms caused by acute bacterial prostatitis. Prostatodynia or chronic pelvic pain syndrome (CPPS). This type is also called pelvic floor disorder. It is associated with increased muscular tone in the pelvis surrounding the prostate. What are the causes? Bacterial prostatitis is caused by infection from bacteria. Chronic nonbacterial prostatitis may becaused by: Urinary tract infections (UTIs). Nerve damage. A response by the body s disease-fighting system (autoimmune response). Chemicals in the urine. The causes of the other types of prostatitis are usually not known. What are the signs or symptoms? Symptoms of this condition vary depending upon the type of prostatitis. If you have acute bacterialprostatitis, you may experience: Urinary symptoms, such as: ?Painful urination. ?Burning during urination. ?Frequent and sudden urges to urinate. ?Inability to start urinating. ?A weak or interrupted stream of urine. Vomiting. Nausea. Fever. Chills. Inability to empty the bladder completely. Pain in the: ?Muscles or joints. ?Lower back. ?Lower abdomen. If you have any of the other types of prostatitis, you may experience: Urinary symptoms, such as: ?Sudden urges to urinate. ?Frequent urination. ?Difficulty starting urination. ?Weak urine stream. ?Dribbling after urination. Discharge from the urethra. The urethra is a tube that opens at the end of the penis. Pain in the: ?Testicles. ?Penis or tip of the penis. ?Rectum. ?Area in front of the rectum and below the scrotum (perineum). Problems with sexual function. Painful ejaculation. Bloody semen. How is this diagnosed? This condition may be diagnosed based on: A physical and medical exam. Your symptoms. A urine test to check for bacteria. An exam in which a health care provider uses a finger to feel the prostate (digital rectal exam). A test of a sample of semen. Blood tests. Ultrasound. Removal of prostate tissue to be examined under a microscope (biopsy). Tests to check how your body handles urine (urodynamic tests). A test to look inside your bladder or urethra (cystoscopy). How is this treated? Treatment for this condition depends on the type of prostatitis. Treatment may involve: Medicines to relieve pain or inflammation. Medicines to help relax your muscles. Physical therapy. Heat therapy. Techniques to help you control certain body functions (biofeedback). Relaxation exercises. Antibiotic medicine, if your condition is caused by bacteria. Warm water baths (sitz baths). Sitz baths help with relaxing your pelvic floor muscles, which helpsto relieve pressure on the prostate. Follow these instructions at home: Take eesr-ouz-wiabpnc and prescription medicines only as told by your health care provider. If you were prescribed an antibiotic, take it as told by your health care provider. Do not stop taking the antibiotic even if you start to feel better. If physical therapy, biofeedback, or relaxation exercises were prescribed, do exercises as instructed. Take sitz baths as directed by your health care provider. For a sitz bath, sit in warm water that is deep enough to cover your hips and buttocks. Keep all follow-up visits as told by your health care provider. This is important. Contact a health care provider if: Your symptoms get worse. You have a fever. Get help right away if: You have chills. You feel nauseous. You vomit. You feel light-headed or feel like you are going to faint. You are unable to urinate. You have blood or blood clots in your urine. This information is not intended to replace advice given to you by your health care provider. Make sure you discuss any questions you have with your health care provider. Document Released: 02/07/2001 Document Revised: 04/25/2018 Document Reviewed: 10/31/2016 [employer] Patient Education 2020 [employer] Follow Up Care 08/22/2021 08:48:59 With:Benjamin FENG, Ailyn Rice, URL, URO Address: When:3 months Comments:w/ PSA F/T [facility] 06-29-2022 Hospital Discharge instructions Patient Education 08/22/2021 08:03:38 Prostate Cancer Screening Prostate Cancer Screening The prostate is a walnut-sized gland that is located below the bladder and in front of the rectum in males. The function of the prostate (prostate gland) is to add fluid to semen during ejaculation. Prostate cancer is the second most common type of cancer in men. A screening test for cancer is a test that is done before cancer symptoms start. Screening can helpto identify cancer at an early stage, when the cancer can be treated more easily. The recommended prostate cancer screening test is a blood test called the prostate-specific antigen (PSA) test. PSA is a protein that is made in the prostate. As you age, your prostate naturally produces more PSA. Abnormally high PSA levels may be caused by: Prostate cancer. An enlarged prostate that is not caused by cancer (benign prostatic hyperplasia, BPH). This condition is very common in older men. A prostate gland infection (prostatitis). Medicines to assist with hair growth, such as finasteride. Depending on the PSA results, you may need more tests, such as: A physical exam to check the size of your prostate gland. Blood and imaging tests. A procedure to remove tissue samples from your prostate gland for testing (biopsy). Who should have screening? Screening recommendations vary based on age. If you are younger than age 40, screening is not recommended. If you are age 40 54 and you have no risk factors, screening is not recommended. If you are younger than age 55, ask your health care provider if you need screening if you have oneof these risk factors: ?Being of -[place] descent. ?Having a family history of prostate cancer. If you are age 55 69, talk with your health care provider about your need for screening and how often screening should be done. If you are older than age 70, screening is not recommended. This is because the risks that screening can cause are greater than the benefits that it may provide (risks outweigh the benefits). If you are at high risk for prostate cancer, your health care provider may recommend that you have screenings more often or start screening at a younger age. You may be at high risk if you: Are older than age 55. Are -[place]aur[place]. Have a father, brother, or uncle who has been diagnosed with prostate cancer. The risk may be higher if your family member's cancer occurred at an early age. What are the benefits of screening? There is a small chance that screening may lower your risk of dying from prostate cancer. The chance is small because prostate cancer is typically a slow-growing cancer, and most men with prostate cancer from a different cause. What are the risks of screening? The main risk of prostate cancer screening is diagnosing and treating prostate cancer that would never have caused any symptoms or problems (overdiagnosis and overtreatment). PSA screening cannot tell you if your PSA is high due to cancer or a different cause. A prostate biopsy is the only procedure to diagnose prostate cancer. Even the results of a biopsy may not tell you if your cancer needs mira treated. Slow-growing prostate cancer may not need any treatment other than monitoring, so diagnosing and treating it may cause unnecessary stress or other side effects. A prostate biopsy may also cause: Infection or fever. A false negative. This is a result that shows that you do not have prostate cancer when you actually do have prostate cancer. Questions to ask your health care provider When should I start prostate cancer screening? What is my risk for prostate cancer? How often do I need screening? What type of screening tests do I need? How do I get my test results? What do my results mean? Do I need treatment? Contact a health care provider if: You have difficulty urinating. You have pain when you urinate or ejaculate. You have blood in your urine or semen. You have pain in your back or in the area of your prostate. You have trouble getting or maintaining an erection (erectile dysfunction, ED). Summary Prostate cancer is a common type of cancer in men. The prostate (prostate gland) is located below the bladder and in front of the rectum. This gland adds fluid to semen during ejaculation. Prostate cancer screening may identify cancer at an early stage, when the cancer can be treated more easily. The prostate-specific antigen (PSA) test is the recommended screening test for prostate cancer. Discuss the risks and benefits of prostate cancer screening with your health care provider. If you are age 70 or older, screening is likely to lead to more risks than benefits (risks outweigh the benefits). This information is not intended to replace advice given to you by your health care provider. Make sure you discuss any questions you have with your health care provider. Document Released: 11/21/2017 Document Revised: 01/23/2018 Document Reviewed: 11/21/2017 [employer] Patient Education [employer]. Follow Up Care 06/22/2021 11:49:21 With:Benjamin FENG, AMARI Spann, URO Address[address] [place] [phone] When:10/22/2021 [facility] 04-21-2022 Evaluation note* Encounter Date Diagnosis Assessment Notes Treatment Notes Treatment Clinical Notes May, Medicare annual wellness visit, initial (ICD-10 - Z00.00) Personalized health advice was given to the beneficiary including a written plan for screenings discussed and provided. Advanced care planning reviewed and/or information given as requested. The above visit was performed by Jahaira HADLEY, under direct supervision of Dr. Alyse Isbell DO. Document reviewed and amended by provider signed below. Tdap given in office. May, Type 2 diabetes mellitus without complication, without long-term current use of insulin (ICD-10 - E11.9) A1c controlled. will continue current tx. May, Essential hypertension (ICD-10 - I10) Blood pressure is high the office today. He does bring readings from home and they are also high. We will increase his metoprolol he currently is taking 1/2 tablet twice a day will increase it to 1 tablet twice a day he will call us with his blood pressure readings in 1 week. He is maxed out on other medications that he is currently on. If this does not help then we would add clonidine. May, Mixed hyperlipidemia (ICD-10 - E78.2) LDL 75, this is good. May, Atrial fibrillation, unspecified type (ICD-10 - I48.91) Follows with cardiology in a few weeks. May, Elevated cholesterol with high triglycerides (ICD-10 - E78.2) Significantly elevated triglycerides we will add fenofibrate. May, Elevated PSA (ICD-10 - R97.20) PSA 4.6. He needs to see urology also this. [employer] Other 03-09-2022 Evaluation note* Encounter Date Diagnosis Assessment Notes Treatment Notes Treatment Clinical Notes Apr, Mixed hyperlipidemia (ICD-10 - E78.2) [employer] Other 03-08-2022 Evaluation note* Encounter Date Diagnosis Assessment Notes Treatment Notes Treatment Clinical Notes Apr, Essential hypertension (ICD-10 - I10) [employer] Other 02-08-2022 Evaluation note* Encounter Date Diagnosis Assessment Notes Treatment Notes Treatment Clinical Notes Mar, Essential hypertension (ICD-10 - I10) [employer] Other 01-20-2022 Evaluation note* Encounter Date Diagnosis Assessment Notes Treatment Notes Treatment Clinical Notes Feb, Type 2 diabetes mellitus without complication, without long-term current use of insulin (ICD-10 - E11.9) a1c good today, will continue to monitor in 3 months. Feb, Mixed hyperlipidemia (ICD-10 - E78.2) will update labs. Feb, Essential hypertension (ICD-10 - I10) high today, will add amlodipine. he will call in 1 week with readings and will adjust at that time. Feb, Prostate cancer screening (ICD-10 - Z12.5) will update. Feb, Atrial fibrillation, unspecified type (ICD-10 - I48.91) will continue to follow with cardiology. continue eliquis [employer] Other 11-06-2021 NoteMR#: [id number] [facility] Pt. Name: Haim Oliver Admitted: 12/21/2020 Discharged: 12/29/2020 Date of : 1955 Physician: Adriana Sánchez M.D. DISCHARGE SUMMARY PRINCIPAL DIAGNOSIS: Abdominal skin necrosis. Status post open ventral hernia repair with mesh HOSPITAL COURSE: The patient is a 65-year-old male who presented to the emergency department for complaints of nonhealing midline incision. He recently had an open hernia repair with bilateral component separation repair. He had mesh placement for his hernia repair. He had some drainage from the midline that was opened at the bedside by Dr. Sánchez and it was b.i.d. Dakin dressings, and he also was found to have JAIDEN. Nephrology was consulted. He also was placed with the wound VAC prior to discharge. His antibiotics were switched to Bactrim DS for a total of 7 days. He was instructed to follow up with Dr. Sánchez on 01/02/2021 at 9 a.m. for wound VAC and abdominal wound check. He was also set up with home health care for his wound VAC changes. The patient also was instructed to get a BMP 1 week prior to discharge and follow up with Nephrology in 1-2 weeks. The patient understood all discharge instructions and was discharged in stable condition. Electronically Signed by: Adriana Sánchez M.D. 01/02/2021 05:02 P Adriana Sánchez M.D. I personally saw this patient on the day of the encounter, performed the olsen portion(s) of the service and participated in the management and confirm the resident's documentation. Please note there may be an additional personal documentation from me. Date Dict: 12/29/2020/07:00 P/Kailyn Nascimento, [facility] Date Trans: 12/30/2020 10:20 A/dyana [id number] cc: Adrinaa Sánchez M.D. [address] [place] [address] Dept. [facility] [id number] NoteMR#: [id number] [facility] Pt. Name: Haim Oliver Admitted: 11/27/2020 Discharged: Date of : 1955 Physician: Bossman Sánchez MD DISCHARGE SUMMARY Date of admission: 11/27/2020 Date of discharge: 12/08/2020 Admitting diagnosis: Incisional hernia Discharge diagnosis: Incisional hernia Admitting physician: Adriana Sánchez MD Hospital course: This is a 65-year-old man with history of ventral hernia repair complicated by mesh infection and subsequent explantation. Since then patient have developed a large ventral incisional hernia. Patient presented on 11/27/2020 for incisional hernia repair with mesh, bilateral anterior component separation. Please see separate operative dictations. Postoperatively patient had relatively quick return of bowel function. Due to large size of the hernia his physical mobility was limited. Mobility improved with physical therapy during the postoperative days 3 through 7. Along the midline closure of the skin, there is an area of skin necrosis approximately 2 x 1 cm with surrounding cyanosis. Topical bacitracin is applied over the affected area. Patient will need close postoperative follow-up for reassessment of skin and need for additional local wound care. Discharged home in stable condition on 12/08/2020. Discharge destination: Home independent Electronically Signed by: Bossman Sánchez MD 12/08/2020 08:25 A Bossman Sánchez MD Date Dict: 12/08/2020/08:20 A/Bossman Sánchez MD Date Trans: 12/08/2020 08:20 A/ STEFANO_JN:[id number] Future Appointments Appointment Date:10/03/2021 09:15:00 AM Scheduled Provider:Ailyn Alexander MD Location:[facility] Appointment Type:URO Office Visit Diagnostic Tests Pending * PSA Free & Total 08/22/21 [facility] evaluation + Plan note Future Appointments Appointment Date:10/03/2021 09:15:00 AM Scheduled Provider:Ailyn Alexander MD Location:[facility] Appointment Type:URO Office Visit Diagnostic Tests Pending * Urine Culture 08/22/21 [facility] SystemEvaluation + Plan note Future Appointments Appointment Date:01/02/2022 09:30:00 AM Scheduled Provider:Ailyn Alexander MD Location:[facility] Appointment Type:URO Office Visit Diagnostic Tests Pending * PSA Free & Total 10/17/21 [facility] evaluation + Plan note Future Appointments Appointment Date:01/02/2022 09:30:00 AM Scheduled Provider:Ailyn Alexander MD Location:[facility] Appointment Type:URO Office Visit Diagnostic Tests Pending * [facility]ments Appointment Date:08/07/2022 08:30:00 AM Scheduled Provider:Ailyn Alexander MD Location:[facility] Appointment Type:URO Office Visit Diagnostic Tests Pending * PSA Free & Total 02/06/22 [facility] evalqcmdlp noteNo InformationNortBenbria Other Evaluation noteNo assessment information available [facility] Work Phone: History and physical note Author Asim Dodge [facility] February 26, 2023 8:21am Note Date/Time February 26, 2023 8: 21am [facility] [address] [place] [address] Gastroenterology H&P Signed Patient: Haim Oliver MR#: [id number] : 1955 Acct:[id number] Age/Sex: 67 / M Adm Date: 4 Loc: Room: Type: [facility] Attending Dr: Asim Dodge MD Copies to: MD Alyse Lopez, ~ Date of Service: 02/26/2023 HISTORY & PHYSICAL: Patient's history with special attention to the cardiovascular, pulmonary systems and the current problem was reviewed with the patient immediately prior to the procedure. Present medications and doses reviewed in the EMR. Allergies and pertinent laboratory tests were also reviewedat this time in the EMR. The physical examination, as below, was then performed. Indication, assessment and HPI: 67-year-old male presents for screening colonoscopy Family history of GI malignancy? No PHYSICAL EXAMINATION Mouth and Pharynx : Moist mucus membranes, normal dentition Cardiac: Regular rate, regular rhythm Pulmonary: Clear to auscultation bilaterally, no wheezing Neurological: Alert and oriented x3, no focal deficits noted Abdomen: Abdomen soft, non-tender REVIEW OF SYSTEMS Constitutional: Denies malaise, fevers Cardiovascular: Denies chest pain, palpitations Respiratory: Denies shortness of breath, wheezing Gastrointestinal: Per HPI Genitourinary: Denies dysuria, polyuria Musculoskeletal: Denies joint swelling, joint stiffness Neurological: Denies numbness, tingling Integumentary: Denies rashes, skin lesions Endocrine: Denies fatigue, weight loss Written informed consent obtained from the patient. Risks (including but not limited to perforation, infection, bloating, bleeding, need for emergent surgeryand loss of life), benefits and alternatives explained and questions answered. The patient verbalized understanding. Based on history patient is an appropriate candidate for the procedure. Asim Dodge MD Documented By: Asim Dodge MD 02/26/23820 Signed By: <Electronically signed by Asim Dodge MD> 02/26/23820 [facility] Work Phone: History general Narrative - Reported* Type Description Date Medical History HTN Medical History DM TYPE 2 Surgical History cholecystectomy Surgical History wisdom teeth Surgical History tonsillectomy and adenoidectomy Surgical History hernia repair Surgical History Dr Kelly Paredes--cataract remova l OU 10/2019 Surgical History hernia Hospitalization History see above [employer] Other Hospital course Narrative No data available for this section [facility] Hospital Discharge instructions No data available for this section [facility] Additional Instructions Hold your morning dose of Eliquis today. You can either hold your dose of Eliquis tonight or take it. Avoid touching your nose for 24 hours. Get a humidifier to help prevent your nose from drying out. If your nose starts bleeding again apply direct pressure with 1 finger to the site of the bleeding for at least 5 minutes. If you are unable to get the bleeding to stop, return to emergency department.[facility] Work Phone: Hospital Discharge instructions Additional Instructions DISCHARGE INSTRUCTIONS FOR COLONOSCOPY WHAT TO EXPECT: - You may feel full, gassy or cramping after your procedure. In some cases, this may be from a few hours to a day. Walking may help relieve the discomfort. - If you have polyp(s) removed you may note some minor bloody discharge after your first bowel movements. - You should begin to recover from anesthesia within 1 hour of the procedure, however may feel groggy for the next 24 hours. DO's AND DON'Ts: - Call your doctor right away if you have a hard abdomen, severe pain, are passing lots of bright red blood or clots. - Call your doctor if you develop any rashes, hives or difficulty breathing. - Let your doctor know if you have not had a bowel movement by 3 days after your procedure. - If you take 81 mg aspirin for your heart it is safe to resume this medication. - If you take other blood thinner medications your doctor will instruct you when these can safely be resumed. - Do NOT drive for 24 hours. - Do NOT operate machinery such as power tools, lawn mowers, snow blowers, sewing machines, etc. for 24 hours. - Avoid alcoholic beverages and drugs for allergies, nerves, or sleep. - Do NOT stay alone. Do NOT leave your child unattended. - Do NOT make important personal or business decisions or sign any legal documents. - Eat solid foods and drink liquids in smaller amounts than usual until normal appetite returns. If you should experience an upset stomach, liquids high in sugar content (soda, Boom-Aid, non-acid juices) are recommended. - You can resume normal activities tomorrow. FOLLOW UP & RECOMMENDATIONS: -Restart your Eliquis tomorrow. -Follow-up with the GI office as needed. -Notify the doctor if you have any problems. -Repeat colonoscopy in 10 years. -Follow up with PCP. -Office number [phone].[facility] Work Phone: Progress note No data available for this section [facility] Summary Purpose Family History No Family History Records Found Relationship Condition Age at Onset Recorded Date/T katie Not Specified No pertinent family history Unknown Advance Directives No Advanced Directives Records Found Advance Directive Response Recorded Date/ Time Advance Directives No March 12, 2021 8:06am Advance Directive Response Recorded Date/ Time Advance Directives No March 12, 2021 9:06am Reason for Referral Reason * Waiting for appt over due for repeat colonoscopy, last 01/2015 with 2 year recall Diagnosis 1 Colon cancer screeni ng (Z12.11) Referral Organization [facility] Referring Provider First Name Alyse Referring Provider Last Name [facility] Referring Provider Specialty Family Med[facility] Referred Organization [facility] Referred Provider Asim Dodge Referred Address [address] [facility] [address] ,[place], [place],[address] Referred Provider Specialty Gastroentero logy Referral Priority Routine General Notes TimboTori norton Madisno 03/2022 01:58:50 PM > referral received and sent p2p Reason elevated psa Diagnosis 1 Elevated PSA (R97.20 ) Referral Organization [facility] Referring Provider First Name Alyse Referring Provider Last Name [facility] Referring Provider Specialty Family Medi cine Referred Organization Unknown Facility Referred Provider Specialty Urology Referral Priority Routine Chief Complaint and Reason for Visit Chief Complaint R97.20 N41.9 N40.0 R 35.1 Z79.01 Chief Complaint bloody nose Chief Complaint bloody nose Z00.00 E11.9 I10 I48.91 E78.2 Chief Complaint Z00.00 E11.9 I10 I48 .91 E78.2 Screening Chief Complaint Z00.00 E11.9 I10 I48 .91 E78.2 Screening R97.20 Additional Source Comments (unrecognized sect ion and content) No Status Records FoundNo Status Records FoundNo Status Records FoundNo Status Records FoundNo Status Records FoundNo Status Records FoundNo Status Records FoundNo Status Records Found INFORMATION SOURCE (unrecogn ized section and content) DATE CREATED AUTHOR 07/16/2018 [facility] DATE CREATED AUTHOR AUTHOR'S ORGANIZ ATION 10/28/2018 [facility] DATE CREATED AUTHOR AUTHOR'S ORGANIZ ATION 10/24/2021 [facility] DATE CREATED AUTHOR AUTHOR'S ORGANIZ ATION 01/07/2022 [facility] DATE CREATED AUTHOR AUTHOR'S ORGANIZ ATION 10/20/2022 [facility] DATE CREATED AUTHOR AUTHOR'S ORGANIZ ATION 03/12/2023 [facility] DATE CREATED AUTHOR AUTHOR'S ORGANIZ ATION 09/10/2023 [facility] DATE CREATED AUTHOR AUTHOR'S ORGANIZ ATION 05/02/2024 [facility] REASON FOR VISIT (unrecogniz ed section and content) EST PCP/DR. STRATTON PTrefil lBP logmed clarificationFAX INBOX3 month Follow up/[id number]/RENEErefillFRMC-ER6 month Follow upMAIL PPW Care Team (unrecognized sect ion and content) Team Status: Inactive Member Role Status Dates Alyse Isbell , DO Primary Care Provider Active Ailyn Alexander MD Attending Provider Active Team Status: Active Member Role Status Dates Alyse Isbell , DO Primary Care Provider Active Team Status: Inactive Member Role Status Dates Alyse Isbell , DO Primary Care Provider Active Javad Stephens , DO Emergency Provider Active Team Status: Inactive Member Role Status Dates Alyse Isbell , DO Primary Care Provider, Attendi ng Provider Active Team Status: Inactive Member Role Status Dates Alyse Isbell , DO Primary Care Provider Active Asim Dodge MD Attending Provider Active Team Status: Inactive Member Role Status Dates Alyse Isbell , DO Primary Care Provider Active Adriana Bustamante PA-C Attending Provider Active Goals (unrecognized section and content) Goals may be documented in a n alternate section FOR RECORDS PERTAINING TO PATIENTS WHO ARE OR HAVE BEEN ENROLLED IN A CHEMICAL DEPENDENCY/SUBSTANCEABUSE PROGRAM, SOME INFORMATION MAY BE OMITTED. This clinical summary was aggregated from multiple sources. Caution should be exercised in using it in the provision of clinical care. This summary normalizes information from multiple sources, and as a consequence, information in this document may materially change the coding, format and clinical context of patient data. In addition, data may be omitted in some cases. CLINICAL DECISIONS SHOULD BE BASED ON THE PRIMARY CLINICAL RECORDS. [employer] provides no warranty or guarantee of the accuracy or completeness of information in this document.
--- NOTE | 2024-05-24 09:00 | CA_ITS ---
Patient Name: MELVA OLIVER MR#: [id number] : 1955 Exam Date: 05/24/2024 Ordering Doctor: DR ELODIA HUSSEIN M.D. ECHOCARDIOGRAM REPORT PROCEDURE: CA ECHO DOPPLER COMPLETE INDICATIONS: Atrial fibrillation, peripheral edema, hypertension, diabetes COMPARISON: None. DESCRIPTION: COMPLETE ECHOCARDIOGRAM Real-time transthoracic echocardiography with 2D, M-mode, spectral and color flow Doppler performed. QUALITY: Technical quality was good. LEFT VENTRICLE: Normal chamber size. Proximal septal hypertrophy (sigmoid septum). Normal systolic function. LV EF: Normal left ventricular ejection fraction, (>55%). DIASTOLIC: Diastolic function is indeterminate. ATRIAL SEPTUM: LEFT ATRIUM: Mild dilatation. RIGHT ATRIUM: Mild dilatation. RIGHT VENTRICLE: Mild dilatation. Normal right ventricular systolic function. TRICUSPID VALVE: Normal mobility and thickness. No stenosis with no regurgitation. Unable to assess right-sided pressures due to lack of measurable tricuspid regurgitation. MITRAL VALVE: Normal mobility and thickness. No evidence of mitral valve stenosis. There is no mitral annular calcification. No mitral regurgitation. AORTIC VALVE: Normal trileaflet appearance. Thickened aortic valve. Normal leaflet mobility. No evidence of aortic valve stenosis. No aortic regurgitation. AORTIC ROOT: Normal diameter and appearance, measuring 3.8 cm. Ascending aorta is normal in size, measuring 3.4 cm. PULMONIC VALVE: Normal thickness and mobility. Normal with Trivial regurgitation. PERICARDIUM: No evidence of pericardial effusion. IVC: Not well visualized. PLEURA: CONCLUSION: 1. Normal left ventricular size and systolic function. LVEF is estimated at 55 to 60%. 2. Mildly dilated right ventricle with normal systolic function. 3. Mild biatrial dilatation. 4. No significant valvular dysfunction. 5. Unable to assess right-sided pressures due to lack of measurable tricuspid regurgitation. Adult Echocardiography Procedure Report Left Ventricle LVEDD (3.7 - 5.6 cm): 4.96 cm LVESD (2.2 - 4.0 cm): 3.00 cm LVIVS thickness (0.6 - 1.2 cm): 1.18 cm LVPW thickness (0.5 - 1.0 cm): 0.90 cm e': 0.10 m/s E - e': 7.59 LVOT Max Gradient: 1.84 mm[Hg] LVOT Area (cm2): 0.68 m/s Peak Velocity (LVOT): 0.68 m/s Mean Velocity (LVOT): 0.47 m/s LVOT Diameter 2.28 cm Left Atrium LA Volume Index (2D A2C): 39.44 ml/m2 Left Atrium Systolic Dimension: 3.88 cm Mitral Valve MV E to A Ratio: 0.89 Mitral Valve A-Wave Peak Velocity: 0.88 m/s Mitral Valve E-Wave Peak Velocity: 0.78 m/s Right Ventricle Aorta AO Root Diam: 3.85 cm Ascending Ao Diam: 3.38 cm Aortic Valve AoV Area (Peak Darci): 1.70 cm2, 1.70 cm2 AoV Area (VTI): 2.31 cm2, 2.31 cm2 Peak Velocity(Antegrade Flow): 1.63 m/s Peak Gradient(Antegrade Flow): 10.61 mm[Hg] Mean Velocity(Antegrade Flow): 1.03 m/s Mean Gradient(Antegrade Flow): 5.00 mm[Hg] Velocity Time Integral: 34.00 cm Tricuspid Valve Pulmonic Valve Mean Gradient: 2.70 mm[Hg] Mean Velocity: 0.75 m/s Peak Velocity: 1.19 m/s, 1.04 m/s Peak Gradient: 4.37 mm[Hg], 5.63 mm[Hg] Right Atrium Right Atrium Systolic Pressure: 63.70 ml, 63.70 ml Dictated by: Elodia Hussein M.D. on 05/24/2024 at 19:54 Approved by: Elodia Hussein M.D. on 05/24/2024 at 19:57
== END 2024-05-24 08:20 | disposition home or self-care (01) ==
LOC: CARD 08:19
PROVIDERS: Visit Provider Internal Medicine Interventional Cardiology
DX: R60.0 Localized edema (principal); I48.0 Paroxysmal atrial fibrillation
CPT/HCPCS: 93306

== ENCOUNTER 2024-07-27 08:05 | Outpatient (OUT) | payer MEDICARE, SELFPAY ==
--- OUTSIDE RECORDS SUMMARY | 2024-07-27 08:12 | XMS_ITS | Clinical Summary ---
Author Organization [facility] Address [address] [place] [address] Care Team Providers Care Mandolin Repairer Name Role Phone Unavailable Primary Care Provider Unavailabl e Social History Tobacco Use Types Packs/Day Years Used Date Smoking Tobacco: Never Assessed Sex and Gender Information Value Date Recorded Sex Assigned at Not on file Legal Sex Male 7:10 PM EDT Gender Identity Not on file Sexual Orientation Not on file Last Filed Vital Signs Vital Sign Reading Time Taken Comments Blood Pressure 162/102 07/11/2020 12:00 PM EDT Pulse - - Temperature - - Respiratory Rate - - Oxygen Saturation - - Inhaled Oxygen Concentration - - Weight 122 kg (270 lb) 07/11/2020 12:00 PM EDT Height 185.4 cm (6' 1 ) 07/11/2020 12:00 PM EDT Body Mass Index 35.62 07/11/2020 12:00 PM EDT Plan of Treatment Not on file Insurance [employer]
[2024-07-27 09:44] LABS: Anion Gap 15.8; Calcium 8.9 mg/dL (8.5-10.1); Carbon Dioxide 22.8 mmol/L (21.0-32.0); Chloride 107 mmol/L (98-107); Estimated GFR (African America >60 (>=60 mL/min/1.73m^2); Estimated GFR (Non-African Ame >60 (>=60 mL/min/1.73m^2); Glucose 168 mg/dL (74-106); Potassium 4.6 mmol/L (3.5-5.1); Sodium 141 mmol/L (136-145)
== END 2024-07-27 08:06 | disposition home or self-care (01) ==
LOC: LAB 08:07
PROVIDERS: Visit Provider Internal Medicine Interventional Cardiology
DX: I10 Essential (primary) hypertension (principal)
CPT/HCPCS: 36415; 80048

== ENCOUNTER 2024-08-05 09:19 | Outpatient (OUT) | payer MEDICARE, SELFPAY ==
[2024-08-05 09:53] LABS: Basophils Percent Auto 0.2 % (0.2-2.0); Eosinophils Percent Auto 0.9 % (0.9-7.0); Hematocrit 36.9 % (42.0-54.0); Hemoglobin 12.1 g/dL (14.0-18.0); Immature Granulocytes Abs Auto 0.01 10^3/uL (0.00-0.03); Immature Granulocytes Pct Auto 0.2 % (0.0-0.5); Lymphocytes Absolute Auto 1.5 10^3/uL (1.2-3.8); Lymphocytes Percent Auto 31.5 % (20.5-60.0); Mean Corpuscular HGB Conc 32.8 g/dL (29.9-35.2); Mean Corpuscular Hemoglobin 29.9 pg (25.9-34.0); Mean Corpuscular Volume 91.1 fL (80.0-94.0); Mean Platelet Volume 10.8 fL (9.5-13.5); Monocytes Absolute Auto 0.4 10^3/uL (0.3-0.8); Monocytes Percent Auto 8.4 % (1.7-12.0); Neutrophils Absolute Auto 2.7 10^3/uL (1.4-6.5); Neutrophils Percent Auto 58.8 % (43.0-75.0); Platelet Count 183 10^3/uL (150-450); Red Blood Count 4.05 10^6/uL (4.70-6.10); Red Cell Distribution Width 14.6 % (11.0-15.0); White Blood Count 4.6 10^3/uL (4.0-11.0)
[2024-08-05 11:08] LABS: Percent Iron Saturation 17.6 %
[2024-08-06 04:07] LABS: Vitamin B12 150 pg/mL (232-1245)
== END 2024-08-05 09:20 | disposition home or self-care (01) ==
LOC: LAB 09:23
DX: D64.9 Anemia, unspecified (principal)
CPT/HCPCS: 36415; 82607; 82746; 83540; 83550; 85025